=== PATIENT | male | born 1935 | race Caucasian/White ===

== ENCOUNTER 2016-07-04 10:44 | Observation (INO) | payer MEDICARE ==
--- NOTE | 2016-07-04 11:13 | ED ---
Chest Pain HPI - General Stated Complaint: Chest Pain Time Seen by Provider: 07/04/16 10:45 Source: patient, family, RN/MD - History of Present Illness Initial Comments: This patient is a 80-year-old man transferred here from [facility]. I did receive history from the patient, his , and from Dr. Calhoun, the acid dumper who did see the patient. The patient states that he woke this morning and noted that his head was sweaty, and when he lifted his head off the bed he felt that there was some pain in his left chest. He was not sure if he had strained a muscle in lifting his head. He tried to go back to sleep but the pain continued. He describes it as an aching-type pain, mild intensity, constant, and other than the sweatiness she had no other symptoms. When the pain continued he went to the other hospital and was seen there, his case was discussed with acid dumper and he was to be admitted over here for serial cardiac enzymes telemetry monitoring. MD Complaint: chest pain -: hour(s) Onset: during rest Pain Location: left chest Pain Radiation: none Severity: mild Quality: aching Consistency: constant Improves With: nothing Worsens With: nothing Anginal Symptoms: diaphoresis Treatments Prior to Arrival: other - Related Data Home Medications Medication Instructions Recorded Confirmed Diazepam [Valium] 10 mg PO DAILY PRN 07/13/15 07/04/16 Escitalopram Oxalate [Lexapro] 30 mg PO DAILY 07/13/15 07/04/16 Garlic 1 tab PO BID 07/13/15 07/04/16 Lactobacillus Acidophilus 1 tab PO QID 07/13/15 07/04/16 [Acidophilus] Loratadine [Claritin] 10 mg PO DAILY 07/13/15 07/04/16 Metoprolol Tartrate [Lopressor] 50 mg PO BID 07/13/15 07/04/16 Pramipexole [Mirapex] 0.25 mg PO BID 07/13/15 07/04/16 Warfarin [Coumadin] 2.5 mg PO MOFR 07/13/15 07/04/16 Warfarin [Coumadin] 5 mg PO SUTUWETHSA 07/13/15 07/04/16 oxyCODONE HCL/ACETAMINOPHEN 1 tab PO Q6HR PRN 07/13/15 07/04/16 [Percocet 10-325 mg] Cholecalciferol [Vitamin D3] 2,000 unit PO DAILY 07/04/16 07/04/16 Ferrous Gluconate 240 mg PO BID 07/04/16 07/04/16 busPIRone HCl [Buspar] 5 mg PO BID 07/04/16 07/04/16 sitaGLIPtin PHOSPHATE [Januvia] 25 mg PO DAILY 07/04/16 07/04/16 Allergies Allergy/AdvReac Type Severity Reaction Status Date / Time aztreonam [From Azactam] Allergy Unknown Verified 07/04/16 11:19 cephalexin monohydrate Allergy Rash/Hives Verified 07/04/16 11:19 [From Keflex] ciprofloxacin [From Cipro] Allergy Anaphylaxis Verified 07/04/16 11:19 ciprofloxacin HCl Allergy Anaphylaxis Verified 07/04/16 11:19 [From Cipro] Penicillins Allergy Anaphylaxis Verified 07/04/16 11:19 Sulfa (Sulfonamide Allergy Dyspnea Verified 07/04/16 11:19 Antibiotics) adhesive tape AdvReac Rash/Hives Verified 07/04/16 11:19 latex AdvReac Rash/Hives Verified 07/04/16 11:19 Review of Systems ROS Statement: Those systems with pertinent positive or pertinent negative responses have been documented in the HPI. ROS Other: All systems not noted in ROS Statement are negative. Constitutional: Denies: fever, chills Respiratory: Denies: cough, dyspnea, hemoptysis Cardiovascular: Reports: chest pain. Denies: palpitations, orthopnea, edema, syncope Gastrointestinal: Denies: abdominal pain, nausea, vomiting, melena, hematochezia Genitourinary: Denies: dysuria, hematuria Musculoskeletal: Denies: back pain Skin: Denies: rash Neurological: Denies: headache, weakness, numbness Hematological/Lymphatic: Denies: easy bleeding EKG Findings - EKG Comments: EKG Findings:: The patient's underlying rhythm does appear to be atrial flutter with what appears to be a 3-1 conduction. Rate is approximately 85 bpm - EKG Results: EKG: interpreted by RIMA, normal axis, normal QRS, normal ST/T Past Medical History Past Medical History: Atrial Fibrillation, Diabetes Mellitus, Osteoarthritis (OA ) History of Any Multi-Drug Resistant Organisms: None Reported Past Surgical History: Bladder Surgery, Cholecystectomy, Hernia Repair, Joint Replacement, Orthopedic Surgery Additional Past Surgical History / Comment(s): Hx quadruple bypass, colonoscopy , bilateral cataract surgery. Has shaheen from hip to knee on right side. Past Anesthesia/Blood Transfusion Reactions: No Reported Reaction Smoking Status: Former smoker Past Alcohol Use History: None Reported Past Drug Use History: None Reported - Past Family History Mother Family Medical History: AFIB, CVA/TIA, Diabetes Mellitus, Renal Disease Additional Family Medical History / Comment(s): age 88 Father Family Medical History: Pneumonia Additional Family Medical History / Comment(s): age 58 of pneumonia Brother(s) Family Medical History: Coronary Artery Disease (CAD) (Patient has one brother with heart disease requiring surgery.) Son(s) Family Medical History: No Reported History (Patient has one son no major medical problems.) General Exam Limitations: no limitations General appearance: alert, in no apparent distress Head exam: Present: atraumatic, normocephalic Eye exam: Present: normal appearance Neck exam: Present: normal inspection, full ROM Respiratory exam: Present: normal lung sounds bilaterally. Absent: respiratory distress, wheezes, rales, rhonchi, stridor Cardiovascular Exam: Present: regular rate, normal rhythm, normal heart sounds. Absent: bradycardia, tachycardia, systolic murmur, diastolic murmur, rubs, gallop GI/Abdominal exam: Present: soft. Absent: distended, tenderness, guarding, rebound Back exam: Present: normal inspection. Absent: CVA tenderness (R), CVA tenderness (L) Neurological exam: Present: alert Skin exam: Present: warm, dry, intact, normal color. Absent: rash, cyanosis, diaphoretic, erythema, petechiae, pallor, mottled Course Vital Signs 07/04/16 07/04/16 07/04/16 11:11 12:13 13:05 Temperature 98.6 F Pulse Rate 89 91 82 Respiratory 18 15 18 Rate Blood Pressure 125/70 106/59 105/61 O2 Sat by Pulse 98 96 94 L Oximetry 07/04/16 15:25 Temperature 98.1 F Pulse Rate 91 Respiratory 18 Rate Blood Pressure 119/62 O2 Sat by Pulse 97 Oximetry Disposition Clinical Impression: Acute coronary syndrome, Hyperkalemia, Renal failure Disposition: ADMITTED IP TO THIS HOSP Condition: Fair
[2016-07-04 11:29] LABS: Basophils # (A) 0.3 k/uL (0-0.2); Basophils % (A) 2 %; CH 29.9; CHCM 32.9; Eosinophils # (A) 0.3 k/uL (0-0.7); Eosinophils % (A) 2 %; HCT 40.5 % (39.0-53.0); HDW 2.87; HGB 12.9 gm/dL (13.0-17.5); Luc # (Auto) 0.33; Luc % (Auto) 2; Lymphocytes # (A) 1.7 k/uL (1.0-4.8); Lymphocytes % (A) 9 %; MCH 29.2 pg (25.0-35.0); MCHC 31.8 g/dL (31.0-37.0); MCV 91.8 fL (80.0-100.0); Mean Platelet Volume 9.1; Monocytes # (A) 0.9 k/uL (0-1.0); Monocytes % (A) 5 %; Neutrophils # (A) 15.7 k/uL (1.3-7.7); Neutrophils % (A) 82 %; RBC 4.41 m/uL (4.30-5.90); RDW 14.6 % (11.5-15.5); WBC 19.3 k/uL (3.8-10.6); WBC (Perox) 19.85
[2016-07-04 11:39] LABS: INR 2.1 (<1.1); Partial Thromboplastin Time 27.5 sec (22.0-30.0); Prothrombin Time 20.2 sec (9.0-12.0)
[2016-07-04 11:41] LABS: Calcium 9.5 mg/dL (8.4-10.2); Magnesium 1.7 mg/dL (1.6-2.3); Potassium 5.8 mmol/L (3.5-5.1); Total Bilirubin 0.6 mg/dL (0.2-1.3); Total Protein 7.4 g/dL (6.3-8.2)
[2016-07-04] MEDS ORDERED: SODIUM POLYSTYRENE SULFONATE 15 GM/60 ML BOTTLE PO STA (11:47)
[2016-07-04 12:06] LABS: Creatine Kinase MB 1.3 ng/mL (0.0-2.4); Troponin I 0.014 ng/mL (0.000-0.034)
[2016-07-04] MEDS ORDERED: NITROGLYCERIN-D5W PMX 50 MG in DEXTROSE/WATER 1 250ML.BAG IV SCH (12:45)
[2016-07-04] MEDS ORDERED: NITROGLYCERIN OINT 1 INCH/GM PACKET TOPICAL STA (13:51)
[2016-07-04] MEDS ORDERED: oxyCODONE-APAP 10-325MG 1 EACH TAB PO PRN (16:04)
[2016-07-04] MEDS ORDERED: DIAZEPAM 5 MG TAB PO PRN (16:04)
[2016-07-04] MEDS: LINAGLIPTIN 5 MG TABLET PO SCH (16:39)
[2016-07-04] MEDS: ESCITALOPRAM 10 MG TAB PO SCH (16:39)
[2016-07-04] MEDS: LORATADINE 10 MG TAB PO SCH (16:39)
[2016-07-04 17:21] LABS: Glucose,Whole Blood 107 mg/dL (75-99)
[2016-07-04] MEDS: INSULIN LISPRO (humaLOG) 300 UNIT/3 ML VIAL SQ SCH ×2 (17:22→21:12)
--- NOTE | 2016-07-04 17:33 | P.HPIM ---
History of Present Illness H&P Date: 07/04/16 Chief Complaint: Unstable angina. This is a 80-year-old male one of my patient with a previous medical history significant for CAD post CABG x5, hypertension and hypertensive cardiovascular disease, chronic atrial flutter ablation, diabetes mellitus type 2 with diabetic polyneuropathy, chronic kidney disease stage III, obesity with obstructive sleep apnea, hypogonadism, diverticulosis, GERD with hiatal hernia, left adrenal adenoma, patient apparently wokeup last night and he had perfuse sweating at that time. He ended up sitting up in bed and he woke up at around 5 :00 in the morning complaining of left-sided chest pain he thought that he pulled a muscle in his left chest he called his and his to come to the emergency department at [facility] where he had an EKG that showed atrial flutter with nonspecific ST-T wave changes, he was seen and evaluated by Dr. Strong from cardiology and the decision was made to transfer the patient to [facility] for possible left heart catheterization. I saw the patient along with Dr. Oliveira the emergency department he was chest pain -free his EKG showed atrial flutter without any specific changes, and the patient cardiac enzymes were negative 2 subsequent he would be admitted to the hospital for overnight and he was discharged home the next 24 hours after obtaining a Lexiscan Cardiolite stress test tomorrow morning. Review of Systems Constitutional: Reports weakness, Denies chills, Denies chronic headaches, Denies lethargy, Denies malaise, Denies weight gain, Denies weight loss Eyes: denies blurred vision, denies bulging eye, denies decreased vision, denies diplopia, denies discharge Ears: bilateral: decreased hearing Ears, nose, mouth and throat: Denies dysphagia, Denies neck lump, Denies swelling in throat, Denies sore throat Cardiovascular: Reports chest pain, Reports dyspnea on exertion, Reports high blood pressure, Reports irregular heart beat, Reports palpitations, Reports shortness of breath, Denies syncope Respiratory: Reports dyspnea, Reports sleep apnea, Denies congestion, Denies cough, Denies cough with sputum, Denies home oxygen, Denies pain, Denies snoring , Denies wheezing Gastrointestinal: Denies abdominal pain, Denies belching, Denies BRBPR, Denies heartburn, Denies melena, Denies nausea, Denies vomiting Genitourinary: Reports nocturia, Denies dysuria Musculoskeletal: Denies myalgias Musculoskeletal: absent: ankle pain, ankle stiffness, ankle swelling, elbow pain , elbow stiffness, elbow swelling, foot pain, foot stiffness, foot swelling, hand pain, hand stiffness, hand swelling, hip pain, hip stiffness, hip swelling , knee pain, knee stiffness, knee swelling, shoulder pain, shoulder stiffness, shoulder swelling, wrist pain, wrist stiffness, wrist swelling Integumentary: Denies pruritus, Denies rash Neurological: Denies numbness, Denies weakness Psychiatric: Denies anxiety, Denies depression Endocrine: Denies fatigue, Denies weight change Past Medical History Past Medical History: Atrial Fibrillation, Atrial Flutter, Coronary Artery Disease (CAD), Diabetes Mellitus, GERD/Reflux, Hyperlipidemia, Hypertension, Osteoarthritis (OA), Renal Disease, Sleep Apnea/CPAP/BIPAP, Thyroid Disorder Additional Past Medical History / Comment(s): CAD post CABG 5 in 2000, chronic kidney disease stage III, atrial fibrillation, atrial flutter, depression, diabetes mellitus type 2, diabetic polyneuropathy, hypertension, hyper lipidemia , obstructive sleep apnea, osteoarthritis, restless leg syndrome, hypogonadism, diverticulosis, GERD with hiatal hernia, left adrenal adenoma, renal stone of the right kidney, depression. History of Any Multi-Drug Resistant Organisms: None Reported Past Surgical History: Bladder Surgery, Cholecystectomy, Hernia Repair, Joint Replacement, Orthopedic Surgery Additional Past Surgical History / Comment(s): Hx quadruple bypass 2000., colonoscopy, bilateral cataract surgery. Has shaheen from hip to knee on right side , right ankle surgery, cholecystectomy, hernia repair, hematomata removed from the left lower extremity with 1 to [place], perforated diverticulum with surgical intervention, tonsillectomy and adenoidectomy, femur fracture ORIF, PICC line placement and removal, hernia repair. Past Anesthesia/Blood Transfusion Reactions: No Reported Reaction Past Psychological History: Depression Smoking Status: Former smoker (Patient used to smoke about pack every day for 5 years and quit over 25 years ago.) Past Alcohol Use History: None Reported Past Drug Use History: None Reported - Past Family History Mother Family Medical History: AFIB, CVA/TIA, Diabetes Mellitus, Myocardial Infarction (ME) (Mother at age of 88 from myocardial infarction and also had history of diabetes mellitus type 2, atrial fibrillation, and renal disease.), Renal Disease Additional Family Medical History / Comment(s): age 88 Father Family Medical History: Myocardial Infarction (ME) (Father at the age of 58 from myocardial infarction and pneumonia.), Pneumonia Additional Family Medical History / Comment(s): age 58 of pneumonia Brother(s) Family Medical History: Coronary Artery Disease (CAD) (Patient has one brother with heart disease requiring surgery.) Son(s) Family Medical History: No Reported History (Patient has one son no major medical problems.) Medications and Allergies Home Medications Medication Instructions Recorded Confirmed Type Diazepam [Valium] 10 mg PO DAILY PRN 07/13/15 07/04/16 History Escitalopram Oxalate [Lexapro] 30 mg PO DAILY 07/13/15 07/04/16 History Garlic 1 tab PO BID 07/13/15 07/04/16 History Lactobacillus Acidophilus 1 tab PO QID 07/13/15 07/04/16 History [Acidophilus] Loratadine [Claritin] 10 mg PO DAILY 07/13/15 07/04/16 History Metoprolol Tartrate [Lopressor] 50 mg PO BID 07/13/15 07/04/16 History Pramipexole [Mirapex] 0.25 mg PO BID 07/13/15 07/04/16 History Warfarin [Coumadin] 2.5 mg PO MOFR 07/13/15 07/04/16 History Warfarin [Coumadin] 5 mg PO SUTUWETHSA 07/13/15 07/04/16 History oxyCODONE HCL/ACETAMINOPHEN 1 tab PO Q6HR PRN 07/13/15 07/04/16 History [Percocet 10-325 mg] Cholecalciferol [Vitamin D3] 2,000 unit PO DAILY 07/04/16 07/04/16 History Ferrous Gluconate 240 mg PO BID 07/04/16 07/04/16 History busPIRone HCl [Buspar] 5 mg PO BID 07/04/16 07/04/16 History sitaGLIPtin PHOSPHATE [Januvia] 25 mg PO DAILY 07/04/16 07/04/16 History Allergies Allergy/AdvReac Type Severity Reaction Status Date / Time aztreonam [From Azactam] Allergy Unknown Verified 07/04/16 11:19 cephalexin monohydrate Allergy Rash/Hives Verified 07/04/16 11:19 [From Keflex] ciprofloxacin [From Cipro] Allergy Anaphylaxis Verified 07/04/16 11:19 ciprofloxacin HCl Allergy Anaphylaxis Verified 07/04/16 11:19 [From Cipro] Penicillins Allergy Anaphylaxis Verified 07/04/16 11:19 Sulfa (Sulfonamide Allergy Dyspnea Verified 07/04/16 11:19 Antibiotics) adhesive tape AdvReac Rash/Hives Verified 07/04/16 11:19 latex AdvReac Rash/Hives Verified 07/04/16 11:19 Physical Exam Vitals: Vital Signs Pulse Resp BP Pulse Ox 07/04/16 12:13 91 15 106/59 96 - Constitutional General appearance: average body habitus, no acute distress - EENT Eyes: anicteric sclerae, PERRLA, no ptosis, no scleral icterus, normal appearance ENT: hearing grossly normal, normal oropharynx, no thrush Ears: bilateral: normal - Neck Neck: no lymphadenopathy, normal ROM, no rigidity, no stridor, no thyromegaly Carotids: bilateral: upstroke normal Thyroid: bilateral: normal size - Respiratory Respiratory: bilateral: diminished, negative: dullness, rales, rhonchi, wheezing , prolonged expiration, prolonged inspiration - Cardiovascular Rhythm: irregularly irregular Heart sounds: normal: S1, S2 Abnormal Heart Sounds: systolic murmur - Gastrointestinal General gastrointestinal: normal bowel sounds, soft, no splenomegaly, no tenderness, no umbilical hernia - Integumentary Integumentary: normal, normal turgor - Neurologic Neurologic: CNII-XII intact - Musculoskeletal Musculoskeletal: generalized weakness, strength equal bilaterally - Psychiatric Psychiatric: A&O x's 3, appropriate affect, intact judgment & insight Results CBC & Chem 7: 07/04/16 11:00 07/04/16 11:00 Thrombosis Risk Factor Assmnt - DVT/VTE Prophylaxis DVT/VTE Prophylaxis: Pharmacologic Prophylaxis ordered Assessment and Plan Plan: Assessment and plan: 1. Left-sided chest pain. Resume the patient metoprolol 50 mg orally twice every day, cardiac enzymes 3 every 8 hours first 2 sets are negative, cardiology consultation for Lexiscan tomorrow morning. If the stress is negative patient can be discharged home in 24 hours. 2. CAD post CABG 5 in 2000. Continue metoprolol 50 mg orally twice every day , patient is not able to tolerate statin. 3. Hypertension and hypertensive cardiovascular disease. Continue patient on metoprolol 50 mg orally twice every day. 4. Diabetes mellitus type 2. Continue linagliptin 5 mg orally once every day. 5. Chronic kidney disease stage III. Stable at this time. 6. Leukocytosis. Likely reactive we'll recheck CBC tomorrow morning. 7. Obesity with obstructive sleep apnea. Continue CPAP. 8. Chronic atrial fibrillation/flutter. Continue metoprolol 50 mg orally twice every day and Coumadin keep his INR between 2-3. 9. History of diverticulosis. Clinically stable. 10. Depressive disorder. Continue patient on Lexapro 30 mg orally once every day. 11. Anxiety disorder. Continue BuSpar 15 mg orally twice every day. 12. Hypogonadism. Patient is currently on testosterone cypionate 200 mg once every 4 weeks. 13. Restless leg syndrome. Continue patient on Mirapex 0.25 mg orally twice every day. 14. Patient is a full code 15. Observation.
[2016-07-04] MEDS ORDERED: WARFARIN 2.5 MG TAB PO SCH (18:00)
[2016-07-04] MEDS: busPIRone HCl 5 MG TAB PO SCH (20:06)
[2016-07-04] MEDS: PRAMIPEXOLE 0.25 MG TAB PO SCH (20:06)
[2016-07-04] MEDS: METOPROLOL TARTRATE 50 MG TAB PO SCH (20:07)
[2016-07-04 20:54] LABS: Glucose,Whole Blood 90 mg/dL (75-99)
[2016-07-05] MEDS ORDERED: REGADENOSON 0.4 MG/5 ML SYRINGE IV ONE (01:00)
[2016-07-05 06:39] LABS: Glucose,Whole Blood 104 mg/dL (75-99)
[2016-07-05 07:59] VITALS: RESP 18
[2016-07-05 08:10] LABS: INR 2.3 (<1.1); Prothrombin Time 21.7 sec (9.0-12.0)
[2016-07-05 08:23] LABS: Calcium 9.9 mg/dL (8.4-10.2); Potassium 5.2 mmol/L (3.5-5.1)
[2016-07-05] MEDS: INSULIN LISPRO (humaLOG) 300 UNIT/3 ML VIAL SQ SCH ×2 (08:37→12:33)
[2016-07-05] MEDS: LORATADINE 10 MG TAB PO SCH (08:42)
[2016-07-05] MEDS: busPIRone HCl 5 MG TAB PO SCH (08:42)
[2016-07-05] MEDS: ESCITALOPRAM 10 MG TAB PO SCH (08:42)
[2016-07-05] MEDS: PRAMIPEXOLE 0.25 MG TAB PO SCH (08:43)
[2016-07-05] MEDS ORDERED: AMINOPHYLLINE 500 MG/20 ML VIAL IV PRN (09:00)
[2016-07-05] MEDS ORDERED: CHOLECALCIFEROL 1,000 UNIT TAB PO SCH (09:00)
--- NOTE | 2016-07-05 11:21 | EST ---
DATE OF SERVICE: 07/05/2016 AGE: 80Y SEX: M HT: 6'0" WT: 252 lbs. Lexiscan Cardiolite Stress Test *Heart Rate Blood Pressure *Rest: 72 Rest: 144/87 * *Max. Achieved: 86 Maximum BP: 138/85 85% PMHR: 121 100% PMHR: 142 *METS: - INDICATIONS: - MEDICATIONS: - Baseline EKG revealed a sinus mechanism with some baseline artifact, minor nonspecific ST-T changes. Patient was administered Lexiscan as per protocol. Heart rate went from 72 to 86 beats and blood pressure changed from 144/88 to 138/85. EKG did not reveal any new changes. By EKG criteria, this is an unremarkable Lexiscan stress test with minor resting changes. The nuclear scan results, which are more pertinent, will be reported by the radiologist.
[2016-07-05 12:17] LABS: Glucose,Whole Blood 95 mg/dL (75-99)
[2016-07-05 12:20] VITALS: BP 173/85; PULSE 119; TEMP 98.3
[2016-07-05] MEDS: METOPROLOL TARTRATE 50 MG TAB PO SCH (12:37)
[2016-07-05] MEDS: LINAGLIPTIN 5 MG TABLET PO SCH (12:38)
--- NOTE | 2016-07-05 13:37 | NM ---
EXAMINATION TYPE: NM stress lexiscan cardiolite DATE OF EXAM: 07/05/2016 11:52 AM COMPARISON: NONE HISTORY: Chest pain TECHNIQUE: After the intravenous administration of 11.0 mCi Tc 99m Sestamibi - Cardiolite resting SP ECT images acquired 45 minutes post injection. The patient received 0.4mg Lexiscan, 25.5 mCi Tc 99m Sestamibi - Stress images obtained [address] injection FINDINGS: Review of stress and rest SPECT images demonstrates decreased uptake along the inferior wall of the l eft ventricular myocardium. Some decreased uptake is present along the inferior wall towards the base of the heart on stress images as compared to rest images. Some increased uptake is questioned along the septum on stress images as compared to rest images towards the base of the heart. Gated analysis shows normal wall motion with an estimated left ventricular ejection fraction of 64 %. 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
--- NOTE | 2016-07-05 15:20 | P.PN ---
Subjective Principal diagnosis: Chest pain This is a 80-year-old gentleman who follows with Dr. Oliveira in the office. He has a known history of coronary artery disease with prior bypass surgery, hypertension, chronic atrial flutter, fibrillation, diabetes, chronic kidney disease, obstructive sleep apnea, patient presented to the hospital with symptoms of left-sided chest pain. He was noted to have some ST-T wave changes on his EKG, and his symptoms are somewhat concerning, he was seen at [facility] and transferred here for possible cardiac catheterization. Upon arrival here patient was evaluated by Dr. Oliveira, recommendation was to undergo a Lexiscan stress test today. Danielle scan revealed prior myocardial infarction, likely. Infarct pharmacologically induced ischemia. Dr. Oliveira reviewed this test himself, and felt that it was fixed defect. Patient will be discharged home today and follow-up with Dr. Oliveira in the office post discharge. Objective - Vital Signs Vital signs: Vital Signs Temp 98.3 F 07/05/16 12:00 Pulse 119 H 07/05/16 12:00 Resp 18 07/05/16 12:00 BP 173/85 07/05/16 12:00 Pulse Ox 95 07/05/16 12:00 Intake & Output 07/04/16 07/05/16 07/05/16 18:59 06:59 18:59 Intake Total 236 200 Balance 236 200 Weight 114.6 kg Intake: Oral 236 200 Other: Voiding Method Toilet # Voids 2 - Exam PHYSICAL EXAMINATION: HEENT: Head is atraumatic, normocephalic. Pupils equal, round. Neck is supple. There is no elevated jugular venous pressure. HEART EXAMINATION: S1 and S2 irregular irregular a systolic murmur is heard. CHEST EXAMINATION: Clear with diminished air entry to bilateral bases. ABDOMEN: Soft, nontender. Bowel sounds are heard. No organomegaly noted. EXTREMITIES: 2+ peripheral pulses with no evidence of peripheral edema and no calf tenderness noted. NEUROLOGIC patient is awake, alert and oriented -3. . - Labs CBC & Chem 7: 07/04/16 11:00 07/05/16 07:32 Labs: Abnormal Lab Results - Last 24 Hours (Table) 07/04/16 07/05/16 07/05/16 Range/Units 16:54 06:38 07:32 PT 21.7 H (9.0-12.0) sec Potassium (3.5-5.1) mmol/L BUN (9-20) mg/dL Creatinine (0.66-1.25) mg/dL Glucose (74-99) mg/dL POC Glucose (mg/dL) 107 H 104 H (75-99) mg/dL 07/05/16 Range/Units 07:32 PT (9.0-12.0) sec Potassium 5.2 H (3.5-5.1) mmol/L BUN 40 H (9-20) mg/dL Creatinine 2.07 H (0.66-1.25) mg/dL Glucose 109 H (74-99) mg/dL POC Glucose (mg/dL) (75-99) mg/dL Assessment and Plan (1) Chest pain Status: Acute (2) Hx of CABG Status: Acute (3) HTN (hypertension) Status: Acute (4) Diabetes Status: Acute (5) Hyperlipemia Status: Acute (6) Obesity Status: Acute (7) Chronic a-fib Status: Acute Plan: From cardiology's perspective, patient may be able to be discharged home today. We will make him a follow-up appointment to see Dr. Oliveira in the office post discharge. DNP note has been reviewed, I agree with a documented findings and plan of care. Patient was seen and examined.
--- NOTE | 2016-07-05 16:09 | P.DS ---
Providers Date of admission: 07/04/16 11:48 Expected date of discharge: 07/05/16 Attending physician: Quintin Neal Primary care physician: Quintin Neal [facility] Course: This is a 80-year-old male one of my patient with a previous medical history significant for CAD post CABG x5, hypertension and hypertensive cardiovascular disease, chronic atrial flutter ablation, diabetes mellitus type 2 with diabetic polyneuropathy, chronic kidney disease stage III, obesity with obstructive sleep apnea, hypogonadism, diverticulosis, GERD with hiatal hernia, left adrenal adenoma, patient apparently wokeup last night and he had perfuse sweating at that time. He ended up sitting up in bed and he woke up at around 5 :00 in the morning complaining of left-sided chest pain he thought that he pulled a muscle in his left chest he called his and his to come to the emergency department at [facility] where he had an EKG that showed atrial flutter with nonspecific ST-T wave changes, he was seen and evaluated by Dr. Strong from cardiology and the decision was made to transfer the patient to [facility] for possible left heart catheterization. I saw the patient along with Dr. Oliveira the emergency department he was chest pain -free his EKG showed atrial flutter without any specific changes, and the patient cardiac enzymes were negative 2 subsequent he would be admitted to the hospital for overnight and he was discharged home the next 24 hours after obtaining a Lexiscan Cardiolite stress test tomorrow morning. 07/05: Patient underwent stress test revealing prior myocardial infarction suspected. There is likely tiara-infarct pharmaceutically induced left ventricular myocardial ischemia. Patient was cleared by cardiology for discharge home. Patient is being discharged home today. He denies any chest pain or shortness of breath. INR is at 2.3. Discharge diagnoses: 1. Left-sided chest pain. 2. CAD post CABG 5 in 2000. 3. Hypertension and hypertensive cardiovascular disease. 4. Diabetes mellitus type 2. 5. Chronic kidney disease stage III. 6. Leukocytosis. 7. Obesity with obstructive sleep apnea. 8. Chronic atrial fibrillation/flutter. 9. History of diverticulosis. 10. Depressive disorder recurrent. 11. Anxiety disorder generalized. 12. Hypogonadism. 13. Restless leg syndrome. Discharge plan: Home Impression and plan of care have been directed as dictated by the signing physician. Juli Convery nurse practitioner acting as scribe for signing physician. Patient Condition at Discharge: Good Plan - Discharge Summary Discharge Medication List Diazepam [Valium] 10 mg PO DAILY PRN 07/13/15 [History] Escitalopram Oxalate [Lexapro] 30 mg PO DAILY 07/13/15 [History] Garlic 1 tab PO BID 07/13/15 [History] Lactobacillus Acidophilus [Acidophilus] 1 tab PO QID 07/13/15 [History] Loratadine [Claritin] 10 mg PO DAILY 07/13/15 [History] Metoprolol Tartrate [Lopressor] 50 mg PO BID 07/13/15 [History] Pramipexole [Mirapex] 0.25 mg PO BID 07/13/15 [History] Warfarin [Coumadin] 2.5 mg PO MOFR 07/13/15 [History] Warfarin [Coumadin] 5 mg PO SUTUWETHSA 07/13/15 [History] oxyCODONE HCL/ACETAMINOPHEN [Percocet 10-325 mg] 1 tab PO Q6HR PRN 07/13/15 [ History] Cholecalciferol [Vitamin D3] 2,000 unit PO DAILY 07/04/16 [History] Ferrous Gluconate 240 mg PO BID 07/04/16 [History] busPIRone HCl [Buspar] 5 mg PO BID 07/04/16 [History] sitaGLIPtin PHOSPHATE [Januvia] 25 mg PO DAILY 07/04/16 [History] Follow up Appointment(s)/Referral(s): Ash Oliveira MD [STAFF PHYSICIAN] - 1 Week (July 25, 10:30) Quintin Neal MD [Primary Care Provider] - 1 Week Patient Instructions/Handouts: Chest Pain (GEN), Hyperkalemia (GEN) Activity/Diet/Wound Care/Special Instructions: low fat/low salt diet activity as tolerated Discharge Disposition: HOME SELF-CARE
[2016-07-05] MEDS ORDERED: WARFARIN 5 MG TAB PO SCH (18:00)
== END 2016-07-05 15:44 | disposition home or self-care (01) ==
LOC: EC 10:44 → 6SEL 11:48 → 6ICU 12:30 → 3OBS 13:54
PROVIDERS: ADMIT Internal Medicine; ATTEND Internal Medicine
DX: R07.89 Other chest pain (principal); I25.10 Atherosclerotic heart disease of native coronary artery without angina pectoris; I13.10 Hypertensive heart and chronic kidney disease without heart failure, with stage 1 through stage 4 chronic kidney disease, or unspecified chronic kidney disease; N18.3 Chronic kidney disease, stage 3 (moderate); E11.42 Type 2 diabetes mellitus with diabetic polyneuropathy; D72.829 Elevated white blood cell count, unspecified; E66.9 Obesity, unspecified; G47.33 Obstructive sleep apnea (adult) (pediatric); I48.92 Unspecified atrial flutter; I48.2 Chronic atrial fibrillation; K57.90 Diverticulosis of intestine, part unspecified, without perforation or abscess without bleeding; F32.9 Major depressive disorder, single episode, unspecified; F41.9 Anxiety disorder, unspecified; E29.1 Testicular hypofunction; Z68.34 Body mass index [BMI] 34.0-34.9, adult; K21.9 Gastro-esophageal reflux disease without esophagitis; E78.5 Hyperlipidemia, unspecified; G25.81 Restless legs syndrome; M19.90 Unspecified osteoarthritis, unspecified site; F41.1 Generalized anxiety disorder; Z87.891 Personal history of nicotine dependence; Z95.1 Presence of aortocoronary bypass graft; Z79.01 Long term (current) use of anticoagulants; Z79.899 Other long term (current) drug therapy; Z88.1 Allergy status to other antibiotic agents; Z88.0 Allergy status to penicillin; Z88.2 Allergy status to sulfonamides; Z82.49 Family history of ischemic heart disease and other diseases of the circulatory system; Z99.89 Dependence on other enabling machines and devices
CPT/HCPCS: 99285; 96365; 96366 ×4; 36415; 93005; 93017; 80053; 80048; 82550; 82553; 83735; 84484; 85025; 85610 ×2; 85730; 78452; G0378 ×4; A9500; J2785

== ENCOUNTER 2016-09-20 11:41 | Day surgery (SDC) | payer MEDICARE ==
[2016-09-16 10:28] VITALS: BMI 35.4
[~2016-09-20 11:41] MED LIST: LACTATED RINGERS 1,000 ML IV SCH
[2016-09-20 12:34] VITALS: RESP 18; TEMP 97.1
[2016-09-20] MEDS ORDERED: LIDOCAINE 1% 20 ML VIAL (10MG/ML) FOR IV START INTRADERMA ONE (12:36)
[2016-09-20] MEDS ORDERED: PROPOFOL 10 MG/ML 20 ML VIAL IV ONE (12:37)
[2016-09-20 12:52] LABS: Glucose,Whole Blood 146 mg/dL (75-99)
[2016-09-20 13:35] VITALS: BP 145/75; PULSE 83
[2016-09-20 14:43] LABS: CH 29.7; CHCM 32.7; HCT 38.4 % (39.0-53.0); HDW 3.13; HGB 12.4 gm/dL (13.0-17.5); Immature Gran Flag Marked; MCH 29.6 pg (25.0-35.0); MCHC 32.3 g/dL (31.0-37.0); MCV 91.5 fL (80.0-100.0); RBC 4.19 m/uL (4.30-5.90); RDW 14.8 % (11.5-15.5); WBC (Perox) 37.79
[2016-09-20 14:51] LABS: WBC 36.2 k/uL (3.8-10.6)
[2016-09-20 15:38] LABS: Add Differential Manual Differential
[2016-09-20 15:40] LABS: Band Neutrophils % 0.5 %; Nucleated Red Blood Cells 0 /100 WBC (0-0); Promyelocytes % 0.5 %; Total Cells Counted 200
--- NOTE | 2016-09-20 21:10 | PCN ---
DATE OF PROCEDURE: 09/20/2016. PREOPERATIVE DIAGNOSIS: Leukocytosis. POSTOPERATIVE DIAGNOSIS: Leukocytosis. ANESTHESIA: Local with IV systemic sedation. DETAIL: Utilizing sterile technique, the skin overlying the right iliac crest was prepared with Betadine and alcohol. After adequate sterile draping, 2% lidocaine and systemic sedation, size 11, 4 inches Jamshidi needle was utilized to access the periosteum with ease. A total of 15 mL of aspirate as well as crushed 4 mm bone core biopsies were obtained. The patient tolerated the procedure very well. There were no immediate procedure related complications. Total blood loss 2 mL. Results pending.
== END 2016-09-20 14:04 | disposition home or self-care (01) ==
LOC: OR 11:41
PROVIDERS: ATTEND Internal Medicine Hematology & Oncology
DX: C94.6 Myelodysplastic disease, not elsewhere classified (principal); D72.828 Other elevated white blood cell count; D64.9 Anemia, unspecified; I48.91 Unspecified atrial fibrillation; Z79.01 Long term (current) use of anticoagulants; E11.9 Type 2 diabetes mellitus without complications; Z79.84 Long term (current) use of oral hypoglycemic drugs; F32.9 Major depressive disorder, single episode, unspecified; N18.9 Chronic kidney disease, unspecified; E78.5 Hyperlipidemia, unspecified; I25.10 Atherosclerotic heart disease of native coronary artery without angina pectoris; Z87.891 Personal history of nicotine dependence; Z79.899 Other long term (current) drug therapy; Z88.1 Allergy status to other antibiotic agents; Z91.040 Latex allergy status; Z88.0 Allergy status to penicillin; Z88.2 Allergy status to sulfonamides; Z91.09 Other allergy status, other than to drugs and biological substances
CPT/HCPCS: 85025; 38221; J2704; G0364

== ENCOUNTER 2018-05-31 17:27 | Inpatient (IN) | payer MEDICARE ==
[2018-05-31] MEDS ORDERED: SODIUM CHLORIDE 0.9% 500 ML 500 ML IV ONE (18:01)
--- NOTE | 2018-05-31 18:43 | ED ---
Extremity Problem HPI - General Source: patient Mode of arrival: wheelchair Limitations: no limitations <Jayda Concepcion - Last Filed: 06/01/18 00:56> <Wiley Springer - Last Filed: 06/01/18 07:02> - General Chief complaint: Extremity Problem,Nontraumatic Stated complaint: wounds Time Seen by Provider: 05/31/18 17:52 - History of Present Illness Initial comments: 82-year-old male patient with past medical history significant for multiple complex medical conditions including renal failure, coronary artery disease, atrial fibrillation, and chronic leukemia currently receiving immunosuppressive drugs presents to the emergency department today for evaluation of swelling, erythema, and weeping from the bilateral lower extremities. Family member states that patient has had redness and excoriation to the legs for the last few weeks however yesterday they started draining a lot of fluid. States that she has had to apply adult diapers to the legs which have become saturated in a short period of time. Patient states that his legs are painful. He does have a similar type rash to the right forearm which developed after sustaining a skin tear during a fall. Patient denies any fever or chills with this. Patient does have vascular insufficiency. He has multiple antibiotic ALLERGIES so his physician told him to present here for IV antibiotics. Patient denies any recent shortness breath, chest pain, abdominal pain, nausea, vomiting, diarrhea, constipation, back pain, numbness, tingling, dizziness, weakness, hematuria, dysuria, urinary urgency, urinary frequency, headache, visual changes , or any other complaints. (Jayda Concepcion) - Related Data Home Medications Medication Instructions Recorded Confirmed Escitalopram Oxalate [Lexapro] 30 mg PO DAILY 07/13/15 05/31/18 Garlic 1 tab PO BID 07/13/15 05/31/18 Lactobacillus Acidophilus 1 tab PO BID 07/13/15 05/31/18 [Acidophilus] Loratadine [Claritin] 10 mg PO DAILY 07/13/15 05/31/18 Pramipexole [Mirapex] 0.25 mg PO BID 07/13/15 05/31/18 Warfarin [Coumadin] 2.5 mg PO TU 07/13/15 05/31/18 Warfarin [Coumadin] 5 mg PO SUMOWETHFRSA 07/13/15 05/31/18 oxyCODONE HCL/ACETAMINOPHEN 1 tab PO DAILY PRN 07/13/15 05/31/18 [Percocet 10-325 mg] Cholecalciferol [Vitamin D3] 2,000 unit PO BID 07/04/16 05/31/18 sitaGLIPtin PHOSPHATE [Januvia] 25 mg PO DAILY 07/04/16 05/31/18 Iron 27 Mg 27 mg PO BID 09/16/16 05/31/18 Omeprazole [PriLOSEC] 20 mg PO AC-BRKFST 09/16/16 05/31/18 busPIRone HCL 10 mg PO BID 09/16/16 05/31/18 Furosemide [Lasix] 40 mg PO MOWEFR 05/31/18 05/31/18 Imatinib Mesylate 300 mg PO HS 05/31/18 05/31/18 Metoprolol Tartrate 25 mg PO BID 05/31/18 05/31/18 Allergies Allergy/AdvReac Type Severity Reaction Status Date / Time aztreonam [From Azactam] Allergy Unknown Verified 05/31/18 18:44 cephalexin monohydrate Allergy Rash/Hives Verified 05/31/18 18:44 [From Keflex] ciprofloxacin [From Cipro] Allergy Anaphylaxis Verified 05/31/18 18:44 ciprofloxacin HCl Allergy Anaphylaxis Verified 05/31/18 18:44 [From Cipro] doxycycline Allergy Unknown Verified 05/31/18 18:44 Penicillins Allergy Anaphylaxis Verified 05/31/18 18:44 Sulfa (Sulfonamide Allergy Dyspnea Verified 05/31/18 18:44 Antibiotics) adhesive tape AdvReac Rash/Hives Verified 05/31/18 18:44 Iodinated Contrast- Oral and AdvReac KIDNEYS Verified 05/31/18 18:44 IV Dye latex AdvReac Rash/Hives Verified 05/31/18 18:44 Review of Systems ROS Other: All systems not noted in ROS Statement are negative. <Jayda Concepcion - Last Filed: 06/01/18 00:56> ROS Other: All systems not noted in ROS Statement are negative. <Wiley Springer - Last Filed: 06/01/18 07:02> ROS Statement: Those systems with pertinent positive or pertinent negative responses have been documented in the HPI. Past Medical History Past Medical History: Atrial Fibrillation, Atrial Flutter, Coronary Artery Disease (CAD), Cancer, Diabetes Mellitus, GERD/Reflux, Hyperlipidemia, Hypertension, Myocardial Infarction ([place]), Osteoarthritis (OA), Renal Disease, Sleep Apnea/CPAP/BIPAP Additional Past Medical History / Comment(s): KIDNEY DISEASE STAGE 4, NEUROPATHY OF FEET, SLEEP APNEA (NO MACHINE), RLS, HX OF CLOT IN HIS SHOULDER, DIVERTICULOSIS, left adrenal adenoma, renal stone of the right kidney, FREQUENT DIARRHEA, NEW DIAGNOSIS OF CML., STATES ON VIBRAMYCIN FOR UPPER RESPIRATORY INFECTION. Last Myocardial Infarction Date:: 2000 History of Any Multi-Drug Resistant Organisms: VRE Date of last positivie culture/infection: 2011 MDRO Source:: ABD WOUND Past Surgical History: Bladder Surgery, Cholecystectomy, Hernia Repair, Joint Replacement, Orthopedic Surgery Additional Past Surgical History / Comment(s): Hx quadruple bypass, colonoscopy , bilateral cataract surgery. Has shaheen from hip to knee on right side., right ankle plate and screw., Bilateral total knees., exploratory of abd. Past Anesthesia/Blood Transfusion Reactions: No Reported Reaction Past Psychological History: Depression Smoking Status: Former smoker Past Alcohol Use History: None Reported Past Drug Use History: None Reported - Past Family History Mother Family Medical History: AFIB, CVA/TIA, Diabetes Mellitus, Renal Disease Additional Family Medical History / Comment(s): age 88 Father Family Medical History: Pneumonia Additional Family Medical History / Comment(s): age 58 of pneumonia Brother(s) Family Medical History: Coronary Artery Disease (CAD) Son(s) Family Medical History: No Reported History <Jayda Concepcion - Last Filed: 06/01/18 00:56> General Exam Limitations: no limitations General appearance: alert, in no apparent distress, other (This is a well- developed, well-nourished elderly male patient in no acute distress. Vital signs upon presentation are temperature 97.9F, pulse 13, respirations 16, blood pressure 103/69, pulse ox 98% on room air.) Eye exam: Present: normal appearance, PERRL, EOMI. Absent: scleral icterus, conjunctival injection, periorbital swelling ENT exam: Present: normal exam, normal oropharynx, mucous membranes moist Respiratory exam: Present: normal lung sounds bilaterally. Absent: respiratory distress, wheezes, rales, rhonchi, stridor Cardiovascular Exam: Present: regular rate, normal rhythm, normal heart sounds. Absent: systolic murmur, diastolic murmur, rubs, gallop, clicks GI/Abdominal exam: Present: soft, normal bowel sounds. Absent: distended, tenderness, guarding, rebound, rigid Neurological exam: Present: alert, oriented X3, CN II-XII intact Psychiatric exam: Present: normal affect, normal mood Skin exam: Present: warm, dry, intact, normal color. Absent: rash Expanded 1 - Patient has excoriation, erythema, and weeping from the anterior aspects of the bilateral lower legs. No purulent drainage noted. 2 - Right dorsal forearm is erythematous, excoriated <Jayda Concepcion - Last Filed: 06/01/18 00:56> Vital Signs 05/31/18 05/31/18 05/31/18 17:33 18:57 20:15 Temperature 97.9 F 98.1 F Pulse Rate 103 H 98 96 Respiratory 16 20 16 Rate Blood Pressure 103/69 95/66 97/46 O2 Sat by Pulse 98 96 95 Oximetry 05/31/18 05/31/18 22:25 23:17 Temperature 98.3 F Pulse Rate 104 H 82 Respiratory 20 20 Rate Blood Pressure 122/66 123/69 O2 Sat by Pulse 95 98 Oximetry Medical Decision Making - Lab Data Result diagrams: 05/31/18 18:25 05/31/18 18:25 - Radiology Data Radiology results: report reviewed, image reviewed <Jayda Concepcion - Last Filed: 06/01/18 00:56> - Lab Data Result diagrams: 05/31/18 18:25 05/31/18 18:25 <Wiley Springer - Last Filed: 06/01/18 07:02> - Medical Decision Making 82-year-old male patient presents to the emergency department today with complaints of redness and weeping from his bilateral lower extremities. Patient also has erythematous excoriated area to the right forearm. He is afebrile heart rate at 103 upon arrival. Labs reviewed and did reveal hemoglobin of 7.8. BUN 60, creatinine 2.99, glucose 118, alk phos 151, BNP is 2010. Chest x-ray does not show any signs of heart failure. Patient will be admitted for IV antibiotics to treat cellulitis. My attending did discuss the case with Dr. Murdock who accepts admission. (Jayda Concepcion) I saw this patient in conjunction with the physician virtual office assistant. I performed independent history and physical exam. Agree with case management. (Wiley Springer) - Lab Data Lab Results 05/31/18 05/31/18 05/31/18 Range/Units 18:25 18:25 18:25 WBC 6.8 (3.8-10.6) k/uL RBC 2.55 L (4.30-5.90) m/uL Hgb 7.8 L (13.0-17.5) gm/dL Hct 24.8 L (39.0-53.0) % MCV 97.1 (80.0-100.0) fL MCH 30.5 (25.0-35.0) pg MCHC 31.4 (31.0-37.0) g/dL RDW 13.9 (11.5-15.5) % Plt Count 271 (150-450) k/uL Neutrophils % 64 % Lymphocytes % 18 % Monocytes % 7 % Eosinophils % 8 % Basophils % 0 % Neutrophils # 4.3 (1.3-7.7) k/uL Lymphocytes # 1.2 (1.0-4.8) k/uL Monocytes # 0.5 (0-1.0) k/uL Eosinophils # 0.6 (0-0.7) k/uL Basophils # 0.0 (0-0.2) k/uL Hypochromasia Moderate Sodium 139 (137-145) mmol/L Potassium 4.8 (3.5-5.1) mmol/L Chloride 107 (98-107) mmol/L Carbon Dioxide 25 (22-30) mmol/L Anion Gap 7 mmol/L BUN 60 H (9-20) mg/dL Creatinine 2.99 H (0.66-1.25) mg/dL Est GFR (CKD-EPI)AfAm 22 (>60 ml/min/1.73 sqM) Est GFR (CKD-EPI)NonAf 19 (>60 ml/min/1.73 sqM) Glucose 118 H (74-99) mg/dL Plasma Lactic Acid Torito 0.7 (0.7-2.0) mmol/L Calcium 8.9 (8.4-10.2) mg/dL Total Bilirubin 0.5 (0.2-1.3) mg/dL AST 24 (17-59) U/L ALT 23 (21-72) U/L Alkaline Phosphatase 151 H (38-126) U/L NT-Pro-B Natriuret Pep pg/mL Total Protein 6.0 L (6.3-8.2) g/dL Albumin 3.3 L (3.5-5.0) g/dL Blood Type Blood Type Recheck Antibody Screen Spec Expiration Date 05/31/18 05/31/18 Range/Units 18:25 19:26 WBC (3.8-10.6) k/uL RBC (4.30-5.90) m/uL Hgb (13.0-17.5) gm/dL Hct (39.0-53.0) % MCV (80.0-100.0) fL MCH (25.0-35.0) pg MCHC (31.0-37.0) g/dL RDW (11.5-15.5) % Plt Count (150-450) k/uL Neutrophils % % Lymphocytes % % Monocytes % % Eosinophils % % Basophils % % Neutrophils # (1.3-7.7) k/uL Lymphocytes # (1.0-4.8) k/uL Monocytes # (0-1.0) k/uL Eosinophils # (0-0.7) k/uL Basophils # (0-0.2) k/uL Hypochromasia Sodium (137-145) mmol/L Potassium (3.5-5.1) mmol/L Chloride (98-107) mmol/L Carbon Dioxide (22-30) mmol/L Anion Gap mmol/L BUN (9-20) mg/dL Creatinine (0.66-1.25) mg/dL Est GFR (CKD-EPI)AfAm (>60 ml/min/1.73 sqM) Est GFR (CKD-EPI)NonAf (>60 ml/min/1.73 sqM) Glucose (74-99) mg/dL Plasma Lactic Acid Torito (0.7-2.0) mmol/L Calcium (8.4-10.2) mg/dL Total Bilirubin (0.2-1.3) mg/dL AST (17-59) U/L ALT (21-72) U/L Alkaline Phosphatase (38-126) U/L NT-Pro-B Natriuret Pep 2010 pg/mL Total Protein (6.3-8.2) g/dL Albumin (3.5-5.0) g/dL Blood Type O Positive Blood Type Recheck No Antibody Screen NEGATIVE Spec Expiration Date 06/03/2018 - 2326 - Radiology Data Two-view x-ray of the chest is obtained. Sternal sutures and mediastinal clips are noted. The cardiac silhouette is mildly enlarged. Lungs are clear. Pleural spaces are negative. The skeletal structures and soft tissues are negative for acute findings. Impression by Dr. Kat Bailon shows no acute process. (Jayda Concepcion) Disposition Decision to Admit Reason: Admit from EC Decision Date: 05/31/18 Decision Time: 22:11 <Jayda Concepcion - Last Filed: 06/01/18 00:56> <Wiley Springer - Last Filed: 06/01/18 07:02> Clinical Impression: Cellulitis, Lower extremity edema Disposition: ADMITTED IP TO THIS [facility] Condition: Serious
[2018-05-31 18:46] LABS: Basophils % (A) 0 %; Eosinophils # (A) 0.6 k/uL (0-0.7); Eosinophils % (A) 8 %; HCT 24.8 % (39.0-53.0); HGB 7.8 gm/dL (13.0-17.5); Hypochromasia Moderate; Lymphocytes # (A) 1.2 k/uL (1.0-4.8); Lymphocytes % (A) 18 %; MCH 30.5 pg (25.0-35.0); MCHC 31.4 g/dL (31.0-37.0); MCV 97.1 fL (80.0-100.0); Monocytes # (A) 0.5 k/uL (0-1.0); Monocytes % (A) 7 %; Neutrophils # (A) 4.3 k/uL (1.3-7.7); Neutrophils % (A) 64 %; Platelet Count 271 k/uL (150-450); RBC 2.55 m/uL (4.30-5.90); RDW 13.9 % (11.5-15.5); WBC 6.8 k/uL (3.8-10.6)
[2018-05-31 19:02] LABS: Albumin 3.3 g/dL (3.5-5.0); Calcium 8.9 mg/dL (8.4-10.2); Potassium 4.8 mmol/L (3.5-5.1); Total Bilirubin 0.5 mg/dL (0.2-1.3)
--- NOTE | 2018-05-31 21:53 | XR ---
EXAMINATION: XR chest 2V DATE AND TIME: 05/31/2018 9:31 PM CLINICAL INDICATION: PHH; Pain TECHNIQUE: Departmental protocol COMPARISON: 10/22/2010 FINDINGS: Sternal sutures and mediastinal clips. The cardiac silhouette is mildly enlarged. The lungs are clear. The pleural spaces are negative. The skeletal structures and soft tissues are negative for acute findings. IMPRESSION: NO ACUTE PROCESS.
[2018-05-31] MEDS ORDERED: ACETAMINOPHEN TAB 325 MG TAB PO PRN (22:09)
[2018-05-31] MEDS ORDERED: NALOXONE 0.4 MG/ML 1 ML VIAL IV PRN (22:09)
[2018-05-31] MEDS ORDERED: VANCOMYCIN IV PER PHARMACY 1 EACH MISC MISCELLANE PRN (22:18)
[2018-05-31] MEDS ORDERED: VANCOMYCIN 1,500 MG in SODIUM CHLORIDE 0.9% 250 ML IVPB STA (22:25)
[2018-05-31] MEDS ORDERED: oxyCODONE-APAP 10-325MG 1 EACH TAB PO PRN (23:07)
[2018-06-01] MEDS: WARFARIN 5 MG TAB PO SCH ×2 (01:25→17:12)
[2018-06-01 07:32] LABS: Glucose,Whole Blood 93 mg/dL (75-99)
[2018-06-01 07:49] LABS: Basophils % (A) 0 %; Eosinophils # (A) 0.5 k/uL (0-0.7); Eosinophils % (A) 9 %; HCT 23.5 % (39.0-53.0); HGB 7.3 gm/dL (13.0-17.5); Hypochromasia Moderate; Lymphocytes % (A) 17 %; MCH 30.4 pg (25.0-35.0); Mean Platelet Volume 7.6; Monocytes # (A) 0.6 k/uL (0-1.0); Monocytes % (A) 10 %; Neutrophils # (A) 3.7 k/uL (1.3-7.7); Neutrophils % (A) 62 %; Platelet Count 258 k/uL (150-450); RBC 2.39 m/uL (4.30-5.90); RDW 13.8 % (11.5-15.5)
[2018-06-01 08:00] LABS: INR 2.8 (<1.2); Prothrombin Time 27.3 sec (9.0-12.0)
[2018-06-01] MEDS: INSULIN ASPART 100 UNIT/ML 1 ML 10 ML VIAL SQ SCH ×4 (08:14→22:49)
[2018-06-01 08:16] LABS: Potassium 4.8 mmol/L (3.5-5.1)
[2018-06-01] MEDS: LACTOBACILLUS ACIDOPH & BULGAR 1 EACH PACKET PO SCH ×2 (08:17→23:01)
[2018-06-01] MEDS: FUROSEMIDE 40 MG TAB PO SCH (08:18)
[2018-06-01] MEDS: PANTOPRAZOLE 40 MG TABLET PO SCH (08:18)
[2018-06-01] MEDS: LORATADINE 10 MG TAB PO SCH (08:18)
[2018-06-01] MEDS: LINAGLIPTIN 5 MG TABLET PO SCH (08:18)
[2018-06-01] MEDS: ESCITALOPRAM 10 MG TAB PO SCH (08:18)
[2018-06-01] MEDS: PRAMIPEXOLE 0.25 MG TAB PO SCH ×2 (08:18→23:05)
[2018-06-01] MEDS: busPIRone HCl 10 MG TAB PO SCH ×2 (08:18→23:02)
[2018-06-01] MEDS: CHOLECALCIFEROL 1,000 UNIT TAB PO SCH ×2 (08:18→23:02)
[2018-06-01] MEDS: METOPROLOL TARTRATE 25 MG TAB PO SCH ×2 (08:19→23:07)
[2018-06-01] MEDS ORDERED: IRON 27 MG PO SCH (09:00)
[2018-06-01] MEDS ORDERED: NON-FORMULARY DRUG (Garlic [Garlic] 1 TAB) PO SCH (09:00)
[2018-06-01 11:25] LABS: Glucose,Whole Blood 95 mg/dL (75-99)
[2018-06-01] MEDS ORDERED: VANCOMYCIN IV PER PHARMACY 1 EACH MISC MISCELLANE SCH (11:30)
[2018-06-01] MEDS ORDERED: VANCOMYCIN 1,500 MG in SODIUM CHLORIDE 0.9% 250 ML IVPB ONE (12:00)
[2018-06-01] MEDS: MORPHINE SULFATE 2 MG/ML SYRINGE IVP PRN (13:48)
--- NOTE | 2018-06-01 14:03 | P.HPIM ---
History of Present Illness H&P Date: 06/01/18 This is an 82-year-old male patient of Dr. Neal with a previous medical history significant for CAD post CABG x5, hypertension and hypertensive cardiovascular disease, chronic atrial flutter ablationon chronic Coumadin, diabetes mellitus type 2 with diabetic polyneuropathy, chronic kidney disease stage IV, obesity with obstructive sleep apnea, hypogonadism, diverticulosis, GERD with hiatal hernia, left adrenal adenoma, CML. Patient gives history of having a fall about 5-6 weeks ago at which time he injured his right forearmwith bruising and skin tear. He had a another fall about one and half to 2 weeks after that causing bruising to the right side of his face.he has been using Silvadene to bilateral lower extremity cellulitis and right arm cellulitis. He saw TRENA High at Dr. Neal's office and there was concern for ALLERGIC reaction to Silvadene along with cellulitis with weeping from the soft tissue and patient was sent into [facility] emergency center.patient denies having any fever or chills, shortness of breath, chest pain, nausea vomiting diarrhea.hemoglobin 7.8, BUN 60 creatinine 2.99, blood sugar 118. White count was normal, lactic acid 0.7, alkaline phosphatase 151.proBNP 2010. chest x-ray showed no acute process. Patient was admitted to the [facility] floor after receiving 1 dose of vancomycin. Subsequently, consult with Dr. Parks added for antibiotic recommendations and local wound care. Patient denies having any trouble with his memory. He normally ambulates with a walker in his home and uses crutches when he leaves his home. He lives at home with his and she is gone from the home all day for work. Review of Systems All systems: negative Constitutional: Reports fatigue, Reports weakness, Denies anorexia, Denies chills, Denies fever, Denies poor appetite, Denies weight loss Eyes: denies blurred vision, denies pain Ears, nose, mouth and throat: Denies dysphagia, Denies headache, Denies hoarseness, Denies sore throat, Denies vertigo Cardiovascular: Reports leg edema, Denies chest pain, Denies decreased exercise tolerance, Denies dyspnea on exertion, Denies lightheadedness, Denies palpitations, Denies shortness of breath, Denies syncope Respiratory: Denies cough, Denies cough with sputum, Denies dyspnea, Denies excessive sputum, Denies hemoptysis, Denies home oxygen, Denies wheezing Gastrointestinal: Denies abdominal pain, Denies diarrhea, Denies loss of appetite, Denies melena, Denies nausea, Denies vomiting Genitourinary: Denies dysuria, Denies flank pain, Denies urinary frequency Musculoskeletal: Reports frequent falls, Reports gait dysfunction, Reports muscle weakness, Denies myalgias Integumentary: Reports color changes, Reports darkening of skin, Reports wounds , Denies pruritus, Denies rash Neurological: Reports gait dysfunction, Reports weakness, Denies aphasia, Denies change in mentation, Denies change in speech, Denies confusion, Denies numbness, Denies seizures, Denies vertigo Psychiatric: Denies anxiety, Denies depression Endocrine: Denies fatigue, Denies weight change Past Medical History Past Medical History: Atrial Fibrillation, Atrial Flutter, Coronary Artery Disease (CAD), Cancer, Diabetes Mellitus, GERD/Reflux, Hyperlipidemia, Hypertension, Myocardial Infarction (CO), Osteoarthritis (OA), Renal Disease, Sleep Apnea/CPAP/BIPAP Additional Past Medical History / Comment(s): KIDNEY DISEASE STAGE 4, NEUROPATHY OF FEET, SLEEP APNEA (NO MACHINE), RLS, HX OF CLOT IN HIS SHOULDER, DIVERTICULOSIS, left adrenal adenoma, renal stone of the right kidney, FREQUENT DIARRHEA, NEW DIAGNOSIS OF CML., STATES ON VIBRAMYCIN FOR UPPER RESPIRATORY INFECTION. Last Myocardial Infarction Date:: 2000 History of Any Multi-Drug Resistant Organisms: VRE Date of last positivie culture/infection: 2011 MDRO Source:: ABD WOUND Past Surgical History: Bladder Surgery, Cholecystectomy, Hernia Repair, Joint Replacement, Orthopedic Surgery Additional Past Surgical History / Comment(s): Hx quadruple bypass, colonoscopy , bilateral cataract surgery. Has shaheen from hip to knee on right side., right ankle plate and screw., Bilateral total knees., exploratory of abd. Past Anesthesia/Blood Transfusion Reactions: No Reported Reaction Past Psychological History: Depression Smoking Status: Former smoker Past Alcohol Use History: None Reported Additional Past Alcohol Use History / Comment(s): patient was smoker a pack per day for 5 years and quit 25-30 years ago. Patient uses a walker to ambulate in his home and crutches when he leaves his home. He lives with his and she is 24 years younger than him. She currently works outside the home and is gone most the day. 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 There are no pets in the home. Past Drug Use History: None Reported - Past Family History Mother Family Medical History: AFIB, CVA/TIA, Diabetes Mellitus, Renal Disease Additional Family Medical History / Comment(s): age 88 Father Family Medical History: Pneumonia Additional Family Medical History / Comment(s): age 58 of pneumonia Brother(s) Family Medical History: Coronary Artery Disease (CAD) Son(s) Family Medical History: No Reported History Additional Family Medical History / Comment(s): patient has one son with no major medical problems. Medications and Allergies Home Medications Medication Instructions Recorded Confirmed Type Escitalopram Oxalate [Lexapro] 30 mg PO DAILY 07/13/15 05/31/18 History Garlic 1 tab PO BID 07/13/15 05/31/18 History Lactobacillus Acidophilus 1 tab PO BID 07/13/15 05/31/18 History [Acidophilus] Loratadine [Claritin] 10 mg PO DAILY 07/13/15 05/31/18 History Pramipexole [Mirapex] 0.25 mg PO BID 07/13/15 05/31/18 History Warfarin [Coumadin] 2.5 mg PO TU 07/13/15 05/31/18 History Warfarin [Coumadin] 5 mg PO SUMOWETHFRSA 07/13/15 05/31/18 History oxyCODONE HCL/ACETAMINOPHEN 1 tab PO DAILY PRN 07/13/15 05/31/18 History [Percocet 10-325 mg] Cholecalciferol [Vitamin D3] 2,000 unit PO BID 07/04/16 05/31/18 History sitaGLIPtin PHOSPHATE [Januvia] 25 mg PO DAILY 07/04/16 05/31/18 History Iron 27 Mg 27 mg PO BID 09/16/16 05/31/18 History Omeprazole [PriLOSEC] 20 mg PO AC-BRKFST 09/16/16 05/31/18 History busPIRone HCL 10 mg PO BID 09/16/16 05/31/18 History Furosemide [Lasix] 40 mg PO MOWEFR 05/31/18 05/31/18 History Imatinib Mesylate 300 mg PO HS 05/31/18 05/31/18 History Metoprolol Tartrate 25 mg PO BID 05/31/18 05/31/18 History Allergies Allergy/AdvReac Type Severity Reaction Status Date / Time aztreonam [From Azactam] Allergy Unknown Verified 05/31/18 18:44 cephalexin monohydrate Allergy Rash/Hives Verified 05/31/18 18:44 [From Keflex] ciprofloxacin [From Cipro] Allergy Anaphylaxis Verified 05/31/18 18:44 ciprofloxacin HCl Allergy Anaphylaxis Verified 05/31/18 18:44 [From Cipro] doxycycline Allergy Unknown Verified 05/31/18 18:44 Penicillins Allergy Anaphylaxis Verified 05/31/18 18:44 Sulfa (Sulfonamide Allergy Dyspnea Verified 05/31/18 18:44 Antibiotics) adhesive tape AdvReac Rash/Hives Verified 05/31/18 18:44 Iodinated Contrast- Oral and AdvReac KIDNEYS Verified 05/31/18 18:44 IV Dye latex AdvReac Rash/Hives Verified 05/31/18 18:44 Physical Exam Vitals: Vital Signs Temp Pulse Pulse Resp BP BP Pulse Ox 06/01/18 05:00 98.1 F 113 H 16 120/65 97 05/31/18 23:54 98.1 F 115 H 20 143/64 97 05/31/18 23:17 98.3 F 82 20 123/69 98 05/31/18 22:25 104 H 20 122/66 95 05/31/18 20:15 98.1 F 96 16 97/46 95 05/31/18 18:57 98 20 95/66 96 05/31/18 17:33 97.9 F 103 H 16 103/69 98 Intake and Output 05/31/18 06/01/18 06/01/18 22:59 06:59 14:59 Intake Total 490 Balance 490 Intake: Intake, IV Titration 250 Amount Vancomycin 1,500 mg In 250 Sodium Chloride 0.9% 250 ml @ 125 mls/hr IVPB ONCE ONE Rx#:[id number] Oral 240 Other: Voiding Method Urinal # Voids 1 Weight 103.873 kg 102.5 kg General appearance: average body habitus, no acute distress - EENT Eyes: anicteric sclerae, PERRLA, no ptosis, no scleral icterus, normal appearance ENT: hearing grossly normal, normal oropharynx, no thrush Ears: bilateral: normal - Neck Neck: no lymphadenopathy, normal ROM, no rigidity, no stridor, no thyromegaly Carotids: bilateral: upstroke normal Thyroid: bilateral: normal size - Respiratory Respiratory: bilateral: diminished, negative: dullness, rales, rhonchi, wheezing , prolonged expiration, prolonged inspiration - Cardiovascular Rhythm: irregularly irregular Heart sounds: normal: S1, S2 Abnormal Heart Sounds: systolic murmur - Gastrointestinal General gastrointestinal: normal bowel sounds, soft, no splenomegaly, no tenderness, no umbilical hernia - Integumentary Integumentary: erythema and weeping to the bilateral lower extremities. No foul odor. No purulent drainage. To the right forearm patient has erythema. No drainage. - Neurologic Neurologic: CNII-XII intact - Musculoskeletal Musculoskeletal: generalized weakness, strength equal bilaterally - Psychiatric Psychiatric: A&O x's 3, appropriate affect, intact judgment & insight Results CBC & Chem 7: 06/01/18 07:25 06/01/18 07:31 Labs: Abnormal Lab Results - Last 24 Hours (Table) 05/31/18 05/31/18 06/01/18 Range/Units 18:25 18:25 07:25 RBC 2.55 L 2.39 L (4.30-5.90) m/uL Hgb 7.8 L 7.3 L (13.0-17.5) gm/dL Hct 24.8 L 23.5 L (39.0-53.0) % PT (9.0-12.0) sec INR (<1.2) Chloride (98-107) mmol/L BUN 60 H (9-20) mg/dL Creatinine 2.99 H (0.66-1.25) mg/dL Glucose 118 H (74-99) mg/dL Alkaline Phosphatase 151 H (38-126) U/L Total Protein 6.0 L (6.3-8.2) g/dL Albumin 3.3 L (3.5-5.0) g/dL 06/01/18 06/01/18 Range/Units 07:25 07:31 RBC (4.30-5.90) m/uL Hgb (13.0-17.5) gm/dL Hct (39.0-53.0) % PT 27.3 H (9.0-12.0) sec INR 2.8 H (<1.2) Chloride 109 H (98-107) mmol/L BUN 56 H (9-20) mg/dL Creatinine 2.72 H (0.66-1.25) mg/dL Glucose (74-99) mg/dL Alkaline Phosphatase (38-126) U/L Total Protein (6.3-8.2) g/dL Albumin (3.5-5.0) g/dL Thrombosis Risk Factor Assmnt - DVT/VTE Prophylaxis DVT/VTE Prophylaxis: Pharmacologic Prophylaxis ordered - Choose All That Apply Each Risk Factor Represents 3 Points: Age 75 years or older Thrombosis Risk Factor Assessment Total Risk Factor Score: 3 Thrombosis Risk Factor Assessment Level: Moderate Risk Assessment and Plan Plan: 1. Cellulitis and possible drug reaction to bilateral lower extremities and right forearm. Vancomycin will be continued until patient is seen by Dr. Parks. Local wound care to be addressed. 2. Frequent falls with gait dysfunction. PT and OT added. 3. CAD post CABG 5 in 2000. Continue metoprolol 25 mg orally twice every day , patient is not able to tolerate statin. 3. Hypertension and hypertensive cardiovascular disease. Continue patient on metoprolol 25 mg orally twice every day. 4. Diabetes mellitus type 2. Continue Januvia/Tradjenta. 5. Chronic kidney disease stage IV. Stable at this time. Avoid nephrotoxic agents. 6. Anemia of chronic disease. Ferritin and TIBC ordered. 7. Obesity with obstructive sleep apnea. Continue CPAP. 8. Chronic atrial fibrillation/flutter. Continue metoprolol 50 mg orally twice every day and Coumadin keep his INR between 2-3. 9. History of diverticulosis. Clinically stable. 10. Recurrent depression. Continue patient on Lexapro 30 mg orally once every day. 11. Generalized anxiety disorder. Continue BuSpar 10 mg orally twice every day. 12. Hypogonadism. 13. Restless leg syndrome. Continue patient on Mirapex 0.25 mg orally twice every day. 14. Patient is a full code Discharge plan: To be determined Impression and plan of care have been directed as dictated by the signing physician. Juli Luna nurse practitioner acting as scribe for signing physician.
--- NOTE | 2018-06-01 14:14 | P.CONS ---
History of Present Illness - Reason for Consult Consult date: 06/01/18 Cellulitis - History of Present Illness This is an 82-year-old male patient with a previous medical history significant for CAD post CABG x5, hypertension and hypertensive cardiovascular disease, chronic atrial flutter ablationon chronic Coumadin, diabetes mellitus type 2 with diabetic polyneuropathy, chronic kidney disease stage IV, obesity with obstructive sleep apnea, hypogonadism, diverticulosis, GERD with hiatal hernia, left adrenal adenoma, CML. Patient gives history of having a fall about 5-6 weeks ago at which time he injured his right forearmwith bruising and skin tear. He had a another fall about one and half to 2 weeks after that causing bruising to the right side of his face.he has been using Silvadene to bilateral lower extremity cellulitis and right arm cellulitis. He saw TRENA High at Dr. Neal's office and there was concern for ALLERGIC reaction to Silvadene along with cellulitis with weeping from the soft tissue and patient was sent into [facility] emergency center. Patient denies having any fever or chills, shortness of breath, chest pain, nausea vomiting diarrhea.hemoglobin 7.8, BUN 60 creatinine 2.99, blood sugar 118. White count was normal, lactic acid 0.7, alkaline phosphatase 151.proBNP 2010. chest x-ray showed no acute process. Patient was admitted to the [facility] floor after receiving 1 dose of vancomycin. Patient denies having any trouble with his memory. He normally ambulates with a walker in his home and uses crutches when he leaves his home. He lives at home with his and she is gone from the home all day for work. Review of Systems All systems: negative Constitutional: Reports fatigue, Reports weakness, Denies anorexia, Denies chills, Denies fever, Denies poor appetite, Denies weight loss Eyes: denies blurred vision, denies pain Ears, nose, mouth and throat: Denies dysphagia, Denies headache, Denies hoarseness, Denies sore throat, Denies vertigo Cardiovascular: Reports leg edema, Denies chest pain, Denies decreased exercise tolerance, Denies dyspnea on exertion, Denies lightheadedness, Denies palpitations, Denies shortness of breath, Denies syncope Respiratory: Denies cough, Denies cough with sputum, Denies dyspnea, Denies excessive sputum, Denies hemoptysis, Denies home oxygen, Denies wheezing Gastrointestinal: Denies abdominal pain, Denies diarrhea, Denies loss of appetite, Denies melena, Denies nausea, Denies vomiting Genitourinary: Denies dysuria, Denies flank pain, Denies urinary frequency Musculoskeletal: Reports frequent falls, Reports gait dysfunction, Reports muscle weakness, Denies myalgias Integumentary: Reports color changes, Reports darkening of skin, Reports wounds , Denies pruritus, Denies rash Neurological: Reports gait dysfunction, Reports weakness, Denies aphasia, Denies change in mentation, Denies change in speech, Denies confusion, Denies numbness, Denies seizures, Denies vertigo Psychiatric: Denies anxiety, Denies depression Endocrine: Denies fatigue, Denies weight change Past Medical History Past Medical History: Atrial Fibrillation, Atrial Flutter, Coronary Artery Disease (CAD), Cancer, Diabetes Mellitus, GERD/Reflux, Hyperlipidemia, Hypertension, Myocardial Infarction (LA), Osteoarthritis (OA), Renal Disease, Sleep Apnea/CPAP/BIPAP Additional Past Medical History / Comment(s): KIDNEY DISEASE STAGE 4, NEUROPATHY OF FEET, SLEEP APNEA (NO MACHINE), RLS, HX OF CLOT IN HIS SHOULDER, DIVERTICULOSIS, left adrenal adenoma, renal stone of the right kidney, FREQUENT DIARRHEA, NEW DIAGNOSIS OF CML., STATES ON VIBRAMYCIN FOR UPPER RESPIRATORY INFECTION. Last Myocardial Infarction Date:: 2000 History of Any Multi-Drug Resistant Organisms: VRE Year Discovered:: 2011 MDRO Source:: ABD WOUND Past Surgical History: Bladder Surgery, Cholecystectomy, Hernia Repair, Joint Replacement, Orthopedic Surgery Additional Past Surgical History / Comment(s): Hx quadruple bypass, colonoscopy , bilateral cataract surgery. Has shaheen from hip to knee on right side., right ankle plate and screw., Bilateral total knees., exploratory of abd. Past Anesthesia/Blood Transfusion Reactions: No Reported Reaction Past Psychological History: Depression Smoking Status: Former smoker Past Alcohol Use History: None Reported Additional Past Alcohol Use History / Comment(s): patient was smoker a pack per day for 5 years and quit 25-30 years ago. Patient uses a walker to ambulate in his home and crutches when he leaves his home. He lives with his and she is 24 years younger than him. She currently works outside the home and is gone most the day. 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 There are no pets in the home. Past Drug Use History: None Reported - Past Family History Mother Family Medical History: AFIB, CVA/TIA, Diabetes Mellitus, Renal Disease Additional Family Medical History / Comment(s): age 88 Father Family Medical History: Pneumonia Additional Family Medical History / Comment(s): age 58 of pneumonia Brother(s) Family Medical History: Coronary Artery Disease (CAD) Son(s) Family Medical History: No Reported History Additional Family Medical History / Comment(s): patient has one son with no major medical problems. Medications and Allergies Home Medications Medication Instructions Recorded Confirmed Type Escitalopram Oxalate [Lexapro] 30 mg PO DAILY 07/13/15 05/31/18 History Garlic 1 tab PO BID 07/13/15 05/31/18 History Lactobacillus Acidophilus 1 tab PO BID 07/13/15 05/31/18 History [Acidophilus] Loratadine [Claritin] 10 mg PO DAILY 07/13/15 05/31/18 History Pramipexole [Mirapex] 0.25 mg PO BID 07/13/15 05/31/18 History Warfarin [Coumadin] 2.5 mg PO TU 07/13/15 05/31/18 History Warfarin [Coumadin] 5 mg PO SUMOWETHFRSA 07/13/15 05/31/18 History oxyCODONE HCL/ACETAMINOPHEN 1 tab PO DAILY PRN 07/13/15 05/31/18 History [Percocet 10-325 mg] Cholecalciferol [Vitamin D3] 2,000 unit PO BID 07/04/16 05/31/18 History sitaGLIPtin PHOSPHATE [Januvia] 25 mg PO DAILY 07/04/16 05/31/18 History Iron 27 Mg 27 mg PO BID 09/16/16 05/31/18 History Omeprazole [PriLOSEC] 20 mg PO AC-BRKFST 09/16/16 05/31/18 History busPIRone HCL 10 mg PO BID 09/16/16 05/31/18 History Furosemide [Lasix] 40 mg PO MOWEFR 05/31/18 05/31/18 History Imatinib Mesylate 300 mg PO HS 05/31/18 05/31/18 History Metoprolol Tartrate 25 mg PO BID 05/31/18 05/31/18 History Allergies Allergy/AdvReac Type Severity Reaction Status Date / Time aztreonam [From Azactam] Allergy Unknown Verified 05/31/18 18:44 cephalexin monohydrate Allergy Rash/Hives Verified 05/31/18 18:44 [From Keflex] ciprofloxacin [From Cipro] Allergy Anaphylaxis Verified 05/31/18 18:44 ciprofloxacin HCl Allergy Anaphylaxis Verified 05/31/18 18:44 [From Cipro] doxycycline Allergy Unknown Verified 05/31/18 18:44 Penicillins Allergy Anaphylaxis Verified 05/31/18 18:44 Sulfa (Sulfonamide Allergy Dyspnea Verified 05/31/18 18:44 Antibiotics) adhesive tape AdvReac Rash/Hives Verified 05/31/18 18:44 Iodinated Contrast- Oral and AdvReac KIDNEYS Verified 05/31/18 18:44 IV Dye latex AdvReac Rash/Hives Verified 05/31/18 18:44 Physical Exam Vitals: Vital Signs Temp Pulse Pulse Resp BP BP Pulse Ox 06/01/18 12:20 98 F 92 20 100/56 93 L 06/01/18 05:00 98.1 F 113 H 16 120/65 97 05/31/18 23:54 98.1 F 115 H 20 143/64 97 05/31/18 23:17 98.3 F 82 20 123/69 98 05/31/18 22:25 104 H 20 122/66 95 05/31/18 20:15 98.1 F 96 16 97/46 95 05/31/18 18:57 98 20 95/66 96 05/31/18 17:33 97.9 F 103 H 16 103/69 98 Intake and Output 05/31/18 06/01/18 06/01/18 22:59 06:59 14:59 Intake Total 490 Balance 490 Intake: Intake, IV Titration 250 Amount Vancomycin 1,500 mg In 250 Sodium Chloride 0.9% 250 ml @ 125 mls/hr IVPB ONCE ONE Rx#:[id number] Oral 240 Other: Voiding Method Urinal # Voids 1 Weight 103.873 kg 102.5 kg General appearance: average body habitus, no acute distress - EENT Eyes: anicteric sclerae, PERRLA, no ptosis, no scleral icterus, normal appearance ENT: hearing grossly normal, normal oropharynx, no thrush Ears: bilateral: normal - Neck Neck: no lymphadenopathy, normal ROM, no rigidity, no stridor, no thyromegaly Carotids: bilateral: upstroke normal Thyroid: bilateral: normal size - Respiratory Respiratory: bilateral: diminished, negative: dullness, rales, rhonchi, wheezing , prolonged expiration, prolonged inspiration - Cardiovascular Rhythm: irregularly irregular Heart sounds: normal: S1, S2 Abnormal Heart Sounds: systolic murmur - Gastrointestinal General gastrointestinal: normal bowel sounds, soft, no splenomegaly, no tenderness, no umbilical hernia - Integumentary Integumentary: erythema and weeping to the bilateral lower extremities. No foul odor. No purulent drainage. To the right forearm patient has erythema. No drainage. - Neurologic Neurologic: CNII-XII intact - Musculoskeletal Musculoskeletal: generalized weakness, strength equal bilaterally - Psychiatric Psychiatric: A&O x's 3, appropriate affect, intact judgment & insight Results Results: Laboratory Results WBC 6.0 k/uL (3.8-10.6) 06/01/18 07:25 RBC 2.39 m/uL (4.30-5.90) L 06/01/18 07:25 Hgb 7.3 gm/dL (13.0-17.5) L 06/01/18 07:25 Hct 23.5 % (39.0-53.0) L 06/01/18 07:25 MCV 98.0 fL (80.0-100.0) 06/01/18 07:25 MCH 30.4 pg (25.0-35.0) 06/01/18 07:25 MCHC 31.0 g/dL (31.0-37.0) 06/01/18 07:25 RDW 13.8 % (11.5-15.5) 06/01/18 07:25 Plt Count 258 k/uL (150-450) 06/01/18 07:25 Neutrophils % 62 % 06/01/18 07:25 Lymphocytes % 17 % 06/01/18 07:25 Monocytes % 10 % 06/01/18 07:25 Eosinophils % 9 % 06/01/18 07:25 Basophils % 0 % 06/01/18 07:25 Neutrophils # 3.7 k/uL (1.3-7.7) 06/01/18 07:25 Lymphocytes # 1.0 k/uL (1.0-4.8) 06/01/18 07:25 Monocytes # 0.6 k/uL (0-1.0) 06/01/18 07:25 Eosinophils # 0.5 k/uL (0-0.7) 06/01/18 07:25 Basophils # 0.0 k/uL (0-0.2) 06/01/18 07:25 Hypochromasia Moderate 06/01/18 07:25 PT 27.3 sec (9.0-12.0) H 06/01/18 07:25 INR 2.8 (<1.2) H 06/01/18 07:25 Sodium 141 mmol/L (137-145) 06/01/18 07:31 Potassium 4.8 mmol/L (3.5-5.1) 06/01/18 07:31 Chloride 109 mmol/L (98-107) H 06/01/18 07:31 Carbon Dioxide 26 mmol/L (22-30) 06/01/18 07:31 Anion Gap 6 mmol/L 06/01/18 07:31 BUN 56 mg/dL (9-20) H 06/01/18 07:31 Creatinine 2.72 mg/dL (0.66-1.25) H 06/01/18 07:31 Est GFR (CKD-EPI)AfAm 24 (>60 ml/min/1.73 sqM) 06/01/18 07:31 Est GFR (CKD-EPI)NonAf 21 (>60 ml/min/1.73 sqM) 06/01/18 07:31 Glucose 91 mg/dL (74-99) 06/01/18 07:31 POC Glucose (mg/dL) 95 mg/dL (75-99) 06/01/18 11:23 POC Glu [employer] LIB[employer] Rickie Ruiz 06/01/18 11:23 Plasma Lactic Acid Torito 0.7 mmol/L (0.7-2.0) 05/31/18 18:25 Calcium 9.0 mg/dL (8.4-10.2) 06/01/18 07:31 Total Bilirubin 0.5 mg/dL (0.2-1.3) 05/31/18 18:25 AST 24 U/L (17-59) 05/31/18 18:25 ALT 23 U/L (21-72) 05/31/18 18:25 Alkaline Phosphatase 151 U/L (38-126) H 05/31/18 18:25 NT-Pro-B Natriuret Pep 2010 pg/mL 05/31/18 18:25 Total Protein 6.0 g/dL (6.3-8.2) L 05/31/18 18:25 Albumin 3.3 g/dL (3.5-5.0) L 05/31/18 18:25 Blood Type O Positive 05/31/18 19:26 Blood Type Recheck No 05/31/18 19:26 Antibody Screen NEGATIVE 05/31/18 19:26 Spec Expiration Date 06/03/2018232505/31/18 19:26 CBC & Chem 7: 06/01/18 07:25 06/01/18 07:31 Labs: Abnormal Lab Results - Last 24 Hours (Table) 05/31/18 05/31/18 06/01/18 Range/Units 18:25 18:25 07:25 RBC 2.55 L 2.39 L (4.30-5.90) m/uL Hgb 7.8 L 7.3 L (13.0-17.5) gm/dL Hct 24.8 L 23.5 L (39.0-53.0) % PT (9.0-12.0) sec INR (<1.2) Chloride (98-107) mmol/L BUN 60 H (9-20) mg/dL Creatinine 2.99 H (0.66-1.25) mg/dL Glucose 118 H (74-99) mg/dL Alkaline Phosphatase 151 H (38-126) U/L Total Protein 6.0 L (6.3-8.2) g/dL Albumin 3.3 L (3.5-5.0) g/dL 06/01/18 06/01/18 Range/Units 07:25 07:31 RBC (4.30-5.90) m/uL Hgb (13.0-17.5) gm/dL Hct (39.0-53.0) % PT 27.3 H (9.0-12.0) sec INR 2.8 H (<1.2) Chloride 109 H (98-107) mmol/L BUN 56 H (9-20) mg/dL Creatinine 2.72 H (0.66-1.25) mg/dL Glucose (74-99) mg/dL Alkaline Phosphatase (38-126) U/L Total Protein (6.3-8.2) g/dL Albumin (3.5-5.0) g/dL Assessment and Plan Plan: this is an 82-year-old male who presented to the hospital with cellulitis and possible drug reaction to the bilateral lower extremities and right forearm. Patient is currently on vancomycin. Antibiotics and local wound care will be addressed. wound culture to be addressed. Blood culture is in process. Continue supportive care. Further recommendations as patient progresses. The above dictated assessment and findings were discussed with Dr. Parks. The impression and plan of care have been directed as dictated. Juli Luna nurse practitioner acting as scribe for Dr. Parks.
[2018-06-01 15:48] LABS: Hemoglobin A1C 6.1 % (4.0-6.0)
[2018-06-01] MEDS ORDERED: MINERAL OIL-WHITE PETROLATUM 120 GM JAR TOPICAL PRN (17:18)
[2018-06-01 17:28] LABS: Glucose,Whole Blood 104 mg/dL (75-99)
[2018-06-01] MEDS ORDERED: TRIAMCINOLONE 0.1% CREAM 80 GM TUBE TOPICAL PRN (17:38)
[2018-06-01 19:46] LABS: Iron Saturation 8.9 (15.00-50.00)
[2018-06-01 20:56] LABS: Glucose,Whole Blood 112 mg/dL (75-99)
[2018-06-01] MEDS: IMATINIB MESYLATE 100 MG PO SCH (23:03)
[2018-06-02 06:55] LABS: Glucose,Whole Blood 112 mg/dL (75-99)
[2018-06-02 07:16] LABS: INR 2.9 (<1.2); Prothrombin Time 27.9 sec (9.0-12.0)
[2018-06-02] MEDS: INSULIN ASPART 100 UNIT/ML 1 ML 10 ML VIAL SQ SCH ×4 (08:05→20:41)
[2018-06-02] MEDS: PRAMIPEXOLE 0.25 MG TAB PO SCH ×2 (08:43→20:31)
[2018-06-02] MEDS: LINAGLIPTIN 5 MG TABLET PO SCH (08:43)
[2018-06-02] MEDS: PANTOPRAZOLE 40 MG TABLET PO SCH (08:43)
[2018-06-02] MEDS: ESCITALOPRAM 10 MG TAB PO SCH (08:43)
[2018-06-02] MEDS: LACTOBACILLUS ACIDOPH & BULGAR 1 EACH PACKET PO SCH ×2 (08:44→20:31)
[2018-06-02] MEDS: LORATADINE 10 MG TAB PO SCH (08:44)
[2018-06-02] MEDS: CHOLECALCIFEROL 1,000 UNIT TAB PO SCH ×2 (08:44→20:30)
[2018-06-02] MEDS: METOPROLOL TARTRATE 25 MG TAB PO SCH ×2 (08:44→20:31)
[2018-06-02] MEDS: busPIRone HCl 10 MG TAB PO SCH ×2 (08:44→20:30)
[2018-06-02 08:47] LABS: Calcium 9.1 mg/dL (8.4-10.2)
[2018-06-02 08:52] LABS: Vancomycin,Random 14.6 ug/mL
--- NOTE | 2018-06-02 09:42 | P.CON ---
Consult Note - . Consult date: 06/01/18 Assessment/Plan:: This is an 82-year-old male patient with a previous medical history significant for CAD post CABG x5, hypertension and hypertensive cardiovascular disease, chronic atrial flutter treated with chronic Coumadin, diabetes mellitus type 2 with diabetic polyneuropathy, chronic kidney disease stage IV, obesity with obstructive sleep apnea, hypogonadism, diverticulosis, GERD with hiatal hernia, left adrenal adenoma, CML. Patient gives history of having a fall about 5-6 weeks ago at which time he injured his right forearmwith bruising and skin tear. He had a another fall about one and half to 2 weeks after that causing bruising to the right side of his face.he has been using Silvadene to bilateral lower extremity cellulitis and right arm cellulitis. He saw TRENA High at Dr. Neal's office and there was concern for ALLERGIC reaction to Silvadene along with cellulitis with weeping from the soft tissue and patient was sent into [facility] emergency center. Patient denies having any fever or chills, shortness of breath, chest pain, nausea vomiting diarrhea.hemoglobin 7.8, BUN 60 creatinine 2.99, blood sugar 118. White count was normal, lactic acid 0.7, alkaline phosphatase 151.proBNP 2009. chest x-ray showed no acute process. [facility] after receiving 1 dose of vancomycin. Patient denies having any trouble with his memory. He normally ambulates with a walker in his home and uses crutches when he leaves his home. He lives at home with his and she is gone from the home all day for work. Please see the consult note is dictated by nurse practitioner Mrs. Juli Luna. Pleasant 82-year-old male with multiple medical troubles, is present and relates that they've been trying to treat his skin troubles with Silvadene. He' s developed some worsening difficulties to his tissue. There are open areas and some weeping. There is concern for cellulitis at these areas and antibiotic therapy has been initiated with vancomycin while cultures are in process. Local wound care will be changed to Eucerin one-to-one with triamcinolone to treat the markedly abnormal tissue. Cultures will help define the course of antibiotic therapy. Elevation the limbs and some wraps will help with the edema. Is being treated also for his edema with some diuretic therapy. I agree with the evaluation assessment and plan as dictated by SPLICING TECHNICIAN Mrs Juli Luna
[2018-06-02] MEDS ORDERED: VANCOMYCIN 1,500 MG in SODIUM CHLORIDE 0.9% 250 ML IVPB ONE (11:00)
[2018-06-02 11:20] LABS: Glucose,Whole Blood 137 mg/dL (75-99)
--- NOTE | 2018-06-02 12:26 | P.PN ---
Subjective Progress Note Date: 06/02/18 This is an 82-year-old male patient of Dr. Neal with a previous medical history significant for CAD post CABG x5, hypertension and hypertensive cardiovascular disease, chronic atrial flutter ablationon chronic Coumadin, diabetes mellitus type 2 with diabetic polyneuropathy, chronic kidney disease stage IV, obesity with obstructive sleep apnea, hypogonadism, diverticulosis, GERD with hiatal hernia, left adrenal adenoma, CML. Patient gives history of having a fall about 5-6 weeks ago at which time he injured his right forearmwith bruising and skin tear. He had a another fall about one and half to 2 weeks after that causing bruising to the right side of his face.he has been using Silvadene to bilateral lower extremity cellulitis and right arm cellulitis. He saw TRENA High at Dr. Neal's office and there was concern for ALLERGIC reaction to Silvadene along with cellulitis with weeping from the soft tissue and patient was sent into [facility] emergency center.patient denies having any fever or chills, shortness of breath, chest pain, nausea vomiting diarrhea.hemoglobin 7.8, BUN 60 creatinine 2.99, blood sugar 118. White count was normal, lactic acid 0.7, alkaline phosphatase 151.proBNP 2010. chest x-ray showed no acute process. Patient was admitted to the [facility] floor after receiving 1 dose of vancomycin. Subsequently, consult with Dr. Parks added for antibiotic recommendations and local wound care. Patient denies having any trouble with his memory. He normally ambulates with a walker in his home and uses crutches when he leaves his home. He lives at home with his and she is gone from the home all day for work. 06/02: Patient is feeling a lot better today his sitting up in a chair his was at bedside, chest pain, shortness breath, he is ambulating using a walker, however he continues to be somewhat unstable. Review of Systems All systems: negative Constitutional: Reports fatigue, Reports weakness, Denies anorexia, Denies chills, Denies fever, Denies poor appetite, Denies weight loss Eyes: denies blurred vision, denies pain Ears, nose, mouth and throat: Denies dysphagia, Denies headache, Denies hoarseness, Denies sore throat, Denies vertigo Cardiovascular: Reports leg edema, Denies chest pain, Denies decreased exercise tolerance, Denies dyspnea on exertion, Denies lightheadedness, Denies palpitations, Denies shortness of breath, Denies syncope Respiratory: Denies cough, Denies cough with sputum, Denies dyspnea, Denies excessive sputum, Denies hemoptysis, Denies home oxygen, Denies wheezing Gastrointestinal: Denies abdominal pain, Denies diarrhea, Denies loss of appetite, Denies melena, Denies nausea, Denies vomiting Genitourinary: Denies dysuria, Denies flank pain, Denies urinary frequency Musculoskeletal: Reports frequent falls, Reports gait dysfunction, Reports muscle weakness, Denies myalgias Integumentary: Reports color changes, Reports darkening of skin, Reports wounds , Denies pruritus, Denies rash Neurological: Reports gait dysfunction, Reports weakness, Denies aphasia, Denies change in mentation, Denies change in speech, Denies confusion, Denies numbness, Denies seizures, Denies vertigo Psychiatric: Denies anxiety, Denies depression Endocrine: Denies fatigue, Denies weight change Objective - Vital Signs Vital signs: Vital Signs Temp 98 F 06/02/18 05:00 Pulse 112 H 06/02/18 05:00 Resp 16 06/02/18 05:00 BP 107/55 06/02/18 05:00 Pulse Ox 97 06/01/18 21:35 Intake & Output 06/01/18 06/02/18 06/02/18 18:59 06:59 18:59 Intake Total 240 1320 Balance 240 1320 Intake: Oral 240 1320 Other: Voiding Method Urinal Urinal # Voids 3 2 - Exam General appearance: average body habitus, no acute distress - EENT Eyes: anicteric sclerae, PERRLA, no ptosis, no scleral icterus, normal appearance ENT: hearing grossly normal, normal oropharynx, no thrush Ears: bilateral: normal - Neck Neck: no lymphadenopathy, normal ROM, no rigidity, no stridor, no thyromegaly Carotids: bilateral: upstroke normal Thyroid: bilateral: normal size - Respiratory Respiratory: bilateral: diminished, negative: dullness, rales, rhonchi, wheezing , prolonged expiration, prolonged inspiration - Cardiovascular Rhythm: irregularly irregular Heart sounds: normal: S1, S2 Abnormal Heart Sounds: systolic murmur - Gastrointestinal General gastrointestinal: normal bowel sounds, soft, no splenomegaly, no tenderness, no umbilical hernia - Integumentary Integumentary: erythema and weeping to the bilateral lower extremities. No foul odor. No purulent drainage. To the right forearm patient has erythema. No drainage. - Neurologic Neurologic: CNII-XII intact - Musculoskeletal Musculoskeletal: generalized weakness, strength equal bilaterally - Psychiatric Psychiatric: A&O x's 3, appropriate affect, intact judgment & insight - Labs CBC & Chem 7: 06/01/18 07:25 06/02/18 06:16 Labs: Abnormal Lab Results - Last 24 Hours (Table) 06/01/18 06/01/18 06/01/18 Range/Units 07:25 07:31 17:27 PT (9.0-12.0) sec INR (<1.2) POC Glucose (mg/dL) 104 H (75-99) mg/dL Hemoglobin A1c 6.1 H (4.0-6.0) % Iron 17 L (65-175) ug/dL TIBC 191 L (228-460) ug/dL Iron Saturation 8.90 L (15.00-50.00) Ferritin 329.6 H (22.0-322.0) ng/mL 06/01/18 06/02/18 06/02/18 Range/Units 20:53 06:16 06:55 PT 27.9 H (9.0-12.0) sec INR 2.9 H (<1.2) POC Glucose (mg/dL) 112 H 112 H (75-99) mg/dL Hemoglobin A1c (4.0-6.0) % Iron (65-175) ug/dL TIBC (228-460) ug/dL Iron Saturation (15.00-50.00) Ferritin (22.0-322.0) ng/mL Microbiology - Last 24 Hours (Table) 05/31/18 18:25 Blood Culture - Preliminary Blood No Growth after 24 hours Assessment and Plan Assessment: Assessment and Plan Plan: 1. Cellulitis and possible drug reaction to bilateral lower extremities and right forearm. Vancomycin will be continued until patient is seen by Dr. Parks. Local wound care to be addressed. 2. Frequent falls with gait dysfunction. PT and OT added. 3. CAD post CABG 5 in 2000. Continue metoprolol 25 mg orally twice every day , patient is not able to tolerate statin. 3. Hypertension and hypertensive cardiovascular disease. Continue patient on metoprolol 25 mg orally twice every day. 4. Diabetes mellitus type 2. Continue Januvia/Tradjenta. 5. Chronic kidney disease stage IV. Stable at this time. Avoid nephrotoxic agents. 6. Anemia of chronic disease. Ferritin and TIBC ordered. 7. Obesity with obstructive sleep apnea. Continue CPAP. 8. Chronic atrial fibrillation/flutter. Continue metoprolol 50 mg orally twice every day and Coumadin keep his INR between 2-3. 9. History of diverticulosis. Clinically stable. 10. Recurrent depression. Continue patient on Lexapro 30 mg orally once every day. 11. Generalized anxiety disorder. Continue BuSpar 10 mg orally twice every day. 12. Hypogonadism. 13. Restless leg syndrome. Continue patient on Mirapex 0.25 mg orally twice every day. 14. Patient is a full code Discharge plan: [facility] for physical therapy on Monday.
[2018-06-02] MEDS: MORPHINE SULFATE 2 MG/ML SYRINGE IVP PRN ×2 (12:27→18:54)
[2018-06-02 16:58] LABS: Glucose,Whole Blood 132 mg/dL (75-99)
[2018-06-02] MEDS: WARFARIN 5 MG TAB PO SCH (17:46)
[2018-06-02] MEDS: oxyCODONE-APAP 10-325MG 1 EACH TAB PO PRN (20:29)
[2018-06-02] MEDS: IMATINIB MESYLATE 100 MG PO SCH (20:30)
[2018-06-02 20:41] LABS: Glucose,Whole Blood 166 mg/dL (75-99)
[2018-06-03] MEDS: oxyCODONE-APAP 10-325MG 1 EACH TAB PO PRN ×3 (04:08→20:34)
[2018-06-03 06:39] VITALS: RESP 17
[2018-06-03 07:25] LABS: INR 3.1 (<1.2); Prothrombin Time 30.1 sec (9.0-12.0)
[2018-06-03 07:31] LABS: Glucose,Whole Blood 113 mg/dL (75-99)
[2018-06-03] MEDS: INSULIN ASPART 100 UNIT/ML 1 ML 10 ML VIAL SQ SCH ×4 (07:35→20:39)
[2018-06-03] MEDS: PANTOPRAZOLE 40 MG TABLET PO SCH (07:36)
[2018-06-03] MEDS: CHOLECALCIFEROL 1,000 UNIT TAB PO SCH ×2 (07:37→20:38)
[2018-06-03] MEDS: busPIRone HCl 10 MG TAB PO SCH ×2 (07:37→20:37)
[2018-06-03] MEDS: ESCITALOPRAM 10 MG TAB PO SCH (07:37)
[2018-06-03] MEDS: METOPROLOL TARTRATE 25 MG TAB PO SCH ×2 (07:38→20:39)
[2018-06-03] MEDS: LORATADINE 10 MG TAB PO SCH (07:38)
[2018-06-03] MEDS: LACTOBACILLUS ACIDOPH & BULGAR 1 EACH PACKET PO SCH ×2 (07:38→20:37)
[2018-06-03] MEDS: LINAGLIPTIN 5 MG TABLET PO SCH (07:39)
[2018-06-03] MEDS: PRAMIPEXOLE 0.25 MG TAB PO SCH ×2 (07:39→20:39)
[2018-06-03 07:44] LABS: Calcium 8.8 mg/dL (8.4-10.2); Potassium 4.9 mmol/L (3.5-5.1)
[2018-06-03 08:37] LABS: Basophils % (A) 0 %; Eosinophils # (A) 0.7 k/uL (0-0.7); Eosinophils % (A) 10 %; HCT 24.4 % (39.0-53.0); HGB 7.7 gm/dL (13.0-17.5); Hypochromasia Marked; Lymphocytes # (A) 1.2 k/uL (1.0-4.8); Lymphocytes % (A) 18 %; MCH 31.3 pg (25.0-35.0); MCHC 31.8 g/dL (31.0-37.0); MCV 98.5 fL (80.0-100.0); Mean Platelet Volume 8.1; Monocytes # (A) 0.7 k/uL (0-1.0); Monocytes % (A) 10 %; Neutrophils % (A) 59 %; Platelet Count 285 k/uL (150-450); RBC 2.47 m/uL (4.30-5.90); RDW 13.8 % (11.5-15.5); WBC 6.8 k/uL (3.8-10.6)
[2018-06-03 08:40] LABS: Albumin 3.1 g/dL (3.5-5.0); Total Bilirubin 0.3 mg/dL (0.2-1.3); Total Protein 5.9 g/dL (6.3-8.2)
[2018-06-03 11:56] LABS: Glucose,Whole Blood 145 mg/dL (75-99)
[2018-06-03] MEDS: TRIAMCINOLONE 0.1% CREAM 80 GM TUBE TOPICAL SCH ×2 (13:31→20:40)
[2018-06-03 16:32] LABS: Glucose,Whole Blood 118 mg/dL (75-99)
[2018-06-03] MEDS: WARFARIN 5 MG TAB PO SCH (17:08)
[2018-06-03 20:36] LABS: Glucose,Whole Blood 123 mg/dL (75-99)
[2018-06-03] MEDS: IMATINIB MESYLATE 100 MG PO SCH (20:38)
--- NOTE | 2018-06-03 23:14 | P.PN ---
Subjective Progress Note Date: 06/03/18 This is an 82-year-old male patient of Dr. Neal with a previous medical history significant for CAD post CABG x5, hypertension and hypertensive cardiovascular disease, chronic atrial flutter ablationon chronic Coumadin, diabetes mellitus type 2 with diabetic polyneuropathy, chronic kidney disease stage IV, obesity with obstructive sleep apnea, hypogonadism, diverticulosis, GERD with hiatal hernia, left adrenal adenoma, CML. Patient gives history of having a fall about 5-6 weeks ago at which time he injured his right forearmwith bruising and skin tear. He had a another fall about one and half to 2 weeks after that causing bruising to the right side of his face.he has been using Silvadene to bilateral lower extremity cellulitis and right arm cellulitis. He saw TRENA High at Dr. Neal's office and there was concern for ALLERGIC reaction to Silvadene along with cellulitis with weeping from the soft tissue and patient was sent into [facility] emergency center.patient denies having any fever or chills, shortness of breath, chest pain, nausea vomiting diarrhea.hemoglobin 7.8, BUN 60 creatinine 2.99, blood sugar 118. White count was normal, lactic acid 0.7, alkaline phosphatase 151.proBNP 2010. chest x-ray showed no acute process. Patient was admitted to the [facility] floor after receiving 1 dose of vancomycin. Subsequently, consult with Dr. Parks added for antibiotic recommendations and local wound care. Patient denies having any trouble with his memory. He normally ambulates with a walker in his home and uses crutches when he leaves his home. He lives at home with his and she is gone from the home all day for work. 06/02: Patient is feeling a lot better today his sitting up in a chair his was at bedside, chest pain, shortness breath, he is ambulating using a walker, however he continues to be somewhat unstable. 06/03:Patient is doing better, lying down in bed in acute distress, he will likely be discharged to [facility] or [facility] in 1-2 days. Review of Systems All systems: negative Constitutional: Reports fatigue, Reports weakness, Denies anorexia, Denies chills, Denies fever, Denies poor appetite, Denies weight loss Eyes: denies blurred vision, denies pain Ears, nose, mouth and throat: Denies dysphagia, Denies headache, Denies hoarseness, Denies sore throat, Denies vertigo Cardiovascular: Reports leg edema, Denies chest pain, Denies decreased exercise tolerance, Denies dyspnea on exertion, Denies lightheadedness, Denies palpitations, Denies shortness of breath, Denies syncope Respiratory: Denies cough, Denies cough with sputum, Denies dyspnea, Denies excessive sputum, Denies hemoptysis, Denies home oxygen, Denies wheezing Gastrointestinal: Denies abdominal pain, Denies diarrhea, Denies loss of appetite, Denies melena, Denies nausea, Denies vomiting Genitourinary: Denies dysuria, Denies flank pain, Denies urinary frequency Musculoskeletal: Reports frequent falls, Reports gait dysfunction, Reports muscle weakness, Denies myalgias Integumentary: Reports color changes, Reports darkening of skin, Reports wounds , Denies pruritus, Denies rash Neurological: Reports gait dysfunction, Reports weakness, Denies aphasia, Denies change in mentation, Denies change in speech, Denies confusion, Denies numbness, Denies seizures, Denies vertigo Psychiatric: Denies anxiety, Denies depression Endocrine: Denies fatigue, Denies weight change Objective - Vital Signs Vital signs: Vital Signs Temp 97.9 F 06/03/18 05:00 Pulse 110 H 06/03/18 05:00 Resp 17 06/03/18 05:00 BP 150/53 06/03/18 05:00 Pulse Ox 96 06/03/18 05:00 Intake & Output 06/02/18 06/03/18 06/03/18 18:59 06:59 18:59 Intake Total 250 1080 Balance 250 1080 Intake: Intake, IV Titration 250 Amount Vancomycin 1,500 mg In 250 Sodium Chloride 0.9% 250 ml @ 125 mls/hr IVPB ONCE ONE Rx#:[id number] Oral 1080 Other: Voiding Method Urinal Urinal # Voids 2 - Exam General appearance: average body habitus, no acute distress - EENT Eyes: anicteric sclerae, PERRLA, no ptosis, no scleral icterus, normal appearance ENT: hearing grossly normal, normal oropharynx, no thrush Ears: bilateral: normal - Neck Neck: no lymphadenopathy, normal ROM, no rigidity, no stridor, no thyromegaly Carotids: bilateral: upstroke normal Thyroid: bilateral: normal size - Respiratory Respiratory: bilateral: diminished, negative: dullness, rales, rhonchi, wheezing , prolonged expiration, prolonged inspiration - Cardiovascular Rhythm: irregularly irregular Heart sounds: normal: S1, S2 Abnormal Heart Sounds: systolic murmur - Gastrointestinal General gastrointestinal: normal bowel sounds, soft, no splenomegaly, no tenderness, no umbilical hernia - Integumentary Integumentary: erythema and weeping to the bilateral lower extremities. No foul odor. No purulent drainage. To the right forearm patient has erythema. No drainage. - Neurologic Neurologic: CNII-XII intact - Musculoskeletal Musculoskeletal: generalized weakness, strength equal bilaterally - Psychiatric Psychiatric: A&O x's 3, appropriate affect, intact judgment & insight - Labs CBC & Chem 7: 06/03/18 08:13 06/03/18 06:54 Labs: Abnormal Lab Results - Last 24 Hours (Table) 06/02/18 06/02/18 06/02/18 Range/Units 06:16 11:19 16:56 PT (9.0-12.0) sec INR (<1.2) Chloride 108 H (98-107) mmol/L BUN 55 H (9-20) mg/dL Creatinine 2.67 H (0.66-1.25) mg/dL Glucose (74-99) mg/dL POC Glucose (mg/dL) 137 H 132 H (75-99) mg/dL 06/02/18 06/03/18 06/03/18 Range/Units 20:38 06:54 06:54 PT 30.1 H (9.0-12.0) sec INR 3.1 H (<1.2) Chloride (98-107) mmol/L BUN 51 H (9-20) mg/dL Creatinine 2.90 H (0.66-1.25) mg/dL Glucose 112 H (74-99) mg/dL POC Glucose (mg/dL) 166 H (75-99) mg/dL 06/03/18 Range/Units 07:30 PT (9.0-12.0) sec INR (<1.2) Chloride (98-107) mmol/L BUN (9-20) mg/dL Creatinine (0.66-1.25) mg/dL Glucose (74-99) mg/dL POC Glucose (mg/dL) 113 H (75-99) mg/dL Microbiology - Last 24 Hours (Table) 06/02/18 09:40 Gram Stain - Preliminary Leg - Right Wound Culture - Preliminary 05/31/18 18:25 Blood Culture - Preliminary Blood No Growth after 48 hours Assessment and Plan Assessment: Assessment and Plan Plan: 1. Cellulitis and possible drug reaction to bilateral lower extremities and right forearm. Vancomycin will be continued until patient is seen by Dr. Parks. Local wound care to be addressed. 2. Frequent falls with gait dysfunction. PT and OT added. 3. CAD post CABG 5 in 2000. Continue metoprolol 25 mg orally twice every day , patient is not able to tolerate statin. 3. Hypertension and hypertensive cardiovascular disease. Continue patient on metoprolol 25 mg orally twice every day. 4. Diabetes mellitus type 2. Continue Januvia/Tradjenta. 5. Chronic kidney disease stage IV. Stable at this time. Avoid nephrotoxic agents. 6. Anemia of chronic disease. Ferritin and TIBC ordered. 7. Obesity with obstructive sleep apnea. Continue CPAP. 8. Chronic atrial fibrillation/flutter. Continue metoprolol 50 mg orally twice every day and Coumadin keep his INR between 2-3. 9. History of diverticulosis. Clinically stable. 10. Recurrent depression. Continue patient on Lexapro 30 mg orally once every day. 11. Generalized anxiety disorder. Continue BuSpar 10 mg orally twice every day. 12. Hypogonadism. 13. Restless leg syndrome. Continue patient on Mirapex 0.25 mg orally twice every day. 14. Patient is a full code Discharge plan: [facility] for physical therapy on Monday.
[2018-06-04 05:48] VITALS: PULSE 111; TEMP 98.3
[2018-06-04 07:32] LABS: Glucose,Whole Blood 109 mg/dL (75-99)
[2018-06-04] MEDS: INSULIN ASPART 100 UNIT/ML 1 ML 10 ML VIAL SQ SCH ×2 (08:01→12:30)
[2018-06-04 08:05] VITALS: BP 110/64
[2018-06-04] MEDS: METOPROLOL TARTRATE 25 MG TAB PO SCH (08:06)
[2018-06-04] MEDS: CHOLECALCIFEROL 1,000 UNIT TAB PO SCH (08:06)
[2018-06-04] MEDS: LORATADINE 10 MG TAB PO SCH (08:06)
[2018-06-04] MEDS: ESCITALOPRAM 10 MG TAB PO SCH (08:06)
[2018-06-04] MEDS: FUROSEMIDE 40 MG TAB PO SCH (08:06)
[2018-06-04] MEDS: PANTOPRAZOLE 40 MG TABLET PO SCH (08:06)
[2018-06-04] MEDS: PRAMIPEXOLE 0.25 MG TAB PO SCH (08:06)
[2018-06-04] MEDS: LACTOBACILLUS ACIDOPH & BULGAR 1 EACH PACKET PO SCH (08:07)
[2018-06-04] MEDS: LINAGLIPTIN 5 MG TABLET PO SCH (08:07)
[2018-06-04] MEDS: busPIRone HCl 10 MG TAB PO SCH (08:07)
[2018-06-04] MEDS: oxyCODONE-APAP 10-325MG 1 EACH TAB PO PRN (08:56)
[2018-06-04 09:30] LABS: INR 2.7 (<1.2); Prothrombin Time 26.1 sec (9.0-12.0)
[2018-06-04 09:42] LABS: Calcium 8.9 mg/dL (8.4-10.2); Potassium 5.2 mmol/L (3.5-5.1)
[2018-06-04 10:31] LABS: Vancomycin,Random 13.6 ug/mL
[2018-06-04 11:02] LABS: Glucose,Whole Blood 194 mg/dL (75-99)
[2018-06-04] MEDS ORDERED: VANCOMYCIN 1,500 MG in SODIUM CHLORIDE 0.9% 250 ML IVPB ONE (12:00)
[2018-06-04] MEDS: TRIAMCINOLONE 0.1% CREAM 80 GM TUBE TOPICAL SCH (12:27)
--- NOTE | 2018-06-04 15:01 | P.DS ---
Providers Date of admission: 05/31/18 22:03 Expected date of discharge: 06/04/18 Attending physician: Oliverio Murdock Consults: 06/01/18 11:13 Consult Physician Routine Consulting Provider: Oliverio Parks Consult Reason/Comments: cellulitis bilat LE Do you want consulting provider notified?: Yes Primary care physician: Quintin Neal [facility] Course: This is an 82-year-old male patient of Dr. Neal with a previous medical history significant for CAD post CABG x5, hypertension and hypertensive cardiovascular disease, chronic atrial flutter ablationon chronic Coumadin, diabetes mellitus type 2 with diabetic polyneuropathy, chronic kidney disease stage IV, obesity with obstructive sleep apnea, hypogonadism, diverticulosis, GERD with hiatal hernia, left adrenal adenoma, CML. Patient gives history of having a fall about 5-6 weeks ago at which time he injured his right forearmwith bruising and skin tear. He had a another fall about one and half to 2 weeks after that causing bruising to the right side of his face.he has been using Silvadene to bilateral lower extremity cellulitis and right arm cellulitis. He saw TRENA High at Dr. Neal's office and there was concern for ALLERGIC reaction to Silvadene along with cellulitis with weeping from the soft tissue and patient was sent into [facility] emergency center.patient denies having any fever or chills, shortness of breath, chest pain, nausea vomiting diarrhea.hemoglobin 7.8, BUN 60 creatinine 2.99, blood sugar 118. White count was normal, lactic acid 0.7, alkaline phosphatase 151.proBNP 2010. chest x-ray showed no acute process. Patient was admitted to the [facility] floor after receiving 1 dose of vancomycin. Subsequently, consult with Dr. Parks added for antibiotic recommendations and local wound care. Patient denies having any trouble with his memory. He normally ambulates with a walker in his home and uses crutches when he leaves his home. He lives at home with his and she is gone from the home all day for work. 06/02: Patient is feeling a lot better today his sitting up in a chair his was at bedside, chest pain, shortness breath, he is ambulating using a walker, however he continues to be somewhat unstable. 06/03:Patient is doing better, lying down in bed in acute distress, he will likely be discharged to [facility] or [facility] in 1-2 days. 06/04; patient has met with caseworker protective services and intends to go home today. Patient is found dressed and ready for discharge home today. Redness to his arm and legs much improved. Patient will be discharged home today in stable condition. Discharge diagnoses: 1. Cellulitis and possible drug reaction to bilateral lower extremities and right forearm. 2. Frequent falls with gait dysfunction. 3. CAD post CABG 5 in 2000. 3. Hypertension and hypertensive cardiovascular disease. 4. Diabetes mellitus type 2. 5. Chronic kidney disease stage IV. 6. Anemia of chronic disease. 7. Obesity with obstructive sleep apnea. 8. Chronic atrial fibrillation/flutter. 9. History of diverticulosis. 10. Recurrent depression. 11. Generalized anxiety disorder. 12. Hypogonadism. 13. Restless leg syndrome. Discharge plan: Home. Impression and plan of care have been directed as dictated by the signing physician. Juli Luna nurse practitioner acting as scribe for signing physician. Patient Condition at Discharge: Good Plan - Discharge Summary Discharge Rx Participant: No New Discharge Prescriptions: Continue Garlic 1 tab PO BID Escitalopram Oxalate [Lexapro] 30 mg PO DAILY oxyCODONE HCL/ACETAMINOPHEN [Percocet 10-325 mg] 1 tab PO DAILY PRN PRN Reason: Pain Warfarin [Coumadin] 2.5 mg PO TU Warfarin [Coumadin] 5 mg PO SUMOWETHFRSA Pramipexole [Mirapex] 0.25 mg PO BID Loratadine [Claritin] 10 mg PO DAILY Lactobacillus Acidophilus [Acidophilus] 1 tab PO BID sitaGLIPtin PHOSPHATE [Januvia] 25 mg PO DAILY Cholecalciferol [Vitamin D3] 2,000 unit PO BID busPIRone HCL 10 mg PO BID Iron 27 Mg 27 mg PO BID Omeprazole [PriLOSEC] 20 mg PO AC-BRKFST Furosemide [Lasix] 40 mg PO MOWEFR Metoprolol Tartrate 25 mg PO BID Imatinib Mesylate 300 mg PO HS Discharge Medication List Escitalopram Oxalate [Lexapro] 30 mg PO DAILY 07/13/15 [History] Garlic 1 tab PO BID 07/13/15 [History] Lactobacillus Acidophilus [Acidophilus] 1 tab PO BID 07/13/15 [History] Loratadine [Claritin] 10 mg PO DAILY 07/13/15 [History] Pramipexole [Mirapex] 0.25 mg PO BID 07/13/15 [History] Warfarin [Coumadin] 2.5 mg PO TU 07/13/15 [History] Warfarin [Coumadin] 5 mg PO SUMOWETHFRSA 07/13/15 [History] oxyCODONE HCL/ACETAMINOPHEN [Percocet 10-325 mg] 1 tab PO DAILY PRN 07/13/15 [ History] Cholecalciferol [Vitamin D3] 2,000 unit PO BID 07/04/16 [History] sitaGLIPtin PHOSPHATE [Januvia] 25 mg PO DAILY 07/04/16 [History] Iron 27 Mg 27 mg PO BID 09/16/16 [History] Omeprazole [PriLOSEC] 20 mg PO AC-BRKFST 09/16/16 [History] busPIRone HCL 10 mg PO BID 09/16/16 [History] Furosemide [Lasix] 40 mg PO MOWEFR 05/31/18 [History] Imatinib Mesylate 300 mg PO HS 05/31/18 [History] Metoprolol Tartrate 25 mg PO BID 05/31/18 [History] Follow up Appointment(s)/Referral(s): Quintin Neal MD [Primary Care Provider] - 06/11/18 4:15 pm [facility] Visiting Nurse, [NON-STAFF] - 1 Week Patient Instructions/Handouts: Cellulitis (DC), Edema (DC)
--- NOTE | 2018-06-04 22:43 | P.PN ---
Subjective Progress Note Date: 06/04/18 This is an 82-year-old male patient with a previous medical history significant for CAD post CABG x5, hypertension and hypertensive cardiovascular disease, chronic atrial flutter ablationon chronic Coumadin, diabetes mellitus type 2 with diabetic polyneuropathy, chronic kidney disease stage IV, obesity with obstructive sleep apnea, hypogonadism, diverticulosis, GERD with hiatal hernia, left adrenal adenoma, CML. Patient gives history of having a fall about 5-6 weeks ago at which time he injured his right forearmwith bruising and skin tear. He had a another fall about one and half to 2 weeks after that causing bruising to the right side of his face.he has been using Silvadene to bilateral lower extremity cellulitis and right arm cellulitis. He saw TRENA High at Dr. Neal's office and there was concern for ALLERGIC reaction to Silvadene along with cellulitis with weeping from the soft tissue and patient was sent into [facility] emergency center. Patient denies having any fever or chills, shortness of breath, chest pain, nausea vomiting diarrhea.hemoglobin 7.8, BUN 60 creatinine 2.99, blood sugar 118. White count was normal, lactic acid 0.7, alkaline phosphatase 151.proBNP 2009. chest x-ray showed no acute process. Patient was admitted to the [facility] floor after receiving 1 dose of vancomycin. Patient denies having any trouble with his memory. He normally ambulates with a walker in his home and uses crutches when he leaves his home. He lives at home with his and she is gone from the home all day for work. Patient is feeling considerably better. The weights to go home today. He is off antibiotic therapy without fevers or chills. Objective - Vital Signs Vital signs: Vital Signs Temp 98.3 F 06/04/18 05:00 Pulse 111 H 06/04/18 16:00 Resp 17 06/04/18 16:00 BP 110/64 06/04/18 08:05 Pulse Ox 93 L 06/04/18 05:00 Intake & Output 06/04/18 06/04/18 06/05/18 06:59 18:59 06:59 Intake Total 1920 120 Balance 1920 120 Intake: Oral 1920 120 Other: Voiding Method Toilet Toilet Urinal Urinal # Voids 3 1 - Exam General appearance: average body habitus, no acute distress - EENT Eyes: anicteric sclerae, PERRLA, no ptosis, no scleral icterus, normal appearance ENT: hearing grossly normal, normal oropharynx, no thrush Ears: bilateral: normal - Neck Neck: no lymphadenopathy, normal ROM, no rigidity, no stridor, no thyromegaly Carotids: bilateral: upstroke normal Thyroid: bilateral: normal size - Respiratory Respiratory: bilateral: diminished, negative: dullness, rales, rhonchi, wheezing , prolonged expiration, prolonged inspiration - Cardiovascular Rhythm: irregularly irregular Heart sounds: normal: S1, S2 Abnormal Heart Sounds: systolic murmur - Gastrointestinal General gastrointestinal: normal bowel sounds, soft, no splenomegaly, no tenderness, no umbilical hernia - Integumentary Integumentary: The bilateral lower extremities are markedly improved there is decreased edema being is generally stopped.. No foul odor. No purulent drainage. To the right forearm patient has erythema. No drainage. The areas of erythema and rash have markedly improved with the topical therapy. - Neurologic Neurologic: CNII-XII intact - Musculoskeletal Musculoskeletal: generalized weakness, strength equal bilaterally - Psychiatric Psychiatric: A&O x's 3, appropriate affect, intact judgment & insight - Labs CBC & Chem 7: 06/03/18 08:13 06/04/18 08:59 Labs: Abnormal Lab Results - Last 24 Hours (Table) 06/04/18 06/04/18 06/04/18 Range/Units 07:08 08:59 08:59 PT 26.1 H (9.0-12.0) sec INR 2.7 H (<1.2) Potassium 5.2 H (3.5-5.1) mmol/L BUN 51 H (9-20) mg/dL Creatinine 2.64 H (0.66-1.25) mg/dL POC Glucose (mg/dL) 109 H (75-99) mg/dL 06/04/18 Range/Units 11:00 PT (9.0-12.0) sec INR (<1.2) Potassium (3.5-5.1) mmol/L BUN (9-20) mg/dL Creatinine (0.66-1.25) mg/dL POC Glucose (mg/dL) 194 H (75-99) mg/dL Microbiology - Last 24 Hours (Table) 05/31/18 18:25 Blood Culture - Preliminary Blood No Growth after 96 hours 06/02/18 09:40 Gram Stain - Final Leg - Right Wound Culture - Final Laboratory Results WBC 6.8 k/uL (3.8-10.6) 06/03/18 08:13 RBC 2.47 m/uL (4.30-5.90) L 06/03/18 08:13 Hgb 7.7 gm/dL (13.0-17.5) L 06/03/18 08:13 Hct 24.4 % (39.0-53.0) L 06/03/18 08:13 MCV 98.5 fL (80.0-100.0) 06/03/18 08:13 MCH 31.3 pg (25.0-35.0) 06/03/18 08:13 MCHC 31.8 g/dL (31.0-37.0) 06/03/18 08:13 RDW 13.8 % (11.5-15.5) 06/03/18 08:13 Plt Count 285 k/uL (150-450) 06/03/18 08:13 Neutrophils % 59 % 06/03/18 08:13 Lymphocytes % 18 % 06/03/18 08:13 Monocytes % 10 % 06/03/18 08:13 Eosinophils % 10 % 06/03/18 08:13 Basophils % 0 % 06/03/18 08:13 Neutrophils # 4.0 k/uL (1.3-7.7) 06/03/18 08:13 Lymphocytes # 1.2 k/uL (1.0-4.8) 06/03/18 08:13 Monocytes # 0.7 k/uL (0-1.0) 06/03/18 08:13 Eosinophils # 0.7 k/uL (0-0.7) 06/03/18 08:13 Basophils # 0.0 k/uL (0-0.2) 06/03/18 08:13 Hypochromasia Marked 06/03/18 08:13 PT 26.1 sec (9.0-12.0) H 06/04/18 08:59 INR 2.7 (<1.2) H 06/04/18 08:59 Sodium 138 mmol/L (137-145) 06/04/18 08:59 Potassium 5.2 mmol/L (3.5-5.1) H 06/04/18 08:59 Chloride 107 mmol/L (98-107) 06/04/18 08:59 Carbon Dioxide 26 mmol/L (22-30) 06/04/18 08:59 Anion Gap 5 mmol/L 06/04/18 08:59 BUN 51 mg/dL (9-20) H 06/04/18 08:59 Creatinine 2.64 mg/dL (0.66-1.25) H 06/04/18 08:59 Est GFR (CKD-EPI)AfAm 25 (>60 ml/min/1.73 sqM) 06/04/18 08:59 Est GFR (CKD-EPI)NonAf 22 (>60 ml/min/1.73 sqM) 06/04/18 08:59 Glucose 97 mg/dL (74-99) 06/04/18 08:59 POC Glucose (mg/dL) 194 mg/dL (75-99) H 06/04/18 11:00 POC Glu Quality Systems Technician LIBRADO Angie Horowitz 06/04/18 11:[address] Glu mg/dL 128 06/01/18 07:25 Hemoglobin A1c 6.1 % (4.0-6.0) H 06/01/18 07:25 Plasma Lactic Acid Torito 0.7 mmol/L (0.7-2.0) 05/31/18 18:25 Calcium 8.9 mg/dL (8.4-10.2) 06/04/18 08:59 Iron 17 ug/dL (65-175) L 06/01/18 07:31 TIBC 191 ug/dL (228-460) L 06/01/18 07:31 Iron Saturation 8.90 (15.00-50.00) L 06/01/18 07:31 Ferritin 329.6 ng/mL (22.0-322.0) H 06/01/18 07:31 Total Bilirubin 0.3 mg/dL (0.2-1.3) 06/03/18 06:54 AST 25 U/L (17-59) 06/03/18 06:54 ALT 23 U/L (21-72) 06/03/18 06:54 Alkaline Phosphatase 155 U/L (38-126) H 06/03/18 06:54 NT-Pro-B Natriuret Pep 2010 pg/mL 05/31/18 18:25 Total Protein 5.9 g/dL (6.3-8.2) L 06/03/18 06:54 Albumin 3.1 g/dL (3.5-5.0) L 06/03/18 06:54 Random Vancomycin 13.6 ug/mL 06/04/18 08:59 Blood Type O Positive 05/31/18 19:26 Blood Type Recheck No 05/31/18 19:26 Antibody Screen NEGATIVE 05/31/18 19:26 Spec Expiration Date 06/03/2018 - 2326 05/31/18 19:26 Microbiology 05/31/18 18:25 Blood Blood Culture - Preliminary No Growth after 96 hours 06/02/18 09:40 Leg - Right Gram Stain - Final 06/02/18 09:40 Leg - Right Wound Culture - Final Assessment and Plan (1) Lower extremity edema Narrative/Plan: Pleasant 82-year-old male with multiple medical troubles, is present and relates that they've been trying to treat his skin troubles with Silvadene. He' s developed some worsening difficulties to his tissue. There are open areas and some weeping. There is concern for cellulitis at these areas and antibiotic therapy has been initiated with vancomycin while cultures are in process. Local wound care will be changed to Eucerin one-to-one with triamcinolone to treat the markedly abnormal tissue. Cultures will help define the course of antibiotic therapy. Elevation the limbs and some wraps will help with the edema. Is being treated also for his edema with some diuretic therapy. 06/04/2018 patient is markedly improved. With diuretic therapy has extensive edema is improved. By stopping Silvadene and applying a Eucerin triamcinolone mixed his skin is now considerably improved. The weeping has stopped. Has just some minimal irritation to the right forearm area. Is ready for discharge home today. No need for antibiotic therapy. Continue topical therapy with a Eucerin triamcinolone mixed. Elevate the legs at rest and she does some compression is in place. Status: Acute Code(s): R60.0 - LOCALIZED EDEMA SNOMED Code(s): 133487803
[2018-06-05] MEDS ORDERED: WARFARIN 2.5 MG TAB PO SCH (18:00)
--- NOTE | 2018-06-07 17:14 | CDI ---
Documentation Clarification Form Date: 06/07/2018 4:58:36 PM From: Elizabeth Lora Phone: If you have a question about this query, please contact Lou Medrano, [place] at [phone] between 8am and 5pm. Admit Date: 05/31/2018 10:03:00 PM Patient Name: Sancho Madison Visit Number: [id number] Discharge Date: 06/04/2018 4:50:00 PM ATTENTION: The Clinical Documentation Specialists (CDI) and [facility] Coding Staff appreciate your assistance in clarifying documentation. Please respond to the clarification below the line at the bottom and electronically sign. The CDI & [facility] Coding staff will review the response and follow-up if needed. Please note: Queries are made part of the Legal Health Record. If you have any questions, please contact the author of this message via ITS. Dr. Quintin Neal Patient presented with an allergic reaction to Silvadene and bilateral lower extremity and right arm cellulitis. Your office was concerned for allergic reaction to Silvadene along with cellulitis. Consult on 06/01 stated that patient developed worsening difficulties after Silvadene use and there was concern for cellulitis in these areas. Eucerin with traminicolone were prescribed. Final dagnosis is Cellulities and possible drug reacation to allie. lower extremities and rt. Forearm. History/Risk Factors: DM with polyneuropathy, repated falls In your professional opinion, is the patient's cellulitis likely or possibly related to: Allergic reaction to Silvadene Other specified skin condition Type 2 diabetes mellitus Unable to determine Other, please specify (Last Revision: March 2017) Cellulitis in both legs along with allergic reaction to silvadene cream_ MTDD
== END 2018-06-04 16:50 | disposition home health service (06) | DRG 603 ==
LOC: EC 17:27 → 3NMEDONC 22:03
PROVIDERS: ADMIT Internal Medicine Geriatric Medicine; ATTEND Internal Medicine Geriatric Medicine
DX: L03.116 Cellulitis of left lower limb (principal); L03.113 Cellulitis of right upper limb; F33.9 Major depressive disorder, recurrent, unspecified; I48.92 Unspecified atrial flutter; N18.4 Chronic kidney disease, stage 4 (severe); C92.10 Chronic myeloid leukemia, BCR/ABL-positive, not having achieved remission; L03.115 Cellulitis of right lower limb; T50.905A Adverse effect of unspecified drugs, medicaments and biological substances, initial encounter; D63.8 Anemia in other chronic diseases classified elsewhere; E11.22 Type 2 diabetes mellitus with diabetic chronic kidney disease; E11.42 Type 2 diabetes mellitus with diabetic polyneuropathy; E29.1 Testicular hypofunction; E66.9 Obesity, unspecified; Z68.30 Body mass index [BMI] 30.0-30.9, adult; F41.1 Generalized anxiety disorder; G25.81 Restless legs syndrome; G47.33 Obstructive sleep apnea (adult) (pediatric); I13.10 Hypertensive heart and chronic kidney disease without heart failure, with stage 1 through stage 4 chronic kidney disease, or unspecified chronic kidney disease; I25.10 Atherosclerotic heart disease of native coronary artery without angina pectoris; I25.2 Old myocardial infarction; I48.2 Chronic atrial fibrillation; K21.9 Gastro-esophageal reflux disease without esophagitis; R29.6 Repeated falls; Z91.81 History of falling; Z79.01 Long term (current) use of anticoagulants; Z79.84 Long term (current) use of oral hypoglycemic drugs; Z79.899 Other long term (current) drug therapy; Z82.49 Family history of ischemic heart disease and other diseases of the circulatory system; Z83.3 Family history of diabetes mellitus; Z87.891 Personal history of nicotine dependence; Z88.1 Allergy status to other antibiotic agents; Z95.1 Presence of aortocoronary bypass graft; Z88.0 Allergy status to penicillin; Z88.2 Allergy status to sulfonamides; Z91.041 Radiographic dye allergy status; Z91.040 Latex allergy status; Z82.3 Family history of stroke; Z84.1 Family history of disorders of kidney and ureter; D35.00 Benign neoplasm of unspecified adrenal gland; Z98.42 Cataract extraction status, left eye; Z98.41 Cataract extraction status, right eye; Z86.718 Personal history of other venous thrombosis and embolism; Z82.5 Family history of asthma and other chronic lower respiratory diseases; K57.90 Diverticulosis of intestine, part unspecified, without perforation or abscess without bleeding; Z90.49 Acquired absence of other specified parts of digestive tract
CPT/HCPCS: 36415; 71046; 80048; 80053; 80202; 82728; 83036; 83540; 83550; 83605; 83880; 85025; 85610; 86850; 86900; 86901; 87040; 87070; 87205; 96360; 99284

== ENCOUNTER 2019-07-09 13:16 | Emergency (ER) | payer MEDICARE ==
[2019-07-09 13:20] VITALS: RESP 18
[2019-07-09] MEDS ORDERED: MORPHINE SULFATE 4 MG/ML SYRINGE IM STA (14:13)
[2019-07-09] MEDS ORDERED: DIPH,PERTUS(ACELL)TETVAC-LF 0.5 ML VIAL IM ONE (14:13)
--- NOTE | 2019-07-09 14:48 | CT ---
EXAMINATION TYPE: CT brain pao carrion con DATE OF EXAM: 07/09/2019 COMPARISON: None HISTORY: Fall CT DLP: 1548.[address] of the brain was performed. The ventricles, basal cisterns and sulci overlying the cerebral convexities demonstrate mild enlargem ent. There is no evidence for intracranial hemorrhage or sulcal effacement. There is decreased attenuatio n about the periventricular white matter and deep white matter of both cerebral hemispheres, compatib le with chronic small vessel ischemia. No mass effects are seen. If symptoms persist consider MRI. Osseous calvarium is intact. IMPRESSION: 1. Age related atrophic and chronic small vessel ischemic change without acute intracranial process seen at this time. CT Cervical Spine: Unenhanced CT of the cervical spine was performed with bone and soft tissue window settings submitted . Coronal and sagittal reconstruction is obtained. There is normal alignment and prevertebral soft tissues. No evidence for acute cervical fracture . Scattered degenerative disc disease and spondylosis. Biapical scarring. IMPRESSION: 1. No evidence for acute fracture or subluxation of the cervical spine.
--- NOTE | 2019-07-09 15:19 | XR ---
EXAMINATION TYPE: XR shoulder complete RT DATE OF EXAM: 07/09/2019 CLINICAL HISTORY: pain TECHNIQUE: Three views of the right shoulder are obtained. COMPARISON: None FINDINGS: There is no acute fracture evident. The acromioclavicular and glenohumeral joint spaces a ppear narrowed. The visualized ribs are intact and unremarkable. IMPRESSION: 1. There is no acute fracture. ICD 10 NO FRACTURE, INITIAL EVALUATION
--- NOTE | 2019-07-09 15:29 | XR ---
EXAMINATION TYPE: XR ribs RT w pa chest xray DATE OF EXAM: 07/09/2019 COMPARISON: NONE HISTORY: Pain TECHNIQUE: Single view of the chest right views of the ribs are submitted. FINDINGS: The lungs demonstrate hyperinflation compatible with COPD. Scattered senescent parenchymal changes noted. No Evidence for pneumothorax. No evidence for focal contusion. Mediastinal structure s are midline. Evaluation of the ribs fails to demonstrate evidence for displaced rib fracture or se condary sign of rib fracture. IMPRESSION: No acute displaced right-sided rib fractures this time.
--- NOTE | 2019-07-09 16:05 | ED ---
General Adult HPI - General Chief complaint: Fall Stated complaint: Fall Time Seen by Provider: 07/09/19 13:59 Source: patient, RN notes reviewed Mode of arrival: wheelchair Limitations: no limitations - History of Present Illness Initial comments: 83-year-old male with a complicated past medical history presents to the emergency department for a chief complaint of fall. Patient was stepping over a box at home when he tripped and fell. He fell on his right shoulder and did hit his head. Patient takes Coumadin. Last INR was checked yesterday was 2.4. Patient denies headache. He admits to minimal neck pain. Patient went to pain in his right shoulder. States he radically cannot move the arm. Patient denies any other complaints.Patient has no other complaints at this time including shortness of breath, chest pain, abdominal pain, nausea or vomiting, headache, or visual changes. - Related Data Home Medications Medication Instructions Recorded Confirmed Escitalopram Oxalate [Lexapro] 30 mg PO DAILY 07/13/15 05/31/18 Garlic 1 tab PO BID 07/13/15 05/31/18 Lactobacillus Acidophilus 1 tab PO BID 07/13/15 05/31/18 [Acidophilus] Loratadine [Claritin] 10 mg PO DAILY 07/13/15 05/31/18 Pramipexole [Mirapex] 0.25 mg PO BID 07/13/15 05/31/18 Warfarin [Coumadin] 2.5 mg PO TU 07/13/15 05/31/18 Warfarin [Coumadin] 5 mg PO SUMOWETHFRSA 07/13/15 05/31/18 oxyCODONE HCL/ACETAMINOPHEN 1 tab PO DAILY PRN 07/13/15 05/31/18 [Percocet 10-325 mg] Cholecalciferol [Vitamin D3 (25 2,000 unit PO BID 07/04/16 05/31/18 Mcg = 1000 Iu)] sitaGLIPtin PHOSPHATE [Januvia] 25 mg PO DAILY 07/04/16 05/31/18 Iron 27 Mg 27 mg PO BID 09/16/16 05/31/18 Omeprazole [PriLOSEC] 20 mg PO AC-BRKFST 09/16/16 05/31/18 busPIRone HCL 10 mg PO BID 09/16/16 05/31/18 Furosemide [Lasix] 40 mg PO MOWEFR 05/31/18 05/31/18 Imatinib Mesylate 300 mg PO HS 05/31/18 05/31/18 Metoprolol Tartrate 25 mg PO BID 05/31/18 05/31/18 Allergies Allergy/AdvReac Type Severity Reaction Status Date / Time aztreonam [From Azactam] Allergy Unknown Verified 07/09/19 13:21 cephalexin monohydrate Allergy Rash/Hives Verified 07/09/19 13:21 [From Keflex] ciprofloxacin [From Cipro] Allergy Anaphylaxis Verified 07/09/19 13:21 ciprofloxacin HCl Allergy Anaphylaxis Verified 07/09/19 13:21 [From Cipro] doxycycline Allergy Unknown Verified 07/09/19 13:21 Penicillins Allergy Anaphylaxis Verified 07/09/19 13:21 Sulfa (Sulfonamide Allergy Dyspnea Verified 07/09/19 13:21 Antibiotics) adhesive tape AdvReac Rash/Hives Verified 07/09/19 13:21 Iodinated Contrast Media AdvReac KIDNEYS Verified 07/09/19 13:21 [Iodinated Contrast- Oral and IV Dye] latex AdvReac Rash/Hives Verified 07/09/19 13:21 Review of Systems ROS Statement: Those systems with pertinent positive or pertinent negative responses have been documented in the HPI. ROS Other: All systems not noted in ROS Statement are negative. Past Medical History Past Medical History: Atrial Fibrillation, Atrial Flutter, Coronary Artery Disease (CAD), Cancer, Diabetes Mellitus, GERD/Reflux, Hyperlipidemia, Hypertension, Myocardial Infarction ([place]), Osteoarthritis (OA), Renal Disease, Sleep Apnea/CPAP/BIPAP Additional Past Medical History / Comment(s): KIDNEY DISEASE STAGE 4, NEUROPATHY OF FEET, SLEEP APNEA (NO MACHINE), RLS, HX OF CLOT IN HIS SHOULDER, DIVERTICULOSIS, left adrenal adenoma, renal stone of the right kidney, FREQUENT DIARRHEA, NEW DIAGNOSIS OF CML., STATES ON VIBRAMYCIN FOR UPPER RESPIRATORY INFECTION. Last Myocardial Infarction Date:: 2000 History of Any Multi-Drug Resistant Organisms: VRE Date of last positivie culture/infection: 2011 MDRO Source:: ABD WOUND Past Surgical History: Bladder Surgery, Cholecystectomy, Hernia Repair, Joint Replacement, Orthopedic Surgery Additional Past Surgical History / Comment(s): Hx quadruple bypass, colonoscopy, bilateral cataract surgery. Has shaheen from hip to knee on right side., right ankle plate and screw., Bilateral total knees., exploratory of abd. Past Anesthesia/Blood Transfusion Reactions: No Reported Reaction Past Psychological History: Depression Smoking Status: Former smoker Past Alcohol Use History: None Reported Past Drug Use History: None Reported - Past Family History Mother Family Medical History: AFIB, CVA/TIA, Diabetes Mellitus, Renal Disease Additional Family Medical History / Comment(s): age 88 Father Family Medical History: Pneumonia Additional Family Medical History / Comment(s): age 58 of pneumonia Brother(s) Family Medical History: Coronary Artery Disease (CAD) Son(s) Family Medical History: No Reported History Additional Family Medical History / Comment(s): patient has one son with no major medical problems. General Exam Limitations: no limitations General appearance: alert, in no apparent distress Head exam: Present: atraumatic, normocephalic, normal inspection Eye exam: Present: normal appearance, PERRL, EOMI. Absent: scleral icterus, conjunctival injection ENT exam: Present: normal exam, mucous membranes moist Neck exam: Present: normal inspection, full ROM. Absent: tenderness, meningismus, lymphadenopathy Respiratory exam: Present: normal lung sounds bilaterally. Absent: respiratory distress, wheezes, rales, rhonchi, stridor Cardiovascular Exam: Present: regular rate, normal rhythm, normal heart sounds. Absent: systolic murmur, diastolic murmur, rubs, gallop, clicks Extremities exam: Present: normal capillary refill (Radial pulse 2+ and right upper extremity, capillary refill is less than 2 seconds.), other (Patient has tenderness noted to the proximal aspect of the right humerus as well as the right shoulder. There is no significant edema.). Absent: full ROM (Patients has chronically weak right arm), tenderness, pedal edema, joint swelling, calf tenderness Course Vital Signs 07/09/19 07/09/19 13:18 16:00 Temperature 97.8 F 98.0 F Pulse Rate 89 88 Respiratory 18 18 Rate Blood Pressure 151/83 131/70 O2 Sat by Pulse 98 92 L Oximetry Medical Decision Making - Medical Decision Making CT brain shows age-related atrophic and chronic small vessel ischemic change without acute intracranial process seen at this time. CT cervical spine shows no evidence for acute fractures or location of the cervical spine. This x-ray shows no acute displaced right sided rib fractures. X-ray of shoulder shows no acute fracture. Patient was very difficult to examine due to demeanor. He did not want me touching him, requested several times for me to get his cold hands off him. Ct brain shows chronic small Vessel ischemic change without acute intracranial process seen. CT cervical spine shows no evidence for acute fracture or subluxation. X-ray of the right ribs shows no acute displaced right rib fractures. Shoulder x-ray shows no acute fracture. On reevaluation of the patient I did attempt to do more of a physical exam. Patient does have minimal tenderness to the distal humerus. I'm recommending another x-ray for this however patient is adamantly refusing this. Stating to get my hands off them and that he is going home. I did put patient in a sling and recommended he follow-up closely with his orthopedic surgeon for any additional x-rays. At this time neuro Anderson is intact in the right arm. He will return if he has any worsening symptoms. Disposition Clinical Impression: Fall, Arm pain, right Disposition: HOME SELF-CARE Condition: Good Instructions (If sedation given, give patient instructions): Arm Pain (ED) Additional Instructions: These take your pain medication for pain. Use sling for comfort. Follow-up with your orthopedic surgeon as soon as possible. Return to the emergency department if you have any worsening symptoms. Is patient prescribed a controlled substance at d/c from ED?: No Referrals: Quintin Neal MD [Primary Care Provider] - 1-2 days Franco Ellison MD [REFERRING] - 1-2 days Time of Disposition: 16:27
[2019-07-09 16:14] VITALS: BP 131/70; PULSE 88; TEMP 98
== END 2019-07-09 16:33 | disposition home or self-care (01) ==
LOC: EC 13:16
DX: M79.601 Pain in right arm (principal); G31.9 Degenerative disease of nervous system, unspecified; I67.82 Cerebral ischemia; R29.898 Other symptoms and signs involving the musculoskeletal system; M54.2 Cervicalgia; M25.511 Pain in right shoulder; I48.91 Unspecified atrial fibrillation; I25.10 Atherosclerotic heart disease of native coronary artery without angina pectoris; E11.22 Type 2 diabetes mellitus with diabetic chronic kidney disease; N18.4 Chronic kidney disease, stage 4 (severe); K21.9 Gastro-esophageal reflux disease without esophagitis; I12.9 Hypertensive chronic kidney disease with stage 1 through stage 4 chronic kidney disease, or unspecified chronic kidney disease; I25.2 Old myocardial infarction; M19.90 Unspecified osteoarthritis, unspecified site; E11.42 Type 2 diabetes mellitus with diabetic polyneuropathy; G25.81 Restless legs syndrome; F32.9 Major depressive disorder, single episode, unspecified; Z87.891 Personal history of nicotine dependence; Z88.0 Allergy status to penicillin; Z88.1 Allergy status to other antibiotic agents; Z88.2 Allergy status to sulfonamides; Z91.040 Latex allergy status; Z91.041 Radiographic dye allergy status; Z91.048 Other nonmedicinal substance allergy status; Z79.01 Long term (current) use of anticoagulants; Z79.84 Long term (current) use of oral hypoglycemic drugs; Z79.899 Other long term (current) drug therapy; Z92.21 Personal history of antineoplastic chemotherapy; Z96.653 Presence of artificial knee joint, bilateral; Z96.698 Presence of other orthopedic joint implants; Z23 Encounter for immunization; W01.0XXA Fall on same level from slipping, tripping and stumbling without subsequent striking against object, initial encounter; Y93.89 Activity, other specified; Y92.009 Unspecified place in unspecified non-institutional (private) residence as the place of occurrence of the external cause; Z53.20 Procedure and treatment not carried out because of patient's decision for unspecified reasons
CPT/HCPCS: 71101; 73030; 72125; 70450; 90715; 99284; 96372; 90471; J2270

== ENCOUNTER 2019-11-19 11:46 | Observation (INO) | payer MEDICARE ==
[2019-11-19] MEDS ORDERED: ASPIRIN 81 MG PO STA (12:14)
[2019-11-19] MEDS ORDERED: DIPH,PERTUS(ACELL)TETVAC-LF 0.5 ML VIAL IM ONE (12:15)
--- NOTE | 2019-11-19 12:19 | ED ---
General Adult HPI - General Chief complaint: Head Injury Stated complaint: Chest pain, Fell Time Seen by Provider: 11/19/19 12:00 Source: patient, family Mode of arrival: wheelchair Limitations: no limitations - History of Present Illness Initial comments: Patient is an 84-year-old male with history of chronic A. fib, diabetes presenting to emergency Department with a chief complaint of fall and chest pain. Patient states he sleeps in a recliner and this morning she rolled off of it. States this occurred at about 0500. States there was some initial bleeding on the parietal aspect of his head but he didn't think much of it. Unaware of his tetanus status. States doing a 90 is also developed "pulsations of chest pain" that only lasts for a few seconds but have gradually increased in severity and frequency since onset. Denies any chest pain with exertion.. Denies any shortness of breath on exertion. Denies any diaphoretic episodes nausea or vomiting headaches, visual changes, one-sided weakness or paresthesias. States he takes Coumadin for A. fib. - Related Data Home Medications Medication Instructions Recorded Confirmed Escitalopram Oxalate [Lexapro] 30 mg PO DAILY 07/13/15 05/31/18 Garlic 1 tab PO BID 07/13/15 05/31/18 Lactobacillus Acidophilus 1 tab PO BID 07/13/15 05/31/18 [Acidophilus] Loratadine [Claritin] 10 mg PO DAILY 07/13/15 05/31/18 Pramipexole [Mirapex] 0.25 mg PO BID 07/13/15 05/31/18 Warfarin [Coumadin] 2.5 mg PO TU 07/13/15 05/31/18 Warfarin [Coumadin] 5 mg PO SUMOWETHFRSA 07/13/15 05/31/18 oxyCODONE HCL/ACETAMINOPHEN 1 tab PO DAILY PRN 07/13/15 05/31/18 [Percocet 10-325 mg] Cholecalciferol [Vitamin D3 (25 2,000 unit PO BID 07/04/16 05/31/18 Mcg = 1000 Iu)] sitaGLIPtin PHOSPHATE [Januvia] 25 mg PO DAILY 07/04/16 05/31/18 Iron 27 Mg 27 mg PO BID 09/16/16 05/31/18 Omeprazole [PriLOSEC] 20 mg PO AC-BRKFST 09/16/16 05/31/18 busPIRone HCL 10 mg PO BID 09/16/16 05/31/18 Furosemide [Lasix] 40 mg PO MOWEFR 05/31/18 05/31/18 Imatinib Mesylate 300 mg PO HS 05/31/18 05/31/18 Metoprolol Tartrate 25 mg PO BID 05/31/18 05/31/18 Allergies Allergy/AdvReac Type Severity Reaction Status Date / Time aztreonam [From Azactam] Allergy Unknown Verified 11/19/19 11:55 cephalexin monohydrate Allergy Rash/Hives Verified 11/19/19 11:55 [From Keflex] ciprofloxacin [From Cipro] Allergy Anaphylaxis Verified 11/19/19 11:55 ciprofloxacin HCl Allergy Anaphylaxis Verified 11/19/19 11:55 [From Cipro] doxycycline Allergy Unknown Verified 11/19/19 11:55 Penicillins Allergy Anaphylaxis Verified 11/19/19 11:55 Sulfa (Sulfonamide Allergy Dyspnea Verified 11/19/19 11:55 Antibiotics) adhesive tape AdvReac Rash/Hives Verified 11/19/19 11:55 Iodinated Contrast Media AdvReac KIDNEYS Verified 11/19/19 11:55 [Iodinated Contrast- Oral and IV Dye] latex AdvReac Rash/Hives Verified 11/19/19 11:55 Review of Systems ROS Statement: Those systems with pertinent positive or pertinent negative responses have been documented in the HPI. ROS Other: All systems not noted in ROS Statement are negative. Past Medical History Past Medical History: Atrial Fibrillation, Atrial Flutter, Coronary Artery Disease (CAD), Cancer, Diabetes Mellitus, GERD/Reflux, Hyperlipidemia, Hypertension, Myocardial Infarction ([place]), Osteoarthritis (OA), Renal Disease, Sleep Apnea/CPAP/BIPAP Additional Past Medical History / Comment(s): KIDNEY DISEASE STAGE 4, NEUROPATHY OF FEET, SLEEP APNEA (NO MACHINE), RLS, HX OF CLOT IN HIS SHOULDER, DIVERTICULOSIS, left adrenal adenoma, renal stone of the right kidney, FREQUENT DIARRHEA, NEW DIAGNOSIS OF CML., STATES ON VIBRAMYCIN FOR UPPER RESPIRATORY INFECTION. Last Myocardial Infarction Date:: 2000 History of Any Multi-Drug Resistant Organisms: VRE Date of last positivie culture/infection: 2011 MDRO Source:: ABD WOUND Past Surgical History: Bladder Surgery, Cholecystectomy, Hernia Repair, Joint Replacement, Orthopedic Surgery Additional Past Surgical History / Comment(s): Hx quadruple bypass, colonoscopy, bilateral cataract surgery. Has shaheen from hip to knee on right side., right ankle plate and screw., Bilateral total knees., exploratory of abd. Past Anesthesia/Blood Transfusion Reactions: No Reported Reaction Past Psychological History: Depression Smoking Status: Former smoker Past Alcohol Use History: None Reported Past Drug Use History: None Reported - Past Family History Mother Family Medical History: AFIB, CVA/TIA, Diabetes Mellitus, Renal Disease Additional Family Medical History / Comment(s): age 88 Father Family Medical History: Pneumonia Additional Family Medical History / Comment(s): age 58 of pneumonia Brother(s) Family Medical History: Coronary Artery Disease (CAD) Son(s) Family Medical History: No Reported History Additional Family Medical History / Comment(s): patient has one son with no major medical problems. General Exam Limitations: no limitations General appearance: alert, in no apparent distress Head exam: Present: normocephalic. Absent: atraumatic (Skin tear measuring approximately 6 cm 8 cm on the parietal aspect of the head.), normal inspection, other (Negative Coffman sign, negative hemotympanum, negative raccoon eyes.) Eye exam: Present: normal appearance, PERRL, EOMI Pupils: Present: normal accommodation ENT exam: Present: normal exam Neck exam: Present: normal inspection, full ROM Respiratory exam: Present: normal lung sounds bilaterally. Absent: respiratory distress, wheezes, rales Cardiovascular Exam: Present: regular rate, normal rhythm, normal heart sounds GI/Abdominal exam: Present: soft. Absent: distended, tenderness Extremities exam: Present: normal inspection, full ROM Back exam: Present: normal inspection, full ROM Neurological exam: Present: alert, oriented X3 Psychiatric exam: Present: normal affect, normal mood Skin exam: Present: warm, dry, intact, normal color Course Vital Signs 11/19/19 11/19/19 11:50 14:01 Temperature 98.7 F Pulse Rate 98 89 Respiratory 18 18 Rate Blood Pressure 116/64 123/68 O2 Sat by Pulse 98 97 Oximetry EKG Findings - EKG Comments: EKG Findings:: A. fib. Ventricular rate 86, QRS 94, QTC 459. Medical Decision Making - Medical Decision Making Patient is an 84-year-old male with history of CVD, diabetes, CAD presenting to the emergency Department with a chief complaint of fall and chest pain. Patient is currently on Coumadin for chronic A. fib. On exam patient does have a skin tear on the parietal region of his head. No signs of lacerations. Tetanus shot was given. CBC shows anemia with a hemoglobin of 9.2. CMP shows elevated BUN and creatinine which seemed to be his baseline due to his CKD. Patient does have a fistula but does not undergo dialysis. INR is 2.5. Initial troponin is negative. Patient is slightly hyperkalemic at 5.8. EKG shows A. fib. Chest x- ray shows no acute processes. CT of the brain and C-spine is negative for acute fractures, dislocations midline shift or hemorrhage. Patient will be admitted for observation. Case discussed with . Admitting physician is . Cardiology on consult. - Lab Data Result diagrams: 11/19/19 12:00 11/19/19 14:37 Lab Results 11/19/19 11/19/19 11/19/19 Range/Units 12:00 12:00 12:00 WBC 6.7 (3.8-10.6) k/uL RBC 2.77 L (4.30-5.90) m/uL Hgb 9.2 L (13.0-17.5) gm/dL Hct 27.9 L (39.0-53.0) % MCV 100.4 H (80.0-100.0) fL MCH 33.0 (25.0-35.0) pg MCHC 32.9 (31.0-37.0) g/dL RDW 14.4 (11.5-15.5) % Plt Count 159 (150-450) k/uL Neutrophils % 71 % Lymphocytes % 14 % Monocytes % 7 % Eosinophils % 4 % Basophils % 0 % Neutrophils # 4.7 (1.3-7.7) k/uL Lymphocytes # 0.9 L (1.0-4.8) k/uL Monocytes # 0.5 (0-1.0) k/uL Eosinophils # 0.3 (0-0.7) k/uL Basophils # 0.0 (0-0.2) k/uL Macrocytosis Slight PT 24.0 H (9.0-12.0) sec INR 2.5 H (<1.2) APTT 33.6 H (22.0-30.0) sec Sodium 139 (137-145) mmol/L Potassium 5.8 H (3.5-5.1) mmol/L Chloride 108 H (98-107) mmol/L Carbon Dioxide 21 L (22-30) mmol/L Anion Gap 10 mmol/L BUN 50 H (9-20) mg/dL Creatinine 2.87 H (0.66-1.25) mg/dL Est GFR (CKD-EPI)AfAm 23 (>60 ml/min/1.73 sqM) Est GFR (CKD-EPI)NonAf 20 (>60 ml/min/1.73 sqM) Glucose 107 H (74-99) mg/dL Calcium 8.9 (8.4-10.2) mg/dL Magnesium 2.1 (1.6-2.3) mg/dL Total Bilirubin 0.3 (0.2-1.3) mg/dL AST 34 (17-59) U/L ALT 14 (4-49) U/L Alkaline Phosphatase 88 (38-126) U/L Troponin I (0.000-0.034) ng/mL Total Protein 7.0 (6.3-8.2) g/dL Albumin 4.0 (3.5-5.0) g/dL 11/19/19 11/19/19 Range/Units 12:00 14:37 WBC (3.8-10.6) k/uL RBC (4.30-5.90) m/uL Hgb (13.0-17.5) gm/dL Hct (39.0-53.0) % MCV (80.0-100.0) fL MCH (25.0-35.0) pg MCHC (31.0-37.0) g/dL RDW (11.5-15.5) % Plt Count (150-450) k/uL Neutrophils % % Lymphocytes % % Monocytes % % Eosinophils % % Basophils % % Neutrophils # (1.3-7.7) k/uL Lymphocytes # (1.0-4.8) k/uL Monocytes # (0-1.0) k/uL Eosinophils # (0-0.7) k/uL Basophils # (0-0.2) k/uL Macrocytosis PT (9.0-12.0) sec INR (<1.2) APTT (22.0-30.0) sec Sodium (137-145) mmol/L Potassium 5.8 H (3.5-5.1) mmol/L Chloride (98-107) mmol/L Carbon Dioxide (22-30) mmol/L Anion Gap mmol/L BUN (9-20) mg/dL Creatinine (0.66-1.25) mg/dL Est GFR (CKD-EPI)AfAm (>60 ml/min/1.73 sqM) Est GFR (CKD-EPI)NonAf (>60 ml/min/1.73 sqM) Glucose (74-99) mg/dL Calcium (8.4-10.2) mg/dL Magnesium (1.6-2.3) mg/dL Total Bilirubin (0.2-1.3) mg/dL AST (17-59) U/L ALT (4-49) U/L Alkaline Phosphatase (38-126) U/L Troponin I <0.012 (0.000-0.034) ng/mL Total Protein (6.3-8.2) g/dL Albumin (3.5-5.0) g/dL Disposition Clinical Impression: Fall, Head injury, Skin tear, Chest pain Disposition: ADMITTED IP TO THIS HOSP Condition: Good Additional Instructions: Patient will be admitted Is patient prescribed a controlled substance at d/c from ED?: No Referrals: Quintin Neal MD [Primary Care Provider] - 1-2 days Time of Disposition: 15:05
[2019-11-19 12:49] LABS: Basophils % (A) 0 %; Eosinophils # (A) 0.3 k/uL (0-0.7); Eosinophils % (A) 4 %; HCT 27.9 % (39.0-53.0); HGB 9.2 gm/dL (13.0-17.5); INR 2.5 (<1.2); Lymphocytes # (A) 0.9 k/uL (1.0-4.8); Lymphocytes % (A) 14 %; MCHC 32.9 g/dL (31.0-37.0); MCV 100.4 fL (80.0-100.0); Macrocytosis Slight; Mean Platelet Volume 8.6; Monocytes # (A) 0.5 k/uL (0-1.0); Monocytes % (A) 7 %; Neutrophils # (A) 4.7 k/uL (1.3-7.7); Neutrophils % (A) 71 %; Partial Thromboplastin Time 33.6 sec (22.0-30.0); Platelet Count 159 k/uL (150-450); RBC 2.77 m/uL (4.30-5.90); RDW 14.4 % (11.5-15.5); WBC 6.7 k/uL (3.8-10.6)
[2019-11-19 12:54] LABS: Calcium 8.9 mg/dL (8.4-10.2); Magnesium 2.1 mg/dL (1.6-2.3); Potassium 5.8 mmol/L (3.5-5.1); Total Bilirubin 0.3 mg/dL (0.2-1.3)
--- NOTE | 2019-11-19 13:09 | XR ---
EXAMINATION TYPE: XR chest 2V DATE OF EXAM: 11/19/2019 COMPARISON: 07/09/2019 HISTORY: Chest pain TECHNIQUE: Frontal and lateral views of the chest are obtained. FINDINGS: Chronic interstitial prominence. No new focal consolidation, pleural effusion or pneumotho rax. Enlarged cardiomediastinal silhouette for CABG change. Diffuse osseous demineralization seen. Mi ld degenerative change of the spine. IMPRESSION: Chronic changes with no acute cardiopulmonary process.
--- NOTE | 2019-11-19 13:11 | CT ---
EXAMINATION TYPE: CT brain cspine wo con DATE OF EXAM: 11/19/2019 COMPARISON: Trauma CT October 08, 2019. HISTORY: Head trauma, on Coumadin or blood thinners. Headache and neck pain. CT DLP: 1501.7 mGycm. Automated Exposure Control for Dose Reduction was Utilized. TECHNIQUE: CT scan of the head and cervical spine are performed without contrast. FINDINGS: There is no acute intracranial hemorrhage or midline shift identified. Diffuse cerebral a nd ventricular prominence redemonstrated. Some low attenuation in the periventricular white matter. T he calvarium is intact. The globes are intact and the visualized sinuses are clear. Cervical spine is visualized in its entirety from C1 through upper thoracic levels and shows marked e xaggerated cervical curvature with multilevel spondylolisthesis as there is grade 1 anterolisthesis C 2 on C3 and C3 on C4 and C4 on C5 with grade 1 retrolisthesis C5 on C6 all redemonstrated. Vertebral body heights are preserved. No acute fracture or dislocation. Moderate to advanced disc space narrow ing C4-C5 level with advanced disc space narrowing C5-C6 and C6-C7 levels is redemonstrated. Posterio r spur disc complexes efface the anterior thecal sac at these levels similar to prior. Axial images s how multilevel uncovertebral facet degenerative changes bilaterally. Lung apices are clear without pn eumothorax. IMPRESSION: 1. There is no acute fracture or dislocation evident in the cervical spine. Multilevel spondylitic an d degenerative changes redemonstrated without significant interval change. 2. No acute intracranial hemorrhage or midline shift is seen. Moderate diffuse cerebral atrophy and m ild chronic small vessel ischemic change redemonstrated without significant interval change from irajo r
[2019-11-19] MEDS ORDERED: NITROGLYCERIN SL TABS 0.4 MG TAB SUBLINGUAL PRN (14:57)
[2019-11-19] MEDS ORDERED: oxyCODONE-APAP 10-325MG 1 EACH TAB PO PRN (19:41)
[2019-11-19] MEDS ORDERED: WARFARIN 2.5 MG TAB PO SCH (20:00)
[2019-11-19] MEDS: PRAMIPEXOLE 0.25 MG TAB PO SCH (20:37)
[2019-11-19] MEDS: busPIRone HCl 10 MG TAB PO SCH (20:37)
[2019-11-19] MEDS: METOPROLOL TARTRATE 25 MG TAB PO SCH (20:37)
[2019-11-19] MEDS: CHOLECALCIFEROL 1,000 UNIT TAB PO SCH (20:37)
[2019-11-19] MEDS ORDERED: IMATINIB MESYLATE 300 MG PO SCH (21:00)
[2019-11-20 04:26] LABS: Cholesterol 137 mg/dL (<200); HDL Cholesterol 40 mg/dL (40-60); LDL Cholesterol,Calculated 80 mg/dL (0-99); Triglycerides 87 mg/dL (<150)
[2019-11-20] MEDS ORDERED: PANTOPRAZOLE 40 MG TABLET PO SCH (07:30)
[2019-11-20 08:10] VITALS: RESP 17; TEMP 98.2
[2019-11-20] MEDS ORDERED: FUROSEMIDE 40 MG TAB PO SCH (09:00)
[2019-11-20] MEDS ORDERED: LORATADINE 10 MG TAB PO SCH (09:00)
[2019-11-20] MEDS ORDERED: FERROUS SULFATE 325 MG TAB PO SCH (09:00)
[2019-11-20] MEDS ORDERED: ESCITALOPRAM 20 MG TAB PO SCH (09:00)
[2019-11-20] MEDS ORDERED: LINAGLIPTIN 5 MG TABLET PO SCH (09:00)
[2019-11-20] MEDS ORDERED: ASPIRIN 325 MG TAB PO SCH (09:00)
[2019-11-20] MEDS: CHOLECALCIFEROL 1,000 UNIT TAB PO SCH (09:05)
[2019-11-20] MEDS: METOPROLOL TARTRATE 25 MG TAB PO SCH (09:05)
--- NOTE | 2019-11-20 09:29 | P.CRDCN ---
History of Present Illness Consult date: 11/20/19 Chief complaint: Long-standing persistent atrial fibrillation History of present illness: This is a very pleasant 84-year-old gentleman who sees Dr. Oliveira in the office on regular basis with a past medical history significant for coronary artery disease and prior coronary artery bypass grafting, long-standing persistent atrial fibrillation on oral anticoagulation, diabetes, hypertension, dyslipidemia, presented to the emergency room after he fell at home. The patient went to sleep last night and normally he sleeps on his recliner when he woke up to find himself on the floor with bleeding from the head. Apparently the patient did hit his head with some bleeding from it. Computed tomography scan of the head was performed and showed no intracranial abnormalities. He does not recall having any symptoms of chest pain or chest discomfort, shortness of breath, dizziness, or any feeling of heart racing or fluttering around the episode. The last thing he remembered that he went to sleep on the recliner and wake up to find himself on the floor. Probably the patient felt of the recliner. He is in atrial fibrillation with controlled heart rate. The EKG showed A. fib with no significant ST or T-wave abnormalities. The cardiac en zymes were checked and came in to be unremarkable. The chest x-ray did not show any acute abnormality sprayed the computed tomography scan of the head did not show any acute abnormality as well. The patient would like to be discharged home. From the cardiac vascular standpoint of view, the patient possibly can be discharged home and follow-up with Dr. Oliveira as an outpatient. Please note that no cardiac arrhythmia noted during his hospital stay beside the atrial fibrillation. No evidence of any sinus was of sinus arrest seen. Past Medical History Past Medical History: Atrial Fibrillation, Atrial Flutter, Coronary Artery Disease (CAD), Cancer, Diabetes Mellitus, GERD/Reflux, Hyperlipidemia, Hypertension, Myocardial Infarction (MT), Osteoarthritis (OA), Renal Disease, Sleep Apnea/CPAP/BIPAP Additional Past Medical History / Comment(s): KIDNEY DISEASE STAGE 4, NEUROPATHY OF FEET, SLEEP APNEA (NO MACHINE), RLS, HX OF CLOT IN HIS SHOULDER, DIVERTICULOSIS, left adrenal adenoma, renal stone of the right kidney, FREQUENT DIARRHEA, NEW DIAGNOSIS OF CML., STATES ON VIBRAMYCIN FOR UPPER RESPIRATORY INFECTION. Last Myocardial Infarction Date:: 2000 History of Any Multi-Drug Resistant Organisms: VRE Date of last positivie culture/infection: 2011 MDRO Source:: ABD WOUND Past Surgical History: Bladder Surgery, Cholecystectomy, Hernia Repair, Joint Replacement, Orthopedic Surgery Additional Past Surgical History / Comment(s): Hx quadruple bypass, colonoscopy, bilateral cataract surgery. Has shaheen from hip to knee on right side., right ankle plate and screw., Bilateral total knees., exploratory of abd. Past Anesthesia/Blood Transfusion Reactions: No Reported Reaction Past Psychological History: Depression Smoking Status: Former smoker Past Alcohol Use History: None Reported Additional Past Alcohol Use History / Comment(s): patient was smoker a pack per day for 5 years and quit 25-30 years ago. Patient uses a walker to ambulate in his home and crutches when he leaves his home. He lives with his and she is 24 years younger than him. She currently works outside the home and is gone most the day. 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 There are no pets in the home. Past Drug Use History: None Reported Additional Drug Use History / Comment(s): HAS USED MEDICAL MARIJUANA BUT NONE IN PAST 2 YEARS - Past Family History Mother Family Medical History: AFIB, CVA/TIA, Diabetes Mellitus, Renal Disease Additional Family Medical History / Comment(s): age 88 Father Family Medical History: Pneumonia Additional Family Medical History / Comment(s): age 58 of pneumonia Brother(s) Family Medical History: Coronary Artery Disease (CAD) Son(s) Family Medical History: No Reported History Additional Family Medical History / Comment(s): patient has one son with no major medical problems. Medications and Allergies Home Medications Medication Instructions Recorded Confirmed Type Escitalopram Oxalate [Lexapro] 30 mg PO DAILY 07/13/15 11/19/19 History Garlic 1 tab PO BID 07/13/15 11/19/19 History Loratadine [Claritin] 10 mg PO DAILY 07/13/15 11/19/19 History Pramipexole [Mirapex] 0.25 mg PO BID 07/13/15 11/19/19 History Warfarin [Coumadin] 2.5 mg PO TU 07/13/15 11/19/19 History Warfarin [Coumadin] 5 mg PO SUMOWETHFRSA 07/13/15 11/19/19 History oxyCODONE HCL/ACETAMINOPHEN 1 tab PO BID PRN 07/13/15 11/19/19 History [Percocet 10-325 mg] Cholecalciferol [Vitamin D3 (25 2,000 unit PO BID 07/04/16 11/19/19 History Mcg = 1000 Iu)] sitaGLIPtin PHOSPHATE [Januvia] 25 mg PO DAILY 07/04/16 11/19/19 History Iron 27 Mg 27 mg PO BID 09/16/16 11/19/19 History Omeprazole [PriLOSEC] 20 mg PO AC-BRKFST 09/16/16 11/19/19 History busPIRone HCL 10 mg PO BID 09/16/16 11/19/19 History Furosemide [Lasix] 40 mg PO MOWEFR 05/31/18 11/19/19 History Imatinib Mesylate 300 mg PO HS 05/31/18 11/19/19 History Metoprolol Tartrate 25 mg PO BID 05/31/18 11/19/19 History Allergies Allergy/AdvReac Type Severity Reaction Status Date / Time aztreonam [From Azactam] Allergy Unknown Verified 11/19/19 11:55 cephalexin monohydrate Allergy Rash/Hives Verified 11/19/19 11:55 [From Keflex] ciprofloxacin [From Cipro] Allergy Anaphylaxis Verified 11/19/19 11:55 ciprofloxacin HCl Allergy Anaphylaxis Verified 11/19/19 11:55 [From Cipro] doxycycline Allergy Unknown Verified 11/19/19 11:55 Penicillins Allergy Anaphylaxis Verified 11/19/19 11:55 Sulfa (Sulfonamide Allergy Dyspnea Verified 11/19/19 11:55 Antibiotics) adhesive tape AdvReac Rash/Hives Verified 11/19/19 11:55 Iodinated Contrast Media AdvReac KIDNEYS Verified 11/19/19 11:55 [Iodinated Contrast- Oral and IV Dye] latex AdvReac Rash/Hives Verified 11/19/19 11:55 Physical Exam Vitals: Vital Signs Temp Pulse Pulse Resp BP BP Pulse Ox 11/20/19 08:00 98.2 F 84 17 117/72 95 11/20/19 06:00 86 16 11/20/19 05:00 97.9 F 87 18 116/72 98 11/20/19 04:00 67 16 96 11/19/19 22:00 97.9 F 92 18 104/68 97 11/19/19 18:55 86 18 103/62 95 11/19/19 16:46 93 18 113/58 95 11/19/19 15:11 102 H 18 140/76 95 11/19/19 14:01 89 18 123/68 97 11/19/19 11:50 98.7 F 98 18 116/64 98 - Constitutional General appearance: no acute distress - Respiratory Respiratory: bilateral: CTA - Cardiovascular Rhythm: irregularly irregular Heart sounds: normal: S1, S2 Abnormal Heart Sounds: systolic murmur Results 11/19/19 12:00 11/19/19 14:37 Cardiac Enzymes 11/19/19 11/19/19 11/19/19 Range/Units 12:00 12:00 18:27 AST 34 (17-59) U/L Troponin I <0.012 <0.012 (0.000-0.034) ng/mL 11/20/19 Range/Units 00:28 AST (17-59) U/L Troponin I 0.013 (0.000-0.034) ng/mL Coagulation 11/19/19 Range/Units 12:00 PT 24.0 H (9.0-12.0) sec APTT 33.6 H (22.0-30.0) sec Lipids 11/20/19 Range/Units 00:28 Triglycerides 87 (<150) mg/dL Cholesterol 137 (<200) mg/dL HDL Cholesterol 40 (40-60) mg/dL CBC 11/19/19 Range/Units 12:00 WBC 6.7 (3.8-10.6) k/uL RBC 2.77 L (4.30-5.90) m/uL Hgb 9.2 L (13.0-17.5) gm/dL Hct 27.9 L (39.0-53.0) % Plt Count 159 (150-450) k/uL Comprehensive Metabolic Panel 11/19/19 11/19/19 Range/Units 12:00 14:37 Sodium 139 (137-145) mmol/L Potassium 5.8 H 5.8 H (3.5-5.1) mmol/L Chloride 108 H (98-107) mmol/L Carbon Dioxide 21 L (22-30) mmol/L BUN 50 H (9-20) mg/dL Creatinine 2.87 H (0.66-1.25) mg/dL Glucose 107 H (74-99) mg/dL Calcium 8.9 (8.4-10.2) mg/dL AST 34 (17-59) U/L ALT 14 (4-49) U/L Alkaline Phosphatase 88 (38-126) U/L Total Protein 7.0 (6.3-8.2) g/dL Albumin 4.0 (3.5-5.0) g/dL Current Medications Generic Name Dose Route Start Last Admin Trade Name Freq PRN Reason Stop Dose Admin Aspirin 325 mg 11/20/19 09:00 11/20/19 09:05 Aspirin PO 325 mg DAILY [facility] Administration Buspirone HCl 10 mg 11/19/19 21:00 11/19/19 20:37 Buspar PO 10 mg BID [facility] Administration Cholecalciferol 2,000 unit 11/19/19 21:00 11/20/19 09:05 Vitamin D3 (25 Mcg = 1000 Iu) PO 2,000 unit BID [facility] Administration Escitalopram Oxalate 30 mg 11/20/19 09:00 Lexapro PO DAILY [facility] Ferrous Sulfate 325 mg 11/20/19 09:00 11/20/19 09:05 Feosol PO 325 mg DAILY [facility] Administration Furosemide 40 mg 11/20/19 09:00 11/20/19 09:05 Lasix PO 40 mg MOWEFR [facility] Administration Linagliptin 5 mg 11/20/19 09:00 Tradjenta PO DAILY [facility] Loratadine 10 mg 11/20/19 09:00 11/20/19 09:05 Claritin PO 10 mg DAILY [facility] Administration Metoprolol Tartrate 25 mg 11/19/19 21:00 11/20/19 09:05 Lopressor PO 25 mg BID [facility] Administration Nitroglycerin 0.4 mg 11/19/19 14:57 Nitrostat SUBLINGUAL Q5M PRN Chest Pain Imatinib Mesylate [ 300 mg 11/19/19 21:00 11/20/19 08:53 Gleevac] 300 Mg PO Not Given HS [facility] Oxycodone/Acetaminophen 1 each 11/19/19 19:41 Percocet 10-325 PO BID PRN Pain Pantoprazole Sodium 40 mg 11/20/19 07:30 11/20/19 09:05 Protonix PO 40 mg AC-BRKFST [facility] Administration Pramipexole Dihydrochloride 0.25 mg 11/19/19 21:00 11/19/19 20:37 Mirapex PO 0.25 mg BID [facility] Administration Warfarin Sodium 2.5 mg 11/19/19 20:00 11/19/19 20:37 Coumadin PO 2.5 mg [id number] [facility] Administration Protocol Warfarin Sodium 5 mg 11/20/19 18:00 Coumadin PO [id number] [facility] Protocol 11/19/19 12:00 11/19/19 14:37 Assessment and Plan Assessment: Assessment #1 status post fall with head injury #2 long-standing persistent atrial fibrillation #3 coronary artery disease and status post CABG #4 multiple comorbid conditions Plan #1 the heart rate is controlled on the current medical regimen #2 continue the current medical regimen #3 acute coronary event was ruled out #4 the patient can be discharged
[2019-11-20] MEDS: PRAMIPEXOLE 0.25 MG TAB PO SCH (10:08)
[2019-11-20] MEDS: busPIRone HCl 10 MG TAB PO SCH (10:08)
[2019-11-20 12:02] VITALS: BP 104/54; PULSE 87
--- NOTE | 2019-11-20 12:23 | P.DS ---
Providers Date of admission: 11/19/19 14:25 Expected date of discharge: 11/20/19 Attending physician: Quintin Neal Consults: 11/19/19 14:57 Consult Physician Urgent Consulting Provider: Carlos Alberto Gottlieb Consult Reason/Comments: Chest pain, fall, serial troponins Do you want consulting provider notified?: Yes Primary care physician: Quintin Neal Hospital Course: This is an 84-year-old male patient of Dr. Neal with a previous medical history significant for CAD post CABG x5, hypertension and hypertensive cardiovascular disease, chronic atrial flutter ablationon chronic Coumadin, diabetes mellitus type 2 with diabetic polyneuropathy, chronic kidney disease stage IV, obesity with obstructive sleep apnea, hypogonadism, diverticulosis, GERD with hiatal hernia, left adrenal adenoma, CML. Patient came to the emergency department at [facility] yesterday with chief complaint of increased chest pain that happened before and after he fell out of his lounge chair patient stated that he had dinner yesterday and he went to his lounge chair and developed to have some significant chest pain on and off and happened twice he didn't do anything about it he went to sleep in the lounge chair and at 5:00 in the morning he ended up falling off the chair landing on the ground and ended up with a skin laceration of the scalp ended up coming to the ER for evaluation had a computed tomography scan did not show any evidence of acute of normalities, because of his chest pain was admitted to the hospital for evaluation his EKG showed a baseline chronic atrial fibrillation with controlled rate without acute ST-T wave changes. Cardiology consultation was obtained 11/19: Patient has been seen by cardiology and acute coronary syndrome has been ruled out. Patient is denying any chest pain at the time of this evaluation, no lightheadedness, dizziness, shortness of breath. hall monitor has been atrial fibrillation with rate control. Patient has been cleared for discharge by cardiology. Patient remains in the emergency center awaiting a bed will be discharged home. He has been afebrile, heart rate 87, blood pressure 104/54, pulse ox 96% on room air. Troponins have been negative on 3 draws, triglycerides 87, cholesterol 137, LDL 80, HDL 40. Patient will be discharged home today in stable condition. Discharge diagnoses: 1. Chest pain etiology likely noncardiac. 2. Status post fall with a skin laceration. 3. CAD post CABG 5 in 2000. 3. Hypertension and hypertensive cardiovascular disease. 4. Diabetes mellitus type 2. 5. Chronic kidney disease stage V. 6. Anemia of chronic disease. 7. Obesity with obstructive sleep apnea. 8. Chronic atrial fibrillation/flutter. 9. History of diverticulosis. 10. Recurrent depression. 11. Generalized anxiety disorder. 12. Hypogonadism. 13. Restless leg syndrome. 14. History of CML. Discharge plan: Home Impression and plan of care have been directed as dictated by the signing physician. Juli Luna nurse practitioner acting as scribe for signing physician. Patient Condition at Discharge: Good Plan - Discharge Summary Discharge Rx Participant: No New Discharge Prescriptions: Continue Garlic 1 tab PO BID Escitalopram Oxalate [Lexapro] 30 mg PO DAILY oxyCODONE HCL/ACETAMINOPHEN [Percocet 10-325 mg] 1 tab PO BID PRN PRN Reason: Pain Warfarin [Coumadin] 2.5 mg PO TU Warfarin [Coumadin] 5 mg PO WE Pramipexole [Mirapex] 0.25 mg PO BID Loratadine [Claritin] 10 mg PO DAILY sitaGLIPtin PHOSPHATE [Januvia] 25 mg PO DAILY Cholecalciferol [Vitamin D3 (25 Mcg = 1000 Iu)] 2,000 unit PO BID busPIRone HCL 10 mg PO BID Iron 27 Mg 27 mg PO BID Omeprazole [PriLOSEC] 20 mg PO AC-BRKFST Furosemide [Lasix] 40 mg PO MOWEFR Metoprolol Tartrate 25 mg PO BID Imatinib Mesylate 300 mg PO HS Discharge Medication List Escitalopram Oxalate [Lexapro] 30 mg PO DAILY 07/13/15 [History] Garlic 1 tab PO BID 07/13/15 [History] Loratadine [Claritin] 10 mg PO DAILY 07/13/15 [History] Pramipexole [Mirapex] 0.25 mg PO BID 07/13/15 [History] Warfarin [Coumadin] 2.5 mg PO TU 07/13/15 [History] Warfarin [Coumadin] 5 mg PO SUMOWETHFRSA 07/13/15 [History] oxyCODONE HCL/ACETAMINOPHEN [Percocet 10-325 mg] 1 tab PO BID PRN 07/13/15 [History] Cholecalciferol [Vitamin D3 (25 Mcg = 1000 Iu)] 2,000 unit PO BID 07/04/16 [History] sitaGLIPtin PHOSPHATE [Januvia] 25 mg PO DAILY 07/04/16 [History] Iron 27 Mg 27 mg PO BID 09/16/16 [History] Omeprazole [PriLOSEC] 20 mg PO AC-BRKFST 09/16/16 [History] busPIRone HCL 10 mg PO BID 09/16/16 [History] Furosemide [Lasix] 40 mg PO MOWEFR 05/31/18 [History] Imatinib Mesylate 300 mg PO HS 05/31/18 [History] Metoprolol Tartrate 25 mg PO BID 05/31/18 [History] Follow up Appointment(s)/Referral(s): Ash Oliveira MD [STAFF PHYSICIAN] - 1 Week Quintin Neal MD [Primary Care Provider] - 1 Week Patient Instructions/Handouts: Chest Pain (GEN), Skin Tear (GEN) Activity/Diet/Wound Care/Special Instructions: HEART HEALTHY/CONSISTENT CARBOHYDRATE DIET ACTIVITY TOLERATED Discharge Disposition: HOME SELF-CARE
--- NOTE | 2019-11-20 12:49 | P.HPIM ---
History of Present Illness H&P Date: 11/19/19 Chief Complaint: chest pain This is an 84-year-old male patient of Dr. Neal with a previous medical history significant for CAD post CABG x5, hypertension and hypertensive cardiovascular disease, chronic atrial flutter ablationon chronic Coumadin, diabetes mellitus type 2 with diabetic polyneuropathy, chronic kidney disease stage IV, obesity with obstructive sleep apnea, hypogonadism, diverticulosis, GERD with hiatal hernia, left adrenal adenoma, CML. Patient came to the emergency department at [facility] yesterday with chief complaint of increased chest pain that happened before and after he fell out of his lounge chair patient stated that he had dinner yesterday and he went to his lounge chair and developed to have some significant chest pain on and off and happened twice he didn't do anything about it he went to sleep in the lounge chair and at 5:00 in the morning he ended up falling off the chair landing on the ground and ended up with a skin laceration of the scalp ended up coming to the ER for evaluation had a computed tomography scan did not show any evidence of acute of normalities, because of his chest pain was admitted to the hospital for evaluation his EKG showed a baseline chronic atrial fibrillation with controlled rate without acute ST-T wave changes. Cardiology consultation was obtained Review of Systems Constitutional: Reports fatigue, Reports weakness, Denies anorexia, Denies chronic headaches, Denies weight gain, Denies weight loss Eyes: bilateral blurred vision Ears: deny: decreased hearing Ears, nose, mouth and throat: Denies dysphagia, Denies neck lump, Denies sore throat Cardiovascular: Reports chest pain, Reports decreased exercise tolerance, Reports dyspnea on exertion, Reports irregular heart beat, Reports rapid heart beat, Reports shortness of breath, Denies syncope Respiratory: Denies congestion, Denies cough, Denies cough with sputum, Denies home oxygen, Denies sleep apnea, Denies snoring, Denies wheezing Gastrointestinal: Denies belching, Denies bloating, Denies heartburn, Denies melena, Denies nausea, Denies vomiting Genitourinary: Reports nocturia, Denies dysuria Musculoskeletal: Reports frequent falls, Reports gait dysfunction, Denies myalgias Musculoskeletal: absent: ankle pain, ankle stiffness, ankle swelling, elbow pain, elbow stiffness, elbow swelling, foot pain, foot stiffness, foot swelling, hand pain, hand stiffness, hand swelling, hip pain, hip stiffness, hip swelling, knee pain, knee stiffness, knee swelling, shoulder pain, shoulder stiffness, shoulder swelling, wrist pain, wrist stiffness, wrist swelling Integumentary: Denies pruritus, Denies rash Neurological: Reports gait dysfunction, Denies numbness, Denies weakness Psychiatric: Reports anxiety, Reports depression, Denies sadness/tearfulness, Denies sleep disturbances, Denies suicidal ideation Endocrine: Denies fatigue, Denies weight change Past Medical History Past Medical History: Atrial Fibrillation, Atrial Flutter, Coronary Artery Disease (CAD), Cancer, Diabetes Mellitus, GERD/Reflux, Hyperlipidemia, Hypertension, Myocardial Infarction ([place]), Osteoarthritis (OA), Renal Disease, Sleep Apnea/CPAP/BIPAP Additional Past Medical History / Comment(s): KIDNEY DISEASE STAGE 4, NEUROPATHY OF FEET, SLEEP APNEA (NO MACHINE), RLS, HX OF CLOT IN HIS SHOULDER, DIVERTICULOSIS, left adrenal adenoma, renal stone of the right kidney, FREQUENT DIARRHEA, NEW DIAGNOSIS OF CML., STATES ON VIBRAMYCIN FOR UPPER RESPIRATORY INFECTION. Last Myocardial Infarction Date:: 2000 History of Any Multi-Drug Resistant Organisms: VRE Date of last positivie culture/infection: 2011 MDRO Source:: ABD WOUND Past Surgical History: Bladder Surgery, Cholecystectomy, Hernia Repair, Joint Replacement, Orthopedic Surgery Additional Past Surgical History / Comment(s): Hx quadruple bypass, colonoscopy, bilateral cataract surgery. Has shaheen from hip to knee on right side., right ankle plate and screw., Bilateral total knees., exploratory of abd. Past Anesthesia/Blood Transfusion Reactions: No Reported Reaction Past Psychological History: Depression Smoking Status: Former smoker Past Alcohol Use History: None Reported Past Drug Use History: None Reported - Past Family History Mother Family Medical History: AFIB, CVA/TIA, Diabetes Mellitus, Renal Disease Additional Family Medical History / Comment(s): age 88 Father Family Medical History: Pneumonia Additional Family Medical History / Comment(s): age 58 of pneumonia Brother(s) Family Medical History: Coronary Artery Disease (CAD) Son(s) Family Medical History: No Reported History Additional Family Medical History / Comment(s): patient has one son with no major medical problems. Medications and Allergies Home Medications Medication Instructions Recorded Confirmed Type Escitalopram Oxalate [Lexapro] 30 mg PO DAILY 07/13/15 11/19/19 History Garlic 1 tab PO BID 07/13/15 11/19/19 History Loratadine [Claritin] 10 mg PO DAILY 07/13/15 11/19/19 History Pramipexole [Mirapex] 0.25 mg PO BID 07/13/15 11/19/19 History Warfarin [Coumadin] 2.5 mg PO TU 07/13/15 11/19/19 History Warfarin [Coumadin] 5 mg PO SUMOWETHFRSA 07/13/15 11/19/19 History oxyCODONE HCL/ACETAMINOPHEN 1 tab PO BID PRN 07/13/15 11/19/19 History [Percocet 10-325 mg] Cholecalciferol [Vitamin D3 (25 2,000 unit PO BID 07/04/16 11/19/19 History Mcg = 1000 Iu)] sitaGLIPtin PHOSPHATE [Januvia] 25 mg PO DAILY 07/04/16 11/19/19 History Iron 27 Mg 27 mg PO BID 09/16/16 11/19/19 History Omeprazole [PriLOSEC] 20 mg PO AC-BRKFST 09/16/16 11/19/19 History busPIRone HCL 10 mg PO BID 09/16/16 11/19/19 History Furosemide [Lasix] 40 mg PO MOWEFR 05/31/18 11/19/19 History Imatinib Mesylate 300 mg PO HS 05/31/18 11/19/19 History Metoprolol Tartrate 25 mg PO BID 05/31/18 11/19/19 History Allergies Allergy/AdvReac Type Severity Reaction Status Date / Time aztreonam [From Azactam] Allergy Unknown Verified 11/19/19 11:55 cephalexin monohydrate Allergy Rash/Hives Verified 11/19/19 11:55 [From Keflex] ciprofloxacin [From Cipro] Allergy Anaphylaxis Verified 11/19/19 11:55 ciprofloxacin HCl Allergy Anaphylaxis Verified 11/19/19 11:55 [From Cipro] doxycycline Allergy Unknown Verified 11/19/19 11:55 Penicillins Allergy Anaphylaxis Verified 11/19/19 11:55 Sulfa (Sulfonamide Allergy Dyspnea Verified 11/19/19 11:55 Antibiotics) adhesive tape AdvReac Rash/Hives Verified 11/19/19 11:55 Iodinated Contrast Media AdvReac KIDNEYS Verified 11/19/19 11:55 [Iodinated Contrast- Oral and IV Dye] latex AdvReac Rash/Hives Verified 11/19/19 11:55 Physical Exam Vitals: Vital Signs Temp Pulse Pulse Resp BP BP Pulse Ox 11/20/19 08:00 98.2 F 84 17 117/72 95 11/20/19 06:00 86 16 11/20/19 05:00 97.9 F 87 18 116/72 98 11/20/19 04:00 67 16 96 11/19/19 22:00 97.9 F 92 18 104/68 97 11/19/19 18:55 86 18 103/62 95 11/19/19 16:46 93 18 113/58 95 11/19/19 15:11 102 H 18 140/76 95 11/19/19 14:01 89 18 123/68 97 11/19/19 11:50 98.7 F 98 18 116/64 98 HEENT: Scalp with a his skin flap laceration, pupils were equal round reactive to light and accommodation, extraocular muscle movement were intact, mucous membranes are moist. Neck: Supple, no JVD, decreased carotid upstroke bilaterally Chest: Decreased breath sounds at the bases, few rhonchi, no expiratory wheezes, no chest wall tenderness, no intercostal retractions. Heart: First heart sound is depressed, second heart sound is normal, irregularly irregular, there is systolic ejection murmur 2/6 in the left sternal border. Abdomen: Soft nontender nondistended, positive bowel sounds. Extremities: Bilateral lower extremity Kelvin wrap, due to chronic stasis dermatitis, dorsalis pedis +1 bilaterally. Neurologic examination: Patient is awake alert and oriented 3, creatinine of 3- 12 appear grossly intact, muscle power 4-5 in upper extremities and 4 out of 5 in both lower extremities. Results CBC & Chem 7: 11/19/19 12:00 11/19/19 14:37 Labs: Abnormal Lab Results - Last 24 Hours (Table) 11/19/19 11/19/19 11/19/19 Range/Units 12:00 12:00 12:00 RBC 2.77 L (4.30-5.90) m/uL Hgb 9.2 L (13.0-17.5) gm/dL Hct 27.9 L (39.0-53.0) % MCV 100.4 H (80.0-100.0) fL Lymphocytes # 0.9 L (1.0-4.8) k/uL PT 24.0 H (9.0-12.0) sec INR 2.5 H (<1.2) APTT 33.6 H (22.0-30.0) sec Potassium 5.8 H (3.5-5.1) mmol/L Chloride 108 H (98-107) mmol/L Carbon Dioxide 21 L (22-30) mmol/L BUN 50 H (9-20) mg/dL Creatinine 2.87 H (0.66-1.25) mg/dL Glucose 107 H (74-99) mg/dL 11/19/19 Range/Units 14:37 RBC (4.30-5.90) m/uL Hgb (13.0-17.5) gm/dL Hct (39.0-53.0) % MCV (80.0-100.0) fL Lymphocytes # (1.0-4.8) k/uL PT (9.0-12.0) sec INR (<1.2) APTT (22.0-30.0) sec Potassium 5.8 H (3.5-5.1) mmol/L Chloride (98-107) mmol/L Carbon Dioxide (22-30) mmol/L BUN (9-20) mg/dL Creatinine (0.66-1.25) mg/dL Glucose (74-99) mg/dL Thrombosis Risk Factor Assmnt - DVT/VTE Prophylaxis DVT/VTE Prophylaxis: Pharmacologic Prophylaxis ordered, Mechanical Prophylaxis ordered Assessment and Plan Assessment: Assessment and plan: 1. Chest pain thank you etiology likely noncardiac , patient does have a significant history of CAD post CABG and he follows with cardiology regular basis was admitted to the hospital for evaluation by cardiology, cardiac enzymes were done 3 every 8 hours, we'll monitor the patient overnight and hopefully he will be going next 24 hours. EKG showed baseline chronic atrial fibrillation without acute ST changes. 2. Status post fall with a skin laceration. Continue with the interim gauze and then adhesive dressing keep it clean and dry and change on a daily basis. 3. CAD post CABG 5 in 2000. Continue metoprolol 25 mg orally twice every day, patient is not able to tolerate statin. 3. Hypertension and hypertensive cardiovascular disease. Continue patient on metoprolol 25 mg orally twice every day. 4. Diabetes mellitus type 2. Continue Januvia 25 mg orally once every day. 5. Chronic kidney disease stage V. Stable at this time. Avoid nephrotoxic agents. 6. Anemia of chronic disease. 5. History of metastatic 7. Obesity with obstructive sleep apnea. Continue CPAP. 8. Chronic atrial fibrillation/flutter. Continue metoprolol 50 mg orally twice every day and Coumadin keep his INR between 2-3. 9. History of diverticulosis. Clinically stable. 10. Recurrent depression. Continue patient on Lexapro 30 mg orally once every day. 11. Generalized anxiety disorder. Continue BuSpar 10 mg orally twice every day. 12. Hypogonadism. Stable at this time. 13. Restless leg syndrome. Continue patient on Mirapex 0.25 mg orally twice every day. 14. Patient is a full code 15. DVT prophylaxis. Continue patient on Coumadin. 16. GI prophylaxis. Continue patient on PPI. 17. Observation.
[2019-11-20] MEDS ORDERED: WARFARIN 5 MG TAB PO SCH (18:00)
== END 2019-11-20 12:50 | disposition home or self-care (01) ==
LOC: EC 11:46 → 3SCARD 14:25
PROVIDERS: ADMIT Internal Medicine; ATTEND Internal Medicine
DX: R07.89 Other chest pain (principal); Z23 Encounter for immunization; D63.8 Anemia in other chronic diseases classified elsewhere; E11.22 Type 2 diabetes mellitus with diabetic chronic kidney disease; E11.42 Type 2 diabetes mellitus with diabetic polyneuropathy; E29.1 Testicular hypofunction; E66.9 Obesity, unspecified; E78.5 Hyperlipidemia, unspecified; E87.5 Hyperkalemia; F33.9 Major depressive disorder, recurrent, unspecified; F41.1 Generalized anxiety disorder; G25.81 Restless legs syndrome; G47.33 Obstructive sleep apnea (adult) (pediatric); I13.11 Hypertensive heart and chronic kidney disease without heart failure, with stage 5 chronic kidney disease, or end stage renal disease; I25.10 Atherosclerotic heart disease of native coronary artery without angina pectoris; I25.2 Old myocardial infarction; I48.11 Longstanding persistent atrial fibrillation; I48.92 Unspecified atrial flutter; N18.5 Chronic kidney disease, stage 5; S09.90XA Unspecified injury of head, initial encounter; W19.XXXA Unspecified fall, initial encounter; Y92.009 Unspecified place in unspecified non-institutional (private) residence as the place of occurrence of the external cause; Z79.01 Long term (current) use of anticoagulants; Z79.84 Long term (current) use of oral hypoglycemic drugs; Z79.899 Other long term (current) drug therapy; Z82.49 Family history of ischemic heart disease and other diseases of the circulatory system; Z83.3 Family history of diabetes mellitus; Z87.891 Personal history of nicotine dependence; Z95.1 Presence of aortocoronary bypass graft; M19.90 Unspecified osteoarthritis, unspecified site; K21.9 Gastro-esophageal reflux disease without esophagitis; Z16.21 Resistance to vancomycin; C92.10 Chronic myeloid leukemia, BCR/ABL-positive, not having achieved remission; Z88.5 Allergy status to narcotic agent; Z88.0 Allergy status to penicillin; Z88.1 Allergy status to other antibiotic agents; Z91.041 Radiographic dye allergy status; Z91.040 Latex allergy status; S01.01XA Laceration without foreign body of scalp, initial encounter; K57.90 Diverticulosis of intestine, part unspecified, without perforation or abscess without bleeding; Z68.31 Body mass index [BMI] 31.0-31.9, adult
CPT/HCPCS: 99285; 36415; 93005 ×2; 80061; 80053; 83735; 84132; 84484 ×2; 85025; 85610; 85730; 71046; 72125; 70450; 90715; G0378 ×2; 87635

== ENCOUNTER → 2020-10-08 | Outpatient (CLI) | payer MEDICARE ==
--- NOTE | 2020-10-08 11:13 | XR ---
EXAMINATION TYPE: XR chest 2V DATE OF EXAM: 10/08/2020 COMPARISON: Chest x-ray November 13, 2019 HISTORY: Chronic CHF. Atrial fibrillation. TECHNIQUE: Frontal and lateral views of the chest are obtained. FINDINGS: There are chronic parenchymal changes bilaterally without suspicious focal air space opaci ty, pleural effusion, or pneumothorax seen. Stable cardiomegaly. Overlying sternal wires and mediasti nal clips redemonstrated. The osseous structures remain demineralized. IMPRESSION: Chronic changes and cardiomegaly without acute pulmonary process.
== END | disposition home or self-care (01) ==
LOC: RADXRMAIN 10:54
PROVIDERS: ATTEND Internal Medicine
DX: I50.9 Heart failure, unspecified (principal); I48.91 Unspecified atrial fibrillation
CPT/HCPCS: 71046

== ENCOUNTER 2021-06-30 12:22 | Inpatient (IN) | payer MEDICARE ==
--- NOTE | 2021-06-30 13:35 | ED ---
General Adult HPI - General Chief complaint: Weakness Stated complaint: Pneumonia Time Seen by Provider: 06/30/21 12:35 Source: patient, EMS Mode of arrival: EMS Limitations: no limitations - History of Present Illness Initial comments: 22-year-old male with extensive medical history including heart failure, stage IV kidney disease, A. fib on Coumadin presents emergency Department with weakness. He comes in via EMS. He wears 2 L of home O2 however has had increasing shortness of breath and productive cough with green sputum production. He has a history of COPD. Has been using his inhalers as directed. is at bedside and helps the history. States that he was recently in rehab for a right hip fracture. Hospitalized at [facility] and went to rehab. States he has been not doing well since he came home on Monday. He has not been getting up to ambulate. Appetite is very poor and the patient appears to be getting weaker. She denies fevers. Does admit to a history of congestive heart failure. He has been taking Lasix. No other alleviating, precipitating or modifying factors - Related Data Home Medications Medication Instructions Recorded Confirmed Escitalopram Oxalate [Lexapro] 30 mg PO DAILY 07/13/15 06/30/21 Loratadine [Claritin] 10 mg PO DAILY 07/13/15 06/30/21 Pramipexole [Mirapex] 0.25 mg PO BID 07/13/15 06/30/21 Warfarin [Coumadin] 2.5 mg PO TUTH@1800 07/13/15 06/30/21 Warfarin [Coumadin] 5 mg PO SUMOWEFRSA@1800 07/13/15 06/30/21 oxyCODONE HCL/ACETAMINOPHEN 1 tab PO Q6H PRN 07/13/15 06/30/21 [Percocet 10-325 mg] Omeprazole [PriLOSEC] 20 mg PO DAILY 09/16/16 06/30/21 busPIRone HCL 10 mg PO BID 09/16/16 06/30/21 Furosemide [Lasix] 40 mg PO MOWEFR 05/31/18 06/30/21 Imatinib Mesylate 300 mg PO HS 05/31/18 06/30/21 Cholecalciferol [Vitamin D3 (25 25 mcg PO BID 06/30/21 06/30/21 Mcg = 1000 Iu)] Garlic 1 tab PO BID 06/30/21 06/30/21 Iron 27mg 27 mg PO TID 06/30/21 06/30/21 Lactobacillus Acidophilus 2 tab PO BID 06/30/21 06/30/21 [Acidophilus] Metoprolol Tartrate [Lopressor] 25 mg PO BID 06/30/21 06/30/21 Allergies Allergy/AdvReac Type Severity Reaction Status Date / Time adhesive tape Allergy Rash/Hives Verified 06/30/21 14:13 aztreonam [From Azactam] Allergy Unknown Verified 06/30/21 14:13 cephalexin monohydrate Allergy Rash/Hives Verified 06/30/21 14:13 [From Keflex] ciprofloxacin [From Cipro] Allergy Anaphylaxis Verified 06/30/21 14:13 ciprofloxacin HCl Allergy Anaphylaxis Verified 06/30/21 14:13 [From Cipro] doxycycline Allergy Unknown Verified 06/30/21 14:13 latex Allergy Rash/Hives Verified 06/30/21 14:13 Penicillins Allergy Anaphylaxis Verified 06/30/21 14:13 Sulfa (Sulfonamide Allergy Dyspnea Verified 06/30/21 14:13 Antibiotics) Iodinated Contrast Media AdvReac KIDNEYS Verified 06/30/21 14:13 [Iodinated Contrast- Oral and IV Dye] Review of Systems ROS Statement: Those systems with pertinent positive or pertinent negative responses have been documented in the HPI. ROS Other: All systems not noted in ROS Statement are negative. Past Medical History Past Medical History: Atrial Fibrillation, Atrial Flutter, Coronary Artery Disease (CAD), Cancer, Diabetes Mellitus, GERD/Reflux, Hyperlipidemia, Hyperte nsion, Myocardial Infarction ([place]), Osteoarthritis (OA), Renal Disease, Sleep Apnea/CPAP/BIPAP Additional Past Medical History / Comment(s): KIDNEY DISEASE STAGE 4, NEUROPATHY OF FEET, SLEEP APNEA (NO MACHINE), RLS, HX OF CLOT IN HIS SHOULDER, DIVERTICULOSIS, left adrenal adenoma, renal stone of the right kidney, FREQUENT DIARRHEA, NEW DIAGNOSIS OF CML., STATES ON VIBRAMYCIN FOR UPPER RESPIRATORY INFECTION. Last Myocardial Infarction Date:: 2000 History of Any Multi-Drug Resistant Organisms: VRE Date of last positivie culture/infection: 2011 MDRO Source:: ABD WOUND Past Surgical History: Bladder Surgery, Cholecystectomy, Hernia Repair, Joint Replacement, Orthopedic Surgery Additional Past Surgical History / Comment(s): Hx quadruple bypass, colonoscopy, bilateral cataract surgery. Has shaheen from hip to knee on right side., right ankle plate and screw., Bilateral total knees., exploratory of abd. Past Anesthesia/Blood Transfusion Reactions: No Reported Reaction Past Psychological History: Depression Smoking Status: Former smoker Past Alcohol Use History: None Reported Past Drug Use History: None Reported - Past Family History Mother Family Medical History: AFIB, CVA/TIA, Diabetes Mellitus, Renal Disease Additional Family Medical History / Comment(s): age 88 Father Family Medical History: Pneumonia Additional Family Medical History / Comment(s): age 58 of pneumonia Brother(s) Family Medical History: Coronary Artery Disease (CAD) Son(s) Family Medical History: No Reported History Additional Family Medical History / Comment(s): patient has one son with no major medical problems. General Exam Limitations: no limitations General appearance: alert, in no apparent distress Head exam: Present: atraumatic, normocephalic, normal inspection Eye exam: Present: normal appearance, PERRL, EOMI. Absent: scleral icterus, conjunctival injection, periorbital swelling ENT exam: Present: normal exam, mucous membranes moist Neck exam: Present: normal inspection. Absent: tenderness, meningismus, lymphadenopathy Respiratory exam: Present: normal lung sounds bilaterally. Absent: respiratory distress, wheezes, rales, rhonchi, stridor Cardiovascular Exam: Present: normal rhythm, tachycardia, normal heart sounds. Absent: systolic murmur, diastolic murmur, rubs, gallop, clicks GI/Abdominal exam: Present: soft, normal bowel sounds. Absent: distended, tenderness, guarding, rebound, rigid Extremities exam: Present: normal inspection, full ROM, normal capillary refill, pedal edema, other (edema of b/l upper extremities). Absent: tenderness, joint swelling, calf tenderness Back exam: Present: normal inspection Neurological exam: Present: alert, oriented X3, CN II-XII intact Psychiatric exam: Present: normal affect, normal mood Skin exam: Present: warm, dry, intact, normal color. Absent: rash Course Vital Signs 06/30/21 06/30/21 06/30/21 12:30 12:38 19:20 Temperature 97.6 F Pulse Rate 105 H 107 H Respiratory 20 20 17 Rate Blood Pressure 117/67 124/65 O2 Sat by Pulse 100 99 Oximetry 06/30/21 06/30/21 06/30/21 19:24 19:31 21:12 Temperature Pulse Rate 96 72 105 H Respiratory 16 Rate Blood Pressure 124/65 O2 Sat by Pulse Oximetry EKG Findings - EKG Comments: EKG Findings:: EKG demonstrates A. fib with a rate of 92. QRS 104. QTC of 462. No acute ST segment elevations or depressions. Significant baseline artifact Medical Decision Making - Medical Decision Making Upon arrival patient was placed into room 20. A thorough history and physical exam was performed. IV is established laboratory studies were conducted. Does demonstrate a hemoglobin of 7.2. INR is supratherapeutic at 4.1. Potassium is 6. He went 78. Creatinine 3.3. Glucose 169. I did order her 10 units of insulin and an amp of dextrose for his hyperkalemia. Troponin 0.041. BNP 12,100. A chest x-ray demonstrates prominent pulmonary vascular markings. I did order 60 mg of Lasix. Did recommend admission to the hospital for which the patient did agree. We will recheck his potassium levels at 6:00. Spoke with Dr. Neal who agreed to admit the patient. She remained in stable condition awaiting a bed - Lab Data Result diagrams: 07/02/21 08:29 07/02/21 18:28 Lab Results 06/30/21 06/30/21 06/30/21 Range/Units 13:19 13:19 13:19 WBC 9.1 (3.8-10.6) k/uL RBC 2.32 L (4.30-5.90) m/uL Hgb 7.2 L (13.0-17.5) gm/dL Hct 23.8 L (39.0-53.0) % MCV 102.5 H (80.0-100.0) fL MCH 31.1 (25.0-35.0) pg MCHC 30.3 L (31.0-37.0) g/dL RDW 16.8 H (11.5-15.5) % Plt Count 295 (150-450) k/uL MPV 8.2 Neutrophils % 83 % Lymphocytes % 6 % Monocytes % 8 % Eosinophils % 1 % Basophils % 0 % Neutrophils # 7.5 (1.3-7.7) k/uL Lymphocytes # 0.5 L (1.0-4.8) k/uL Monocytes # 0.7 (0-1.0) k/uL Eosinophils # 0.1 (0-0.7) k/uL Basophils # 0.0 (0-0.2) k/uL Hypochromasia Marked Anisocytosis Slight Macrocytosis Moderate PT 39.6 H (9.0-12.0) sec INR 4.1 H (<1.2) APTT 44.2 H (22.0-30.0) sec Sodium 138 (137-145) mmol/L Potassium 6.0 H (3.5-5.1) mmol/L Chloride 105 (98-107) mmol/L Carbon Dioxide 25 (22-30) mmol/L Anion Gap 8 mmol/L BUN 78 H (9-20) mg/dL Creatinine 3.33 H (0.66-1.25) mg/dL Est GFR (CKD-EPI)AfAm 19 (>60 ml/min/1.73 sqM) Est GFR (CKD-EPI)NonAf 16 (>60 ml/min/1.73 sqM) Glucose 169 H (74-99) mg/dL Plasma Lactic Acid Torito (0.7-2.0) mmol/L Calcium 8.6 (8.4-10.2) mg/dL Magnesium 2.2 (1.6-2.3) mg/dL Total Bilirubin 0.6 (0.2-1.3) mg/dL AST 31 (17-59) U/L ALT 14 (4-49) U/L Alkaline Phosphatase 226 H (38-126) U/L Troponin I (0.000-0.034) ng/mL NT-Pro-B Natriuret Pep pg/mL Total Protein 6.3 (6.3-8.2) g/dL Albumin 3.2 L (3.5-5.0) g/dL Urine Color Urine Appearance (Clear) Urine pH (5.0-8.0) Ur Specific [place] (1.001-1.035) Urine Protein (Negative) Urine Glucose (UA) (Negative) Urine Ketones (Negative) Urine Blood (Negative) Urine Nitrite (Negative) Urine Bilirubin (Negative) Urine Urobilinogen (<2.0) mg/dL Ur Leukocyte Esterase (Negative) 06/30/21 06/30/21 06/30/21 Range/Units 13:19 13:19 13:19 WBC (3.8-10.6) k/uL RBC (4.30-5.90) m/uL Hgb (13.0-17.5) gm/dL Hct (39.0-53.0) % MCV (80.0-100.0) fL MCH (25.0-35.0) pg MCHC (31.0-37.0) g/dL RDW (11.5-15.5) % Plt Count (150-450) k/uL MPV Neutrophils % % Lymphocytes % % Monocytes % % Eosinophils % % Basophils % % Neutrophils # (1.3-7.7) k/uL Lymphocytes # (1.0-4.8) k/uL Monocytes # (0-1.0) k/uL Eosinophils # (0-0.7) k/uL Basophils # (0-0.2) k/uL Hypochromasia Anisocytosis Macrocytosis PT (9.0-12.0) sec INR (<1.2) APTT (22.0-30.0) sec Sodium (137-145) mmol/L Potassium (3.5-5.1) mmol/L Chloride (98-107) mmol/L Carbon Dioxide (22-30) mmol/L Anion Gap mmol/L BUN (9-20) mg/dL Creatinine (0.66-1.25) mg/dL Est GFR (CKD-EPI)AfAm (>60 ml/min/1.73 sqM) Est GFR (CKD-EPI)NonAf (>60 ml/min/1.73 sqM) Glucose (74-99) mg/dL Plasma Lactic Acid Torito 0.7 (0.7-2.0) mmol/L Calcium (8.4-10.2) mg/dL Magnesium (1.6-2.3) mg/dL Total Bilirubin (0.2-1.3) mg/dL AST (17-59) U/L ALT (4-49) U/L Alkaline Phosphatase (38-126) U/L Troponin I 0.041 H* (0.000-0.034) ng/mL NT-Pro-B Natriuret Pep 29737 pg/mL Total Protein (6.3-8.2) g/dL Albumin (3.5-5.0) g/dL Urine Color Urine Appearance (Clear) Urine pH (5.0-8.0) Ur Specific [place] (1.001-1.035) Urine Protein (Negative) Urine Glucose (UA) (Negative) Urine Ketones (Negative) Urine Blood (Negative) Urine Nitrite (Negative) Urine Bilirubin (Negative) Urine Urobilinogen (<2.0) mg/dL Ur Leukocyte Esterase (Negative) 06/30/21 Range/Units 14:45 WBC (3.8-10.6) k/uL RBC (4.30-5.90) m/uL Hgb (13.0-17.5) gm/dL Hct (39.0-53.0) % MCV (80.0-100.0) fL MCH (25.0-35.0) pg MCHC (31.0-37.0) g/dL RDW (11.5-15.5) % Plt Count (150-450) k/uL MPV Neutrophils % % Lymphocytes % % Monocytes % % Eosinophils % % Basophils % % Neutrophils # (1.3-7.7) k/uL Lymphocytes # (1.0-4.8) k/uL Monocytes # (0-1.0) k/uL Eosinophils # (0-0.7) k/uL Basophils # (0-0.2) k/uL Hypochromasia Anisocytosis Macrocytosis PT (9.0-12.0) sec INR (<1.2) APTT (22.0-30.0) sec Sodium (137-145) mmol/L Potassium (3.5-5.1) mmol/L Chloride (98-107) mmol/L Carbon Dioxide (22-30) mmol/L Anion Gap mmol/L BUN (9-20) mg/dL Creatinine (0.66-1.25) mg/dL Est GFR (CKD-EPI)AfAm (>60 ml/min/1.73 sqM) Est GFR (CKD-EPI)NonAf (>60 ml/min/1.73 sqM) Glucose (74-99) mg/dL Plasma Lactic Acid Torito (0.7-2.0) mmol/L Calcium (8.4-10.2) mg/dL Magnesium (1.6-2.3) mg/dL Total Bilirubin (0.2-1.3) mg/dL AST (17-59) U/L ALT (4-49) U/L Alkaline Phosphatase (38-126) U/L Troponin I (0.000-0.034) ng/mL NT-Pro-B Natriuret Pep pg/mL Total Protein (6.3-8.2) g/dL Albumin (3.5-5.0) g/dL Urine Color Yellow Urine Appearance Clear (Clear) Urine pH 5.0 (5.0-8.0) Ur Specific [place] 1.011 (1.001-1.035) Urine Protein Negative (Negative) Urine Glucose (UA) Negative (Negative) Urine Ketones Negative (Negative) Urine Blood Negative (Negative) Urine Nitrite Negative (Negative) Urine Bilirubin Negative (Negative) Urine Urobilinogen <2.0 (<2.0) mg/dL Ur Leukocyte Esterase Negative (Negative) Disposition Clinical Impression: Chronic a-fib, CHF (congestive heart failure), Hyperkalemia, Supratherapeutic INR, DOMINICK (acute kidney injury), CKD (chronic kidney disease) Disposition: ADMITTED IP TO THIS [facility] Condition: Serious Is patient prescribed a controlled substance at d/c from ED?: No Decision to Admit Reason: Admit from EC Decision Date: 06/30/21 Decision Time: 15:05
[2021-06-30 13:43] LABS: Anisocytosis Slight; Basophils % (A) 0 %; Eosinophils # (A) 0.1 k/uL (0-0.7); Eosinophils % (A) 1 %; HCT 23.8 % (39.0-53.0); HGB 7.2 gm/dL (13.0-17.5); Hypochromasia Marked; Lymphocytes # (A) 0.5 k/uL (1.0-4.8); Lymphocytes % (A) 6 %; MCH 31.1 pg (25.0-35.0); MCHC 30.3 g/dL (31.0-37.0); MCV 102.5 fL (80.0-100.0); Macrocytosis Moderate; Mean Platelet Volume 8.2; Monocytes # (A) 0.7 k/uL (0-1.0); Monocytes % (A) 8 %; Neutrophils # (A) 7.5 k/uL (1.3-7.7); Neutrophils % (A) 83 %; Platelet Count 295 k/uL (150-450); RBC 2.32 m/uL (4.30-5.90); RDW 16.8 % (11.5-15.5); WBC 9.1 k/uL (3.8-10.6)
[2021-06-30 13:54] LABS: Albumin 3.2 g/dL (3.5-5.0); Calcium 8.6 mg/dL (8.4-10.2); Magnesium 2.2 mg/dL (1.6-2.3); Total Bilirubin 0.6 mg/dL (0.2-1.3); Total Protein 6.3 g/dL (6.3-8.2)
[2021-06-30 13:59] LABS: INR 4.1 (<1.2); Partial Thromboplastin Time 44.2 sec (22.0-30.0); Prothrombin Time 39.6 sec (9.0-12.0)
--- NOTE | 2021-06-30 14:09 | XR ---
EXAMINATION TYPE: XR chest 2V DATE OF EXAM: 06/30/2021 COMPARISON: 10/08/2020 HISTORY: Weakness, cough TECHNIQUE: Frontal and lateral views of the chest FINDINGS: Heart size at the upper limits of normal. Pulmonary vasculature is prominent. There is diff use increased lung markings. Sternotomy wires are present in the midline. There is elevation of the r ight diaphragm. IMPRESSION: 1. Prominent pulmonary vascular markings. Correlate for volume overload. Infectious etiology such as atypical pneumonia could be considered. Follow-up is recommended.
[2021-06-30] MEDS ORDERED: DEXTROSE 50% SYRINGE 50 ML IVP STA (14:25)
[2021-06-30] MEDS ORDERED: INSULIN REGULAR 100 UNIT/ML VIAL (IV) IV ONE (14:26)
[2021-06-30] MEDS ORDERED: FUROSEMIDE 10 MG/ML 10 ML VIAL IV STA (14:31)
[2021-06-30 14:55] LABS: Appearance,Urine Clear (Clear); Bilirubin,Urine Negative (Negative); Blood,Urine Negative (Negative); Color,Urine Yellow; Glucose,Urine (UA) Negative (Negative); Ketones,Urine Negative (Negative); Leukocyte Esterase,Urine Negative (Negative); Nitrite,Urine Negative (Negative); Protein,Urine Negative (Negative); Specific Gravity,Urine 1.011 (1.001-1.035); Urobilinogen,Urine <2.0 mg/dL (<2.0)
[2021-06-30] MEDS ORDERED: NALOXONE 0.4 MG/ML 1 ML VIAL IV PRN (15:05)
--- NOTE | 2021-06-30 16:33 | P.HPIM ---
History of Present Illness H&P Date: 06/30/21 Chief Complaint: Cough and shortness of breath HISTORY OF PRESENT ILLNESS: This is an 85-year-old male patient of Dr. sparks with a previous medical history significant for CAD post CABG x4, hypertension and hypertensive cardiovascular disease, chronic atrial flutter/fibrillation on chronic Coumadin, diabetes mellitus type 2 with diabetic polyneuropathy, chronic kidney disease stage IV, obesity with obstructive sleep apnea, hypogonadism, diverticulosis, GERD with hiatal hernia, left adrenal adenoma, CML, patient fell on 05/28/2021 in his home kitchen and landed on his right side of the hip after he lost his balance suffered from severe pain he was found to have a left hip fracture he ended up going to [facility] where he underwent removal of the hardware of the right femur including the plates and screws and he had a long shaheen placed and his entire femur into the hip area successfully he developed to have a non-ST elevation myocardial infarction when he was there along with chronic diastolic heart failure he was seen by cardiology over there Dr. Jackson apparently was cleared for surgery and the patient had a surgery on 05/31/2021 after that patient was referred to rehab facility and [facility] area and he was just released last to come back home with significant sores on his right thigh as well as bilateral heel deep tissue injury, patient was supposed to come and see him in the office today however he was not able template at all he was feeling increased shortness of breath associated with increased coughing and yellow from production, so his called EMS and the patient was brought into the ER at [facility] for evaluation his chest x-ray showed pulmonary vascular congestion and possible atypical pneumonia his COVID-19 swab PCR came back negative, patient was started on Lasix 60 mg IV push in the ER that he was placed on 40 mg IV push every 12 hours, patient also was started on meropenem 1 g IV piggyback every 12 hours because of his multiple ALLERGIES and possible gram-negative pneumonia. REVIEW OF SYSTEMS: Constitutional: No documented fever, no chills, no night sweats. Positive for weight change. Positive for weakness, fatigue or lethargy. No daytime sleepiness. HEENT: No headache. No blurred vision or double vision, no loss of vision. No loss of Hearing, no ringing in the ears, no dizziness. No nasal drainage or congestion. No epistaxis. No sore throat. Lungs: No shortness of breath, no cough, no sputum production. No wheezing. Reports dyspnea with activity. Cardiovascular: No chest pain, positive for lower extremity edema. positive for palpitations. No paroxysmal nocturnal dyspnea. positive for orthopnea. No lightheadedness or dizziness. No syncopal episodes. Abdominal: Reports abdominal pain. No nausea, vomiting. No diarrhea. No constipation. No bloody or tarry stools reports loss of appetite. Genitourinary: No dysuria, increased frequency, urgency. No urinary retention. Musculoskeletal: No myalgias. positive for muscle weakness, positive for gait dysfunction, positive for frequent falls, positive for back pain and neck pain. Integumentary: positive for stage 3 pressure sores to the posterior aspct of the right thigh and DTI in both heels, positive for nail changes Neurologic: No aphasia. No facial droop. No change in mentation. No head injury. No headache. No paralysis. No paresthesia. Psychiatric: positive for depression. No anxiety. No mood swings. Endocrine: No abnormal blood sugars. No weight change. PAST MEDICAL HISTORY: CAD post CABG 4 Chronic atrial fibrillation. Hypertension and hypertensive cardiovascular disease. Hyperlipidemia. Diabetes mellitus type 2. Diabetic polyneuropathy. Chronic kidney disease stage IV. Obesity with obstructive sleep apnea. Hypogonadism. Diverticulosis. Left adrenal adenoma. Chronic myelogenous leukemia. PAST SURGICAL HISTORY: CABG 4 Bilateral total knee arthroplasty. Right ankle open reduction and internal fixation. Removal of the hardware of the right femur and a placement of a new shaheen from the hip although down to the femur. Cholecystectomy. Hernia repair. Bladder surgery. SOCIAL HISTORY: Patient used to smoke about pack every day he smoked for many years and quit many years ago, he denies any alcohol ingestion, no drug abuse, lives with his . FAMILY HISTORY: Father at age of 58 from pneumonia, mother at age of 88 from CVA in nature for ablation diabetes mellitus type 2 and renal disease, patient has one brother with CAD, patient has one son no major medical problems. PHYSICAL EXAMINATION: General: 85-year-old male sitting up in bed in mild respiratory distress HEENT: Head is atraumatic, normocephalic, pupils were equal round reactive to light and recommendation, extraocular muscle movement were intact, sclera nonicteric, conjunctivae were pale, mucous membranes of the mouth are somewhat dry. Neck: Supple, no JVP, decreased carotid upstroke bilaterally, no lymphadenopathy. Chest: Decreased breath sounds at the bases, few rhonchi, minimal expiratory wheezes, no chest wall tenderness no intercostal retractions. Heart: First heart sound is normal, second heart sounds normal irregularly irregular there is systolic ejection murmur 2/6 located in the left sternal border. Abdomen: Soft, nontender, nondistended, positive bowel sounds. Extremities: There is +2 edema no calf tenderness DP +1 bilaterally, bilateral heel deep tissue injury, bilateral hammertoes and nail changes. Neurologic examination: Patient is awake alert and oriented X 3, cranial nerves II-12 appear grossly intact, muscle power were 3 out of 5 in upper extremities and 3 out of 5 in bilateral lower extremities, deep tendon reflexes were depressed ASSESSMENT AND PLAN: 1. Acute hypoxemic respiratory failure due to acute diastolic heart failure with possible gram-negative pneumonia. Start Lasix 40 mg IV push every 12 hours, start meropenem 1 g IV piggyback every 12 hours, sputum culture, blood culture, and her input and output and daily weight, [facility] the patient had an echocardiogram as month, we will obtain cardiology consultation. 2. Possible gram-negative pneumonia. Start the patient on Pulmicort 1 mg nebulization twice every day, start DuoNeb 3 mg 4 times every day, oxygen support, continue patient on meropenem 1 g IV piggyback every 12 hours. 3. Multiple stage II pressure ulcer behind the right thigh and deep tissue injury in both heels. We'll Consult start the patient on deodorant for the thigh and skin prep for the heels with floating the heels daily, swab the pressure sores for aerobic and anaerobic cultures. 4. Recent fall with Hip fracture status post right shaheen insertion of the right femur with removal of the old hardware. Consult physical therapy, continue current pain management. 5. Recent non-ST elevation myocardial infarction. Continue patient on metoprolol orally twice every day, continue aspirin 81 mg once every day. 6. Acute diastolic heart failure. Continue metoprolol 25 mg orally twice every day, continue Lasix 40 mg IV push every 12 hours, monitor input and output and daily weight obtain the [facility]. 7. Diabetes mellitus type II with diabetic polyneuropathy currently off medications. 8. Chronic kidney disease stage IV. Monitor patient input and output and daily weight and avoid nephrotoxins. Nephrology consultation. 9. Hyperkalemia. Patient did receive 1 amp of D50 along with insulin he will receive calcium gluconate 1 g IV piggyback 1. Repeat potassium this evening. 10. Chronic myelogenous leukemia. Continue with Imatinib 300 mg orally daily. 11 Anemia of chronic kidney disease. Continue iron supplement transfuse for hemoglobin less than 7. 12. Restless leg syndrome. Continue Mirapex 0.25 mg orally twice every day. 13. Major depressive disorder. Continue patient on Lexapro 30 mg orally once every day. 14. Anxiety disorder. Continue with SSRI as well as BuSpar 10 mg orally twice every day. 15. Chronic atrial fibrillation. Continue patient on metoprolol 25 mg orally twice every day, hold Coumadin for tonight because his INR is 4.1. INR tomorrow morning. 16. Coagulopathy hold Coumadin for tonight. INR tomorrow morning. 17. CAD post CABG 4 with a recent non-ST elevation myocardial infarction. Continue metoprolol 25 mg orally twice every day, aspirin 81 mg once every day. 18. GERD with hiatal hernia. Continue Protonix 40 mg orally once every day. 19. Chronic pain syndrome. Continue Percocet 10/325 mg one tablet orally 4 times every day. 20. DVT prophylaxis. Currently on Coumadin. 21. GI prophylaxis. Continue PPI. 22. Medical debility. Physical therapy evaluation. 23. Admit to inpatient. Estimate a length of stay 2 midnights. 24. Full code. Past Medical History Past Medical History: Atrial Fibrillation, Atrial Flutter, Coronary Artery Disease (CAD), Cancer, Diabetes Mellitus, GERD/Reflux, Hyperlipidemia, Hypertension, Myocardial Infarction (VT), Osteoarthritis (OA), Renal Disease, Sleep Apnea/CPAP/BIPAP Additional Past Medical History / Comment(s): KIDNEY DISEASE STAGE 4, NEUROPATHY OF FEET, SLEEP APNEA (NO MACHINE), RLS, HX OF CLOT IN HIS SHOULDER, DIVERTICULOSIS, left adrenal adenoma, renal stone of the right kidney, FREQUENT DIARRHEA, NEW DIAGNOSIS OF CML., STATES ON VIBRAMYCIN FOR UPPER RESPIRATORY INFECTION. Last Myocardial Infarction Date:: 2000 History of Any Multi-Drug Resistant Organisms: VRE Date of last positivie culture/infection: 2011 MDRO Source:: ABD WOUND Past Surgical History: Bladder Surgery, Cholecystectomy, Hernia Repair, Joint Replacement, Orthopedic Surgery Additional Past Surgical History / Comment(s): Hx quadruple bypass, colonoscopy, bilateral cataract surgery. Has shaheen from hip to knee on right side., right ankle plate and screw., Bilateral total knees., exploratory of abd. Past Anesthesia/Blood Transfusion Reactions: No Reported Reaction Past Psychological History: Depression Smoking Status: Former smoker Past Alcohol Use History: None Reported Past Drug Use History: None Reported - Past Family History Mother Family Medical History: AFIB, CVA/TIA, Diabetes Mellitus, Renal Disease Additional Family Medical History / Comment(s): age 88 Father Family Medical History: Pneumonia Additional Family Medical History / Comment(s): age 58 of pneumonia Brother(s) Family Medical History: Coronary Artery Disease (CAD) Son(s) Family Medical History: No Reported History Additional Family Medical History / Comment(s): patient has one son with no major medical problems. Medications and Allergies Home Medications Medication Instructions Recorded Confirmed Type Escitalopram Oxalate [Lexapro] 30 mg PO DAILY 07/13/15 06/30/21 History Loratadine [Claritin] 10 mg PO DAILY 07/13/15 06/30/21 History Pramipexole [Mirapex] 0.25 mg PO BID 07/13/15 06/30/21 History Warfarin [Coumadin] 2.5 mg PO TUTH@1800 07/13/15 06/30/21 History Warfarin [Coumadin] 5 mg PO SUMOWEFRSA@1800 07/13/15 06/30/21 History oxyCODONE HCL/ACETAMINOPHEN 1 tab PO Q6H PRN 07/13/15 06/30/21 History [Percocet 10-325 mg] Omeprazole [PriLOSEC] 20 mg PO DAILY 09/16/16 06/30/21 History busPIRone HCL 10 mg PO BID 09/16/16 06/30/21 History Furosemide [Lasix] 40 mg PO MOWEFR 05/31/18 06/30/21 History Imatinib Mesylate 300 mg PO HS 05/31/18 06/30/21 History Cholecalciferol [Vitamin D3 (25 25 mcg PO BID 06/30/21 06/30/21 History Mcg = 1000 Iu)] Garlic 1 tab PO BID 06/30/21 06/30/21 History Iron 27mg 27 mg PO TID 06/30/21 06/30/21 History Lactobacillus Acidophilus 2 tab PO BID 06/30/21 06/30/21 History [Acidophilus] Metoprolol Tartrate [Lopressor] 25 mg PO BID 06/30/21 06/30/21 History Allergies Allergy/AdvReac Type Severity Reaction Status Date / Time adhesive tape Allergy Rash/Hives Verified 06/30/21 14:13 aztreonam [From Azactam] Allergy Unknown Verified 06/30/21 14:13 cephalexin monohydrate Allergy Rash/Hives Verified 06/30/21 14:13 [From Keflex] ciprofloxacin [From Cipro] Allergy Anaphylaxis Verified 06/30/21 14:13 ciprofloxacin HCl Allergy Anaphylaxis Verified 06/30/21 14:13 [From Cipro] doxycycline Allergy Unknown Verified 06/30/21 14:13 latex Allergy Rash/Hives Verified 06/30/21 14:13 Penicillins Allergy Anaphylaxis Verified 06/30/21 14:13 Sulfa (Sulfonamide Allergy Dyspnea Verified 06/30/21 14:13 Antibiotics) Iodinated Contrast Media AdvReac KIDNEYS Verified 06/30/21 14:13 [Iodinated Contrast- Oral and IV Dye] Physical Exam Vitals: Vital Signs Temp Pulse Resp BP Pulse Ox 06/30/21 12:38 20 06/30/21 12:30 97.6 F 105 H 20 117/67 100 Intake and Output 06/30/21 06/30/21 06/30/21 06:59 14:59 22:59 Other: Weight 113.3 kg Results CBC & Chem 7: 06/30/21 13:19 06/30/21 13:19 Labs: Abnormal Lab Results - Last 24 Hours (Table) 06/30/21 06/30/21 06/30/21 Range/Units 13:19 13:19 13:19 RBC 2.32 L (4.30-5.90) m/uL Hgb 7.2 L (13.0-17.5) gm/dL Hct 23.8 L (39.0-53.0) % MCV 102.5 H (80.0-100.0) fL MCHC 30.3 L (31.0-37.0) g/dL RDW 16.8 H (11.5-15.5) % Lymphocytes # 0.5 L (1.0-4.8) k/uL PT 39.6 H (9.0-12.0) sec INR 4.1 H (<1.2) APTT 44.2 H (22.0-30.0) sec Potassium 6.0 H (3.5-5.1) mmol/L BUN 78 H (9-20) mg/dL Creatinine 3.33 H (0.66-1.25) mg/dL Glucose 169 H (74-99) mg/dL Alkaline Phosphatase 226 H (38-126) U/L Troponin I (0.000-0.034) ng/mL Albumin 3.2 L (3.5-5.0) g/dL 06/30/21 Range/Units 13:19 RBC (4.30-5.90) m/uL Hgb (13.0-17.5) gm/dL Hct (39.0-53.0) % MCV (80.0-100.0) fL MCHC (31.0-37.0) g/dL RDW (11.5-15.5) % Lymphocytes # (1.0-4.8) k/uL PT (9.0-12.0) sec INR (<1.2) APTT (22.0-30.0) sec Potassium (3.5-5.1) mmol/L BUN (9-20) mg/dL Creatinine (0.66-1.25) mg/dL Glucose (74-99) mg/dL Alkaline Phosphatase (38-126) U/L Troponin I 0.041 H* (0.000-0.034) ng/mL Albumin (3.5-5.0) g/dL
[2021-06-30] MEDS ORDERED: CALCIUM GLUCONATE 1 GM in SODIUM CHLORIDE 0.9% 100 ML IVPB ONE (17:00)
[2021-06-30] MEDS: FERROUS SULFATE 325 MG TAB PO SCH ×2 (19:18→21:00)
[2021-06-30] MEDS: BUDESONIDE 1 MG/2 ML NEBU INHALATION SCH (19:24)
[2021-06-30] MEDS: IPRATROPIUM-ALBUTEROL 3 ML NEB INHALATION SCH (19:24)
[2021-06-30] MEDS ORDERED: NON FORMULARY DRUG (Garlic [Garlic] 1 EACH Tablet) PO SCH (21:00)
[2021-06-30] MEDS: FUROSEMIDE 10 MG/ML 4 ML VIAL IV SCH (21:08)
[2021-06-30] MEDS: CHOLECALCIFEROL 25 MCG (1000 IU) TABLET PO SCH (21:08)
[2021-06-30] MEDS: LACTOBACILLUS ACIDOPH & BULGAR 1 EACH PACKET PO SCH (21:08)
[2021-06-30] MEDS: METOPROLOL TARTRATE 25 MG TAB PO SCH (21:08)
[2021-06-30] MEDS: PRAMIPEXOLE 0.25 MG TAB PO SCH (21:08)
[2021-06-30] MEDS: busPIRone HCl 10 MG TAB PO SCH (21:08)
[2021-06-30 21:25] LABS: Calcium 8.6 mg/dL (8.4-10.2)
[2021-06-30 21:26] LABS: Potassium 5.2 mmol/L (3.5-5.1)
[2021-06-30 22:08] LABS: Glucose,Whole Blood 93 mg/dL (75-99)
[2021-06-30] MEDS: MEROPENEM 1 GM in SODIUM CHLORIDE 0.9% 100 ML IVPB SCH (23:35)
[2021-07-01] MEDS: PANTOPRAZOLE 40 MG TABLET PO SCH (06:38)
[2021-07-01 08:19] LABS: Anisocytosis Slight; Basophils % (A) 0 %; Eosinophils # (A) 0.2 k/uL (0-0.7); Eosinophils % (A) 2 %; HCT 23.6 % (39.0-53.0); Hypochromasia Marked; Lymphocytes # (A) 0.9 k/uL (1.0-4.8); Lymphocytes % (A) 12 %; MCH 30.7 pg (25.0-35.0); MCHC 29.3 g/dL (31.0-37.0); MCV 104.6 fL (80.0-100.0); Macrocytosis Moderate; Monocytes # (A) 0.5 k/uL (0-1.0); Monocytes % (A) 6 %; Neutrophils % (A) 76 %; Platelet Count 251 k/uL (150-450); RBC 2.26 m/uL (4.30-5.90); RDW 17.4 % (11.5-15.5); WBC 7.9 k/uL (3.8-10.6)
[2021-07-01] MEDS: LACTOBACILLUS ACIDOPH & BULGAR 1 EACH PACKET PO SCH ×2 (08:26→21:23)
[2021-07-01] MEDS: LORATADINE 10 MG TAB PO SCH (08:27)
[2021-07-01] MEDS: METOPROLOL TARTRATE 25 MG TAB PO SCH ×2 (08:27→21:24)
[2021-07-01] MEDS: PRAMIPEXOLE 0.25 MG TAB PO SCH ×2 (08:27→21:24)
[2021-07-01] MEDS: ESCITALOPRAM 10 MG TAB PO SCH (08:27)
[2021-07-01] MEDS: CHOLECALCIFEROL 25 MCG (1000 IU) TABLET PO SCH ×2 (08:27→21:25)
[2021-07-01] MEDS: FERROUS SULFATE 325 MG TAB PO SCH ×3 (08:28→21:24)
[2021-07-01] MEDS: busPIRone HCl 10 MG TAB PO SCH ×2 (08:28→21:24)
[2021-07-01] MEDS: FUROSEMIDE 10 MG/ML 4 ML VIAL IV SCH ×2 (08:29→21:24)
[2021-07-01 08:33] LABS: HGB 6.9 gm/dL (13.0-17.5)
[2021-07-01 08:35] LABS: INR 4.3 (<1.2); Prothrombin Time 41.8 sec (9.0-12.0)
--- NOTE | 2021-07-01 08:45 | P.PN ---
Subjective Progress Note Date: 07/01/21 HISTORY OF PRESENT ILLNESS: This is an 85-year-old male patient of Dr. sparks with a previous [facility] history significant for CAD post CABG x4, hypertension and hypertensive cardiovascular disease, chronic atrial flutter/fibrillation on chronic Coumadin, diabetes mellitus type 2 with diabetic polyneuropathy, chronic kidney disease stage IV, obesity with obstructive sleep apnea, hypogonadism, di verticulosis, GERD with hiatal hernia, left adrenal adenoma, CML, patient fell on 05/28/2021 in his home kitchen and landed on his right side of the hip after he lost his balance suffered from severe pain he was found to have a left hip fracture he ended up going to [facility] where he underwent removal of the hardware of the right femur including the plates and screws and he had a long shaheen placed and his entire femur into the hip area successfully he developed to have a non-ST elevation myocardial infarction when he was there along with chronic diastolic heart failure he was seen by cardiology over there Dr. Jackson apparently was cleared for surgery and the patient had a surgery on 05/31/2021 after that patient was referred to rehab facility and [facility] area and he was just released last to come back home with significant sores on his right thigh as well as bilateral heel deep tissue injury, patient was supposed to come and see him in the office today however he was not able template at all he was feeling increased shortness of breath associated with increased coughing and yellow from production, so his called EMS and the patient was brought into the ER at [facility] for evaluation his chest x-ray showed pulmonary vascular congestion and possible atypical pneumonia his COVID-19 swab PCR came back negative, patient was started on Lasix 60 mg IV push in the ER that he was placed on 40 mg IV push every 12 hours, patient also was started on meropenem 1 g IV piggyback every 12 hours because of his multiple ALLERGIES and possible gram-negative pneumonia. 07/01: Pulse ox is 97% on 2 L nasal cannula, patient afebrile, blood pressure 110/50, heart rate 83. Repeat blood work results are pending. Patient is continued on Lasix 40 mg IV twice daily, nebulizer treatments, meropenem. Consults in place with Cardiology, Nephrology and Wound Team. Breathing is improved from yesterday. REVIEW OF SYSTEMS: Constitutional: No documented fever, no chills, no night sweats. Positive for weight change. Positive for weakness, fatigue or lethargy. No daytime sle epiness. HEENT: No headache. No blurred vision or double vision, no loss of vision. No loss of Hearing, no ringing in the ears, no dizziness. No nasal drainage or congestion. No epistaxis. No sore throat. Lungs: No shortness of breath, no cough, no sputum production. No wheezing. Reports dyspnea with activity. Cardiovascular: No chest pain, positive for lower extremity edema. positive for palpitations. No paroxysmal nocturnal dyspnea. positive for orthopnea. No lightheadedness or dizziness. No syncopal episodes. Abdominal: Reports abdominal pain. No nausea, vomiting. No diarrhea. No constipation. No bloody or tarry stools reports loss of appetite. Genitourinary: No dysuria, increased frequency, urgency. No urinary retention. Musculoskeletal: No myalgias. positive for muscle weakness, positive for gait dysfunction, positive for frequent falls, positive for back pain and neck pain. Integumentary: positive for stage 3 pressure sores to the posterior aspct of the right thigh and DTI in both heels, positive for nail changes Neurologic: No aphasia. No facial droop. No change in mentation. No head injury. No headache. No paralysis. No paresthesia. Psychiatric: positive for depression. No anxiety. No mood swings. Endocrine: No abnormal blood sugars. No weight change. PHYSICAL EXAMINATION: General: 85-year-old male sitting up in bed in no respiratory distress HEENT: Head is atraumatic, normocephalic, pupils were equal round reactive to light and recommendation, extraocular muscle movement were intact, sclera nonicteric, conjunctivae were pale, mucous membranes of the mouth are somewhat dry. Neck: Supple, no JVP, decreased carotid upstroke bilaterally, no lymphadenopathy. Chest: Decreased breath sounds at the bases, few rhonchi, minimal expiratory wheezes, no chest wall tenderness no intercostal retractions. Heart: First heart sound is normal, second heart sounds normal irregularly irregular there is systolic ejection murmur 2/6 located in the left sternal border. Abdomen: Soft, nontender, nondistended, positive bowel sounds. Extremities: There is +2 edema no calf tenderness DP +1 bilaterally, bilateral heel deep tissue injury, bilateral hammertoes and nail changes. Neurologic examination: Patient is awake alert and oriented X 3, cranial nerves II-12 appear grossly intact, muscle power were 3 out of 5 in upper extremities and 3 out of 5 in bilateral lower extremities, deep tendon reflexes were depressed ASSESSMENT AND PLAN: 1. Acute hypoxemic respiratory failure due to acute diastolic heart failure with possible gram-negative pneumonia. Continue Lasix 40 mg IV push every 12 hours, meropenem 1 g IV piggyback every 12 hours, sputum culture, blood culture, and her input and output and daily weight, try to obtain the records from [facility] the patient had an echocardiogram last month, we will obtain cardiology consultation. 2. Possible gram-negative pneumonia. Continue patient on Pulmicort 1 mg nebulization twice every day, DuoNeb 3 mg 4 times every day, oxygen support, continue patient on meropenem 1 g IV piggyback every 12 hours. 3. Multiple stage II pressure ulcer behind the right thigh and deep tissue injury in both heels. We'll Consult the care and continue local wound care the thigh and skin prep for the heels with floating the heels daily, swab the pressure sores for aerobic and anaerobic cultures. 4. Recent fall with Hip fracture status post right shaheen insertion of the right femur with removal of the old hardware. Consult physical therapy, continue current pain management. 5. Recent non-ST elevation myocardial infarction. Continue patient on metoprolol orally twice every day, continue aspirin 81 mg once every day. 6. Acute diastolic heart failure. Continue metoprolol 25 mg orally twice every day, continue Lasix 40 mg IV push every 12 hours, monitor input and output and daily weight obtain the result of echocardiogram from [facility]. 7. Diabetes mellitus type II with diabetic polyneuropathy currently off medications. 8. Chronic kidney disease stage IV. Monitor patient input and output and daily weight and avoid nephrotoxins. Nephrology consultation. 9. Hyperkalemia. Patient did receive 1 amp of D50 along with insulin he will receive calcium gluconate 1 g IV piggyback 1. Repeat potassium this evening. 10. Chronic myelogenous leukemia. Continue with Imatinib 300 mg orally daily. 11. Anemia of chronic kidney disease. Continue iron supplement transfuse for hemoglobin less than 7. 12. Restless leg syndrome. Continue Mirapex 0.25 mg orally twice every day. 13. Major depressive disorder. Continue patient on Lexapro 30 mg orally once every day. 14. Anxiety disorder. Continue with SSRI as well as BuSpar 10 mg orally twice every day. 15. Chronic atrial fibrillation. Continue patient on metoprolol 25 mg orally twice every day, hold Coumadin for tonight because his INR is 4.1. INR tomorrow morning. 16. Coagulopathy hold Coumadin for tonight. INR tomorrow morning. 17. CAD post CABG 4 with a recent non-ST elevation myocardial infarction. Continue metoprolol 25 mg orally twice every day, aspirin 81 mg once every day. 18. GERD with hiatal hernia. Continue Protonix 40 mg orally once every day. 19. Chronic pain syndrome. Continue Percocet 10/325 mg one tablet orally 4 times every day. 20. DVT prophylaxis. Currently on Coumadin. 21. GI prophylaxis. Continue PPI. 22. Medical debility. Physical therapy evaluation. Full code. DISCHARGE PLAN TBD Impression and plan of care have been directed as dictated by the signing physician. Juli Luna nurse practitioner acting as scribe for signing physician. Objective - Vital Signs Vital signs: Vital Signs Temp 97.6 F 06/30/21 12:30 Pulse 83 07/01/21 04:25 Resp 18 07/01/21 04:25 BP 110/58 07/01/21 04:25 Pulse Ox 97 07/01/21 04:25 Intake & Output 06/30/21 07/01/21 07/01/21 18:59 06:59 18:59 Weight 113.3 kg - Labs CBC & Chem 7: 07/01/21 08:06 06/30/21 20:39 Labs: Abnormal Lab Results - Last 24 Hours (Table) 06/30/21 06/30/21 06/30/21 Range/Units 13:19 13:19 13:19 RBC 2.32 L (4.30-5.90) m/uL Hgb 7.2 L (13.0-17.5) gm/dL Hct 23.8 L (39.0-53.0) % MCV 102.5 H (80.0-100.0) fL MCHC 30.3 L (31.0-37.0) g/dL RDW 16.8 H (11.5-15.5) % Lymphocytes # 0.5 L (1.0-4.8) k/uL PT 39.6 H (9.0-12.0) sec INR 4.1 H (<1.2) APTT 44.2 H (22.0-30.0) sec Potassium 6.0 H (3.5-5.1) mmol/L BUN 78 H (9-20) mg/dL Creatinine 3.33 H (0.66-1.25) mg/dL Glucose 169 H (74-99) mg/dL Alkaline Phosphatase 226 H (38-126) U/L Troponin I (0.000-0.034) ng/mL Albumin 3.2 L (3.5-5.0) g/dL 06/30/21 06/30/21 06/30/21 Range/Units 13:19 16:57 20:39 RBC (4.30-5.90) m/uL Hgb (13.0-17.5) gm/dL Hct (39.0-53.0) % MCV (80.0-100.0) fL MCHC (31.0-37.0) g/dL RDW (11.5-15.5) % Lymphocytes # (1.0-4.8) k/uL PT (9.0-12.0) sec INR (<1.2) APTT (22.0-30.0) sec Potassium 5.2 H (3.5-5.1) mmol/L BUN 80 H (9-20) mg/dL Creatinine 3.21 H (0.66-1.25) mg/dL Glucose 47 L* (74-99) mg/dL Alkaline Phosphatase (38-126) U/L Troponin I 0.041 H* 0.048 H* (0.000-0.034) ng/mL Albumin (3.5-5.0) g/dL 06/30/21 Range/Units 20:39 RBC (4.30-5.90) m/uL Hgb (13.0-17.5) gm/dL Hct (39.0-53.0) % MCV (80.0-100.0) fL MCHC (31.0-37.0) g/dL RDW (11.5-15.5) % Lymphocytes # (1.0-4.8) k/uL PT (9.0-12.0) sec INR (<1.2) APTT (22.0-30.0) sec Potassium (3.5-5.1) mmol/L BUN (9-20) mg/dL Creatinine (0.66-1.25) mg/dL Glucose (74-99) mg/dL Alkaline Phosphatase (38-126) U/L Troponin I 0.060 H* (0.000-0.034) ng/mL Albumin (3.5-5.0) g/dL
[2021-07-01] MEDS: IPRATROPIUM-ALBUTEROL 3 ML NEB INHALATION SCH ×4 (08:53→20:37)
[2021-07-01] MEDS: BUDESONIDE 1 MG/2 ML NEBU INHALATION SCH ×2 (08:53→20:37)
[2021-07-01] MEDS: MEROPENEM 1 GM in SODIUM CHLORIDE 0.9% 100 ML IVPB SCH ×2 (09:30→21:25)
[2021-07-01 09:45] LABS: Calcium 8.6 mg/dL (8.4-10.2); Magnesium 2.1 mg/dL (1.6-2.3); Potassium 5.1 mmol/L (3.5-5.1); Total Bilirubin 0.5 mg/dL (0.2-1.3); Total Protein 6.2 g/dL (6.3-8.2)
--- NOTE | 2021-07-01 10:08 | P.NPCON ---
History of Present Illness - Reason for Consult acute renal failure, chronic renal failure - History of Present Illness Reason for consultation: Acute kidney injury on chronic kidney disease History of present illness: Patient is a 85-year-old male seen in renal consultation for acute kidney injury on chronic kidney disease. Patient has chronic kidney disease stage IV with baseline creatinine in the range of 2.6-2.8. Creatinine this admission was 3.33 within is stable at 3.29 today. Vision states he follows with a polishing pad mounter at [facility]. He has a mature right upper extremity AV fistula. Patient denies being on dialysis before. Patient presented to the hospital with generalized weakness severe EMS. Patient states shortness of breath was worsening over the last 2-3 days he was also having a productive cough with green phlegm. He tested negative for coronavirus. Has been voiding. Denies hematuria or dysuria. No fever or chills. No vomiting or diarrhea. No chest pain. He's currently on 3 L is cannula. Blood pressure stable. Potassium level was 6 on admission and is down to 5.1 today. Receiving IV Lasix 40 mg twice daily. Also receiving antibiotics for possible pneumonia. Patient has history of CABG. Vital signs are stable. General: On nasal cannula. HEENT: Head exam is unremarkable. LUNGS: Breath sounds decreased. HEART: Rate and Rhythm are regular. ABDOMEN: Soft, no distention. EXTREMITITES: 1+ edema. Chronic changes noted. Past Medical History Past Medical History: Atrial Fibrillation, Atrial Flutter, Coronary Artery Disease (CAD), Cancer, Diabetes Mellitus, GERD/Reflux, Hyperlipidemia, Hypertension, Myocardial Infarction (CO), Osteoarthritis (OA), Renal Disease, Sleep Apnea/CPAP/BIPAP Additional Past Medical History / Comment(s): KIDNEY DISEASE STAGE 4, NEUROPATHY OF FEET, SLEEP APNEA (NO MACHINE), RLS, HX OF CLOT IN HIS SHOULDER, DIVERTICULOSIS, left adrenal adenoma, renal stone of the right kidney, FREQUENT DIARRHEA, NEW DIAGNOSIS OF CML., STATES ON VIBRAMYCIN FOR UPPER RESPIRATORY INFECTION. Last Myocardial Infarction Date:: 2000 History of Any Multi-Drug Resistant Organisms: VRE Date of last positivie culture/infection: 2011 MDRO Source:: ABD WOUND Past Surgical History: Bladder Surgery, Cholecystectomy, Hernia Repair, Joint Replacement, Orthopedic Surgery Additional Past Surgical History / Comment(s): Hx quadruple bypass, colonoscopy, bilateral cataract surgery. Has shaheen from hip to knee on right side., right ankle plate and screw., Bilateral total knees., exploratory of abd. Past Anesthesia/Blood Transfusion Reactions: No Reported Reaction Past Psychological History: Depression Smoking Status: Former smoker Past Alcohol Use History: None Reported Past Drug Use History: None Reported - Past Family History Mother Family Medical History: AFIB, CVA/TIA, Diabetes Mellitus, Renal Disease Additional Family Medical History / Comment(s): age 88 Father Family Medical History: Pneumonia Additional Family Medical History / Comment(s): age 58 of pneumonia Brother(s) Family Medical History: Coronary Artery Disease (CAD) Son(s) Family Medical History: No Reported History Additional Family Medical History / Comment(s): patient has one son with no major medical problems. Medications and Allergies Home Medications Medication Instructions Recorded Confirmed Type Escitalopram Oxalate [Lexapro] 30 mg PO DAILY 07/13/15 06/30/21 History Loratadine [Claritin] 10 mg PO DAILY 07/13/15 06/30/21 History Pramipexole [Mirapex] 0.25 mg PO BID 07/13/15 06/30/21 History Warfarin [Coumadin] 2.5 mg PO TUTH@1800 07/13/15 06/30/21 History Warfarin [Coumadin] 5 mg PO SUMOWEFRSA@1800 07/13/15 06/30/21 History oxyCODONE HCL/ACETAMINOPHEN 1 tab PO Q6H PRN 07/13/15 06/30/21 History [Percocet 10-325 mg] Omeprazole [PriLOSEC] 20 mg PO DAILY 09/16/16 06/30/21 History busPIRone HCL 10 mg PO BID 09/16/16 06/30/21 History Furosemide [Lasix] 40 mg PO MOWEFR 05/31/18 06/30/21 History Imatinib Mesylate 300 mg PO HS 05/31/18 06/30/21 History Cholecalciferol [Vitamin D3 (25 25 mcg PO BID 06/30/21 06/30/21 History Mcg = 1000 Iu)] Garlic 1 tab PO BID 06/30/21 06/30/21 History Iron 27mg 27 mg PO TID 06/30/21 06/30/21 History Lactobacillus Acidophilus 2 tab PO BID 06/30/21 06/30/21 History [Acidophilus] Metoprolol Tartrate [Lopressor] 25 mg PO BID 06/30/21 06/30/21 History Allergies Allergy/AdvReac Type Severity Reaction Status Date / Time adhesive tape Allergy Rash/Hives Verified 06/30/21 14:13 aztreonam [From Azactam] Allergy Unknown Verified 06/30/21 14:13 cephalexin monohydrate Allergy Rash/Hives Verified 06/30/21 14:13 [From Keflex] ciprofloxacin [From Cipro] Allergy Anaphylaxis Verified 06/30/21 14:13 ciprofloxacin HCl Allergy Anaphylaxis Verified 06/30/21 14:13 [From Cipro] doxycycline Allergy Unknown Verified 06/30/21 14:13 latex Allergy Rash/Hives Verified 06/30/21 14:13 Penicillins Allergy Anaphylaxis Verified 06/30/21 14:13 Sulfa (Sulfonamide Allergy Dyspnea Verified 06/30/21 14:13 Antibiotics) Iodinated Contrast Media AdvReac KIDNEYS Verified 06/30/21 14:13 [Iodinated Contrast- Oral and IV Dye] Physical Exam Vitals: Vital Signs Temp Pulse Pulse Resp BP BP Pulse Ox 07/01/21 09:05 94 07/01/21 08:53 90 07/01/21 08:15 98.1 F 101 H 16 113/58 99 07/01/21 04:25 83 18 110/58 97 06/30/21 22:35 92 16 106/56 93 L 06/30/21 21:12 105 H 16 124/65 06/30/21 19:31 72 06/30/21 19:24 96 06/30/21 19:20 107 H 17 124/65 99 06/30/21 12:38 20 06/30/21 12:30 97.6 F 105 H 20 117/67 100 Intake and Output 06/30/21 07/01/21 07/01/21 22:59 06:59 14:59 Intake Total 118 Balance 118 Intake: Oral 118 Other: Voiding Method Urinal Weight 113.3 kg Results - Lab Results Most recent lab results Calcium 8.6 mg/dL (8.4-10.2) 07/01/21 08:06 Magnesium 2.1 mg/dL (1.6-2.3) 07/01/21 08:06 07/01/21 08:06 07/01/21 08:06 Assessment and Plan Plan: Assessment: 1. Acute kidney injury secondary to ATN secondary to cardiorenal syndrome. Cre atinine stable at 3.29 today. UA benign. 2. Chronic kidney disease stage IV with baseline creatinine in the range of 2.6-2.8 secondary to nephrosclerosis. Patient has a mature right upper extremity AV fistula which has not been used. He follows with polishing pad mounter out of [place], [place]. 3. History of coronary disease status post CABG. 4. Hyperkalemia secondary to acute kidney injury. Improved medical management. 5. Volume overload. 6. Possible pneumonia on antibiotics. 7. Acute on chronic diastolic CHF. 8. History of A. fib. 9. CML. 10. Acute blood loss anemia with component of chronic kidney disease. Denies active bleeding. Plan: Maintain IV Lasix. Follow-up cultures. Check renal ultrasound. Add Aranesp. Consider blood transfusion. Defer to primary team. Avoid nephrotoxins. Continue to monitor renal function and urine output. Check bladder scan to rule out urinary retention. Thank you for the consultation. I will continue to follow patient with you during his hospital stay.
--- NOTE | 2021-07-01 10:49 | P.CRDCN ---
History of Present Illness Consult date: 07/01/21 History of present illness: HISTORY OF PRESENT ILLNESS: This is a 85 year old male with a past medical history significant for chronic persistent atrial fibrillation, coronary artery disease with previous CABG x 4 in 2000, congestive heart failure, hypertension, hyperlipidemia, and chronic kidney disease. Patient follows in the office with Dr. Oliveira. We have been asked to see the patient in consultation for congestive heart failure. Patient examined at the bedside. Patient presented to the hospital with a chief complaint of shortness of breath. Patient was found to be in CHF. He was started on IV lasix. Patient denies chest pain or pressure. He reports improvement in his shortness of breath. Blood pressure 113/58. Telemetry reveals atrial fibrillation with heart rate in the 90s. EKG reveals atrial fibrillation with controlled ventricular rate Chest xray prominent pulmonary vascular markings. Correlate for volume overload. Infectious etiology such as atypical pneumonia could be considered. Laboratory data: WBC 7.9. Hemoglobin 6.9. Platelet count 251. INR 4.3. Sodium 139. Potassium 5.1. BUN 73. Creatinine 3.29. ProBNP 12,100. Troponin 0.041. 0.048. 0.060. Current home cardiac medications include Coumadin 5 mg Monday and 2.5 mg Monday, metoprolol tartrate 25 mg twice a day, Lasix 40 mg Monday. Most recent echocardiogram obtained in September 2020 revealed ejection fraction 50%, small hypokinetic area of the inferior wall at the base, [id number] mitral regurgitation, mild tricuspid regurgitation, [id number] aortic stenosis REVIEW OF SYSTEMS: At the time of my exam: CONSTITUTIONAL: Denies fever or chills. HEENT: Denies blurred vision, vision changes, or eye pain. Denies hemoptysis CARDIOVASCULAR: Denies chest pain. Denies orthopnea. Denies PND. Denies palpitations RESPIRATORY: + shortness of breath. GASTROINTESTINAL: Denies abdominal pain. Denies nausea or vomiting. HEMATOLOGIC: Denies bleeding disorders. GENITOURINARY: Denies any blood in urine. SKIN: Denies pruitis. Denies rash. PHYSICAL EXAM: VITAL SIGNS: Reviewed. GENERAL: Well-developed in no acute distress. HEENT: Head is normocephalic. Pupils are equal, round. Sclerae anicteric. Mucous membranes of the mouth are moist. Neck supple. No JVD or thyromegaly LUNGS: Respirations even and unlabored. Lungs diminished with expiratory wheezing and crackles at the bases. HEART: Irregular rate and rhythm. S1 and S2 heard. Systolic murmur noted. ABDOMEN: Soft. Nondistended. Nontender. EXTREMITIES: Normal range of motion. No clubbing or cyanosis. Peripheral pulses intact. 1-2+ bilateral lower extremity edema with chronic discoloration NEUROLOGIC: Awake and alert. ASSESSMENT: Shortness of breath Acute on chronic diastolic congestive heart failure Possible pneumonia Acute hypoxic respiratory failure Chronic persistent atrial fibrillation with controlled ventricular rate Supratherapeutic INR Coronary artery disease with previous CABG Abnormal troponins, secondary to chronic kidney disease, not suggestive of acute coronary syndrome Hypertension Hyperlipidemia Chronic kidney disease Anemia Diabetes mellitus Recent fall with hip fracture, status post right shaheen insertion of the right f emur Valvular heart disease PLAN: Obtain 2D echo to assess cardiac structure and function Continue IV lasix Monitor kidney function. Nephrology following. Accurate I&O Daily weights Continue additional home cardiac medications Hold Coumadin due to INR 4.3 Repeat in AM Further recommendations pending patient course Nurse practitioner note has been reviewed by physician. Signing provider agrees with the documented findings, assessment, and plan of care. Past Medical History Past Medical History: Atrial Fibrillation, Atrial Flutter, Coronary Artery Disease (CAD), Cancer, Diabetes Mellitus, GERD/Reflux, Hyperlipidemia, Hypertension, Myocardial Infarction (MS), Osteoarthritis (OA), Renal Disease, Sleep Apnea/CPAP/BIPAP Additional Past Medical History / Comment(s): KIDNEY DISEASE STAGE 4, NEUROPATHY OF FEET, SLEEP APNEA (NO MACHINE), RLS, HX OF CLOT IN HIS SHOULDER, DIVERTICULOS IS, left adrenal adenoma, renal stone of the right kidney, FREQUENT DIARRHEA, NEW DIAGNOSIS OF CML., STATES ON VIBRAMYCIN FOR UPPER RESPIRATORY INFECTION. Last Myocardial Infarction Date:: 2000 History of Any Multi-Drug Resistant Organisms: VRE Date of last positivie culture/infection: 2011 MDRO Source:: ABD WOUND Past Surgical History: Bladder Surgery, Cholecystectomy, Hernia Repair, Joint Replacement, Orthopedic Surgery Additional Past Surgical History / Comment(s): Hx quadruple bypass, colonoscopy, bilateral cataract surgery. Has shaheen from hip to knee on right side., right ankle plate and screw., Bilateral total knees., exploratory of abd. Past Anesthesia/Blood Transfusion Reactions: No Reported Reaction Past Psychological History: Depression Smoking Status: Former smoker Past Alcohol Use History: None Reported Past Drug Use History: None Reported - Past Family History Mother Family Medical History: AFIB, CVA/TIA, Diabetes Mellitus, Renal Disease Additional Family Medical History / Comment(s): age 88 Father Family Medical History: Pneumonia Additional Family Medical History / Comment(s): age 58 of pneumonia Brother(s) Family Medical History: Coronary Artery Disease (CAD) Son(s) Family Medical History: No Reported History Additional Family Medical History / Comment(s): patient has one son with no major medical problems. Medications and Allergies Home Medications Medication Instructions Recorded Confirmed Type Escitalopram Oxalate [Lexapro] 30 mg PO DAILY 07/13/15 06/30/21 History Loratadine [Claritin] 10 mg PO DAILY 07/13/15 06/30/21 History Pramipexole [Mirapex] 0.25 mg PO BID 07/13/15 06/30/21 History Warfarin [Coumadin] 2.5 mg PO TUTH@1800 07/13/15 06/30/21 History Warfarin [Coumadin] 5 mg PO SUMOWEFRSA@1800 07/13/15 06/30/21 History oxyCODONE HCL/ACETAMINOPHEN 1 tab PO Q6H PRN 07/13/15 06/30/21 History [Percocet 10-325 mg] Omeprazole [PriLOSEC] 20 mg PO DAILY 09/16/16 06/30/21 History busPIRone HCL 10 mg PO BID 09/16/16 06/30/21 History Furosemide [Lasix] 40 mg PO MOWEFR 05/31/18 06/30/21 History Imatinib Mesylate 300 mg PO HS 05/31/18 06/30/21 History Cholecalciferol [Vitamin D3 (25 25 mcg PO BID 06/30/21 06/30/21 History Mcg = 1000 Iu)] Garlic 1 tab PO BID 06/30/21 06/30/21 History Iron 27mg 27 mg PO TID 06/30/21 06/30/21 History Lactobacillus Acidophilus 2 tab PO BID 06/30/21 06/30/21 History [Acidophilus] Metoprolol Tartrate [Lopressor] 25 mg PO BID 06/30/21 06/30/21 History Allergies Allergy/AdvReac Type Severity Reaction Status Date / Time adhesive tape Allergy Rash/Hives Verified 06/30/21 14:13 aztreonam [From Azactam] Allergy Unknown Verified 06/30/21 14:13 cephalexin monohydrate Allergy Rash/Hives Verified 06/30/21 14:13 [From Keflex] ciprofloxacin [From Cipro] Allergy Anaphylaxis Verified 06/30/21 14:13 ciprofloxacin HCl Allergy Anaphylaxis Verified 06/30/21 14:13 [From Cipro] doxycycline Allergy Unknown Verified 06/30/21 14:13 latex Allergy Rash/Hives Verified 06/30/21 14:13 Penicillins Allergy Anaphylaxis Verified 06/30/21 14:13 Sulfa (Sulfonamide Allergy Dyspnea Verified 06/30/21 14:13 Antibiotics) Iodinated Contrast Media AdvReac KIDNEYS Verified 06/30/21 14:13 [Iodinated Contrast- Oral and IV Dye] Physical Exam Vitals: Vital Signs Temp Pulse Pulse Resp BP BP Pulse Ox 07/01/21 09:05 94 07/01/21 08:53 90 07/01/21 08:15 98.1 F 101 H 16 113/58 99 07/01/21 04:25 83 18 110/58 97 06/30/21 22:35 92 16 106/56 93 L 06/30/21 21:12 105 H 16 124/65 06/30/21 19:31 72 06/30/21 19:24 96 06/30/21 19:20 107 H 17 124/65 99 06/30/21 12:38 20 06/30/21 12:30 97.6 F 105 H 20 117/67 100 Intake and Output 06/30/21 07/01/21 07/01/21 22:59 06:59 14:59 Intake Total 118 Balance 118 Intake: Oral 118 Other: Voiding Method Urinal Weight 113.3 kg Results 07/01/21 08:06 07/01/21 08:06 Cardiac Enzymes 06/30/21 06/30/21 06/30/21 Range/Units 13:19 13:19 16:57 AST 31 (17-59) U/L Troponin I 0.041 H* 0.048 H* (0.000-0.034) ng/mL 06/30/21 07/01/21 Range/Units 20:39 08:06 AST 32 (17-59) U/L Troponin I 0.060 H* (0.000-0.034) ng/mL Coagulation 06/30/21 07/01/21 Range/Units 13:19 08:06 PT 39.6 H 41.8 H (9.0-12.0) sec APTT 44.2 H (22.0-30.0) sec CBC 06/30/21 07/01/21 Range/Units 13:19 08:06 WBC 9.1 7.9 (3.8-10.6) k/uL RBC 2.32 L 2.26 L (4.30-5.90) m/uL Hgb 7.2 L 6.9 L* (13.0-17.5) gm/dL Hct 23.8 L 23.6 L (39.0-53.0) % Plt Count 295 251 (150-450) k/uL Comprehensive Metabolic Panel 06/30/21 06/30/21 07/01/21 Range/Units 13:19 20:39 08:06 Sodium 138 138 139 (137-145) mmol/L Potassium 6.0 H 5.2 H 5.1 (3.5-5.1) mmol/L Chloride 105 105 106 (98-107) mmol/L Carbon Dioxide 25 25 26 (22-30) mmol/L BUN 78 H 80 H 73 H (9-20) mg/dL Creatinine 3.33 H 3.21 H 3.29 H (0.66-1.25) mg/dL Glucose 169 H 47 L* 122 H (74-99) mg/dL Calcium 8.6 8.6 8.6 (8.4-10.2) mg/dL AST 31 32 (17-59) U/L ALT 14 12 (4-49) U/L Alkaline Phosphatase 226 H 218 H (38-126) U/L Total Protein 6.3 6.2 L (6.3-8.2) g/dL Albumin 3.2 L 3.0 L (3.5-5.0) g/dL Current Medications Generic Name Dose Route Start Last Admin Trade Name Freq PRN Reason Stop Dose Admin Albuterol/Ipratropium 3 ml 06/30/21 20:00 07/01/21 08:53 Ipratropium-Albuterol 3 Ml Neb INHALATION 3 ml RT-QID OCTAVIO Administration Budesonide 1 mg 06/30/21 20:00 07/01/21 08:53 Budesonide 1 Mg/2 Ml Nebu INHALATION 1 mg RT-BID OCTAVIO Administration Buspirone HCl 10 mg 06/30/21 21:00 07/01/21 08:28 Buspirone Hcl 10 Mg Tab PO 10 mg BID OCTAVIO Administration Cholecalciferol 25 mcg 06/30/21 21:00 07/01/21 08:27 Cholecalciferol 25 Mcg (1000 Iu) Tablet PO 25 mcg BID OCTAVIO Administration Darbepoetin Ricki 40 mcg 07/01/21 11:00 Darbepoetin Ricki 40 Mcg/0.4 Ml Syringe SQ Q7D OCTAVIO Escitalopram Oxalate 30 mg 07/01/21 09:00 07/01/21 08:27 Escitalopram 10 Mg Tab PO 30 mg DAILY OCTAVIO Administration Ferrous Sulfate 325 mg 06/30/21 16:00 07/01/21 08:28 Ferrous Sulfate 325 Mg Tab PO 325 mg TID OCTAVIO Administration Furosemide 40 mg 06/30/21 21:00 07/01/21 08:29 Furosemide 10 Mg/Ml 4 Ml Vial IV 40 mg BID OCTAVIO Administration Meropenem 1 gm/ Sodium 100 mls @ 33.3 mls/hr 06/30/21 21:00 06/30/21 23:35 Chloride IVPB 33.3 mls/hr Q12HR OCTAVIO Administration Protocol Lactobacillus Acidoph/Bulgaricus 2 each 06/30/21 21:00 07/01/21 08:26 Lactobacillus Acidoph & Bulgar 1 Each Packet PO 2 each BID OCTAVIO Administration Loratadine 10 mg 07/01/21 09:00 07/01/21 08:27 Loratadine 10 Mg Tab PO 10 mg DAILY OCTAVIO Administration Metoprolol Tartrate 25 mg 06/30/21 21:00 07/01/21 08:27 Metoprolol Tartrate 25 Mg Tab PO 25 mg BID OCTAVIO Administration Naloxone HCl 0.2 mg 06/30/21 15:05 Naloxone 0.4 Mg/Ml 1 Ml Vial IV Q2M PRN Opioid Reversal Imatinib Mesylate [ 300 mg 06/30/21 21:00 06/30/21 23:33 Imatinib Mesylate] PO Not Given 100 Mg Tablet HS OCTAVIO Oxycodone/Acetaminophen 1 each 01/05/22 15:45 Oxycodone-Apap 10-325mg 1 Each Tab PO Q6H PRN Pain Pantoprazole Sodium 40 mg 07/01/21 07:30 07/01/21 06:38 Pantoprazole 40 Mg Tablet PO 40 mg [id number] OCTAVIO Administration Pramipexole Dihydrochloride 0.25 mg 06/30/21 21:00 07/01/21 08:27 Pramipexole 0.25 Mg Tab PO 0.25 mg BID OCTAVIO Administration Intake and Output 06/30/21 07/01/21 07/01/21 22:59 06:59 14:59 Intake Total 118 Balance 118 Intake: Oral 118 Other: Voiding Method Urinal Weight 113.3 kg 07/01/21 08:06 07/01/21 08:06
--- NOTE | 2021-07-01 10:53 | US ---
EXAMINATION TYPE: US kidneys/renal and bladder DATE OF EXAM: 07/01/2021 COMPARISON: NONE CLINICAL HISTORY: jaylen. EXAM MEASUREMENTS: Right Kidney: 10.5 x 5.4 x 5.1 cm Left Kidney: 10.1 x 5.3 x 4.6 cm Right Kidney: No hydronephrosis or masses seen; limited visualization Left Kidney: No hydronephrosis or masses seen; limited visualization Bladder: Patient refused images of bladder There is no evidence for hydronephrosis at this point in time. No nephrolithiasis is seen. No ulisses s are identified. Some cortical thinning bilaterally thought present on images saved. The urinary misty dder is not evaluated. Difficult patient due to patient body habitus as well as patient immobility and noncompliance IMPRESSION: Suboptimal study without hydronephrosis seen bilaterally
--- NOTE | 2021-07-01 11:27 | P.CONS ---
History of Present Illness - Reason for Consult Consult date: 07/01/21 wound care - History of Present Illness This is an 85-year-old patient with multiple ulcerations to the right posterior thigh. And also stage I pressure ulcers to bilateral calcaneus. Patient does not know how long the ulcerations have been there. There is moderate drainage from the ulcerations. Right posterior thigh ulcerations are multiple with fat layer exposure minimal granulation seen within the wound beds and moderate slough. The wound edges are attached to the wound base. Review Of Systems: Constitutional: No fever, no chills, no night sweats. No weight change. No weakness, fatigue or lethargy. No daytime sleepiness. Integumentary:reports wounds, no lesions. No rash or pruritus. No unusual bruising. No change in hair or nails. Physical exam: General Appearance: Alert, cooperative, no distress, appears stated age. Skin: See HPI all other Skin color, texture, tugor normal, no rashes or lesions. Neurologic: Alert oriented x3 Assessment: 1. 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 Stage I pressure ulcer bilateral calcaneus Plan: 1.Right posterior thigh: Apply triad to the site. May cover with foam border gauze if increase drainage is present. 2. Bilateral calcaneus: Utilize foam heel covers. Thank you for the consultation any questions to contact the wound care center DNP note has been reviewed and discussed with Dr. Henderson and the impression and plan of care has been directed as dictated. Past Medical History Past Medical History: Atrial Fibrillation, Atrial Flutter, Coronary Artery Disease (CAD), Cancer, Diabetes Mellitus, GERD/Reflux, Hyperlipidemia, Hypertension, Myocardial Infarction (LA), Osteoarthritis (OA), Renal Disease, Sleep Apnea/CPAP/BIPAP Additional Past Medical History / Comment(s): KIDNEY DISEASE STAGE 4, NEUROPATHY OF FEET, SLEEP APNEA (NO MACHINE), RLS, HX OF CLOT IN HIS SHOULDER, DIVERTICULOSIS, left adrenal adenoma, renal stone of the right kidney, FREQUENT DIARRHEA, NEW DIAGNOSIS OF CML., STATES ON VIBRAMYCIN FOR UPPER RESPIRATORY INFECTION. Last Myocardial Infarction Date:: 2000 History of Any Multi-Drug Resistant Organisms: VRE Year Discovered:: 2011 MDRO Source:: ABD WOUND Past Surgical History: Bladder Surgery, Cholecystectomy, Hernia Repair, Joint Replacement, Orthopedic Surgery Additional Past Surgical History / Comment(s): Hx quadruple bypass, colonoscopy, bilateral cataract surgery. Has shaheen from hip to knee on right side., right ankle plate and screw., Bilateral total knees., exploratory of abd. Past Anesthesia/Blood Transfusion Reactions: No Reported Reaction Past Psychological History: Depression Smoking Status: Former smoker Past Alcohol Use History: None Reported Past Drug Use History: None Reported - Past Family History Mother Family Medical History: AFIB, CVA/TIA, Diabetes Mellitus, Renal Disease Additional Family Medical History / Comment(s): age 88 Father Family Medical History: Pneumonia Additional Family Medical History / Comment(s): age 58 of pneumonia Brother(s) Family Medical History: Coronary Artery Disease (CAD) Son(s) Family Medical History: No Reported History Additional Family Medical History / Comment(s): patient has one son with no major medical problems. Medications and Allergies Home Medications Medication Instructions Recorded Confirmed Type Escitalopram Oxalate [Lexapro] 30 mg PO DAILY 07/13/15 06/30/21 History Loratadine [Claritin] 10 mg PO DAILY 07/13/15 06/30/21 History Pramipexole [Mirapex] 0.25 mg PO BID 07/13/15 06/30/21 History Warfarin [Coumadin] 2.5 mg PO TUTH@1800 07/13/15 06/30/21 History Warfarin [Coumadin] 5 mg PO SUMOWEFRSA@1800 07/13/15 06/30/21 History oxyCODONE HCL/ACETAMINOPHEN 1 tab PO Q6H PRN 07/13/15 06/30/21 History [Percocet 10-325 mg] Omeprazole [PriLOSEC] 20 mg PO DAILY 09/16/16 06/30/21 History busPIRone HCL 10 mg PO BID 09/16/16 06/30/21 History Furosemide [Lasix] 40 mg PO MOWEFR 05/31/18 06/30/21 History Imatinib Mesylate 300 mg PO HS 05/31/18 06/30/21 History Cholecalciferol [Vitamin D3 (25 25 mcg PO BID 06/30/21 06/30/21 History Mcg = 1000 Iu)] Garlic 1 tab PO BID 06/30/21 06/30/21 History Iron 27mg 27 mg PO TID 06/30/21 06/30/21 History Lactobacillus Acidophilus 2 tab PO BID 06/30/21 06/30/21 History [Acidophilus] Metoprolol Tartrate [Lopressor] 25 mg PO BID 06/30/21 06/30/21 History Allergies Allergy/AdvReac Type Severity Reaction Status Date / Time adhesive tape Allergy Rash/Hives Verified 06/30/21 14:13 aztreonam [From Azactam] Allergy Unknown Verified 06/30/21 14:13 cephalexin monohydrate Allergy Rash/Hives Verified 06/30/21 14:13 [From Keflex] ciprofloxacin [From Cipro] Allergy Anaphylaxis Verified 06/30/21 14:13 ciprofloxacin HCl Allergy Anaphylaxis Verified 06/30/21 14:13 [From Cipro] doxycycline Allergy Unknown Verified 06/30/21 14:13 latex Allergy Rash/Hives Verified 06/30/21 14:13 Penicillins Allergy Anaphylaxis Verified 06/30/21 14:13 Sulfa (Sulfonamide Allergy Dyspnea Verified 06/30/21 14:13 Antibiotics) Iodinated Contrast Media AdvReac KIDNEYS Verified 06/30/21 14:13 [Iodinated Contrast- Oral and IV Dye] Physical Exam Vitals: Vital Signs Temp Pulse Pulse Resp BP BP Pulse Ox 07/01/21 09:05 94 07/01/21 08:53 90 07/01/21 08:15 98.1 F 101 H 16 113/58 99 07/01/21 04:25 83 18 110/58 97 06/30/21 22:35 92 16 106/56 93 L 06/30/21 21:12 105 H 16 124/65 06/30/21 19:31 72 06/30/21 19:24 96 06/30/21 19:20 107 H 17 124/65 99 06/30/21 12:38 20 06/30/21 12:30 97.6 F 105 H 20 117/67 100 Intake and Output 06/30/21 07/01/21 07/01/21 22:59 06:59 14:59 Intake Total 118 Balance 118 Intake: Oral 118 Other: Voiding Method Urinal Weight 113.3 kg Results CBC & Chem 7: 07/01/21 08:06 07/01/21 08:06 Labs: Abnormal Lab Results - Last 24 Hours (Table) 06/30/21 06/30/21 06/30/21 Range/Units 13:19 13:19 13:19 RBC 2.32 L (4.30-5.90) m/uL Hgb 7.2 L (13.0-17.5) gm/dL Hct 23.8 L (39.0-53.0) % MCV 102.5 H (80.0-100.0) fL MCHC 30.3 L (31.0-37.0) g/dL RDW 16.8 H (11.5-15.5) % Lymphocytes # 0.5 L (1.0-4.8) k/uL PT 39.6 H (9.0-12.0) sec INR 4.1 H (<1.2) APTT 44.2 H (22.0-30.0) sec Potassium 6.0 H (3.5-5.1) mmol/L BUN 78 H (9-20) mg/dL Creatinine 3.33 H (0.66-1.25) mg/dL Glucose 169 H (74-99) mg/dL Alkaline Phosphatase 226 H (38-126) U/L Troponin I (0.000-0.034) ng/mL Total Protein (6.3-8.2) g/dL Albumin 3.2 L (3.5-5.0) g/dL 06/30/21 06/30/21 06/30/21 Range/Units 13:19 16:57 20:39 RBC (4.30-5.90) m/uL Hgb (13.0-17.5) gm/dL Hct (39.0-53.0) % MCV (80.0-100.0) fL MCHC (31.0-37.0) g/dL RDW (11.5-15.5) % Lymphocytes # (1.0-4.8) k/uL PT (9.0-12.0) sec INR (<1.2) APTT (22.0-30.0) sec Potassium 5.2 H (3.5-5.1) mmol/L BUN 80 H (9-20) mg/dL Creatinine 3.21 H (0.66-1.25) mg/dL Glucose 47 L* (74-99) mg/dL Alkaline Phosphatase (38-126) U/L Troponin I 0.041 H* 0.048 H* (0.000-0.034) ng/mL Total Protein (6.3-8.2) g/dL Albumin (3.5-5.0) g/dL 06/30/21 07/01/21 07/01/21 Range/Units 20:39 08:06 08:06 RBC (4.30-5.90) m/uL Hgb (13.0-17.5) gm/dL Hct (39.0-53.0) % MCV (80.0-100.0) fL MCHC (31.0-37.0) g/dL RDW (11.5-15.5) % Lymphocytes # (1.0-4.8) k/uL PT 41.8 H (9.0-12.0) sec INR 4.3 H (<1.2) APTT (22.0-30.0) sec Potassium (3.5-5.1) mmol/L BUN 73 H (9-20) mg/dL Creatinine 3.29 H (0.66-1.25) mg/dL Glucose 122 H (74-99) mg/dL Alkaline Phosphatase 218 H (38-126) U/L Troponin I 0.060 H* (0.000-0.034) ng/mL Total Protein 6.2 L (6.3-8.2) g/dL Albumin 3.0 L (3.5-5.0) g/dL 07/01/21 Range/Units 08:06 RBC 2.26 L (4.30-5.90) m/uL Hgb 6.9 L* (13.0-17.5) gm/dL Hct 23.6 L (39.0-53.0) % MCV 104.6 H (80.0-100.0) fL MCHC 29.3 L (31.0-37.0) g/dL RDW 17.4 H (11.5-15.5) % Lymphocytes # 0.9 L (1.0-4.8) k/uL PT (9.0-12.0) sec INR (<1.2) APTT (22.0-30.0) sec Potassium (3.5-5.1) mmol/L BUN (9-20) mg/dL Creatinine (0.66-1.25) mg/dL Glucose (74-99) mg/dL Alkaline Phosphatase (38-126) U/L Troponin I (0.000-0.034) ng/mL Total Protein (6.3-8.2) g/dL Albumin (3.5-5.0) g/dL Assessment and Plan (1) Nonhealing ulcer of multiple sites of right lower extremity with fat layer exposed Current Visit: Yes Status: Acute Code(s): L97.912 - NON-PRS CHR ULC UNSP PRT OF R LOW LEG W FAT LAYER EXPOSED SNOMED Code(s): 22441064 (2) Pressure injury of right heel, stage 1 Current Visit: Yes Status: Acute Code(s): L89.611 - PRESSURE ULCER OF RIGHT HEEL, STAGE 1 SNOMED Code(s): 336343119 (3) Pressure injury of left heel, stage 1 Current Visit: Yes Status: Acute Code(s): L89.621 - PRESSURE ULCER OF LEFT HEEL, STAGE 1 SNOMED Code(s): 474615359
[2021-07-01] MEDS: DARBEPOETIN ALFA 40 MCG/0.4 ML SYRINGE SQ SCH (12:31)
[2021-07-01] MEDS: HYDROPHILIC CREAM 180 GM TUBE TOPICAL SCH (17:17)
[2021-07-01 17:28] LABS: % Iron Saturation 10.58 (15.00-50.00)
[2021-07-01] MEDS: oxyCODONE-APAP 10-325MG 1 EACH TAB PO PRN (21:24)
--- NOTE | 2021-07-02 05:20 | P.CONS ---
History of Present Illness - Chief Complaint Medical debility - History of Present Illness I had the opportunity to see patient for inpatient rehab consultation with regard to medical debility. Patient admitted to [facility] shortness of breath, productive cough, diagnosis of pneumonia. Seen by Dr. Heredia for acute on chronic kidney disease stage IV. Seen by cardiology for known chronic atrial fibrillation, CAD/CABG, CHF. Consultation to wound care. Chest x-rays followed for CHF. Is more likely than pneumonia. Abdominal ultrasound negative for right or left hydronephrosis. Has started therapies. PT reports total assistance for bed mobility and unable to sit or stand. Week. OT unable to see patient due to low hemoglobin. Previous functional history as elicited from patient: 85-year-old right-handed white male who is lives in one form with . Retired. does cooking, laundry, driving. Patient dependent driving, standing shower and gait without device. PCP is Dr. Neal. Denies tobacco or alcohol. Review of Systems Review of systems: ENT: Denies sneezes or discharge. Eyes: Denies discharge or photophobia. Cardiac: Denies chest pain or palpitation. Pulmonary: shortness of breath. Gastrointestinal: Denies nausea, emesis, constipation, diarrhea. Genitourinary: Denies discharge or frequency. Musculoskeletal: Denies muscle or bone aches. Neurologic: Generalized weakness. Endocrine: Denies shakes or sweats. Oncology: Denies cancers. Dermatologic: Denies rash, itching, pruritus. ALLERGY/immunology: Denies sneezes, rashes. Past Medical History Past Medical History: Atrial Fibrillation, Atrial Flutter, Coronary Artery Disease (CAD), Cancer, Diabetes Mellitus, GERD/Reflux, Hyperlipidemia, Hyper tension, Myocardial Infarction (ID), Osteoarthritis (OA), Renal Disease, Sleep Apnea/CPAP/BIPAP Additional Past Medical History / Comment(s): KIDNEY DISEASE STAGE 4, NEUROPATHY OF FEET, SLEEP APNEA (NO MACHINE), RLS, HX OF CLOT IN HIS SHOULDER, DIVERTICULOSIS, left adrenal adenoma, renal stone of the right kidney, FREQUENT DIARRHEA, NEW DIAGNOSIS OF CML., STATES ON VIBRAMYCIN FOR UPPER RESPIRATORY INFECTION. Last Myocardial Infarction Date:: 2000 History of Any Multi-Drug Resistant Organisms: VRE Year Discovered:: 2011 MDRO Source:: ABD WOUND Past Surgical History: Bladder Surgery, Cholecystectomy, Hernia Repair, Joint Replacement, Orthopedic Surgery Additional Past Surgical History / Comment(s): Hx quadruple bypass, colonoscopy, bilateral cataract surgery. Has shaheen from hip to knee on right side., right ankle plate and screw., Bilateral total knees., exploratory of abd. Past Anesthesia/Blood Transfusion Reactions: No Reported Reaction Past Psychological History: Depression Smoking Status: Former smoker Past Alcohol Use History: None Reported Past Drug Use History: None Reported - Past Family History Mother Family Medical History: AFIB, CVA/TIA, Diabetes Mellitus, Renal Disease Additional Family Medical History / Comment(s): age 88 Father Family Medical History: Pneumonia Additional Family Medical History / Comment(s): age 58 of pneumonia Brother(s) Family Medical History: Coronary Artery Disease (CAD) Son(s) Family Medical History: No Reported History Additional Family Medical History / Comment(s): patient has one son with no major medical problems. Medications and Allergies Home Medications Medication Instructions Recorded Confirmed Type Escitalopram Oxalate [Lexapro] 30 mg PO DAILY 07/13/15 06/30/21 History Loratadine [Claritin] 10 mg PO DAILY 07/13/15 06/30/21 History Pramipexole [Mirapex] 0.25 mg PO BID 07/13/15 06/30/21 History Warfarin [Coumadin] 2.5 mg PO TUTH@1800 07/13/15 06/30/21 History Warfarin [Coumadin] 5 mg PO SUMOWEFRSA@1800 07/13/15 06/30/21 History oxyCODONE HCL/ACETAMINOPHEN 1 tab PO Q6H PRN 07/13/15 06/30/21 History [Percocet 10-325 mg] Omeprazole [PriLOSEC] 20 mg PO DAILY 09/16/16 06/30/21 History busPIRone HCL 10 mg PO BID 09/16/16 06/30/21 History Furosemide [Lasix] 40 mg PO MOWEFR 05/31/18 06/30/21 History Imatinib Mesylate 300 mg PO HS 05/31/18 06/30/21 History Cholecalciferol [Vitamin D3 (25 25 mcg PO BID 06/30/21 06/30/21 History Mcg = 1000 Iu)] Garlic 1 tab PO BID 06/30/21 06/30/21 History Iron 27mg 27 mg PO TID 06/30/21 06/30/21 History Lactobacillus Acidophilus 2 tab PO BID 06/30/21 06/30/21 History [Acidophilus] Metoprolol Tartrate [Lopressor] 25 mg PO BID 06/30/21 06/30/21 History Allergies Allergy/AdvReac Type Severity Reaction Status Date / Time adhesive tape Allergy Rash/Hives Verified 06/30/21 14:13 aztreonam [From Azactam] Allergy Unknown Verified 06/30/21 14:13 cephalexin monohydrate Allergy Rash/Hives Verified 06/30/21 14:13 [From Keflex] ciprofloxacin [From Cipro] Allergy Anaphylaxis Verified 06/30/21 14:13 ciprofloxacin HCl Allergy Anaphylaxis Verified 06/30/21 14:13 [From Cipro] doxycycline Allergy Unknown Verified 06/30/21 14:13 latex Allergy Rash/Hives Verified 06/30/21 14:13 Penicillins Allergy Anaphylaxis Verified 06/30/21 14:13 Sulfa (Sulfonamide Allergy Dyspnea Verified 06/30/21 14:13 Antibiotics) Iodinated Contrast Media AdvReac KIDNEYS Verified 06/30/21 14:13 [Iodinated Contrast- Oral and IV Dye] Physical Exam Vitals: Vital Signs Temp Pulse Pulse Resp BP Pulse Ox 07/01/21 20:45 109 H 07/01/21 20:37 112 H 07/01/21 20:00 98.2 F 111 H 18 109/57 99 07/01/21 16:27 110 H 07/01/21 16:20 97.0 F L 86 18 106/59 98 07/01/21 16:18 96 07/01/21 12:11 92 07/01/21 12:01 90 07/01/21 11:25 97.0 F L 96 16 144/67 96 07/01/21 09:05 94 07/01/21 08:53 90 07/01/21 08:15 98.1 F 101 H 16 113/58 99 Intake and Output 07/01/21 07/01/21 07/02/21 14:59 22:59 06:59 Intake Total 118 240 Output Total 700 Balance -582 240 Intake: Oral 118 240 Output: Urine 700 Other: Voiding Method Urinal Urinal Urinal Diaper Diaper Skin: Atrophic, intact. General: Overweight build and comfortable appearance. Head: Normocephalic, atraumatic. Eyes: Symmetric. Pupils equal round. Ears: Symmetric. Hearing within normal limits. Mouth: Clear. Neck: Supple. Carotid without bruit. Cardiac: Regular rate and rhythm. Lungs: Clear anteriorly and posteriorly. Abdomen: Soft active nontender. Extremities: Normal tone. Boots. Neurological: Mental status: Alert, cooperative, pleasant. Cranial nerves: Symmetric facial tone and trapezius. Motor: Active movement all 4 limbs. Arms at best antigravity, left leg with poor plus to fair minus movement and right leg poor. Note wearing heavy boots. Sensation: Intact throughout. DTRs: Symmetric and equal throughout. Mobility: Requires physical assist for bed mobility. Results CBC & Chem 7: 07/01/21 08:06 07/01/21 08:06 Labs: Abnormal Lab Results - Last 24 Hours (Table) 07/01/21 07/01/21 07/01/21 Range/Units 08:06 08:06 08:06 RBC 2.26 L (4.30-5.90) m/uL Hgb 6.9 L* (13.0-17.5) gm/dL Hct 23.6 L (39.0-53.0) % MCV 104.6 H (80.0-100.0) fL MCHC 29.3 L (31.0-37.0) g/dL RDW 17.4 H (11.5-15.5) % Lymphocytes # 0.9 L (1.0-4.8) k/uL PT 41.8 H (9.0-12.0) sec INR 4.3 H (<1.2) BUN 73 H (9-20) mg/dL Creatinine 3.29 H (0.66-1.25) mg/dL Glucose 122 H (74-99) mg/dL Iron (65-175) ug/dL TIBC (228-460) ug/dL % Saturation (15.00-50.00) Transferrin (204.0-354.0) mg/dL Ferritin (22.0-322.0) ng/mL Alkaline Phosphatase 218 H (38-126) U/L Total Protein 6.2 L (6.3-8.2) g/dL Albumin 3.0 L (3.5-5.0) g/dL 07/01/21 Range/Units 08:06 RBC (4.30-5.90) m/uL Hgb (13.0-17.5) gm/dL Hct (39.0-53.0) % MCV (80.0-100.0) fL MCHC (31.0-37.0) g/dL RDW (11.5-15.5) % Lymphocytes # (1.0-4.8) k/uL PT (9.0-12.0) sec INR (<1.2) BUN (9-20) mg/dL Creatinine (0.66-1.25) mg/dL Glucose (74-99) mg/dL Iron 19 L (65-175) ug/dL TIBC 183 L (228-460) ug/dL % Saturation 10.58 L (15.00-50.00) Transferrin 131.0 L (204.0-354.0) mg/dL Ferritin 1262.0 H (22.0-322.0) ng/mL Alkaline Phosphatase (38-126) U/L Total Protein (6.3-8.2) g/dL Albumin (3.5-5.0) g/dL Microbiology - Last 24 Hours (Table) 07/01/21 11:00 Gram Stain - Preliminary Thigh - Right Wound Culture - Preliminary 06/30/21 16:57 Blood Culture - Preliminary Blood No Growth after 24 hours 06/30/21 17:00 Blood Culture - Preliminary Blood No Growth after 24 hours 07/01/21 11:00 Anaerobic Culture - Preliminary Thigh - Right Assessment and Plan (1) DOMINICK (acute kidney injury) Current Visit: Yes Status: Acute Code(s): N17.9 - ACUTE KIDNEY FAILURE, UNSPECIFIED SNOMED Code(s): 41107399 (2) CHF (congestive heart failure) Current Visit: Yes Status: Acute Code(s): I50.9 - HEART FAILURE, UNSPECIFIED SNOMED Code(s): 03487520 (3) CKD (chronic kidney disease) Current Visit: Yes Status: Acute Code(s): N18.9 - CHRONIC KIDNEY DISEASE, UNSPECIFIED SNOMED Code(s): 340547896 (4) Chronic a-fib Current Visit: Yes Status: Acute Code(s): I48.2 - CHRONIC ATRIAL FIBRILLATION * DO NOT USE * SNOMED Code(s): 970077918 (5) Nonhealing ulcer of multiple sites of right lower extremity with fat layer exposed Current Visit: Yes Status: Acute Code(s): L97.912 - NON-PRS CHR ULC UNSP PRT OF R LOW LEG W FAT LAYER EXPOSED SNOMED Code(s): 05786337 Plan: Comments and plan: At this time patient does not have appropriate diagnosis for inpatient rehab. Also limited endurance and would be unable to fully per despite therapies. We'll continue to follow with yourself to with regard to improving to I [place] status.
[2021-07-02] MEDS: PANTOPRAZOLE 40 MG TABLET PO SCH (06:16)
[2021-07-02 07:04] LABS: Calcium 8.3 mg/dL (8.4-10.2); Potassium 5.4 mmol/L (3.5-5.1)
[2021-07-02] MEDS ORDERED: SODIUM ZIRCONIUM CYCLOSILICATE 10 GM PACKET PO ONE ×2 (07:20→20:00)
[2021-07-02] MEDS: BUDESONIDE 1 MG/2 ML NEBU INHALATION SCH ×2 (07:47→20:17)
[2021-07-02] MEDS: IPRATROPIUM-ALBUTEROL 3 ML NEB INHALATION SCH ×4 (07:47→20:17)
[2021-07-02 08:54] LABS: Anisocytosis Slight; HCT 21.5 % (39.0-53.0); Hypochromasia Marked; MCH 31.6 pg (25.0-35.0); MCHC 30.2 g/dL (31.0-37.0); MCV 104.4 fL (80.0-100.0); Macrocytosis Moderate; Mean Platelet Volume 7.8; Platelet Count 289 k/uL (150-450); RBC 2.06 m/uL (4.30-5.90); RDW 17.3 % (11.5-15.5); WBC 8.4 k/uL (3.8-10.6)
[2021-07-02 08:57] LABS: INR 3.7 (<1.2); Prothrombin Time 35.6 sec (9.0-12.0)
[2021-07-02 08:59] LABS: HGB 6.5 gm/dL (13.0-17.5)
--- NOTE | 2021-07-02 09:00 | ECHOF ---
Referral Reason:CHF, LV function MEASUREMENTS -------- HEIGHT: 182.9 cm WEIGHT: 112.9 kg BP: 113/58 RVIDd: 4.1 cm (< 3.3) IVSd: 0.8 cm (0.6 - 1.1) LVIDd: 5.0 cm (3.9 - 5.3) LVPWd: 1.3 cm (0.6 - 1.1) IVSs: 1.5 cm LVIDs: 2.6 cm LVPWs: 1.2 cm LAESV Index (A-L): 59.74 ml/m Ao Diam: 3.7 cm (2.0 - 3.7) AV Cusp: 1.4 cm (1.5 - 2.6) LA Diam: 5.6 cm (2.7 - 3.8) MV EXCURSION: 16.775 mm (> 18.000) MV EF SLOPE: 110 mm/s (70 - 150) EPSS: 0.5 cm MV E Nikolas: 1.17 m/s MV DecT: 141 ms MV A Nikolas: 0.61 m/s MV E/A Ratio: 1.90 AV maxP.08 mmHg AV meanP.53 mmHg RAP: 5.00 mmHg RVSP: 40.78 mmHg FINDINGS -------- This was a technically difficult study with suboptimal apical views. The left ventricular size is normal. Left ventricular wall thickness is normal. Overall left vent ricular systolic function is low-normal with, an EF between 50 - 55 %. Septal wall motion is delaye d and consistent with prior cardiac surgery. The right ventricle is moderately enlarged. LA is severely dilated >40 ml/m2 The right atrium was not well visualized. 3.0mg of Lumason was utilized for enhancement of images Interatrial and interventricular septum intact. There is no evidence of aortic regurgitation. There is mild aortic stenosis present. The maximum velocity across the aortic valve is 2.79m/s. Peak/mean gradient across the Aortic Valve is 31.08mmH g / 19.53mmHg. Moderate mitral regurgitation is present. [id number] tricuspid regurgitation present. There is mild to moderate pulmonary hypertension. The right ventricular systolic pressure, as measured by Doppler, is 40.78mmHg. There is no pulmonic regurgitation present. The aortic root size is normal. IVC Not well visulized. There is no pericardial effusion. CONCLUSIONS -------- 1. The left ventricular size is normal. 2. Left ventricular wall thickness is normal. 3. Overall left ventricular systolic function is low-normal with, an EF between 50 - 55 %. 4. The right ventricle is moderately enlarged. 5. LA is severely dilated >40 ml/m2 6. There is mild aortic stenosis present. 7. The maximum velocity across the aortic valve is 2.79m/s. 8. Peak/mean gradient across the Aortic Valve is 31.08mmHg / 19.53mmHg. 9. Moderate mitral regurgitation is present. 10. [id number] tricuspid regurgitation present. 11. There is mild to moderate pulmonary hypertension. 12. The right ventricular systolic pressure, as measured by Doppler, is 40.78mmHg. OUTGOING INSPECTOR: Marisela Pena RDCS
[2021-07-02] MEDS: METOPROLOL TARTRATE 25 MG TAB PO SCH (09:35)
[2021-07-02] MEDS: LORATADINE 10 MG TAB PO SCH (09:35)
[2021-07-02] MEDS: CHOLECALCIFEROL 25 MCG (1000 IU) TABLET PO SCH ×2 (09:35→20:48)
[2021-07-02] MEDS: ESCITALOPRAM 10 MG TAB PO SCH (09:35)
[2021-07-02] MEDS: LACTOBACILLUS ACIDOPH & BULGAR 1 EACH PACKET PO SCH ×2 (09:36→20:48)
[2021-07-02] MEDS: busPIRone HCl 10 MG TAB PO SCH ×2 (09:36→20:48)
[2021-07-02] MEDS: MEROPENEM 1 GM in SODIUM CHLORIDE 0.9% 100 ML IVPB SCH ×2 (09:36→20:50)
[2021-07-02] MEDS: PRAMIPEXOLE 0.25 MG TAB PO SCH ×2 (09:36→20:48)
[2021-07-02] MEDS: FERROUS SULFATE 325 MG TAB PO SCH ×3 (09:36→20:49)
[2021-07-02] MEDS: oxyCODONE-APAP 10-325MG 1 EACH TAB PO PRN ×2 (09:39→20:48)
--- NOTE | 2021-07-02 10:17 | P.PN ---
Subjective Patient is seen in follow-up for acute kidney injury on chronic kidney disease. Patient has chronic kidney disease stage IV with baseline creatinine in the range of 2.6-2.8. Renal function is stable. Has been voiding. Denies chest pain or shortness of breath. On 3 L nasal cannula. On IV Lasix. Denies any active bleeding. Hemoglobin 6.5 today. Vital signs are stable. General: On nasal cannula. HEENT: Head exam is unremarkable. LUNGS: Breath sounds decreased. HEART: Tachycardic. ABDOMEN: Soft, no distention. EXTREMITITES: 1+ edema. Objective - Vital Signs Vital signs: Vital Signs Temp 98.2 F 07/01/21 20:00 Pulse 112 H 07/02/21 08:11 Resp 18 07/02/21 04:00 BP 111/69 07/02/21 04:00 Pulse Ox 100 07/02/21 07:50 Intake & Output 07/01/21 07/02/21 07/02/21 18:59 06:59 18:59 Intake Total 358 180 Output Total 700 Balance -342 180 Weight 113.5 kg Intake: Oral 358 180 Output: Urine 700 Other: Voiding Method Urinal Urinal Diaper - Labs CBC & Chem 7: 07/02/21 08:29 07/02/21 06:19 Labs: Abnormal Lab Results - Last 24 Hours (Table) 07/01/21 07/02/21 07/02/21 Range/Units 08:06 06:19 08:29 RBC (4.30-5.90) m/uL Hgb (13.0-17.5) gm/dL Hct (39.0-53.0) % MCV (80.0-100.0) fL MCHC (31.0-37.0) g/dL RDW (11.5-15.5) % PT 35.6 H (9.0-12.0) sec INR 3.7 H (<1.2) Potassium 5.4 H (3.5-5.1) mmol/L BUN 74 H (9-20) mg/dL Creatinine 3.31 H (0.66-1.25) mg/dL Calcium 8.3 L (8.4-10.2) mg/dL Iron 19 L (65-175) ug/dL TIBC 183 L (228-460) ug/dL % Saturation 10.58 L (15.00-50.00) Transferrin 131.0 L (204.0-354.0) mg/dL Ferritin 1262.0 H (22.0-322.0) ng/mL 07/02/21 Range/Units 08:29 RBC 2.06 L (4.30-5.90) m/uL Hgb 6.5 L* (13.0-17.5) gm/dL Hct 21.5 L (39.0-53.0) % MCV 104.4 H (80.0-100.0) fL MCHC 30.2 L (31.0-37.0) g/dL RDW 17.3 H (11.5-15.5) % PT (9.0-12.0) sec INR (<1.2) Potassium (3.5-5.1) mmol/L BUN (9-20) mg/dL Creatinine (0.66-1.25) mg/dL Calcium (8.4-10.2) mg/dL Iron (65-175) ug/dL TIBC (228-460) ug/dL % Saturation (15.00-50.00) Transferrin (204.0-354.0) mg/dL Ferritin (22.0-322.0) ng/mL Microbiology - Last 24 Hours (Table) 07/01/21 11:00 Gram Stain - Preliminary Thigh - Right Wound Culture - Preliminary 06/30/21 16:57 Blood Culture - Preliminary Blood No Growth after 24 hours 06/30/21 17:00 Blood Culture - Preliminary Blood No Growth after 24 hours 07/01/21 11:00 Anaerobic Culture - Preliminary Thigh - Right Assessment and Plan Plan: Assessment: 1. Acute kidney injury secondary to ATN secondary to cardiorenal syndrome. Creatinine stable at 3.31 today. UA benign. No hydronephrosis noted on kidney ultrasound. 2. Chronic kidney disease stage IV with baseline creatinine in the range of 2.6-2.8 secondary to nephrosclerosis. Patient has a mature right upper extremity AV fistula which has not been used. He follows with poultry tender out of [place], [place]. 3. History of coronary disease status post CABG. 4. Hyperkalemia secondary to acute kidney injury and ?GI bleed. 5. Volume overload. 6. Possible pneumonia on antibiotics. 7. Acute on chronic diastolic CHF with moderate mitral regurgitation and mild to moderate tricuspid regurgitation and pulmonary hypertension. 8. History of A. fib. 9. CML. 10. Acute blood loss anemia with component of chronic kidney disease. Denies active bleeding. On Aranesp. Plan: Maintain IV Lasix. Transfuse 1 unit of blood today. Avoid nephrotoxins. Continue to monitor renal function and urine output. 10 g lokelma once now. Check stool for occult blood.
[2021-07-02] MEDS ORDERED: METOPROLOL TARTRATE 25 MG TAB PO STA (10:20)
--- NOTE | 2021-07-02 13:10 | P.PN ---
Subjective Progress Note Date: 07/02/21 HISTORY OF PRESENT ILLNESS: This is a 85 year old male with a past medical history significant for chronic persistent atrial fibrillation, coronary artery disease with previous CABG x 4 in 2000, congestive heart failure, hypertension, hyperlipidemia, and chronic kidney disease. Patient follows in the office with Dr. Oliveira. We have been asked to see the patient in consultation for congestive heart failure. Patient examined at the bedside. Patient presented to the hospital with a chief complaint of shortness of breath. Patient was found to be in CHF. He was started on IV lasix. Patient denies chest pain or pressure. He reports improvement in his shortness of breath. Blood pressure 113/58. Telemetry reveals atrial fibrillation with heart rate in the 90s. EKG reveals atrial fibrillation with controlled ventricular rate Chest xray prominent pulmonary vascular markings. Correlate for volume overload. Infectious etiology such as atypical pneumonia could be considered. Laboratory data: WBC 7.9. Hemoglobin 6.9. Platelet count 251. INR 4.3. Sodium 139. Potassium 5.1. BUN 73. Creatinine 3.29. ProBNP 12,100. Troponin 0.041. 0.048. 0.060. Current home cardiac medications include Coumadin 5 mg Monday and 2.5 mg Monday, metoprolol tartrate 25 mg twice a day, Lasix 40 mg Monday. Most recent echocardiogram obtained in September 2020 revealed ejection fraction 50%, small hypokinetic area of the inferior wall at the base, [id number] mitral regurgitation, mild tricuspid regurgitation, [id number] aortic stenosis 07/02/2021 Patient examined this morning at the bedside. Patient denies chest pain or pressure. He denies shortness of breath. He remains on IV Lasix. Nephrology is following. Creatinine 3.31. INR today 3.7. Coumadin remains on hold. Patient is tachycardic this morning with a heart rate around 115. Echocardiogram completed revealing ejection fraction 50-55%, mild aortic stenosis, moderate mitral regurgitation, [id number] tricuspid regurgitation and mild to moderate pulmonary hypertension. PHYSICAL EXAM: VITAL SIGNS: Reviewed. GENERAL: Well-developed in no acute distress. HEENT: Head is normocephalic. Pupils are equal, round. Sclerae anicteric. Mucous membranes of the mouth are moist. Neck supple. No JVD or thyromegaly LUNGS: Respirations even and unlabored. Lungs diminished with expiratory wheezing and crackles at the bases. HEART: Irregular rate and rhythm. S1 and S2 heard. Systolic murmur noted. ABDOMEN: Soft. Nondistended. Nontender. EXTREMITIES: Normal range of motion. No clubbing or cyanosis. Peripheral pulses intact. 1-2+ bilateral lower extremity edema with chronic discoloration NEUROLOGIC: Awake and alert. ASSESSMENT: Shortness of breath Acute on chronic diastolic congestive heart failure Possible pneumonia Acute hypoxic respiratory failure Chronic persistent atrial fibrillation with controlled ventricular rate Supratherapeutic INR Coronary artery disease with previous CABG Abnormal troponins, secondary to chronic kidney disease, not suggestive of acute coronary syndrome Hypertension Hyperlipidemia Chronic kidney disease Anemia Diabetes mellitus Recent fall with hip fracture, status post right shaheen insertion of the right femur Valvular heart disease PLAN: Continue IV lasix Monitor kidney function. Nephrology following. Accurate I&O Daily weights Continue additional cardiac medications Hold Coumadin. Repeat INR in AM Continue telemetry monitoring Increase metoprolol to 50 mg 3 times a day. Given additional dose of 25 mg now. Further recommendations pending patient course Nurse practitioner note has been reviewed by physician. Signing provider agrees with the documented findings, assessment, and plan of care. Objective - Vital Signs Vital signs: Vital Signs Temp 98 F 07/02/21 09:00 Pulse 110 H 07/02/21 11:52 Resp 18 07/02/21 09:00 BP 108/58 07/02/21 09:00 Pulse Ox 97 07/02/21 09:00 Intake & Output 07/01/21 07/02/21 07/02/21 18:59 06:59 18:59 Intake Total 358 180 Output Total 700 Balance -342 180 Weight 113.5 kg Intake: Oral 358 180 Output: Urine 700 Other: Voiding Method Urinal Urinal Diaper - Labs CBC & Chem 7: 07/02/21 08:29 07/02/21 06:19 Labs: Abnormal Lab Results - Last 24 Hours (Table) 07/01/21 07/02/21 07/02/21 Range/Units 08:06 06:19 08:29 RBC (4.30-5.90) m/uL Hgb (13.0-17.5) gm/dL Hct (39.0-53.0) % MCV (80.0-100.0) fL MCHC (31.0-37.0) g/dL RDW (11.5-15.5) % PT 35.6 H (9.0-12.0) sec INR 3.7 H (<1.2) Potassium 5.4 H (3.5-5.1) mmol/L BUN 74 H (9-20) mg/dL Creatinine 3.31 H (0.66-1.25) mg/dL Calcium 8.3 L (8.4-10.2) mg/dL Iron 19 L (65-175) ug/dL TIBC 183 L (228-460) ug/dL % Saturation 10.58 L (15.00-50.00) Transferrin 131.0 L (204.0-354.0) mg/dL Ferritin 1262.0 H (22.0-322.0) ng/mL 07/02/21 Range/Units 08:29 RBC 2.06 L (4.30-5.90) m/uL Hgb 6.5 L* (13.0-17.5) gm/dL Hct 21.5 L (39.0-53.0) % MCV 104.4 H (80.0-100.0) fL MCHC 30.2 L (31.0-37.0) g/dL RDW 17.3 H (11.5-15.5) % PT (9.0-12.0) sec INR (<1.2) Potassium (3.5-5.1) mmol/L BUN (9-20) mg/dL Creatinine (0.66-1.25) mg/dL Calcium (8.4-10.2) mg/dL Iron (65-175) ug/dL TIBC (228-460) ug/dL % Saturation (15.00-50.00) Transferrin (204.0-354.0) mg/dL Ferritin (22.0-322.0) ng/mL Microbiology - Last 24 Hours (Table) 07/01/21 11:00 Gram Stain - Preliminary Thigh - Right Wound Culture - Preliminary 06/30/21 16:57 Blood Culture - Preliminary Blood No Growth after 24 hours 06/30/21 17:00 Blood Culture - Preliminary Blood No Growth after 24 hours 07/01/21 11:00 Anaerobic Culture - Preliminary Thigh - Right
--- NOTE | 2021-07-02 13:39 | P.PN ---
Subjective Progress Note Date: 07/02/21 HISTORY OF PRESENT ILLNESS: This is an 85-year-old male patient of Dr. sparks with a previous [facility] history significant for CAD post CABG x4, hypertension and hypertensive cardiovascular disease, chronic atrial flutter/fibrillation on chronic Coumadin, diabetes mellitus type 2 with diabetic polyneuropathy, chronic kidney disease stage IV, obesity with obstructive sleep apnea, hypogonadism, di verticulosis, GERD with hiatal hernia, left adrenal adenoma, CML, patient fell on 05/28/2021 in his home kitchen and landed on his right side of the hip after he lost his balance suffered from severe pain he was found to have a left hip fracture he ended up going to [facility] where he underwent removal of the hardware of the right femur including the plates and screws and he had a long shaheen placed and his entire femur into the hip area successfully he developed to have a non-ST elevation myocardial infarction when he was there along with chronic diastolic heart failure he was seen by cardiology over there Dr. Jackson apparently was cleared for surgery and the patient had a surgery on 05/31/2021 after that patient was referred to rehab facility and [facility] and he was just released last to come back home with significant sores on his right thigh as well as bilateral heel deep tissue injury, patient was supposed to come and see him in the office today however he was not able template at all he was feeling increased shortness of breath associated with increased coughing and yellow from production, so his called EMS and the patient was brought into the ER at [facility] for evaluation his chest x-ray showed pulmonary vascular congestion and possible atypical pneumonia his COVID-19 swab PCR came back negative, patient was started on Lasix 60 mg IV push in the ER that he was placed on 40 mg IV push every 12 hours, patient also was started on meropenem 1 g IV piggyback every 12 hours because of his multiple ALLERGIES and possible gram-negative pneumonia. 07/01: Pulse ox is 97% on 2 L nasal cannula, patient afebrile, blood pressure 110/50, heart rate 83. Repeat blood work results are pending. Patient is continued on Lasix 40 mg IV twice daily, nebulizer treatments, meropenem. Consults in place with Cardiology, Nephrology and Wound Team. Breathing is improved from yesterday. 07/02: Patient complains of sputum that is rattling in his chest unable to bring it up. He continues to have cough. Heart rate 115. Echocardiogram reveals EF of 50-55%, mild aortic valve stenosis, moderate mitral regurgitation, [id number] tricuspid regurgitation and mild to moderate pulmonary hypertension. Patient has been seen by cardiology and acute coronary syndrome has been ruled out, elevated troponin secondary to chronic kidney disease. Hemoglobin is 6.5. Potassium 5.4, BUN 74 and creatinine 3.31. Repeat INR is 3.7. She has been seen by the wound Center with plan for triad on the left posterior thigh wound and offload bilateral heels. Nephrology is planning to maintain IV Lasix, transfuse 1 unit of blood avoid nephrotoxins, check stool for occult blood. Dr. Leung has evaluated and patient is not candidate for inpatient rehab. Discharge plan will be subacute rehab at [facility] or [facility] next week. REVIEW OF SYSTEMS: Constitutional: No documented fever, no chills, no night sweats. Positive for weight change. Positive for weakness, fatigue or lethargy. No daytime sleepiness. HEENT: No headache. No blurred vision or double vision, no loss of vision. No loss of Hearing, no ringing in the ears, no dizziness. No nasal drainage or con gestion. No epistaxis. No sore throat. Lungs: No shortness of breath, no cough, no sputum production. No wheezing. Reports dyspnea with activity. Cardiovascular: No chest pain, positive for lower extremity edema. positive for palpitations. No paroxysmal nocturnal dyspnea. positive for orthopnea. No lightheadedness or dizziness. No syncopal episodes. Abdominal: Reports abdominal pain. No nausea, vomiting. No diarrhea. No constipation. No bloody or tarry stools reports loss of appetite. Genitourinary: No dysuria, increased frequency, urgency. No urinary retention. Musculoskeletal: No myalgias. positive for muscle weakness, positive for gait dysfunction, positive for frequent falls, positive for back pain and neck pain. Integumentary: positive for stage 3 pressure sores to the posterior aspct of the right thigh and DTI in both heels, positive for nail changes Neurologic: No aphasia. No facial droop. No change in mentation. No head injury. No headache. No paralysis. No paresthesia. Psychiatric: positive for depression. No anxiety. No mood swings. Endocrine: No abnormal blood sugars. No weight change. PHYSICAL EXAMINATION: General: 85-year-old male sitting up in bed in no respiratory distress HEENT: Head is atraumatic, normocephalic, pupils were equal round reactive to light and recommendation, extraocular muscle movement were intact, sclera nonicteric, conjunctivae were pale, mucous membranes of the mouth are somewhat dry. Neck: Supple, no JVP, decreased carotid upstroke bilaterally, no lymphadenopathy. Chest: Decreased breath sounds at the bases, few rhonchi, minimal expiratory wheezes, no chest wall tenderness no intercostal retractions. Heart: First heart sound is normal, second heart sounds normal irregularly irregular there is systolic ejection murmur 2/6 located in the left sternal border. Abdomen: Soft, nontender, nondistended, positive bowel sounds. Extremities: There is +2 edema no calf tenderness DP +1 bilaterally, bilateral h eel deep tissue injury, bilateral hammertoes and nail changes. Neurologic examination: Patient is awake alert and oriented X 3, cranial nerves II-12 appear grossly intact, muscle power were 3 out of 5 in upper extremities and 3 out of 5 in bilateral lower extremities, deep tendon reflexes were depr essed ASSESSMENT AND PLAN: 1. Acute hypoxemic respiratory failure due to acute diastolic heart failure with possible gram-negative pneumonia. Continue Lasix 40 mg IV push every 12 hours, meropenem 1 g IV piggyback every 12 hours, sputum culture, blood culture, and her input and output and daily weight, cardiology consultation appreciated. 2. Possible gram-negative pneumonia. Continue patient on Pulmicort 1 mg nebulization twice every day, DuoNeb 3 mg 4 times every day, oxygen support, continue patient on meropenem 1 g IV piggyback every 12 hours. 3. Multiple stage II pressure ulcer behind the right thigh and deep tissue injury in both heels. We'll Consult the care and continue local wound care the thigh and skin prep for the heels with floating the heels daily, swab the pressure sores for aerobic and anaerobic cultures. 4. Recent fall with Hip fracture status post right shaheen insertion of the right femur with removal of the old hardware. Consult physical therapy, continue current pain management. 5. Recent non-ST elevation myocardial infarction. Continue patient on metopro lol orally twice every day, continue aspirin 81 mg once every day. 6. Acute diastolic heart failure. Continue metoprolol 25 mg orally twice every day, continue Lasix 40 mg IV push every 12 hours, monitor input and output and daily weight obtain the result of echocardiogram from [facility]. 7. Diabetes mellitus type II with diabetic polyneuropathy currently off medications. 8. Chronic kidney disease stage IV. Monitor patient input and output and daily weight and avoid nephrotoxins. Nephrology consultation. 9. Hyperkalemia. Patient did receive 1 amp of D50 along with insulin he will receive calcium gluconate 1 g IV piggyback 1. Repeat potassium this evening. 10. Chronic myelogenous leukemia. Continue with Imatinib 300 mg orally daily. 11. Anemia of chronic kidney disease. Continue iron supplement transfuse for hemoglobin less than 7. 12. Restless leg syndrome. Continue Mirapex 0.25 mg orally twice every day. 13. Major depressive disorder. Continue patient on Lexapro 30 mg orally once every day. 14. Anxiety disorder. Continue with SSRI as well as BuSpar 10 mg orally twice every day. 15. Chronic atrial fibrillation. Continue patient on metoprolol 25 mg orally twice every day, hold Coumadin for tonight because his INR is 4.1. INR tomorrow morning. 16. Coagulopathy hold Coumadin for tonight. INR tomorrow morning. 17. CAD post CABG 4 with a recent non-ST elevation myocardial infarction. Continue metoprolol 25 mg orally twice every day, aspirin 81 mg once every day. 18. GERD with hiatal hernia. Continue Protonix 40 mg orally once every day. 19. Chronic pain syndrome. Continue Percocet 10/325 mg one tablet orally 4 times every day. 20. DVT prophylaxis. Currently on Coumadin. 21. GI prophylaxis. Continue PPI. 22. Medical debility. Physical therapy evaluation. Full code. DISCHARGE PLAN Subacute rehab at [facility]. Impression and plan of care have been directed as dictated by the signing physician. Juli Luna nurse practitioner acting as scribe for signing physician. Objective - Vital Signs Vital signs: Vital Signs Temp 98.2 F 07/01/21 20:00 Pulse 109 H 07/02/21 04:00 Resp 18 07/02/21 04:00 BP 111/69 07/02/21 04:00 Pulse Ox 100 07/02/21 04:00 Intake & Output 07/01/21 07/02/21 07/02/21 18:59 06:59 18:59 Intake Total 358 Output Total 700 Balance -342 Weight 113.5 kg Intake: Oral 358 Output: Urine 700 Other: Voiding Method Urinal Urinal Diaper - Labs CBC & Chem 7: 07/02/21 08:29 07/02/21 06:19 Labs: Abnormal Lab Results - Last 24 Hours (Table) 07/01/21 07/01/21 07/01/21 Range/Units 08:06 08:06 08:06 RBC 2.26 L (4.30-5.90) m/uL Hgb 6.9 L* (13.0-17.5) gm/dL Hct 23.6 L (39.0-53.0) % MCV 104.6 H (80.0-100.0) fL MCHC 29.3 L (31.0-37.0) g/dL RDW 17.4 H (11.5-15.5) % Lymphocytes # 0.9 L (1.0-4.8) k/uL PT 41.8 H (9.0-12.0) sec INR 4.3 H (<1.2) Potassium (3.5-5.1) mmol/L BUN 73 H (9-20) mg/dL Creatinine 3.29 H (0.66-1.25) mg/dL Glucose 122 H (74-99) mg/dL Calcium (8.4-10.2) mg/dL Iron (65-175) ug/dL TIBC (228-460) ug/dL % Saturation (15.00-50.00) Transferrin (204.0-354.0) mg/dL Ferritin (22.0-322.0) ng/mL Alkaline Phosphatase 218 H (38-126) U/L Total Protein 6.2 L (6.3-8.2) g/dL Albumin 3.0 L (3.5-5.0) g/dL 07/01/21 07/02/21 Range/Units 08:06 06:19 RBC (4.30-5.90) m/uL Hgb (13.0-17.5) gm/dL Hct (39.0-53.0) % MCV (80.0-100.0) fL MCHC (31.0-37.0) g/dL RDW (11.5-15.5) % Lymphocytes # (1.0-4.8) k/uL PT (9.0-12.0) sec INR (<1.2) Potassium 5.4 H (3.5-5.1) mmol/L BUN 74 H (9-20) mg/dL Creatinine 3.31 H (0.66-1.25) mg/dL Glucose (74-99) mg/dL Calcium 8.3 L (8.4-10.2) mg/dL Iron 19 L (65-175) ug/dL TIBC 183 L (228-460) ug/dL % Saturation 10.58 L (15.00-50.00) Transferrin 131.0 L (204.0-354.0) mg/dL Ferritin 1262.0 H (22.0-322.0) ng/mL Alkaline Phosphatase (38-126) U/L Total Protein (6.3-8.2) g/dL Albumin (3.5-5.0) g/dL Microbiology - Last 24 Hours (Table) 07/01/21 11:00 Gram Stain - Preliminary Thigh - Right Wound Culture - Preliminary 06/30/21 16:57 Blood Culture - Preliminary Blood No Growth after 24 hours 06/30/21 17:00 Blood Culture - Preliminary Blood No Growth after 24 hours 07/01/21 11:00 Anaerobic Culture - Preliminary Thigh - Right
[2021-07-02] MEDS: HYDROPHILIC CREAM 180 GM TUBE TOPICAL SCH (16:23)
[2021-07-02] MEDS: METOPROLOL TARTRATE 50 MG TAB PO SCH ×2 (16:41→20:48)
[2021-07-02] MEDS: FUROSEMIDE 10 MG/ML 4 ML VIAL IV SCH ×2 (17:53→20:49)
[2021-07-02] MEDS ORDERED: WARFARIN 0.5 MG TAB PO ONE (18:00)
[2021-07-03] MEDS: PANTOPRAZOLE 40 MG TABLET PO SCH (07:09)
--- NOTE | 2021-07-03 08:26 | P.PN ---
Subjective Patient is seen in follow-up for acute kidney injury on chronic kidney disease. Patient has chronic kidney disease stage IV with baseline creatinine in the range of 2.6-2.8. Renal function stable. Has been voiding. Denies chest pain or shortness of breath. On 3 L nasal cannula. On IV Lasix. Denies any active bleeding. Received unit of blood 07/02/2021. Vital signs are stable. General: On nasal cannula. HEENT: Head exam is unremarkable. LUNGS: Breath sounds decreased. HEART: Tachycardic. ABDOMEN: Soft, no distention. EXTREMITITES: Trace edema. Chronic changes noted. Objective - Vital Signs Vital signs: Vital Signs Temp 98.2 F 07/02/21 20:00 Pulse 81 07/03/21 04:00 Resp 18 07/03/21 04:00 BP 118/72 07/03/21 04:00 Pulse Ox 96 07/03/21 04:00 Intake & Output 07/02/21 07/03/21 07/03/21 18:59 06:59 18:59 Intake Total 637 485 Output Total 600 Balance 637 -115 Intake: Oral 360 485 Blood Product 277 Rc Pheresis As-3 Unit 277 [id number] Output: Urine 600 Other: Voiding Method Urinal Diaper - Labs CBC & Chem 7: 07/02/21 08:29 07/02/21 18:28 Labs: Abnormal Lab Results - Last 24 Hours (Table) 07/02/21 07/02/21 07/02/21 Range/Units 08:29 08:29 11:30 RBC 2.06 L (4.30-5.90) m/uL Hgb 6.5 L* (13.0-17.5) gm/dL Hct 21.5 L (39.0-53.0) % MCV 104.4 H (80.0-100.0) fL MCHC 30.2 L (31.0-37.0) g/dL RDW 17.3 H (11.5-15.5) % PT 35.6 H (9.0-12.0) sec INR 3.7 H (<1.2) Potassium (3.5-5.1) mmol/L Crossmatch See Detail 07/02/21 Range/Units 18:28 RBC (4.30-5.90) m/uL Hgb (13.0-17.5) gm/dL Hct (39.0-53.0) % MCV (80.0-100.0) fL MCHC (31.0-37.0) g/dL RDW (11.5-15.5) % PT (9.0-12.0) sec INR (<1.2) Potassium 5.4 H (3.5-5.1) mmol/L Crossmatch Microbiology - Last 24 Hours (Table) 06/30/21 17:00 Blood Culture - Preliminary Blood No Growth after 48 hours 06/30/21 16:57 Blood Culture - Preliminary Blood No Growth after 48 hours Assessment and Plan Plan: Assessment: 1. Acute kidney injury secondary to ATN secondary to cardiorenal syndrome. Creatinine stable at 3.31 yesterday. UA benign. No hydronephrosis noted on kidney ultrasound. 2. Chronic kidney disease stage IV with baseline creatinine in the range of 2.6-2.8 secondary to nephrosclerosis. Patient has a mature right upper extremity AV fistula which has not been used. He follows with caustic strength inspector out of [place], [place]. 3. History of coronary disease status post CABG. 4. Hyperkalemia secondary to acute kidney injury and ?GI bleed. Stable. 5. Volume overload. 6. Possible pneumonia on antibiotics. 7. Acute on chronic diastolic CHF with moderate mitral regurgitation and mild to moderate tricuspid regurgitation and pulmonary hypertension. 8. History of A. fib. 9. CML. 10. Acute blood loss anemia with component of chronic kidney disease. Denies active bleeding. On Aranesp. Status post blood transfusion 07/02/2021. Plan: Maintain IV Lasix. Repeat chest x-ray. Avoid nephrotoxins. Continue to monitor renal function and urine output. Follow-up morning labs.
[2021-07-03] MEDS: BUDESONIDE 1 MG/2 ML NEBU INHALATION SCH ×2 (09:04→20:10)
[2021-07-03] MEDS: IPRATROPIUM-ALBUTEROL 3 ML NEB INHALATION SCH ×4 (09:04→20:10)
[2021-07-03 09:17] LABS: Anisocytosis Slight; Basophils % (A) 0 %; Eosinophils # (A) 0.2 k/uL (0-0.7); Eosinophils % (A) 2 %; HCT 24.6 % (39.0-53.0); HGB 7.4 gm/dL (13.0-17.5); Hypochromasia Marked; Lymphocytes % (A) 11 %; MCHC 30.1 g/dL (31.0-37.0); MCV 102.9 fL (80.0-100.0); Macrocytosis Moderate; Mean Platelet Volume 7.8; Monocytes # (A) 0.8 k/uL (0-1.0); Monocytes % (A) 9 %; Neutrophils # (A) 6.8 k/uL (1.3-7.7); Neutrophils % (A) 75 %; Platelet Count 285 k/uL (150-450); Poikilocytosis Slight; RBC 2.39 m/uL (4.30-5.90); RDW 18.1 % (11.5-15.5); WBC 9.1 k/uL (3.8-10.6)
--- NOTE | 2021-07-03 09:17 | XR ---
EXAMINATION TYPE: XR chest 1V DATE OF EXAM: 07/03/2021 CLINICAL HISTORY: Difficulty breathing progress study. TECHNIQUE: Single AP portable upright view of the chest is obtained. COMPARISON: Chest x-ray from 3 days earlier FINDINGS: Post-CABG changes with mediastinal clips and sternal wires is redemonstrated. Persistent c ardiomegaly. Chronic parenchymal changes with elevated right hemidiaphragm redemonstrated. Persistent bibasilar opacities. Osseous structures remain demineralized. IMPRESSION: Chronic changes and cardiomegaly with persistent bibasilar acute infiltrate and/or atelec tasis. No significant change from most recent prior study.
[2021-07-03] MEDS: FERROUS SULFATE 325 MG TAB PO SCH ×3 (09:22→20:34)
[2021-07-03] MEDS: METOPROLOL TARTRATE 50 MG TAB PO SCH ×3 (09:22→20:34)
[2021-07-03] MEDS: LORATADINE 10 MG TAB PO SCH (09:22)
[2021-07-03] MEDS: LACTOBACILLUS ACIDOPH & BULGAR 1 EACH PACKET PO SCH ×2 (09:22→20:35)
[2021-07-03] MEDS: HYDROPHILIC CREAM 180 GM TUBE TOPICAL SCH (09:22)
[2021-07-03] MEDS: ESCITALOPRAM 10 MG TAB PO SCH (09:22)
[2021-07-03] MEDS: CHOLECALCIFEROL 25 MCG (1000 IU) TABLET PO SCH ×2 (09:22→20:34)
[2021-07-03] MEDS: FUROSEMIDE 10 MG/ML 4 ML VIAL IV SCH (09:23)
[2021-07-03] MEDS: busPIRone HCl 10 MG TAB PO SCH ×2 (09:23→20:34)
[2021-07-03] MEDS: PRAMIPEXOLE 0.25 MG TAB PO SCH ×2 (09:23→20:34)
[2021-07-03] MEDS: MEROPENEM 1 GM in SODIUM CHLORIDE 0.9% 100 ML IVPB SCH ×2 (09:23→20:33)
[2021-07-03 09:25] LABS: Albumin 2.9 g/dL (3.5-5.0); Calcium 8.3 mg/dL (8.4-10.2); Potassium 5.2 mmol/L (3.5-5.1); Total Bilirubin 0.6 mg/dL (0.2-1.3); Total Protein 5.9 g/dL (6.3-8.2)
[2021-07-03 09:38] LABS: INR 2.8 (<1.2); Prothrombin Time 26.7 sec (9.0-12.0)
--- NOTE | 2021-07-03 11:07 | P.PN ---
Subjective Progress Note Date: 07/03/21 Progress Note Date: 07/03/21 HISTORY OF PRESENT ILLNESS: This is an 85-year-old male patient of Dr. sparks with a previous medical history significant for CAD post CABG x4, hypertension and hypertensive cardiovascular disease, chronic atrial flutter/fibrillation on chronic Coumadin, diabetes mellitus type 2 with diabetic polyneuropathy, chronic kidney disease stage IV, obesity with obstructive sleep apnea, hypogonadism, diverticulosis, GERD with hiatal hernia, left adrenal adenoma, CML, patient fell on 05/28/2021 in his home kitchen and landed on his right side of the hip after he lost his balance suffered from severe pain he was found to have a left hip fracture he ended up going to [facility] where he underwent removal of the hardware of the right femur including the plates and screws and he had a long shaheen placed and his entire femur into the hip area successfully he developed to have a non-ST elevation myocardial infarction when he was there along with chronic diastolic heart failure he was seen by cardiology over there Dr. Jackson apparently was cleared for surgery and the patient had a surgery on 05/31/2021 after that patient was referred to rehab facility and lip area and he was just released last to come back home with significant sores on his right thigh as well as bilateral heel deep tissue injury, patient was supposed to come and see him in the office today however he was not able template at all he was feeling increased shortness of breath associated with increased coughing and yellow from production, so his called EMS and the patient was brought into the ER at [facility] for evaluation his chest x-ray showed pulmonary vascular congestion and possible atypical pneumonia his COVID-19 swab PCR came back negative, patient was started on Lasix 60 mg IV push in the ER that he was placed on 40 mg IV push every 12 hours, patient also was started on meropenem 1 g IV piggyback every 12 hours because of his multiple ALLERGIES and possible gram-negative pneumonia. 07/01: Pulse ox is 97% on 2 L nasal cannula, patient afebrile, blood pressure 110/50, heart rate 83. Repeat blood work results are pending. Patient is continued on Lasix 40 mg IV twice daily, nebulizer treatments, meropenem. Consults in place with Cardiology, Nephrology and Wound Team. Breathing is improved from yesterday. 07/02: Patient complains of sputum that is rattling in his chest unable to bring it up. He continues to have cough. Heart rate 115. Echocardiogram reveals EF of 50-55%, mild aortic valve stenosis, moderate mitral regurgitation, [id number] tricuspid regurgitation and mild to moderate pulmonary hypertension. Patient has been seen by cardiology and acute coronary syndrome has been ruled out, elevated troponin secondary to chronic kidney disease. Hemoglobin is 6.5. Potassium 5.4, BUN 74 and creatinine 3.31. Repeat INR is 3.7. She has been seen by the wound Center with plan for triad on the left posterior thigh wound and offload bilateral heels. Nephrology is planning to maintain IV Lasix, transfuse 1 unit of blood avoid nephrotoxins, check stool for occult blood. Dr. Leung has evaluated and patient is not candidate for inpatient rehab. Discharge plan will be subacute rehab at [facility] or [facility] next week. 07/03: Patient is feeling weak today, he did receive 1 unit of packed her vessels yesterday, his hemoglobin still pending at the time of dictation, he was seen in consultation by physical therapy and rehabilitation, he was deemed inappropriate for inpatient rehab in addition however he will need to go for subacute rehab the patient at [facility]. Patient is complaining of some coughing minimal from production, he denies any hemoptysis, he has no bloody bowel movement, no apparent signs of bleeding, his hemoglobin dropped yesterday to 6.5, he is receiving Aranesp, he is maintained on iron, we will continue to follow the patient very closely. REVIEW OF SYSTEMS: Constitutional: No documented fever, no chills, no night sweats. Positive for weight change. Positive for weakness, fatigue or lethargy. No daytime sleepiness. HEENT: No headache. No blurred vision or double vision, no loss of vision. No loss of Hearing, no ringing in the ears, no dizziness. No nasal drainage or co ngestion. No epistaxis. No sore throat. Lungs: No shortness of breath, no cough, no sputum production. No wheezing. Reports dyspnea with activity. Cardiovascular: No chest pain, positive for lower extremity edema. positive for palpitations. No paroxysmal nocturnal dyspnea. positive for orthopnea. No lightheadedness or dizziness. No syncopal episodes. Abdominal: Reports abdominal pain. No nausea, vomiting. No diarrhea. No constipation. No bloody or tarry stools reports loss of appetite. Genitourinary: No dysuria, increased frequency, urgency. No urinary retention. Musculoskeletal: No myalgias. positive for muscle weakness, positive for gait dysfunction, positive for frequent falls, positive for back pain and neck pain. Integumentary: positive for stage 3 pressure sores to the posterior aspct of the right thigh and DTI in both heels, positive for nail changes Neurologic: No aphasia. No facial droop. No change in mentation. No head injury. No headache. No paralysis. No paresthesia. Psychiatric: positive for depression. No anxiety. No mood swings. Endocrine: No abnormal blood sugars. No weight change. PHYSICAL EXAMINATION: General: 85-year-old male sitting up in bed in no respiratory distress HEENT: Head is atraumatic, normocephalic, pupils were equal round reactive to light and recommendation, extraocular muscle movement were intact, sclera nonict guillermina, conjunctivae were pale, mucous membranes of the mouth are somewhat dry. Neck: Supple, no JVP, decreased carotid upstroke bilaterally, no lymphadenopathy. Chest: Decreased breath sounds at the bases, few rhonchi, minimal expiratory wheezes, no chest wall tenderness no intercostal retractions. Heart: First heart sound is normal, second heart sounds normal irregularly irregular there is systolic ejection murmur 2/6 located in the left sternal border. Abdomen: Soft, nontender, nondistended, positive bowel sounds. Extremities: There is +2 edema no calf tenderness DP +1 bilaterally, bilateral heel deep tissue injury, bilateral hammertoes and nail changes. Neurologic examination: Patient is awake alert and oriented X 3, cranial nerves II-12 appear grossly intact, muscle power were 3 out of 5 in upper extremities and 3 out of 5 in bilateral lower extremities, deep tendon reflexes were dep ressed ASSESSMENT AND PLAN: 1. Acute hypoxemic respiratory failure due to acute diastolic heart failure with possible gram-negative pneumonia. Continue Lasix 40 mg IV push every 12 hours, meropenem 1 g IV piggyback every 12 hours, sputum culture, blood culture, and her input and output and daily weight, cardiology consultation appreciated. 2. Possible gram-negative pneumonia. Continue patient on Pulmicort 1 mg nebulization twice every day, DuoNeb 3 mg 4 times every day, oxygen support, continue patient on meropenem 1 g IV piggyback every 12 hours. 3. Multiple stage II pressure ulcer behind the right thigh and deep tissue injury in both heels. continue local wound care the thigh and skin prep for the heels with floating the heels daily, swab the pressure sores for aerobic and anaerobic cultures. 4. Recent fall with Hip fracture status post right shaheen insertion of the right femur with removal of the old hardware. Consult physical therapy, continue current pain management. 5. Recent non-ST elevation myocardial infarction. Continue patient on metoprolol orally twice every day, continue aspirin 81 mg once every day. 6. Acute diastolic heart failure. Continue metoprolol 25 mg orally twice every day, continue Lasix 40 mg IV push every 12 hours, monitor input and output and daily weight obtain the result of Echocardiogram from [facility]. 7. Diabetes mellitus type II with diabetic polyneuropathy currently off medications. 8. Chronic kidney disease stage IV. Monitor patient input and output and daily weight and avoid nephrotoxins. Nephrology consultation. 9. Hyperkalemia. Patient did receive 1 amp of D50 along with insulin he will receive calcium gluconate 1 g IV piggyback 1. Repeat potassium this evening. 10. Chronic myelogenous leukemia. Continue with Imatinib 300 mg orally daily. 11. Acute blood loss anemia on Anemia of chronic kidney disease. Continue iron supplement , type and cross and transfuse 1 unit of PRBCs yesterday 12. Restless leg syndrome. Continue Mirapex 0.25 mg orally twice every day. 13. Major depressive disorder. Continue patient on Lexapro 30 mg orally once every day. 14. Anxiety disorder. Continue with SSRI as well as BuSpar 10 mg orally twice every day. 15. Chronic atrial fibrillation. Continue patient on metoprolol 25 mg orally twice every day, Coumadin continues to be on hold his INR yesterday 3.7 16. Coagulopathy hold Coumadin for tonight. INR tomorrow morning. 17. CAD post CABG 4 with a recent non-ST elevation myocardial infarction. Continue metoprolol 25 mg orally twice every day, aspirin 81 mg once every day. 18. GERD with hiatal hernia. Continue Protonix 40 mg orally once every day. 19. Chronic pain syndrome. Continue Percocet 10/325 mg one tablet orally 4 times every day. 20. DVT prophylaxis. Currently on Coumadin. 21. GI prophylaxis. Continue PPI. 22. Medical debility. Physical therapy evaluation. Full code. DISCHARGE PLAN Subacute rehab at [facility] on Monday Objective - Vital Signs Vital signs: Vital Signs Temp 98.2 F 07/02/21 20:00 Pulse 81 07/03/21 04:00 Resp 18 07/03/21 04:00 BP 118/72 07/03/21 04:00 Pulse Ox 96 07/03/21 04:00 Intake & Output 07/02/21 07/03/21 07/03/21 18:59 06:59 18:59 Intake Total 637 485 118 Output Total 600 Balance 637 -115 118 Intake: Oral 360 485 118 Blood Product 277 Rc Pheresis As-3 Unit 277 [id number] Output: Urine 600 Other: Voiding Method Urinal Diaper - Labs CBC & Chem 7: 07/03/21 08:55 07/03/21 08:55 Labs: Abnormal Lab Results - Last 24 Hours (Table) 07/02/21 07/02/21 07/02/21 Range/Units 08:29 08:29 11:30 RBC 2.06 L (4.30-5.90) m/uL Hgb 6.5 L* (13.0-17.5) gm/dL Hct 21.5 L (39.0-53.0) % MCV 104.4 H (80.0-100.0) fL MCHC 30.2 L (31.0-37.0) g/dL RDW 17.3 H (11.5-15.5) % PT 35.6 H (9.0-12.0) sec INR 3.7 H (<1.2) Potassium (3.5-5.1) mmol/L Crossmatch See Detail 07/02/21 Range/Units 18:28 RBC (4.30-5.90) m/uL Hgb (13.0-17.5) gm/dL Hct (39.0-53.0) % MCV (80.0-100.0) fL MCHC (31.0-37.0) g/dL RDW (11.5-15.5) % PT (9.0-12.0) sec INR (<1.2) Potassium 5.4 H (3.5-5.1) mmol/L Crossmatch Microbiology - Last 24 Hours (Table) 06/30/21 17:00 Blood Culture - Preliminary Blood No Growth after 48 hours 06/30/21 16:57 Blood Culture - Preliminary Blood No Growth after 48 hours
[2021-07-03] MEDS: FUROSEMIDE 40 MG TAB PO SCH (15:50)
--- NOTE | 2021-07-03 16:10 | P.PN ---
Subjective HISTORY OF PRESENT ILLNESS: This is a 85 year old male with a past medical history significant for chronic persistent atrial fibrillation, coronary artery disease with previous CABG x 4 in 2000, congestive heart failure, hypertension, hyperlipidemia, and chronic kidney disease. Patient follows in the office with Dr. Oliveira. We have been asked to see the patient in consultation for congestive heart failure. Patient examined at the bedside. Patient presented to the hospital with a chief complaint of shortness of breath. Patient was found to be in CHF. He was started on IV lasix. Patient denies chest pain or pressure. He reports improvement in his shortness of breath. Blood pressure 113/58. Telemetry reveals atrial fibrillation with heart rate in the 90s. EKG reveals atrial fibrillation with controlled ventricular rate Chest xray prominent pulmonary vascular markings. Correlate for volume overload. Infectious etiology such as atypical pneumonia could be considered. Laboratory data: WBC 7.9. Hemoglobin 6.9. Platelet count 251. INR 4.3. Sodium 139. Potassium 5.1. BUN 73. Creatinine 3.29. ProBNP 12,100. Troponin 0.041. 0.048. 0.060. Current home cardiac medications include Coumadin 5 mg Monday and 2.5 mg Monday, metoprolol tartrate 25 mg twice a day, Lasix 40 mg Monday. Most recent echocardiogram obtained in September 2020 revealed ejection fraction 50%, small hypokinetic area of the inferior wall at the base, [id number] mitral regurgitation, mild tricuspid regurgitation, [id number] aortic stenosis 07/02/2021 Patient examined this morning at the bedside. Patient denies chest pain or pressure. He denies shortness of breath. He remains on IV Lasix. Nephrology is following. Creatinine 3.31. INR today 3.7. Coumadin remains on hold. Patient is tachycardic this morning with a heart rate around 115. Echocardiogram completed revealing ejection fraction 50-55%, mild aortic stenosis, moderate mitral regurgitation, [id number]-lasuszbt tricuspid regurgitation and mild to moderate pulmonary hypertension. 07/03 Patient seen and examined. Patient received blood transfusion for hemoglobin in the sixes yesterday. Denies any hematochezia or melena. Heart rates control the 70s to 80s on telemetry. States his breathing is pretty similar to yesterday. He was switched over to oral Lasix. He states he is still having good urine output with the oral Lasix. Creatinine remained stable. PHYSICAL EXAM: VITAL SIGNS: Reviewed. GENERAL: Well-developed in no acute distress. HEENT: Head is normocephalic. Pupils are equal, round. Sclerae anicteric. Mucous membranes of the mouth are moist. Neck supple. No JVD or thyromegaly LUNGS: Respirations even and unlabored. Lungs diminished with expiratory wheezing and crackles at the bases. HEART: Irregular rate and rhythm. S1 and S2 heard. Systolic murmur noted. ABDOMEN: Soft. Nondistended. Nontender. EXTREMITIES: Normal range of motion. No clubbing or cyanosis. Peripheral pulses intact. 1-2+ bilateral lower extremity edema with chronic discoloration NEUROLOGIC: Awake and alert. ASSESSMENT: Shortness of breath Acute on chronic diastolic congestive heart failure Possible pneumonia Acute hypoxic respiratory failure Chronic persistent atrial fibrillation with controlled ventricular rate Supratherapeutic INR Coronary artery disease with previous CABG Abnormal troponins, secondary to chronic kidney disease, not suggestive of acute coronary syndrome Hypertension Hyperlipidemia Chronic kidney disease Anemia Diabetes mellitus Recent fall with hip fracture, status post right shaheen insertion of the right femur Valvular heart disease PLAN: Patient was changed to oral Lasix Monitor kidney function. Nephrology following. Accurate I&O Daily weights Continue additional cardiac medications Continue to hold Coumadin given anemia, no obvious hematochezia or melena Continue current dosing of metoprolol, currently heart rate appears well controlled. Objective - Vital Signs Vital signs: Vital Signs Temp 98.2 F 07/03/21 12:00 Pulse 84 07/03/21 16:06 Resp 18 07/03/21 12:00 BP 123/78 07/03/21 12:00 Pulse Ox 98 07/03/21 12:00 Intake & Output 07/02/21 07/03/21 07/03/21 18:59 06:59 18:59 Intake Total 637 485 118 Output Total 600 400 Balance 837 115 -867 Intake: Oral 360 485 118 Blood Product 277 Rc Pheresis As-3 Unit 277 [id number] Output: Urine 600 400 Other: Voiding Method Urinal Urinal Diaper Diaper - Labs CBC & Chem 7: 07/03/21 08:55 07/03/21 08:55 Labs: Abnormal Lab Results - Last 24 Hours (Table) 07/02/21 07/02/21 07/03/21 Range/Units 11:30 18:28 08:37 RBC (4.30-5.90) m/uL Hgb (13.0-17.5) gm/dL Hct (39.0-53.0) % MCV (80.0-100.0) fL MCHC (31.0-37.0) g/dL RDW (11.5-15.5) % PT 26.7 H (9.0-12.0) sec INR 2.8 H (<1.2) Sodium (137-145) mmol/L Potassium 5.4 H (3.5-5.1) mmol/L BUN (9-20) mg/dL Creatinine (0.66-1.25) mg/dL Glucose (74-99) mg/dL Calcium (8.4-10.2) mg/dL Alkaline Phosphatase (38-126) U/L Total Protein (6.3-8.2) g/dL Albumin (3.5-5.0) g/dL Crossmatch See Detail 07/03/21 07/03/21 Range/Units 08:55 08:55 RBC 2.39 L (4.30-5.90) m/uL Hgb 7.4 L (13.0-17.5) gm/dL Hct 24.6 L (39.0-53.0) % MCV 102.9 H (80.0-100.0) fL MCHC 30.1 L (31.0-37.0) g/dL RDW 18.1 H (11.5-15.5) % PT (9.0-12.0) sec INR (<1.2) Sodium 136 L (137-145) mmol/L Potassium 5.2 H (3.5-5.1) mmol/L BUN 77 H (9-20) mg/dL Creatinine 3.28 H (0.66-1.25) mg/dL Glucose 143 H (74-99) mg/dL Calcium 8.3 L (8.4-10.2) mg/dL Alkaline Phosphatase 166 H (38-126) U/L Total Protein 5.9 L (6.3-8.2) g/dL Albumin 2.9 L (3.5-5.0) g/dL Crossmatch Microbiology - Last 24 Hours (Table) 07/01/21 11:00 Gram Stain - Final Thigh - Right Wound Culture - Final 06/30/21 17:00 Blood Culture - Preliminary Blood No Growth after 48 hours 06/30/21 16:57 Blood Culture - Preliminary Blood No Growth after 48 hours
[2021-07-03] MEDS ORDERED: WARFARIN 2.5 MG TAB PO ONE (18:00)
[2021-07-03] MEDS: oxyCODONE-APAP 10-325MG 1 EACH TAB PO PRN (20:34)
[2021-07-04] MEDS: PANTOPRAZOLE 40 MG TABLET PO SCH (06:39)
[2021-07-04] MEDS: BUDESONIDE 1 MG/2 ML NEBU INHALATION SCH ×2 (08:18→20:30)
[2021-07-04] MEDS: IPRATROPIUM-ALBUTEROL 3 ML NEB INHALATION SCH ×4 (08:18→20:31)
[2021-07-04] MEDS: LACTOBACILLUS ACIDOPH & BULGAR 1 EACH PACKET PO SCH ×2 (08:26→20:29)
[2021-07-04] MEDS: LORATADINE 10 MG TAB PO SCH (08:26)
[2021-07-04] MEDS: busPIRone HCl 10 MG TAB PO SCH ×2 (08:26→20:29)
[2021-07-04] MEDS: ESCITALOPRAM 10 MG TAB PO SCH (08:26)
[2021-07-04] MEDS: FERROUS SULFATE 325 MG TAB PO SCH ×3 (08:27→20:29)
[2021-07-04] MEDS: PRAMIPEXOLE 0.25 MG TAB PO SCH ×2 (08:27→20:29)
[2021-07-04] MEDS: FUROSEMIDE 40 MG TAB PO SCH ×2 (08:27→17:07)
[2021-07-04] MEDS: CHOLECALCIFEROL 25 MCG (1000 IU) TABLET PO SCH ×2 (08:27→20:29)
[2021-07-04] MEDS: METOPROLOL TARTRATE 50 MG TAB PO SCH ×3 (08:27→20:29)
[2021-07-04] MEDS: HYDROPHILIC CREAM 180 GM TUBE TOPICAL SCH (08:29)
--- NOTE | 2021-07-04 09:20 | P.PN ---
Subjective Patient is seen in follow-up for acute kidney injury on chronic kidney disease. Patient has chronic kidney disease stage IV with baseline creatinine in the range of 2.6-2.8. Renal function stable. Has been voiding. Denies chest pain or shortness of breath. On 2 L nasal cannula. On po Lasix. Denies any active bleeding. Received unit of blood 07/02/2021. Vital signs are stable. General: On nasal cannula. HEENT: Head exam is unremarkable. LUNGS: Breath sounds decreased. HEART: Tachycardic. ABDOMEN: Soft, no distention. EXTREMITITES: Trace edema. Chronic changes noted. Objective - Vital Signs Vital signs: Vital Signs Temp 98.1 F 07/03/21 20:00 Pulse 90 07/04/21 08:31 Resp 18 07/04/21 04:00 BP 122/72 07/04/21 04:00 Pulse Ox 94 L 07/04/21 04:00 Intake & Output 07/03/21 07/04/21 07/04/21 18:59 06:59 18:59 Intake Total 118 Output Total 1050 275 Balance -932 -275 Weight 112.5 kg Intake: Oral 118 Output: Urine 1050 275 Other: Voiding Method Urinal Urinal Diaper Diaper - Labs CBC & Chem 7: 07/03/21 08:55 07/03/21 08:55 Labs: Abnormal Lab Results - Last 24 Hours (Table) 07/03/21 07/03/21 Range/Units 08:37 08:55 PT 26.7 H (9.0-12.0) sec INR 2.8 H (<1.2) Sodium 136 L (137-145) mmol/L Potassium 5.2 H (3.5-5.1) mmol/L BUN 77 H (9-20) mg/dL Creatinine 3.28 H (0.66-1.25) mg/dL Glucose 143 H (74-99) mg/dL Calcium 8.3 L (8.4-10.2) mg/dL Alkaline Phosphatase 166 H (38-126) U/L Total Protein 5.9 L (6.3-8.2) g/dL Albumin 2.9 L (3.5-5.0) g/dL Microbiology - Last 24 Hours (Table) 07/03/21 13:17 Gram Stain - Preliminary Sputum Sputum Culture - Preliminary 06/30/21 17:00 Blood Culture - Preliminary Blood No Growth after 72 hours 06/30/21 16:57 Blood Culture - Preliminary Blood No Growth after 72 hours 07/01/21 11:00 Anaerobic Culture - Preliminary Thigh - Right 07/01/21 11:00 Gram Stain - Final Thigh - Right Wound Culture - Final Assessment and Plan Plan: Assessment: 1. Acute kidney injury secondary to ATN secondary to cardiorenal syndrome. Creatinine stable at 3.28 yesterday. UA benign. No hydronephrosis noted on kidney ultrasound. 2. Chronic kidney disease stage IV with baseline creatinine in the range of 2.6-2.8 secondary to nephrosclerosis. Patient has a mature right upper extremity AV fistula which has not been used. 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 3. History of coronary disease status post CABG. 4. Hyperkalemia secondary to acute kidney injury and ?GI bleed. Stable. 5. Volume overload. Improved with diuresis. 6. Possible pneumonia on antibiotics. 7. Acute on chronic diastolic CHF with moderate mitral regurgitation and mild to moderate tricuspid regurgitation and pulmonary hypertension. 8. History of A. fib. 9. CML. 10. Acute blood loss anemia with component of chronic kidney disease. Denies active bleeding. On Aranesp. Status post blood transfusion 07/02/2021. Plan: Maintain oral Lasix. Avoid nephrotoxins. Continue to monitor renal function and urine output. Follow-up morning labs.
[2021-07-04 09:55] LABS: Anisocytosis Slight; Basophils % (A) 0 %; Eosinophils # (A) 0.2 k/uL (0-0.7); Eosinophils % (A) 2 %; HCT 24.3 % (39.0-53.0); HGB 7.2 gm/dL (13.0-17.5); Hypochromasia Marked; Lymphocytes % (A) 10 %; MCH 29.9 pg (25.0-35.0); MCHC 29.7 g/dL (31.0-37.0); MCV 100.7 fL (80.0-100.0); Macrocytosis Moderate; Mean Platelet Volume 7.9; Monocytes # (A) 0.9 k/uL (0-1.0); Monocytes % (A) 9 %; Neutrophils # (A) 7.8 k/uL (1.3-7.7); Neutrophils % (A) 76 %; Platelet Count 281 k/uL (150-450); RBC 2.41 m/uL (4.30-5.90); RDW 17.7 % (11.5-15.5); WBC 10.2 k/uL (3.8-10.6)
[2021-07-04 10:10] LABS: Albumin 2.8 g/dL (3.5-5.0); Calcium 8.1 mg/dL (8.4-10.2); Total Bilirubin 0.5 mg/dL (0.2-1.3)
[2021-07-04 10:15] LABS: INR 2.1 (<1.2); Prothrombin Time 20.7 sec (9.0-12.0)
--- NOTE | 2021-07-04 11:00 | P.PN ---
Subjective Progress Note Date: 07/04/21 Progress Note Date: 07/03/21 HISTORY OF PRESENT ILLNESS: This is an 85-year-old male patient of Dr. sparks with a previous medical history significant for CAD post CABG x4, hypertension and hypertensive cardiovascular disease, chronic atrial flutter/fibrillation on chronic Coumadin, diabetes mellitus type 2 with diabetic polyneuropathy, chronic kidney disease stage IV, obesity with obstructive sleep apnea, hypogonadism, diverticulosis, GERD with hiatal hernia, left adrenal adenoma, CML, patient fell on 05/28/2021 in his home kitchen and landed on his right side of the hip after he lost his balance suffered from severe pain he was found to have a left hip fracture he ended up going to [facility] where he underwent removal of the hardware of the right femur including the plates and screws and he had a long shaheen placed and his entire femur into the hip area successfully he developed to have a non-ST elevation myocardial infarction when he was there along with chronic diastolic heart failure he was seen by cardiology over there Dr. Jackson apparently was cleared for surgery and the patient had a surgery on 05/31/2021 after that patient was referred to rehab facility and lip area and he was just released last to come back home with significant sores on his right thigh as well as bilateral heel deep tissue injury, patient was supposed to come and see him in the office today however he was not able template at all he was feeling increased shortness of breath associated with increased coughing and yellow from production, so his called EMS and the patient was brought into the ER at [facility] for evaluation his chest x-ray showed pulmonary vascular congestion and possible atypical pneumonia his COVID-19 swab PCR came back negative, patient was started on Lasix 60 mg IV push in the ER that he was placed on 40 mg IV push every 12 hours, patient also was started on meropenem 1 g IV piggyback every 12 hours because of his multiple ALLERGIES and possible gram-negative pneumonia. 07/01: Pulse ox is 97% on 2 L nasal cannula, patient afebrile, blood pressure 110/50, heart rate 83. Repeat blood work results are pending. Patient is continued on Lasix 40 mg IV twice daily, nebulizer treatments, meropenem. Consults in place with Cardiology, Nephrology and Wound Team. Breathing is improved from yesterday. 07/02: Patient complains of sputum that is rattling in his chest unable to bring it up. He continues to have cough. Heart rate 115. Echocardiogram reveals EF of 50-55%, mild aortic valve stenosis, moderate mitral regurgitation, [id number] tricuspid regurgitation and mild to moderate pulmonary hypertension. Patient has been seen by cardiology and acute coronary syndrome has been ruled out, elevated troponin secondary to chronic kidney disease. Hemoglobin is 6.5. Potassium 5.4, BUN 74 and creatinine 3.31. Repeat INR is 3.7. She has been seen by the wound Center with plan for triad on the left posterior thigh wound and offload bilateral heels. Nephrology is planning to maintain IV Lasix, transfuse 1 unit of blood avoid nephrotoxins, check stool for occult blood. Dr. Leung has evaluated and patient is not candidate for inpatient rehab. Discharge plan will be subacute rehab at [facility] or [facility] next week. 07/03: Patient is feeling weak today, he did receive 1 unit of packed her vessels yesterday, his hemoglobin still pending at the time of dictation, he was seen in consultation by physical therapy and rehabilitation, he was deemed inappropriate for inpatient rehab in addition however he will need to go for subacute rehab the patient at [facility]. Patient is complaining of some coughing minimal from production, he denies any hemoptysis, he has no bloody bowel movement, no apparent signs of bleeding, his hemoglobin dropped yesterday to 6.5, he is receiving Aranesp, he is maintained on iron, we will continue to follow the patient very closely. 07/04: Patient continues to have a significant coughing not able to bring up any phlegm, he is a bit short of breath today, we will add Mucinex 600 mg orally twice every day, consult pulmonary medicine for further evaluation and recommendation, and continue to monitor the patient very closely, his hemoglobin is down to 7.2, no evidence of GI bleed at this time, continue with iron, continue with Aranesp, monitor the patient very closely. REVIEW OF SYSTEMS: Constitutional: No documented fever, no chills, no night sweats. Positive for weight change. Positive for weakness, fatigue or lethargy. No daytime sleepiness. HEENT: No headache. No blurred vision or double vision, no loss of vision. No loss of Hearing, no ringing in the ears, no dizziness. No nasal drainage or congestion. No epistaxis. No sore throat. Lungs: No shortness of breath, no cough, no sputum production. No wheezing. Reports dyspnea with activity. Cardiovascular: No chest pain, positive for lower extremity edema. positive for palpitations. No paroxysmal nocturnal dyspnea. positive for orthopnea. No lightheadedness or dizziness. No syncopal episodes. Abdominal: Reports abdominal pain. No nausea, vomiting. No diarrhea. No constipation. No bloody or tarry stools reports loss of appetite. Genitourinary: No dysuria, increased frequency, urgency. No urinary retention. Musculoskeletal: No myalgias. positive for muscle weakness, positive for gait dysfunction, positive for frequent falls, positive for back pain and neck pain. Integumentary: positive for stage 3 pressure sores to the posterior aspct of the right thigh and DTI in both heels, positive for nail changes Neurologic: No aphasia. No facial droop. No change in mentation. No head injury. No headache. No paralysis. No paresthesia. Psychiatric: positive for depression. No anxiety. No mood swings. Endocrine: No abnormal blood sugars. No weight change. PHYSICAL EXAMINATION: General: 85-year-old male sitting up in bed in no respiratory distress HEENT: Head is atraumatic, normocephalic, pupils were equal round reactive to light and recommendation, extraocular muscle movement were intact, sclera nonicteric, conjunctivae were pale, mucous membranes of the mouth are somewhat dry. Neck: Supple, no JVP, decreased carotid upstroke bilaterally, no lymphadenopathy. Chest: Decreased breath sounds at the bases, few rhonchi, minimal expiratory wheezes, no chest wall tenderness no intercostal retractions. Heart: First heart sound is normal, second heart sounds normal irregularly irregular there is systolic ejection murmur 2/6 located in the left sternal border. Abdomen: Soft, nontender, nondistended, positive bowel sounds. Extremities: There is +2 edema no calf tenderness DP +1 bilaterally, bilateral heel deep tissue injury, bilateral hammertoes and nail changes. Neurologic examination: Patient is awake alert and oriented X 3, cranial nerves II-12 appear grossly intact, muscle power were 3 out of 5 in upper extremities and 3 out of 5 in bilateral lower extremities, deep tendon reflexes were depressed ASSESSMENT AND PLAN: 1. Acute hypoxemic respiratory failure due to acute diastolic heart failure with possible gram-negative pneumonia. Continue Lasix 40 mg IV push every 12 hours, meropenem 1 g IV piggyback every 12 hours, sputum culture, blood culture, and her input and output and daily weight, and pulmonary consultation, add Mucinex 600 mg orally twice every day. 2. Possible gram-negative pneumonia. Continue patient on Pulmicort 1 mg nebuli zation twice every day, DuoNeb 3 mg 4 times every day, oxygen support, continue patient on meropenem 1 g IV piggyback every 12 hours, add pulmonary consultation 3. Multiple stage II pressure ulcer behind the right thigh and deep tissue injury in both heels. continue local wound care the thigh and skin prep for the heels with floating the heels daily, swab the pressure sores for aerobic and anaerobic cultures. 4. Recent fall with Hip fracture status post right shaheen insertion of the right femur with removal of the old hardware. Consult physical therapy, continue current pain management. 5. Recent non-ST elevation myocardial infarction. Continue patient on metoprolol orally twice every day, continue aspirin 81 mg once every day. 6. Acute diastolic heart failure. Continue metoprolol 25 mg orally twice every day, continue Lasix 40 mg IV push every 12 hours, monitor input and output and daily weight obtain the result of Echocardiogram from [facility]. 7. Diabetes mellitus type II with diabetic polyneuropathy currently off medications. 8. Chronic kidney disease stage IV. Monitor patient input and output and daily weight and avoid nephrotoxins. Nephrology consultation. 9. Hyperkalemia. Patient did receive 1 amp of D50 along with insulin he will receive calcium gluconate 1 g IV piggyback 1. Repeat potassium this evening. 10. Chronic myelogenous leukemia. Continue with Imatinib 300 mg orally daily. 11. Acute blood loss anemia on Anemia of chronic kidney disease. Continue iron supplement , type and cross and transfuse 1 unit of PRBCs yesterday 12. Restless leg syndrome. Continue Mirapex 0.25 mg orally twice every day. 13. Major depressive disorder. Continue patient on Lexapro 30 mg orally once every day. 14. Anxiety disorder. Continue with SSRI as well as BuSpar 10 mg orally twice every day. 15. Chronic atrial fibrillation. Continue patient on metoprolol 25 mg orally twice every day, Coumadin continues to be on hold his INR yesterday 3.7 16. Coagulopathy hold Coumadin for tonight. INR tomorrow morning. 17. CAD post CABG 4 with a recent non-ST elevation myocardial infarction. Continue metoprolol 25 mg orally twice every day, aspirin 81 mg once every day. 18. GERD with hiatal hernia. Continue Protonix 40 mg orally once every day. 19. Chronic pain syndrome. Continue Percocet 10/325 mg one tablet orally 4 times every day. 20. DVT prophylaxis. Currently on Coumadin. 21. GI prophylaxis. Continue PPI. 22. Medical debility. Physical therapy evaluation. Full code. DISCHARGE PLAN Subacute rehab at [facility] on Monday Objective - Vital Signs Vital signs: Vital Signs Temp 98.1 F 07/03/21 20:00 Pulse 90 07/04/21 08:31 Resp 18 07/04/21 04:00 BP 122/72 07/04/21 04:00 Pulse Ox 94 L 07/04/21 04:00 Intake & Output 07/03/21 07/04/21 07/04/21 18:59 06:59 18:59 Intake Total 118 Output Total 1050 275 Balance -932 -275 Weight 112.5 kg Intake: Oral 118 Output: Urine 1050 275 Other: Voiding Method Urinal Urinal Diaper Diaper - Labs CBC & Chem 7: 07/04/21 09:31 07/04/21 09:31 Labs: Abnormal Lab Results - Last 24 Hours (Table) 07/03/21 07/04/21 Range/Units 08:37 09:31 RBC 2.41 L (4.30-5.90) m/uL Hgb 7.2 L (13.0-17.5) gm/dL Hct 24.3 L (39.0-53.0) % MCV 100.7 H (80.0-100.0) fL MCHC 29.7 L (31.0-37.0) g/dL RDW 17.7 H (11.5-15.5) % Neutrophils # 7.8 H (1.3-7.7) k/uL PT 26.7 H (9.0-12.0) sec INR 2.8 H (<1.2) Microbiology - Last 24 Hours (Table) 07/03/21 13:17 Gram Stain - Preliminary Sputum Sputum Culture - Preliminary 06/30/21 17:00 Blood Culture - Preliminary Blood No Growth after 72 hours 06/30/21 16:57 Blood Culture - Preliminary Blood No Growth after 72 hours 07/01/21 11:00 Anaerobic Culture - Preliminary Thigh - Right 07/01/21 11:00 Gram Stain - Final Thigh - Right Wound Culture - Final
[2021-07-04 11:33] LABS: Glucose,Whole Blood 132 mg/dL (75-99)
[2021-07-04] MEDS: MEROPENEM 1 GM in SODIUM CHLORIDE 0.9% 100 ML IVPB SCH ×2 (12:21→20:29)
--- NOTE | 2021-07-04 14:57 | P.PN ---
Subjective HISTORY OF PRESENT ILLNESS: This is a 85 year old male with a past medical history significant for chronic persistent atrial fibrillation, coronary artery disease with previous CABG x 4 in 2000, congestive heart failure, hypertension, hyperlipidemia, and chronic kidney disease. Patient follows in the office with Dr. Oliveira. We have been asked to see the patient in consultation for congestive heart failure. Patient examined at the bedside. Patient presented to the hospital with a chief complaint of shortness of breath. Patient was found to be in CHF. He was started on IV lasix. Patient denies chest pain or pressure. He reports improvement in his shortness of breath. Blood pressure 113/58. Telemetry reveals atrial fibrillation with heart rate in the 90s. EKG reveals atrial fibrillation with controlled ventricular rate Chest xray prominent pulmonary vascular markings. Correlate for volume overload. Infectious etiology such as atypical pneumonia could be considered. Laboratory data: WBC 7.9. Hemoglobin 6.9. Platelet count 251. INR 4.3. Sodium 139. Potassium 5.1. BUN 73. Creatinine 3.29. ProBNP 12,100. Troponin 0.041. 0.048. 0.060. Current home cardiac medications include Coumadin 5 mg Monday and 2.5 mg Monday, metoprolol tartrate 25 mg twice a day, Lasix 40 mg Monday. Most recent echocardiogram obtained in September 2020 revealed ejection fraction 50%, small hypokinetic area of the inferior wall at the base, [id number] mitral regurgitation, mild tricuspid regurgitation, [id number] aortic stenosis 07/02/2021 Patient examined this morning at the bedside. Patient denies chest pain or pressure. He denies shortness of breath. He remains on IV Lasix. Nephrology is following. Creatinine 3.31. INR today 3.7. Coumadin remains on hold. Patient is tachycardic this morning with a heart rate around 115. Echocardiogram completed revealing ejection fraction 50-55%, mild aortic stenosis, moderate mitral regurgitation, [id number] tricuspid regurgitation and mild to moderate pulmonary hypertension. 07/03 Patient seen and examined. Patient received blood transfusion for hemoglobin in the sixes yesterday. Denies any hematochezia or melena. Heart rates control the 70s to 80s on telemetry. States his breathing is pretty similar to yesterday. He was switched over to oral Lasix. He states he is still having good urine output with the oral Lasix. Creatinine remained stable. 07/04 Patient is continued on oral Lasix and states he is having good urine output. Denies any chest pain or pressure. Lower extremity edema appears minimal. Creatinine fairly stable today at 3.4. PHYSICAL EXAM: VITAL SIGNS: Reviewed. GENERAL: Well-developed in no acute distress. HEENT: Head is normocephalic. Pupils are equal, round. Sclerae anicteric. Mucous membranes of the mouth are moist. Neck supple. No JVD or thyromegaly LUNGS: Respirations even and unlabored. Lungs diminished with expiratory wheezing and crackles at the bases. HEART: Irregular rate and rhythm. S1 and S2 heard. Systolic murmur noted. ABDOMEN: Soft. Nondistended. Nontender. EXTREMITIES: Normal range of motion. No clubbing or cyanosis. Peripheral pulses intact. 1-2+ bilateral lower extremity edema with chronic discoloration NEUROLOGIC: Awake and alert. ASSESSMENT: Shortness of breath Acute on chronic diastolic congestive heart failure Possible pneumonia Acute hypoxic respiratory failure Chronic persistent atrial fibrillation with controlled ventricular rate Supratherapeutic INR Coronary artery disease with previous CABG Abnormal troponins, secondary to chronic kidney disease, not suggestive of acute coronary syndrome Hypertension Hyperlipidemia Chronic kidney disease Anemia Diabetes mellitus Recent fall with hip fracture, status post right shaheen insertion of the right f emur Valvular heart disease PLAN: Continue oral Lasix, appears to be having good urine outpt Monitor kidney function. Nephrology following. Accurate I&O Daily weights Continue additional cardiac medications Continue to hold Coumadin given anemia, no obvious hematochezia or melena Continue current dosing of metoprolol, currently heart rate appears well controlled. Objective - Vital Signs Vital signs: Vital Signs Temp 98.5 F 07/04/21 11:53 Pulse 84 07/04/21 11:53 Resp 16 07/04/21 11:53 BP 123/58 07/04/21 11:53 Pulse Ox 99 07/04/21 11:53 Intake & Output 07/03/21 07/04/21 07/04/21 18:59 06:59 18:59 Intake Total 118 120 Output Total 1050 275 Balance -932 -275 120 Weight 112.5 kg Intake: Oral 118 120 Output: Urine 1050 275 Other: Voiding Method Urinal Urinal Urinal Diaper Diaper Diaper - Labs CBC & Chem 7: 07/04/21 09:31 07/04/21 09:31 Labs: Abnormal Lab Results - Last 24 Hours (Table) 07/04/21 07/04/21 07/04/21 Range/Units 09:31 09:31 09:31 RBC 2.41 L (4.30-5.90) m/uL Hgb 7.2 L (13.0-17.5) gm/dL Hct 24.3 L (39.0-53.0) % MCV 100.7 H (80.0-100.0) fL MCHC 29.7 L (31.0-37.0) g/dL RDW 17.7 H (11.5-15.5) % Neutrophils # 7.8 H (1.3-7.7) k/uL PT 20.7 H (9.0-12.0) sec INR 2.1 H (<1.2) BUN 77 H (9-20) mg/dL Creatinine 3.42 H (0.66-1.25) mg/dL Glucose 125 H (74-99) mg/dL POC Glucose (mg/dL) (75-99) mg/dL Calcium 8.1 L (8.4-10.2) mg/dL Alkaline Phosphatase 166 H (38-126) U/L Total Protein 6.0 L (6.3-8.2) g/dL Albumin 2.8 L (3.5-5.0) g/dL 07/04/21 Range/Units 11:32 RBC (4.30-5.90) m/uL Hgb (13.0-17.5) gm/dL Hct (39.0-53.0) % MCV (80.0-100.0) fL MCHC (31.0-37.0) g/dL RDW (11.5-15.5) % Neutrophils # (1.3-7.7) k/uL PT (9.0-12.0) sec INR (<1.2) BUN (9-20) mg/dL Creatinine (0.66-1.25) mg/dL Glucose (74-99) mg/dL POC Glucose (mg/dL) 132 H (75-99) mg/dL Calcium (8.4-10.2) mg/dL Alkaline Phosphatase (38-126) U/L Total Protein (6.3-8.2) g/dL Albumin (3.5-5.0) g/dL Microbiology - Last 24 Hours (Table) 07/03/21 13:17 Gram Stain - Preliminary Sputum Sputum Culture - Preliminary 06/30/21 17:00 Blood Culture - Preliminary Blood No Growth after 72 hours 06/30/21 16:57 Blood Culture - Preliminary Blood No Growth after 72 hours 07/01/21 11:00 Anaerobic Culture - Preliminary Thigh - Right 07/01/21 11:00 Gram Stain - Final Thigh - Right Wound Culture - Final
[2021-07-04] MEDS: WARFARIN 2 MG TAB PO SCH (17:07)
[2021-07-04] MEDS: oxyCODONE-APAP 10-325MG 1 EACH TAB PO PRN (17:09)
[2021-07-04] MEDS: guaiFENesin 600 MG TABLET.ER PO SCH (20:29)
[2021-07-05] MEDS: oxyCODONE-APAP 10-325MG 1 EACH TAB PO PRN ×2 (04:39→20:46)
[2021-07-05] MEDS: PANTOPRAZOLE 40 MG TABLET PO SCH (06:26)
[2021-07-05] MEDS: BUDESONIDE 1 MG/2 ML NEBU INHALATION SCH ×2 (07:47→20:05)
[2021-07-05] MEDS: IPRATROPIUM-ALBUTEROL 3 ML NEB INHALATION SCH ×4 (07:47→20:05)
[2021-07-05] MEDS: busPIRone HCl 10 MG TAB PO SCH ×2 (09:01→20:46)
[2021-07-05] MEDS: ESCITALOPRAM 10 MG TAB PO SCH (09:01)
[2021-07-05] MEDS: FERROUS SULFATE 325 MG TAB PO SCH ×3 (09:01→20:46)
[2021-07-05] MEDS: LORATADINE 10 MG TAB PO SCH (09:02)
[2021-07-05] MEDS: LACTOBACILLUS ACIDOPH & BULGAR 1 EACH PACKET PO SCH ×2 (09:02→21:05)
[2021-07-05] MEDS: HYDROPHILIC CREAM 180 GM TUBE TOPICAL SCH (09:02)
[2021-07-05] MEDS: PRAMIPEXOLE 0.25 MG TAB PO SCH ×2 (09:02→21:06)
[2021-07-05] MEDS: CHOLECALCIFEROL 25 MCG (1000 IU) TABLET PO SCH ×2 (09:02→20:47)
[2021-07-05] MEDS: METOPROLOL TARTRATE 50 MG TAB PO SCH ×3 (09:02→20:46)
[2021-07-05] MEDS: FUROSEMIDE 40 MG TAB PO SCH ×2 (09:02→17:01)
[2021-07-05] MEDS: guaiFENesin 600 MG TABLET.ER PO SCH ×2 (09:02→20:47)
[2021-07-05] MEDS: MEROPENEM 1 GM in SODIUM CHLORIDE 0.9% 100 ML IVPB SCH ×2 (09:05→21:05)
[2021-07-05 09:09] LABS: Anisocytosis Slight; Basophils # (A) 0.1 k/uL (0-0.2); Basophils % (A) 1 %; Eosinophils # (A) 0.2 k/uL (0-0.7); Eosinophils % (A) 2 %; HCT 24.7 % (39.0-53.0); HGB 7.6 gm/dL (13.0-17.5); Hypochromasia Marked; Lymphocytes # (A) 1.1 k/uL (1.0-4.8); Lymphocytes % (A) 12 %; MCH 31.6 pg (25.0-35.0); MCHC 30.9 g/dL (31.0-37.0); MCV 102.3 fL (80.0-100.0); Macrocytosis Moderate; Mean Platelet Volume 7.9; Monocytes # (A) 0.8 k/uL (0-1.0); Monocytes % (A) 8 %; Neutrophils # (A) 7.4 k/uL (1.3-7.7); Neutrophils % (A) 76 %; Platelet Count 292 k/uL (150-450); RBC 2.42 m/uL (4.30-5.90); RDW 17.6 % (11.5-15.5); WBC 9.8 k/uL (3.8-10.6)
[2021-07-05 09:15] LABS: Albumin 2.8 g/dL (3.5-5.0); Calcium 8.5 mg/dL (8.4-10.2); Potassium 5.3 mmol/L (3.5-5.1); Total Bilirubin 0.6 mg/dL (0.2-1.3)
[2021-07-05 09:21] LABS: INR 2.1 (<1.2); Prothrombin Time 20.6 sec (9.0-12.0)
[2021-07-05] MEDS: methylPREDNISolone SOD SUCCI 40 MG/ML 1 ML VIAL IV SCH ×3 (12:39→23:42)
--- NOTE | 2021-07-05 12:56 | PN ---
PROGRESS NOTE Patient is seen for followup for acute kidney injury. Renal function is fairly stable, with creatinine staying at 3.2 to 3.3 mg/dL. Patient is currently being diuresed. Maintained on Lasix which is currently p.o. at 40 mg b.i.d. On examination today, blood pressure 121/67, heart rate 94 per minute. Patient is afebrile. EXAMINATION OF THE HEART: S1 and S2. EXAMINATION OF LUNGS: Decreased breath sounds at the bases. Abdomen is soft, morbidly obese. Examination of lower extremities shows chronic skin changes. Chronic edema noted bilaterally. Labs show sodium 138, potassium 5.3, chloride 106, BUN 76, creatinine 3.3, hemoglobin of 7.6 g/dL. ASSESSMENT: 1. Acute kidney injury, acute tubular necrosis/cardiorenal syndrome. Renal function is stable. Patient's UA was benign. No evidence of obstruction on imaging. 2. Chronic kidney disease, stage 4. Baseline creatinine 2.6 to 2.8 secondary to nephrosclerosis with mature right upper extremity AV fistula which has not been used. Patient follows with [facility] out of [place], [place]. 3. History of coronary artery disease, status post coronary artery bypass surgery. 4. Acute on chronic diastolic congestive heart failure with mitral regurgitation, mild to moderate tricuspid regurgitation, and pulmonary hypertension. 5. CML. 6. Acute blood loss anemia with component of chronic kidney disease, status post packed RBCs transfusion. PLAN: Continue with oral Lasix. Maintain Aranesp. Repeat labs in a.m. MMODL / IJN: [id number] /
--- NOTE | 2021-07-05 13:22 | P.PN ---
Subjective Progress Note Date: 07/05/21 Progress Note Date: 07/03/21 HISTORY OF PRESENT ILLNESS: This is an 85-year-old male patient of Dr. sparks with a previous medical history significant for CAD post CABG x4, hypertension and hypertensive cardiovascular disease, chronic atrial flutter/fibrillation on chronic Coumadin, diabetes mellitus type 2 with diabetic polyneuropathy, chronic kidney disease stage IV, obesity with obstructive sleep apnea, hypogonadism, diverticulosis, GERD with hiatal hernia, left adrenal adenoma, CML, patient fell on 05/28/2021 in his home kitchen and landed on his right side of the hip after he lost his balance suffered from severe pain he was found to have a left hip fracture he ended up going to [facility] where he underwent removal of the hardware of the right femur including the plates and screws and he had a long shaheen placed and his entire femur into the hip area successfully he developed to have a non-ST elevation myocardial infarction when he was there along with chronic diastolic heart failure he was seen by cardiology over there Dr. Jackson apparently was cleared for surgery and the patient had a surgery on 05/31/2021 after that patient was referred to rehab facility and lip area and he was just released last to come back home with significant sores on his right thigh as well as bilateral heel deep tissue injury, patient was supposed to come and see him in the office today however he was not able template at all he was feeling increased shortness of breath associated with increased coughing and yellow from production, so his called EMS and the patient was brought into the ER at [facility] for evaluation his chest x-ray showed pulmonary vascular congestion and possible atypical pneumonia his COVID-19 swab PCR came back negative, patient was started on Lasix 60 mg IV push in the ER that he was placed on 40 mg IV push every 12 hours, patient also was started on meropenem 1 g IV piggyback every 12 hours because of his multiple ALLERGIES and possible gram-negative pneumonia. 07/01: Pulse ox is 97% on 2 L nasal cannula, patient afebrile, blood pressure 110/50, heart rate 83. Repeat blood work results are pending. Patient is continued on Lasix 40 mg IV twice daily, nebulizer treatments, meropenem. Consults in place with Cardiology, Nephrology and Wound Team. Breathing is improved from yesterday. 07/02: Patient complains of sputum that is rattling in his chest unable to bring it up. He continues to have cough. Heart rate 115. Echocardiogram reveals EF of 50-55%, mild aortic valve stenosis, moderate mitral regurgitation, [id number] tricuspid regurgitation and mild to moderate pulmonary hypertension. Patient has been seen by cardiology and acute coronary syndrome has been ruled out, elevated troponin secondary to chronic kidney disease. Hemoglobin is 6.5. Potassium 5.4, BUN 74 and creatinine 3.31. Repeat INR is 3.7. She has been seen by the wound Center with plan for triad on the left posterior thigh wound and offload bilateral heels. Nephrology is planning to maintain IV Lasix, transfuse 1 unit of blood avoid nephrotoxins, check stool for occult blood. Dr. Leung has evaluated and patient is not candidate for inpatient rehab. Discharge plan will be subacute rehab at [facility] or [facility] next week. 07/03: Patient is feeling weak today, he did receive 1 unit of packed her vessels yesterday, his hemoglobin still pending at the time of dictation, he was seen in consultation by physical therapy and rehabilitation, he was deemed inappropriate for inpatient rehab in addition however he will need to go for subacute rehab the patient at [facility]. Patient is complaining of some coughing minimal from production, he denies any hemoptysis, he has no bloody bowel movement, no apparent signs of bleeding, his hemoglobin dropped yesterday to 6.5, he is receiving Aranesp, he is maintained on iron, we will continue to follow the patient very closely. 07/04: Patient continues to have a significant coughing not able to bring up any phlegm, he is a bit short of breath today, we will add Mucinex 600 mg orally twice every day, consult pulmonary medicine for further evaluation and recommendation, and continue to monitor the patient very closely, his hemoglobin is down to 7.2, no evidence of GI bleed at this time, continue with iron, continue with Aranesp, monitor the patient very closely. 07/05: Patient is laying unabated continue to have significant cough, not able to bring up any phlegm, he continues to be somewhat short of breath, he continues to be anemic, he has been followed by pulmonary as well as cardiology along with nephrology, patient is currently on Mucinex 600 mg orally twice every day along with IV antibiotic in the form of meropenem, we'll continue to follow the patien t very closely. Continue with physical therapy evaluation likely will go to [facility] in the next 1 or 2 days. REVIEW OF SYSTEMS: Constitutional: No documented fever, no chills, no night sweats. Positive for weight change. Positive for weakness, fatigue or lethargy. No daytime sleepiness. HEENT: No headache. No blurred vision or double vision, no loss of vision. No loss of Hearing, no ringing in the ears, no dizziness. No nasal drainage or congestion. No epistaxis. No sore throat. Lungs: No shortness of breath, no cough, no sputum production. No wheezing. Reports dyspnea with activity. Cardiovascular: No chest pain, positive for lower extremity edema. positive for palpitations. No paroxysmal nocturnal dyspnea. positive for orthopnea. No lightheadedness or dizziness. No syncopal episodes. Abdominal: Reports abdominal pain. No nausea, vomiting. No diarrhea. No constipation. No bloody or tarry stools reports loss of appetite. Genitourinary: No dysuria, increased frequency, urgency. No urinary retention. Musculoskeletal: No myalgias. positive for muscle weakness, positive for gait dysfunction, positive for frequent falls, positive for back pain and neck pain. Integumentary: positive for stage 3 pressure sores to the posterior aspct of the right thigh and DTI in both heels, positive for nail changes Neurologic: No aphasia. No facial droop. No change in mentation. No head injury. No headache. No paralysis. No paresthesia. Psychiatric: positive for depression. No anxiety. No mood swings. Endocrine: No abnormal blood sugars. No weight change. PHYSICAL EXAMINATION: General: 85-year-old male sitting up in bed in no respiratory distress HEENT: Head is atraumatic, normocephalic, pupils were equal round reactive to light and recommendation, extraocular muscle movement were intact, sclera nonicteric, conjunctivae were pale, mucous membranes of the mouth are somewhat dry. Neck: Supple, no JVP, decreased carotid upstroke bilaterally, no lymp hadenopathy. Chest: Decreased breath sounds at the bases, few rhonchi, minimal expiratory wheezes, no chest wall tenderness no intercostal retractions. Heart: First heart sound is normal, second heart sounds normal irregularly irregular there is systolic ejection murmur 2/6 located in the left sternal border. Abdomen: Soft, nontender, nondistended, positive bowel sounds. Extremities: There is +2 edema no calf tenderness DP +1 bilaterally, bilateral heel deep tissue injury, bilateral hammertoes and nail changes. Neurologic examination: Patient is awake alert and oriented X 3, cranial nerves II-12 appear grossly intact, muscle power were 3 out of 5 in upper extremities and 3 out of 5 in bilateral lower extremities, deep tendon reflexes were depressed ASSESSMENT AND PLAN: 1. Acute hypoxemic respiratory failure due to acute diastolic heart failure with possible gram-negative pneumonia. Continue Lasix 40 mg IV push every 12 hours, meropenem 1 g IV piggyback every 12 hours, sputum culture, blood culture, and her input and output and daily weight, and pulmonary consultation, add Mucinex 600 mg orally twice every day. 2. Possible gram-negative pneumonia. Continue patient on Pulmicort 1 mg nebulization twice every day, DuoNeb 3 mg 4 times every day, oxygen support, continue patient on meropenem 1 g IV piggyback every 12 hours, add pulmonary consultation 3. Multiple stage II pressure ulcer behind the right thigh and deep tissue injury in both heels. continue local wound care the thigh and skin prep for the heels with floating the heels daily, swab the pressure sores for aerobic and anaerobic cultures. 4. Recent fall with Hip fracture status post right shaheen insertion of the right femur with removal of the old hardware. Consult physical therapy, continue current pain management. 5. Recent non-ST elevation myocardial infarction. Continue patient on metoprolol orally twice every day, continue aspirin 81 mg once every day. 6. Acute diastolic heart failure. Continue metoprolol 25 mg orally twice every day, continue Lasix 40 mg IV push every 12 hours, monitor input and output and daily weight obtain the result of Echocardiogram from [facility]. 7. Diabetes mellitus type II with diabetic polyneuropathy currently off medications. 8. Chronic kidney disease stage IV. Monitor patient input and output and daily weight and avoid nephrotoxins. Nephrology consultation. 9. Hyperkalemia. Patient did receive 1 amp of D50 along with insulin he will receive calcium gluconate 1 g IV piggyback 1. Repeat potassium this evening. 10. Chronic myelogenous leukemia. Continue with Imatinib 300 mg orally daily. 11. Acute blood loss anemia on Anemia of chronic kidney disease. Continue iron supplement , type and cross and transfuse 1 unit of PRBCs yesterday 12. Restless leg syndrome. Continue Mirapex 0.25 mg orally twice every day. 13. Major depressive disorder. Continue patient on Lexapro 30 mg orally once every day. 14. Anxiety disorder. Continue with SSRI as well as BuSpar 10 mg orally twice every day. 15. Chronic atrial fibrillation. Continue patient on metoprolol 25 mg orally twice every day, Coumadin continues to be on hold his INR yesterday 3.7 16. Coagulopathy hold Coumadin for tonight. INR tomorrow morning. 17. CAD post CABG 4 with a recent non-ST elevation myocardial infarction. Continue metoprolol 25 mg orally twice every day, aspirin 81 mg once every day. 18. GERD with hiatal hernia. Continue Protonix 40 mg orally once every day. 19. Chronic pain syndrome. Continue Percocet 10/325 mg one tablet orally 4 times every day. 20. DVT prophylaxis. Currently on Coumadin. 21. GI prophylaxis. Continue PPI. 22. Medical debility. Physical therapy evaluation. Full code. DISCHARGE PLAN Subacute rehab at [facility] on Monday Objective - Vital Signs Vital signs: Vital Signs Temp 98.4 F 07/05/21 08:50 Pulse 82 07/05/21 11:56 Resp 18 07/05/21 08:50 BP 121/67 07/05/21 08:50 Pulse Ox 94 L 07/05/21 08:50 Intake & Output 07/04/21 07/05/21 07/05/21 18:59 06:59 18:59 Intake Total 360 240 Output Total 600 Balance 360 -600 240 Intake: Oral 360 240 Output: Urine 600 Other: Voiding Method Urinal Urinal Urinal Diaper Diaper Diaper - Labs CBC & Chem 7: 07/05/21 08:20 07/05/21 08:20 Labs: Abnormal Lab Results - Last 24 Hours (Table) 07/05/21 07/05/21 07/05/21 Range/Units 08:20 08:20 08:20 RBC 2.42 L (4.30-5.90) m/uL Hgb 7.6 L (13.0-17.5) gm/dL Hct 24.7 L (39.0-53.0) % MCV 102.3 H (80.0-100.0) fL MCHC 30.9 L (31.0-37.0) g/dL RDW 17.6 H (11.5-15.5) % PT 20.6 H (9.0-12.0) sec INR 2.1 H (<1.2) Potassium 5.3 H (3.5-5.1) mmol/L BUN 76 H (9-20) mg/dL Creatinine 3.34 H (0.66-1.25) mg/dL Glucose 124 H (74-99) mg/dL Alkaline Phosphatase 162 H (38-126) U/L Total Protein 6.0 L (6.3-8.2) g/dL Albumin 2.8 L (3.5-5.0) g/dL Microbiology - Last 24 Hours (Table) 07/01/21 11:00 Anaerobic Culture - Final Thigh - Right 06/30/21 17:00 Blood Culture - Preliminary Blood No Growth after 96 hours 06/30/21 16:57 Blood Culture - Preliminary Blood No Growth after 96 hours
--- NOTE | 2021-07-05 13:58 | P.PN ---
Subjective This is a 85 year old male with a past medical history significant for chronic persistent atrial fibrillation, coronary artery disease with previous CABG x 4 in 2000, congestive heart failure, hypertension, hyperlipidemia, and chronic kidney disease. Patient follows in the office with Dr. Oliveira. We have been asked to see the patient in consultation for congestive heart failure. Patient examined at the bedside. Patient presented to the hospital with a chief complaint of shortness of breath. Patient was found to be in CHF. He was started on IV lasix. Repeat echocardiogram on 07/02/2021 revealing ejection fraction 50- 55%, mild aortic stenosis, moderate mitral regurgitation, [id number] tricuspid regurgitation and mild to moderate pulmonary hypertension. Patient seen and examined at bedside, denies chest pain or pressure. He reports improvement in his shortness of breath. Vital signs are stable, blood pressure 121/67, oxygen saturation is 94% on 2 L nasal cannula. Telemetry reveals atrial fibrillation with heart rate in the 80s-90s. He is currently maintained on Lasix by mouth 40 mg twice a day, metoprolol titrate 50 mg 3 times a day, Coumadin has been restarted. Labs reviewed, INR 2.1, WBC 9.8, hemoglobin 7.6, plates to 92, sodium 138, potassium 5.3, BUN 76, serum creatinine 3.3 PHYSICAL EXAM: VITAL SIGNS: Reviewed. GENERAL: Well-developed in no acute distress. HEENT: Neck supple. No JVD LUNGS: Respirations even and unlabored. Lungs diminished with expiratory wheezing and crackles at the bases. HEART: Irregular rate and rhythm. S1 and S2 heard. Systolic murmur noted. ABDOMEN: Soft. Nondistended. Nontender. EXTREMITIES: Normal range of motion. No clubbing or cyanosis. Peripheral pulses intact. 1-2+ bilateral lower extremity edema with chronic discoloration NEUROLOGIC: Awake and alert. ASSESSMENT: Shortness of breath Acute on chronic diastolic congestive heart failure Possible pneumonia Acute hypoxic respiratory failure Chronic persistent atrial fibrillation with controlled ventricular rate Supratherapeutic INR Coronary artery disease with previous CABG Abnormal troponins, secondary to chronic kidney disease, not suggestive of acute coronary syndrome Hypertension Hyperlipidemia Chronic kidney disease Anemia Diabetes mellitus Recent fall with hip fracture, status post right shaheen insertion of the right femur Valvular heart disease PLAN: Continue oral Lasix, appears to be having good urine outpt Monitor kidney function. Nephrology following. Accurate I&O Daily weights Continue additional cardiac medications Coumadin was on hold given anemia, no obvious hematochezia or melena, Coumadin restarted 07/04 night. Continue current dosing of metoprolol, currently heart rate appears well controlled. From a cardiology perspective, we will follow the patient as needed. Please reconsult if needed. Patient follow up outpatient with Dr. Oliveira Objective - Vital Signs Vital signs: Vital Signs Temp 98.4 F 07/05/21 12:30 Pulse 86 07/05/21 12:30 Resp 18 07/05/21 12:30 BP 121/67 07/05/21 12:30 Pulse Ox 90 L 07/05/21 12:30 Intake & Output 07/04/21 07/05/21 07/05/21 18:59 06:59 18:59 Intake Total 360 240 Output Total 600 Balance 360 -600 240 Intake: Oral 360 240 Output: Urine 600 Other: Voiding Method Urinal Urinal Urinal Diaper Diaper Diaper - Labs CBC & Chem 7: 07/05/21 08:20 07/05/21 08:20 Labs: Abnormal Lab Results - Last 24 Hours (Table) 07/05/21 07/05/21 07/05/21 Range/Units 08:20 08:20 08:20 RBC 2.42 L (4.30-5.90) m/uL Hgb 7.6 L (13.0-17.5) gm/dL Hct 24.7 L (39.0-53.0) % MCV 102.3 H (80.0-100.0) fL MCHC 30.9 L (31.0-37.0) g/dL RDW 17.6 H (11.5-15.5) % PT 20.6 H (9.0-12.0) sec INR 2.1 H (<1.2) Potassium 5.3 H (3.5-5.1) mmol/L BUN 76 H (9-20) mg/dL Creatinine 3.34 H (0.66-1.25) mg/dL Glucose 124 H (74-99) mg/dL Alkaline Phosphatase 162 H (38-126) U/L Total Protein 6.0 L (6.3-8.2) g/dL Albumin 2.8 L (3.5-5.0) g/dL Microbiology - Last 24 Hours (Table) 07/03/21 13:17 Gram Stain - Preliminary Sputum Sputum Culture - Preliminary Inez albicans Yeast species 07/01/21 11:00 Anaerobic Culture - Final Thigh - Right 06/30/21 17:00 Blood Culture - Preliminary Blood No Growth after 96 hours 06/30/21 16:57 Blood Culture - Preliminary Blood No Growth after 96 hours
--- NOTE | 2021-07-05 15:57 | P.CNPUL ---
History of Present Illness Consult date: 07/05/21 Reason for consult: pneumonia History of present illness: I was asked to evaluate this 85-year-old male patient for an underlying pneumonia and ongoing difficulties in breathing. The patient has multiple medical problems and comorbidities. He is having some cough and a congested cough without ability to produce sputum. Based on that, the patient was given Mucinex 600 mg twice a day and during the course of his illness antibiotics have a modified to include IV meropenem to cover for gram-negative pathogens. The patient is known to have coronary artery disease with previous bypass surgery 4, hypertension, hypertensive heart disease, chronic inflammation/flutter for which the patient is demented on long-term medical condition with warfarin, diabetes mellitus type 2 with diabetic peripheral neuropathy, chronic stage IV kidney disease, obstructive sleep apnea, obesity, CML and history of diverticulosis. The patient had a recent fall and he suffered a left hip fracture and the patient was given a left hip ORIF and during the course of his postsurgical recovery, the patient developed an acute non-ST segment elevation myocardial . The patient was treated medically and the patient was discharged to rehabilitation. During this current admission, the patient considered negative for COVID 19. The chest x-ray at time of admission showed pulmonary vessel congestion and some infiltrates in lung bases bilaterally. She was given IV Lasix. Patient was started also on IV meropenem. The broad-spectrum antibiotics was chosen due to his previous hospitalization and extensive comorbidities. Cultures from the sputum showed Inez. Echocardiogram was repeated during this current admission showed an ejection fraction of 50-55%, mild aortic stenosis, moderate mitral regurgitation, moderate as with regurgitation and moderate degree of portal hypertension. The patient's current hemoglobin is at 7.6. INR is at 2.1. No signs of any bleeding at this point in time. Review of Systems Constitutional: No documented fever, no chills, no night sweats. Positive for weight change. Positive for weakness, fatigue or lethargy. No daytime sleepiness. HEENT: No headache. No blurred vision or double vision, no loss of vision. No loss of Hearing, no ringing in the ears, no dizziness. No nasal drainage or congestion. No epistaxis. No sore throat. Lungs: No shortness of breath, no cough, no sputum production. No wheezing. Reports dyspnea with activity. Cardiovascular: No chest pain, positive for lower extremity edema. positive for palpitations. No paroxysmal nocturnal dyspnea. positive for orthopnea. No lightheadedness or dizziness. No syncopal episodes. Abdominal: Reports abdominal pain. No nausea, vomiting. No diarrhea. No constipation. No bloody or tarry stools reports loss of appetite. Genitourinary: No dysuria, increased frequency, urgency. No urinary retention. Musculoskeletal: No myalgias. positive for muscle weakness, positive for gait dysfunction, positive for frequent falls, positive for back pain and neck pain. Integumentary: positive for stage 3 pressure sores to the posterior aspct of the right thigh and DTI in both heels, positive for nail changes Neurologic: No aphasia. No facial droop. No change in mentation. No head injury. No headache. No paralysis. No paresthesia. Psychiatric: positive for depression. No anxiety. No mood swings. Endocrine: No abnormal blood sugars. No weight change. Past Medical History Past Medical History: Atrial Fibrillation, Atrial Flutter, Coronary Artery Disease (CAD), Cancer, Diabetes Mellitus, GERD/Reflux, Hyperlipidemia, Hypertension, Myocardial Infarction ([place]), Osteoarthritis (OA), Renal Disease, Sleep Apnea/CPAP/BIPAP Additional Past Medical History / Comment(s): KIDNEY DISEASE STAGE 4, NEUROPATHY OF FEET, SLEEP APNEA (NO MACHINE), RLS, HX OF CLOT IN HIS SHOULDER, DIVERTICULOSIS, left adrenal adenoma, renal stone of the right kidney, FREQUENT DIARRHEA, NEW DIAGNOSIS OF CML., STATES ON VIBRAMYCIN FOR UPPER RESPIRATORY INFECTION. Last Myocardial Infarction Date:: 2000 History of Any Multi-Drug Resistant Organisms: VRE Date of last positivie culture/infection: 2011 MDRO Source:: ABD WOUND Past Surgical History: Bladder Surgery, Cholecystectomy, Hernia Repair, Joint Replacement, Orthopedic Surgery Additional Past Surgical History / Comment(s): Hx quadruple bypass, colonoscopy, bilateral cataract surgery. Has shaheen from hip to knee on right side., right ankle plate and screw., Bilateral total knees., exploratory of abd. Past Anesthesia/Blood Transfusion Reactions: No Reported Reaction Past Psychological History: Depression Smoking Status: Former smoker Past Alcohol Use History: None Reported Past Drug Use History: None Reported - Past Family History Mother Family Medical History: AFIB, CVA/TIA, Diabetes Mellitus, Renal Disease Additional Family Medical History / Comment(s): age 88 Father Family Medical History: Pneumonia Additional Family Medical History / Comment(s): age 58 of pneumonia Brother(s) Family Medical History: Coronary Artery Disease (CAD) Son(s) Family Medical History: No Reported History Additional Family Medical History / Comment(s): patient has one son with no major medical problems. Medications and Allergies Home Medications Medication Instructions Recorded Confirmed Type Escitalopram Oxalate [Lexapro] 30 mg PO DAILY 07/13/15 06/30/21 History Loratadine [Claritin] 10 mg PO DAILY 07/13/15 06/30/21 History Pramipexole [Mirapex] 0.25 mg PO BID 07/13/15 06/30/21 History Warfarin [Coumadin] 2.5 mg PO TUTH@1800 07/13/15 06/30/21 History Warfarin [Coumadin] 5 mg PO SUMOWEFRSA@1800 07/13/15 06/30/21 History oxyCODONE HCL/ACETAMINOPHEN 1 tab PO Q6H PRN 07/13/15 06/30/21 History [Percocet 10-325 mg] Omeprazole [PriLOSEC] 20 mg PO DAILY 09/16/16 06/30/21 History busPIRone HCL 10 mg PO BID 09/16/16 06/30/21 History Furosemide [Lasix] 40 mg PO MOWEFR 05/31/18 06/30/21 History Imatinib Mesylate 300 mg PO HS 05/31/18 06/30/21 History Cholecalciferol [Vitamin D3 (25 25 mcg PO BID 06/30/21 06/30/21 History Mcg = 1000 Iu)] Garlic 1 tab PO BID 06/30/21 06/30/21 History Iron 27mg 27 mg PO TID 06/30/21 06/30/21 History Lactobacillus Acidophilus 2 tab PO BID 06/30/21 06/30/21 History [Acidophilus] Metoprolol Tartrate [Lopressor] 25 mg PO BID 06/30/21 06/30/21 History Allergies Allergy/AdvReac Type Severity Reaction Status Date / Time adhesive tape Allergy Rash/Hives Verified 06/30/21 14:13 aztreonam [From Azactam] Allergy Unknown Verified 06/30/21 14:13 cephalexin monohydrate Allergy Rash/Hives Verified 06/30/21 14:13 [From Keflex] ciprofloxacin [From Cipro] Allergy Anaphylaxis Verified 06/30/21 14:13 ciprofloxacin HCl Allergy Anaphylaxis Verified 06/30/21 14:13 [From Cipro] doxycycline Allergy Unknown Verified 06/30/21 14:13 latex Allergy Rash/Hives Verified 06/30/21 14:13 Penicillins Allergy Anaphylaxis Verified 06/30/21 14:13 Sulfa (Sulfonamide Allergy Dyspnea Verified 06/30/21 14:13 Antibiotics) Iodinated Contrast Media AdvReac KIDNEYS Verified 06/30/21 14:13 [Iodinated Contrast- Oral and IV Dye] Physical Exam Vitals: Vital Signs Temp Pulse Pulse Resp BP Pulse Ox 07/05/21 15:40 86 07/05/21 15:32 84 07/05/21 12:30 98.4 F 86 18 121/67 90 L 07/05/21 11:56 82 07/05/21 11:46 80 07/05/21 08:50 98.4 F 94 18 121/67 94 L 07/05/21 08:01 90 07/05/21 07:47 88 07/05/21 04:50 97.8 F 82 18 123/78 97 07/05/21 02:51 16 07/05/21 00:10 97.8 F 67 16 117/62 94 L 07/04/21 20:48 91 07/04/21 20:33 90 07/04/21 20:17 98 F 67 18 130/76 94 L 07/04/21 16:07 88 07/04/21 15:58 88 Intake and Output 07/05/21 07/05/21 07/05/21 06:59 14:59 22:59 Intake Total 480 Output Total 600 Balance -600 480 Intake: Oral 480 Output: Urine 600 Other: Voiding Method Urinal Urinal Diaper Diaper General: 85-year-old male sitting up in bed in no respiratory distress Head exam was generally normal. There was no scleral icterus or corneal arcus. Mucous membranes were moist. HEENT: Head is atraumatic, normocephalic, pupils were equal round reactive to light and recommendation, extraocular muscle movement were intact, sclera nonicteric, conjunctivae were pale, mucous membranes of the mouth are somewhat dry. Neck: Supple, no JVP, decreased carotid upstroke bilaterally, no lymphadenopathy. Chest: Decreased breath sounds at the bases, few rhonchi, minimal expiratory wheezes, no chest wall tenderness no intercostal retractions. Heart: First heart sound is normal, second heart sounds normal irregularly irregular there is systolic ejection murmur 2/6 located in the left sternal border. Abdomen: Soft, nontender, nondistended, positive bowel sounds. Extremities: There is +2 edema no calf tenderness DP +1 bilaterally, bilateral heel deep tissue injury, bilateral hammertoes and nail changes. Neurologic examination: Patient is awake alert and oriented X 3, cranial nerves II-12 appear grossly intact, muscle power were 3 out of 5 in upper extremities and 3 out of 5 in bilateral lower extremities, deep tendon reflexes were depre ssed Results - Laboratory Findings CBC and BMP: 07/05/21 08:20 07/05/21 08:20 PT/INR, D-dimer PT 20.6 sec (9.0-12.0) H 07/05/21 08:20 INR 2.1 (<1.2) H 07/05/21 08:20 Abnormal lab findings: Abnormal Labs 06/30/21 06/30/21 06/30/21 13:19 13:19 13:19 RBC 2.32 L Hgb 7.2 L Hct 23.8 L MCV 102.5 H MCHC 30.3 L RDW 16.8 H Neutrophils # Lymphocytes # 0.5 L PT 39.6 H INR 4.1 H APTT 44.2 H Sodium Potassium 6.0 H BUN 78 H Creatinine 3.33 H Glucose 169 H POC Glucose (mg/dL) Calcium Iron TIBC % Saturation Transferrin Ferritin Alkaline Phosphatase 226 H Troponin I Total Protein Albumin 3.2 L Crossmatch 06/30/21 06/30/21 06/30/21 13:19 16:57 20:39 RBC Hgb Hct MCV MCHC RDW Neutrophils # Lymphocytes # PT INR APTT Sodium Potassium 5.2 H BUN 80 H Creatinine 3.21 H Glucose 47 L* POC Glucose (mg/dL) Calcium Iron TIBC % Saturation Transferrin Ferritin Alkaline Phosphatase Troponin I 0.041 H* 0.048 H* Total Protein Albumin Crossmatch 06/30/21 07/01/21 07/01/21 20:39 08:06 08:06 RBC Hgb Hct MCV MCHC RDW Neutrophils # Lymphocytes # PT 41.8 H INR 4.3 H APTT Sodium Potassium BUN 73 H Creatinine 3.29 H Glucose 122 H POC Glucose (mg/dL) Calcium Iron TIBC % Saturation Transferrin Ferritin Alkaline Phosphatase 218 H Troponin I 0.060 H* Total Protein 6.2 L Albumin 3.0 L Crossmatch 07/01/21 07/01/21 07/02/21 08:06 08:06 06:19 RBC 2.26 L Hgb 6.9 L* Hct 23.6 L MCV 104.6 H MCHC 29.3 L RDW 17.4 H Neutrophils # Lymphocytes # 0.9 L PT INR APTT Sodium Potassium 5.4 H BUN 74 H Creatinine 3.31 H Glucose POC Glucose (mg/dL) Calcium 8.3 L Iron 19 L TIBC 183 L % Saturation 10.58 L Transferrin 131.0 L Ferritin 1262.0 H Alkaline Phosphatase Troponin I Total Protein Albumin Crossmatch 07/02/21 07/02/21 07/02/21 08:29 08:29 11:30 RBC 2.06 L Hgb 6.5 L* Hct 21.5 L MCV 104.4 H MCHC 30.2 L RDW 17.3 H Neutrophils # Lymphocytes # PT 35.6 H INR 3.7 H APTT Sodium Potassium BUN Creatinine Glucose POC Glucose (mg/dL) Calcium Iron TIBC % Saturation Transferrin Ferritin Alkaline Phosphatase Troponin I Total Protein Albumin Crossmatch See Detail 07/02/21 07/03/21 07/03/21 18:28 08:37 08:55 RBC 2.39 L Hgb 7.4 L Hct 24.6 L MCV 102.9 H MCHC 30.1 L RDW 18.1 H Neutrophils # Lymphocytes # PT 26.7 H INR 2.8 H APTT Sodium Potassium 5.4 H BUN Creatinine Glucose POC Glucose (mg/dL) Calcium Iron TIBC % Saturation Transferrin Ferritin Alkaline Phosphatase Troponin I Total Protein Albumin Crossmatch 07/03/21 07/04/21 07/04/21 08:55 09:31 09:31 RBC 2.41 L Hgb 7.2 L Hct 24.3 L MCV 100.7 H MCHC 29.7 L RDW 17.7 H Neutrophils # 7.8 H Lymphocytes # PT INR APTT Sodium 136 L Potassium 5.2 H BUN 77 H 77 H Creatinine 3.28 H 3.42 H Glucose 143 H 125 H POC Glucose (mg/dL) Calcium 8.3 L 8.1 L Iron TIBC % Saturation Transferrin Ferritin Alkaline Phosphatase 166 H 166 H Troponin I Total Protein 5.9 L 6.0 L Albumin 2.9 L 2.8 L Crossmatch 07/04/21 07/04/21 07/05/21 09:31 11:32 08:20 RBC Hgb Hct MCV MCHC RDW Neutrophils # Lymphocytes # PT 20.7 H INR 2.1 H APTT Sodium Potassium 5.3 H BUN 76 H Creatinine 3.34 H Glucose 124 H POC Glucose (mg/dL) 132 H Calcium Iron TIBC % Saturation Transferrin Ferritin Alkaline Phosphatase 162 H Troponin I Total Protein 6.0 L Albumin 2.8 L Crossmatch 07/05/21 07/05/21 08:20 08:20 RBC 2.42 L Hgb 7.6 L Hct 24.7 L MCV 102.3 H MCHC 30.9 L RDW 17.6 H Neutrophils # Lymphocytes # PT 20.6 H INR 2.1 H APTT Sodium Potassium BUN Creatinine Glucose POC Glucose (mg/dL) Calcium Iron TIBC % Saturation Transferrin Ferritin Alkaline Phosphatase Troponin I Total Protein Albumin Crossmatch - Diagnostic Findings Chest x-ray: image reviewed Assessment and Plan Plan: 1 acute hypoxic respiratory failure, suspect lower lobe pneumonia with limited by the pulmonary infiltrates and a congested cough. She is covered with IV meropenem. There was a component of CHF with diastolic failure, admission for which the patient was given diuretics 2 COPD 3 chronic diastolic heart failure 4 coronary artery disease with recent non-STEMI. 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 I will think would benefit from DuoNeb nebulized treatments around the clock and I will going to add Solu Medrol 4 mg every 8 hours Monitor the blood sugar and cover the patient was placed in coverage Continue IV meropenem Sputum sample is showing Inez which may be related to oropharyngeal colonization with Inez elements. May benefit from nystatin Mucous membranes are extremely dry and the patient will be given. Humidity so the oxygen source Continue warfarin and monitor the PT/INR Long-term prognosis poor baseline above-mentioned comorbidities.
[2021-07-05] MEDS: WARFARIN 2 MG TAB PO SCH (17:02)
[2021-07-06] MEDS: PANTOPRAZOLE 40 MG TABLET PO SCH (06:29)
[2021-07-06 07:38] LABS: Anisocytosis Slight; HCT 25.9 % (39.0-53.0); HGB 7.9 gm/dL (13.0-17.5); Hypochromasia Marked; MCH 31.1 pg (25.0-35.0); MCHC 30.6 g/dL (31.0-37.0); MCV 101.7 fL (80.0-100.0); Macrocytosis Moderate; Platelet Count 315 k/uL (150-450); RBC 2.55 m/uL (4.30-5.90); RDW 17.2 % (11.5-15.5); WBC 4.9 k/uL (3.8-10.6)
[2021-07-06 07:49] LABS: Calcium 8.6 mg/dL (8.4-10.2); Potassium 5.5 mmol/L (3.5-5.1); Total Bilirubin 0.6 mg/dL (0.2-1.3); Total Protein 6.4 g/dL (6.3-8.2)
[2021-07-06 07:50] LABS: INR 2.9 (<1.2)
[2021-07-06 07:51] LABS: Prothrombin Time 28.1 sec (9.0-12.0)
[2021-07-06] MEDS: LACTOBACILLUS ACIDOPH & BULGAR 1 EACH PACKET PO SCH ×2 (08:06→20:30)
[2021-07-06] MEDS: CHOLECALCIFEROL 25 MCG (1000 IU) TABLET PO SCH ×2 (08:06→20:31)
[2021-07-06] MEDS: methylPREDNISolone SOD SUCCI 40 MG/ML 1 ML VIAL IV SCH (08:07)
[2021-07-06] MEDS: ESCITALOPRAM 10 MG TAB PO SCH (08:07)
[2021-07-06] MEDS: MEROPENEM 1 GM in SODIUM CHLORIDE 0.9% 100 ML IVPB SCH ×2 (08:07→20:31)
[2021-07-06] MEDS: PRAMIPEXOLE 0.25 MG TAB PO SCH ×2 (08:07→20:31)
[2021-07-06] MEDS: METOPROLOL TARTRATE 50 MG TAB PO SCH ×3 (08:07→20:31)
[2021-07-06] MEDS: guaiFENesin 600 MG TABLET.ER PO SCH ×2 (08:07→23:37)
[2021-07-06] MEDS: FUROSEMIDE 40 MG TAB PO SCH ×2 (08:07→15:58)
[2021-07-06] MEDS: FERROUS SULFATE 325 MG TAB PO SCH ×3 (08:07→20:31)
[2021-07-06] MEDS: LORATADINE 10 MG TAB PO SCH (08:07)
[2021-07-06] MEDS: busPIRone HCl 10 MG TAB PO SCH ×2 (08:07→20:31)
[2021-07-06] MEDS: HYDROPHILIC CREAM 180 GM TUBE TOPICAL SCH (08:08)
[2021-07-06] MEDS: BUDESONIDE 1 MG/2 ML NEBU INHALATION SCH ×2 (08:11→19:55)
[2021-07-06] MEDS: IPRATROPIUM-ALBUTEROL 3 ML NEB INHALATION SCH ×4 (08:11→19:55)
--- NOTE | 2021-07-06 11:56 | P.PN ---
Subjective Patient is seen in follow-up for acute kidney injury on chronic kidney disease. Patient has chronic kidney disease stage IV with baseline creatinine in the range of 2.6-2.8. Renal function improved. Has been voiding. Denies chest pain or shortness of breath. On 2 L nasal cannula. On po Lasix. Denies any active bleeding. Received unit of blood 07/02/2021. Hemoglobin stable today. Vital signs are stable. General: On nasal cannula. HEENT: Head exam is unremarkable. LUNGS: Breath sounds decreased. HEART: Tachycardic. ABDOMEN: Soft, no distention. EXTREMITITES: Trace edema. Chronic changes noted. Objective - Vital Signs Vital signs: Vital Signs Temp 98.2 F 07/06/21 08:27 Pulse 100 07/06/21 08:27 Resp 18 07/06/21 08:27 BP 126/68 07/06/21 08:27 Pulse Ox 96 07/06/21 08:27 Intake & Output 07/05/21 07/06/21 07/06/21 18:59 06:59 18:59 Intake Total 598 240 240 Balance 598 240 240 Intake: Oral 598 240 240 Other: Voiding Method Urinal Urinal Urinal Diaper Diaper Diaper - Labs CBC & Chem 7: 07/06/21 07:23 07/06/21 07:08 Labs: Abnormal Lab Results - Last 24 Hours (Table) 07/06/21 07/06/21 07/06/21 Range/Units 07:08 07:08 07:23 RBC 2.55 L (4.30-5.90) m/uL Hgb 7.9 L (13.0-17.5) gm/dL Hct 25.9 L (39.0-53.0) % MCV 101.7 H (80.0-100.0) fL MCHC 30.6 L (31.0-37.0) g/dL RDW 17.2 H (11.5-15.5) % PT 28.1 H (9.0-12.0) sec INR 2.9 H (<1.2) Potassium 5.5 H (3.5-5.1) mmol/L BUN 75 H (9-20) mg/dL Creatinine 3.07 H (0.66-1.25) mg/dL Glucose 167 H (74-99) mg/dL Alkaline Phosphatase 166 H (38-126) U/L Albumin 3.0 L (3.5-5.0) g/dL Microbiology - Last 24 Hours (Table) 07/03/21 13:17 Gram Stain - Final Sputum Sputum Culture - Final Inez albicans Inez glabrata 06/30/21 17:00 Blood Culture - Preliminary Blood No Growth after 120 hours 06/30/21 16:57 Blood Culture - Preliminary Blood No Growth after 120 hours 07/01/21 11:00 Anaerobic Culture - Final Thigh - Right Assessment and Plan Plan: Assessment: 1. Acute kidney injury secondary to ATN secondary to cardiorenal syndrome. Renal function better. Creatinine 3.07 today. UA benign. No hydronephrosis noted on kidney ultrasound. 2. Chronic kidney disease stage IV with baseline creatinine in the range of 2.6-2.8 secondary to nephrosclerosis. Patient has a mature right upper extremity AV fistula which has not been used. He follows with historical guide out of [place], [place]. 3. History of coronary disease status post CABG. 4. Hyperkalemia secondary to acute kidney injury and ?GI bleed. Stable. 5. Volume overload. Improved with diuresis. 6. Possible pneumonia on antibiotics. 7. Acute on chronic diastolic CHF with moderate mitral regurgitation and mild to moderate tricuspid regurgitation and pulmonary hypertension. 8. History of A. fib. 9. CML. 10. Acute blood loss anemia with component of chronic kidney disease. Denies active bleeding. On Aranesp. Status post blood transfusion 07/02/2021. Plan: Maintain oral Lasix. Avoid nephrotoxins. Continue to monitor renal function and urine output. Add daily lokelma.
[2021-07-06 12:03] LABS: Glucose,Whole Blood 193 mg/dL (75-99)
[2021-07-06] MEDS: methylPREDNISolone SOD SUCCI 125 MG/2 ML VIAL IV SCH ×3 (12:20→23:34)
[2021-07-06] MEDS: FLUCONAZOLE IN NACL,ISO-OSM 100 MG in SALINE 1 50ML.BAG IVPB SCH (12:20)
[2021-07-06] MEDS: INSULIN ASPART (NovoLOG) 100 UNIT/ML VIAL SQ SCH ×3 (12:20→23:37)
[2021-07-06] MEDS: SODIUM ZIRCONIUM CYCLOSILICATE 10 GM PACKET PO SCH (12:21)
--- NOTE | 2021-07-06 12:33 | P.PN ---
Subjective Progress Note Date: 07/06/21 HISTORY OF PRESENT ILLNESS: This is an 85-year-old male patient of Dr. sparks with a previous [facility] significant for CAD post CABG x4, hypertension and hypertensive cardiovascular disease, chronic atrial flutter/fibrillation on chronic Coumadin, diabetes mellitus type 2 with diabetic polyneuropathy, chronic kidney disease stage IV, obesity with obstructive sleep apnea, hypogonadism, di verticulosis, GERD with hiatal hernia, left adrenal adenoma, CML, patient fell on 05/28/2021 in his home kitchen and landed on his right side of the hip after he lost his balance suffered from severe pain he was found to have a left hip fracture he ended up going to [facility] where he underwent removal of the hardware of the right femur including the plates and screws and he had a long shaheen placed and his entire femur into the hip area successfully he developed to have a non-ST elevation myocardial infarction when he was there along with chronic diastolic heart failure he was seen by cardiology over there Dr. Jackson apparently was cleared for surgery and the patient had a surgery on 05/31/2021 after that patient was referred to rehab facility and [facility] area and he was just released last to come back home with significant sores on his right thigh as well as bilateral heel deep tissue injury, patient was supposed to come and see him in the office today however he was not able template at all he was feeling increased shortness of breath associated with increased coughing and yellow from production, so his called EMS and the patient was brought into the ER at [facility] for evaluation his chest x-ray showed pulmonary vascular congestion and possible atypical pneumonia his COVID-19 swab PCR came back negative, patient was started on Lasix 60 mg IV push in the ER that he was placed on 40 mg IV push every 12 hours, patient also was started on meropenem 1 g IV piggyback every 12 hours because of his multiple ALLERGIES and possible gram-negative pneumonia. 07/01: Pulse ox is 97% on 2 L nasal cannula, patient afebrile, blood pressure 110/50, heart rate 83. Repeat blood work results are pending. Patient is continued on Lasix 40 mg IV twice daily, nebulizer treatments, meropenem. Consults in place with Cardiology, Nephrology and Wound Team. Breathing is improved from yesterday. 07/02: Patient complains of sputum that is rattling in his chest unable to bring it up. He continues to have cough. Heart rate 115. Echocardiogram reveals EF of 50-55%, mild aortic valve stenosis, moderate mitral regurgitation, [id number] tricuspid regurgitation and mild to moderate pulmonary hypertension. Patient has been seen by cardiology and acute coronary syndrome has been ruled out, elevated troponin secondary to chronic kidney disease. Hemoglobin is 6.5. Potassium 5.4, BUN 74 and creatinine 3.31. Repeat INR is 3.7. She has been seen by the wound Center with plan for triad on the left posterior thigh wound and offload bilateral heels. Nephrology is planning to maintain IV Lasix, transfuse 1 unit of blood avoid nephrotoxins, check stool for occult blood. Dr. Leung has evaluated and patient is not candidate for inpatient rehab. Discharge plan will be subacute rehab at [facility] or [facility] next week. 07/03: Patient is feeling weak today, he did receive 1 unit of packed her vessels yesterday, his hemoglobin still pending at the time of dictation, he was seen in consultation by physical therapy and rehabilitation, he was deemed inappropriate for inpatient rehab in addition however he will need to go for subacute rehab the patient at [facility]. Patient is complaining of some coughing minimal from production, he denies any hemoptysis, he has no bloody bowel movement, no apparent signs of bleeding, his hemoglobin dropped yesterday to 6.5, he is receiving Aranesp, he is maintained on iron, we will continue to follow the patient very closely. 07/04: Patient continues to have a significant coughing not able to bring up any phlegm, he is a bit short of breath today, we will add Mucinex 600 mg orally twice every day, consult pulmonary medicine for further evaluation and recommendation, and continue to monitor the patient very closely, his hemoglobin is down to 7.2, no evidence of GI bleed at this time, continue with iron, continue with Aranesp, monitor the patient very closely. 07/05: Patient is laying unabated continue to have significant cough, not able to bring up any phlegm, he continues to be somewhat short of breath, he continues to be anemic, he has been followed by pulmonary as well as cardiology along with nephrology, patient is currently on Mucinex 600 mg orally twice every day along with IV antibiotic in the form of meropenem, we'll continue to follow the patient very closely. Continue with physical therapy evaluation likely will go to [facility] in the next 1 or 2 days. 07/06: Patient states that he feels about the same from yesterday. He states he stood in his room yesterday but he is needing significant help and subacute rehab is recommended. [facility] will consider taking the patient except for the cost of Imtinib. We will recheck the Dr. Jacobsen's. The patient can be off this medication while at rehab. Lungs sound worse today with a significant amount of sputum production. Solu-medrol increased to 60 mg q 6hr. Sputum culture is positive for Inez and Diflucan started. Repeat blood work reveals WBC 4.9, hemoglobin 7.9. Sodium 137, potassium 5.5, chloride 104, CO2 25, BUN 75 and creatinine 3.07. Blood sugars 193. Alkaline phosphatase 166. Nephro protein supplement added. REVIEW OF SYSTEMS: Constitutional: No documented fever, no chills, no night sweats. Positive for weight change. Positive for weakness, fatigue or lethargy. No daytime sleepiness. HEENT: No headache. No blurred vision or double vision, no loss of vision. No loss of Hearing, no ringing in the ears, no dizziness. No nasal drainage or congestion. No epistaxis. No sore throat. Lungs: No shortness of breath, no cough, no sputum production. No wheezing. Reports dyspnea with activity. Cardiovascular: No chest pain, positive for lower extremity edema. positive for palpitations. No paroxysmal nocturnal dyspnea. positive for orthopnea. No lightheadedness or dizziness. No syncopal episodes. Abdominal: Reports abdominal pain. No nausea, vomiting. No diarrhea. No constipation. No bloody or tarry stools reports loss of appetite. Genitourinary: No dysuria, increased frequency, urgency. No urinary retention. Musculoskeletal: No myalgias. positive for muscle weakness, positive for gait dysfunction, positive for frequent falls, positive for back pain and neck pain. Integumentary: positive for stage 3 pressure sores to the posterior aspct of the right thigh and DTI in both heels, positive for nail changes Neurologic: No aphasia. No facial droop. No change in mentation. No head injury. No headache. No paralysis. No paresthesia. Psychiatric: positive for depression. No anxiety. No mood swings. Endocrine: No abnormal blood sugars. PHYSICAL EXAMINATION: General: 85-year-old male sitting up in bed in mild respiratory distress HEENT: Head is atraumatic, normocephalic, pupils were equal round reactive to light and recommendation, extraocular muscle movement were intact, sclera nonicteric, conjunctivae were pale, mucous membranes of the mouth are somewhat dry. Neck: Supple, no JVP, decreased carotid upstroke bilaterally, no lymphadenopathy. Chest: Decreased breath sounds at the bases, bilat rhonchi, minimal expiratory wheezes, no chest wall tenderness no intercostal retractions. Heart: First heart sound is normal, second heart sounds normal irregularly irregular there is systolic ejection murmur 2/6 located in the left sternal border. Abdomen: Soft, nontender, nondistended, positive bowel sounds. Extremities: There is +2 edema no calf tenderness DP +1 bilaterally, bilateral heel deep tissue injury, bilateral hammertoes and nail changes. Neurologic examination: Patient is awake alert and oriented X 3, cranial nerves II-12 appear grossly intact, muscle power were 3 out of 5 in upper extremities and 3 out of 5 in bilateral lower extremities, deep tendon reflexes were depressed ASSESSMENT AND PLAN: 1. Acute hypoxemic respiratory failure due to acute diastolic heart failure with possible gram-negative pneumonia. Continue Lasix 40 mg oral every 12 hours, meropenem 1 g IV piggyback every 12 hours, sputum culture, blood culture, monitor input and output and daily weight, and pulmonary consultation, add Mucinex 600 mg orally twice every day. Solu-medrol increased to 60 mg q 6hr. 2. Possible gram-negative pneumonia. Continue patient on Pulmicort 1 mg neb ulization twice every day, DuoNeb 3 mg 4 times every day, oxygen support, continue patient on meropenem 1 g IV piggyback every 12 hours, pulmonary consultation appreciated. 3. Multiple stage II pressure ulcer behind the right thigh and deep tissue injury in both heels. continue local wound care the thigh and skin prep for the heels with floating the heels daily, swab the pressure sores for aerobic and anaerobic cultures. 4. Recent fall with Hip fracture status post right shaheen insertion of the right femur with removal of the old hardware. Consult physical therapy, continue current pain management. 5. Recent non-ST elevation myocardial infarction. Continue patient on metoprolol orally twice every day, continue aspirin 81 mg once every day. 6. Acute diastolic heart failure. Continue metoprolol 25 mg orally twice every day, continue Lasix 40 mg oral every 12 hours, monitor input and output and daily weight obtain the result of Echocardiogram from [facility]. 7. Diabetes mellitus type II with diabetic polyneuropathy currently off medications. 8. Chronic kidney disease stage IV. Monitor patient input and output and daily weight and avoid nephrotoxins. Nephrology consultation. 9. Hyperkalemia. Patient did receive 1 amp of D50 along with insulin he will receive calcium gluconate 1 g IV piggyback 1. Repeat potassium this evening. 10. Chronic myelogenous leukemia. Continue with Imatinib 300 mg orally daily. 11. Acute blood loss anemia on Anemia of chronic kidney disease. Continue iron supplement , type and cross and transfuse 1 unit of PRBCs yesterday 12. Restless leg syndrome. Continue Mirapex 0.25 mg orally twice every day. 13. Major depressive disorder. Continue patient on Lexapro 30 mg orally once every day. 14. Generalized anxiety disorder. Continue with SSRI as well as BuSpar 10 mg orally twice every day. 15. Chronic atrial fibrillation. Continue patient on metoprolol 25 mg orally twice every day, Coumadin. 16. Coagulopathy. Coumadinresumed. INR tomorrow morning. 17. CAD post CABG 4 with a recent non-ST elevation myocardial infarction. Continue metoprolol 25 mg orally twice every day, aspirin 81 mg once every day. 18. GERD with hiatal hernia. Continue Protonix 40 mg orally once every day. 19. Chronic pain syndrome. Continue Percocet 10/325 mg one tablet orally 4 times every day. 20. DVT prophylaxis. Currently on Coumadin. 21. GI prophylaxis. Continue PPI. 22. Medical debility. Physical therapy evaluation. Full code. DISCHARGE PLAN Subacute rehab at [facility] on Monday/ Impression and plan of care have been directed as dictated by the signing physician. Juli Luna nurse practitioner acting as scribe for signing physician. Objective - Vital Signs Vital signs: Vital Signs Temp 98.2 F 07/06/21 08:27 Pulse 100 07/06/21 08:27 Resp 18 07/06/21 08:27 BP 126/68 01/11/22 08:27 Pulse Ox 96 07/06/21 08:27 Intake & Output 07/05/21 07/06/21 07/06/21 18:59 06:59 18:59 Intake Total 598 240 240 Balance 598 240 240 Intake: Oral 598 240 240 Other: Voiding Method Urinal Urinal Urinal Diaper Diaper Diaper - Labs CBC & Chem 7: 07/06/21 07:23 07/06/21 07:08 Labs: Abnormal Lab Results - Last 24 Hours (Table) 07/06/21 07/06/21 07/06/21 Range/Units 07:08 07:08 07:23 RBC 2.55 L (4.30-5.90) m/uL Hgb 7.9 L (13.0-17.5) gm/dL Hct 25.9 L (39.0-53.0) % MCV 101.7 H (80.0-100.0) fL MCHC 30.6 L (31.0-37.0) g/dL RDW 17.2 H (11.5-15.5) % PT 28.1 H (9.0-12.0) sec INR 2.9 H (<1.2) Potassium 5.5 H (3.5-5.1) mmol/L BUN 75 H (9-20) mg/dL Creatinine 3.07 H (0.66-1.25) mg/dL Glucose 167 H (74-99) mg/dL POC Glucose (mg/dL) (75-99) mg/dL Alkaline Phosphatase 166 H (38-126) U/L Albumin 3.0 L (3.5-5.0) g/dL 07/06/21 Range/Units 12:01 RBC (4.30-5.90) m/uL Hgb (13.0-17.5) gm/dL Hct (39.0-53.0) % MCV (80.0-100.0) fL MCHC (31.0-37.0) g/dL RDW (11.5-15.5) % PT (9.0-12.0) sec INR (<1.2) Potassium (3.5-5.1) mmol/L BUN (9-20) mg/dL Creatinine (0.66-1.25) mg/dL Glucose (74-99) mg/dL POC Glucose (mg/dL) 193 H (75-99) mg/dL Alkaline Phosphatase (38-126) U/L Albumin (3.5-5.0) g/dL Microbiology - Last 24 Hours (Table) 07/03/21 13:17 Gram Stain - Final Sputum Sputum Culture - Final Inez albicans Inez glabrata 06/30/21 17:00 Blood Culture - Preliminary Blood No Growth after 120 hours 06/30/21 16:57 Blood Culture - Preliminary Blood No Growth after 120 hours 07/01/21 11:00 Anaerobic Culture - Final Thigh - Right
--- NOTE | 2021-07-06 14:43 | P.PN ---
Subjective Progress Note Date: 07/06/21 I was asked to evaluate this 85-year-old male patient for an underlying pneumonia and ongoing difficulties in breathing. The patient has multiple medical problems and comorbidities. He is having some cough and a congested cough without ability to produce sputum. Based on that, the patient was given Mucinex 600 mg twice a day and during the course of his illness antibiotics have a modified to include IV meropenem to cover for gram-negative pathogens. The patient is known to have coronary artery disease with previous bypass surgery 4, hypertension, hypertensive heart disease, chronic inflammation/flutter for which the patient is demented on long-term medical condition with warfarin, diabetes mellitus type 2 with diabetic peripheral neuropathy, chronic stage IV kidney disease, obstructive sleep apnea, obesity, CML and history of diverticulosis. The patient had a recent fall and he suffered a left hip fracture and the patient was given a left hip ORIF and during the course of his postsurgical recovery, the patient developed an acute non-ST segment elevation myocardial . The patient was treated medically and the patient was discharged to rehabilitation. During this current admission, the patient considered negative for COVID 19. The chest x-ray at time of admission showed pulmonary vessel congestion and some infiltrates in lung bases bilaterally. She was given IV Lasix. Patient was started also on IV meropenem. The broad-spectrum antibiotics was chosen due to his previous hospitalization and extensive comorbidities. Cultures from the sputum showed Inez. Echocardiogram was repeated during this current admission showed an ejection fraction of 50-55%, mild aortic stenosis, moderate mitral regurgitation, moderate as with regurgitation and moderate degree of portal hypertension. The patient's current hemoglobin is at 7.6. INR is at 2.1. No signs of any bleeding at this point in time. On today's evaluation of 07/06/2021, the patient is being seen for a follow-up. The patient is still having congested cough. Limited from a since yesterday. Remainder IV meropenem. Start the patient on DuoNeb neb last treatment schedule [id number] 4 times a day and the patient is also started on IV Solu- Medrol. The patient remains on IV meropenem. The patient is is not PRODUCING any significant complaints otherwise. He is afebrile. His hemodynamics is stable. The patient has a white cell count of 4.9 with a hemoglobin of 7.9 and platelets of 315. INR from today is at 2.9. This is within therapeutic range. The patient's has no other new complaints otherwise for now. Essentially bedridden. He has multiple medical problems and coronary disease as mentioned above. Objective - Vital Signs Vital signs: Vital Signs Temp 98.2 F 07/06/21 08:27 Pulse 95 07/06/21 12:27 Resp 18 07/06/21 08:27 BP 126/68 07/06/21 08:27 Pulse Ox 96 07/06/21 08:27 Intake & Output 07/05/21 07/06/21 07/06/21 18:59 06:59 18:59 Intake Total 598 240 240 Balance 598 240 240 Intake: Oral 598 240 240 Other: Voiding Method Urinal Urinal Urinal Diaper Diaper Diaper - Exam General: 85-year-old male sitting up in bed in no respiratory distress Head exam was generally normal. There was no scleral icterus or corneal arcus. Mucous membranes were moist. HEENT: Head is atraumatic, normocephalic, pupils were equal round reactive to light and recommendation, extraocular muscle movement were intact, sclera nonicteric, conjunctivae were pale, mucous membranes of the mouth are somewhat dry. Neck: Supple, no JVP, decreased carotid upstroke bilaterally, no lymphadenopathy. Chest: Decreased breath sounds at the bases, few rhonchi, minimal expiratory wheezes, no chest wall tenderness no intercostal retractions. Heart: First heart sound is normal, second heart sounds normal irregularly irregular there is systolic ejection murmur 2/6 located in the left sternal border. Abdomen: Soft, nontender, nondistended, positive bowel sounds. Extremities: There is +2 edema no calf tenderness DP +1 bilaterally, bilateral heel deep tissue injury, bilateral hammertoes and nail changes. Neurologic examination: Patient is awake alert and oriented X 3, cranial nerves II-12 appear grossly intact, muscle power were 3 out of 5 in upper extremities and 3 out of 5 in bilateral lower extremities, deep tendon reflexes were depres sed - Labs CBC & Chem 7: 07/06/21 07:23 07/06/21 07:08 Labs: Abnormal Lab Results - Last 24 Hours (Table) 07/06/21 07/06/21 07/06/21 Range/Units 07:08 07:08 07:23 RBC 2.55 L (4.30-5.90) m/uL Hgb 7.9 L (13.0-17.5) gm/dL Hct 25.9 L (39.0-53.0) % MCV 101.7 H (80.0-100.0) fL MCHC 30.6 L (31.0-37.0) g/dL RDW 17.2 H (11.5-15.5) % PT 28.1 H (9.0-12.0) sec INR 2.9 H (<1.2) Potassium 5.5 H (3.5-5.1) mmol/L BUN 75 H (9-20) mg/dL Creatinine 3.07 H (0.66-1.25) mg/dL Glucose 167 H (74-99) mg/dL POC Glucose (mg/dL) (75-99) mg/dL Alkaline Phosphatase 166 H (38-126) U/L Albumin 3.0 L (3.5-5.0) g/dL 07/06/21 Range/Units 12:01 RBC (4.30-5.90) m/uL Hgb (13.0-17.5) gm/dL Hct (39.0-53.0) % MCV (80.0-100.0) fL MCHC (31.0-37.0) g/dL RDW (11.5-15.5) % PT (9.0-12.0) sec INR (<1.2) Potassium (3.5-5.1) mmol/L BUN (9-20) mg/dL Creatinine (0.66-1.25) mg/dL Glucose (74-99) mg/dL POC Glucose (mg/dL) 193 H (75-99) mg/dL Alkaline Phosphatase (38-126) U/L Albumin (3.5-5.0) g/dL Microbiology - Last 24 Hours (Table) 07/03/21 13:17 Gram Stain - Final Sputum Sputum Culture - Final Inez albicans Inez glabrata 06/30/21 17:00 Blood Culture - Preliminary Blood No Growth after 120 hours 06/30/21 16:57 Blood Culture - Preliminary Blood No Growth after 120 hours 07/01/21 11:00 Anaerobic Culture - Final Thigh - Right Assessment and Plan Plan: 1 acute hypoxic respiratory failure, suspect lower lobe pneumonia with limited by the pulmonary infiltrates and a congested cough. She is covered with IV meropenem. There was a component of CHF with diastolic failure, admission for which the patient was given diuretics and the patient remains on oxygen at 2 L per minute nasal cannula with a pulse of 76%. 2 COPD 3 chronic diastolic heart failure 4 coronary artery disease with recent non-STEMI. 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 on outpatient basis 9 chronic anemia/anemia of chronic disease 10 chronic atrial fibrillation within a long-term and coagulation with warfarin with a therapeutic PT/INR 11 multiple stage II pressure ulcers involving the right thigh and deep tissue injury involving the heels Plan Continue same treatment Continue bronchodilators and steroids and antibiotics. The patient can be placed on a prednisone burst at bedtime of discharge. On today's evaluation his last bronchus spastic and wheezy. Sputum sample is showing Inez which may be related to oropharyngeal colonization with Inez elements. May benefit from nystatin Mucous membranes are extremely dry and the patient will be given. Humidity will be added oxygen. Continue warfarin and monitor the PT/INR, level is therapeutic with an INR of 2.9 Long-term prognosis poor baseline above-mentioned comorbidities. Subacute rehabilitation at [facility] in on the day. Pulmonary critical care services we'll sign off of the case.
[2021-07-06 17:40] LABS: Glucose,Whole Blood 232 mg/dL (75-99)
[2021-07-06] MEDS: oxyCODONE-APAP 10-325MG 1 EACH TAB PO PRN (17:46)
[2021-07-06] MEDS ORDERED: WARFARIN 2 MG TAB PO ONE (18:00)
[2021-07-06 20:43] LABS: Glucose,Whole Blood 215 mg/dL (75-99)
[2021-07-07] MEDS: oxyCODONE-APAP 10-325MG 1 EACH TAB PO PRN ×2 (03:49→16:31)
[2021-07-07 06:09] LABS: Glucose,Whole Blood 173 mg/dL (75-99)
[2021-07-07] MEDS: PANTOPRAZOLE 40 MG TABLET PO SCH (06:12)
[2021-07-07] MEDS: methylPREDNISolone SOD SUCCI 125 MG/2 ML VIAL IV SCH (06:12)
[2021-07-07] MEDS: INSULIN ASPART (NovoLOG) 100 UNIT/ML VIAL SQ SCH ×4 (06:12→20:50)
--- NOTE | 2021-07-07 07:10 | P.PN ---
Progress Note - Text Therapy notes reviewed and patinet still with poor endurance. Requires 2 person assist for any mobility. total assist [place] dress, bathing, toileting. Still not ready for IPR.
[2021-07-07] MEDS: BUDESONIDE 1 MG/2 ML NEBU INHALATION SCH ×2 (07:46→19:38)
[2021-07-07] MEDS: IPRATROPIUM-ALBUTEROL 3 ML NEB INHALATION SCH ×4 (07:46→19:38)
[2021-07-07] MEDS ORDERED: NA PHOS,M-B/NA PHOS,DI-BA 133 ML ENEMA RECTAL ONE (08:12)
[2021-07-07 08:32] LABS: Calcium 8.8 mg/dL (8.4-10.2); Potassium 4.9 mmol/L (3.5-5.1)
[2021-07-07 08:42] LABS: INR 3.5 (<1.2); Prothrombin Time 33.5 sec (9.0-12.0)
--- NOTE | 2021-07-07 08:44 | P.PN ---
Subjective Progress Note Date: 07/07/21 HISTORY OF PRESENT ILLNESS: This is an 85-year-old male patient of Dr. sparks with a previous [facility] history significant for CAD post CABG x4, hypertension and hypertensive cardiovascular disease, chronic atrial flutter/fibrillation on chronic Coumadin, diabetes mellitus type 2 with diabetic polyneuropathy, chronic kidney disease stage IV, obesity with obstructive sleep apnea, hypogonadism, di verticulosis, GERD with hiatal hernia, left adrenal adenoma, CML, patient fell on 05/28/2021 in his home kitchen and landed on his right side of the hip after he lost his balance suffered from severe pain he was found to have a left hip fracture he ended up going to [facility] where he underwent removal of the hardware of the right femur including the plates and screws and he had a long shaheen placed and his entire femur into the hip area successfully he developed to have a non-ST elevation myocardial infarction when he was there along with chronic diastolic heart failure he was seen by cardiology over there Dr. Jackson apparently was cleared for surgery and the patient had a surgery on 05/31/2021 after that patient was referred to rehab facility and [facility] area and he was just released last to come back home with significant sores on his right thigh as well as bilateral heel deep tissue injury, patient was supposed to come and see him in the office today however he was not able template at all he was feeling increased shortness of breath associated with increased coughing and yellow from production, so his called EMS and the patient was brought into the ER at [facility] for evaluation his chest x-ray showed pulmonary vascular congestion and possible atypical pneumonia his COVID-19 swab PCR came back negative, patient was started on Lasix 60 mg IV push in the ER that he was placed on 40 mg IV push every 12 hours, patient also was started on meropenem 1 g IV piggyback every 12 hours because of his multiple ALLERGIES and possible gram-negative pneumonia. 07/01: Pulse ox is 97% on 2 L nasal cannula, patient afebrile, blood pressure 110/50, heart rate 83. Repeat blood work results are pending. Patient is continued on Lasix 40 mg IV twice daily, nebulizer treatments, meropenem. Consults in place with Cardiology, Nephrology and Wound Team. Breathing is improved from yesterday. 07/02: Patient complains of sputum that is rattling in his chest unable to bring it up. He continues to have cough. Heart rate 115. Echocardiogram reveals EF of 50-55%, mild aortic valve stenosis, moderate mitral regurgitation, [id number] tricuspid regurgitation and mild to moderate pulmonary hypertension. Patient has been seen by cardiology and acute coronary syndrome has been ruled out, elevated troponin secondary to chronic kidney disease. Hemoglobin is 6.5. Potassium 5.4, BUN 74 and creatinine 3.31. Repeat INR is 3.7. She has been seen by the wound Center with plan for triad on the left posterior thigh wound and offload bilateral heels. Nephrology is planning to maintain IV Lasix, transfuse 1 unit of blood avoid nephrotoxins, check stool for occult blood. Dr. Leung has evaluated and patient is not candidate for inpatient rehab. Discharge plan will be subacute rehab at [facility] or [facility] next week. 07/03: Patient is feeling weak today, he did receive 1 unit of packed her vessels yesterday, his hemoglobin still pending at the time of dictation, he was seen in consultation by physical therapy and rehabilitation, he was deemed inappropriate for inpatient rehab in addition however he will need to go for subacute rehab the patient at [facility]. Patient is complaining of some coughing minimal from production, he denies any hemoptysis, he has no bloody bowel movement, no apparent signs of bleeding, his hemoglobin dropped yesterday to 6.5, he is receiving Aranesp, he is maintained on iron, we will continue to follow the patient very closely. 07/04: Patient continues to have a significant coughing not able to bring up any phlegm, he is a bit short of breath today, we will add Mucinex 600 mg orally twice every day, consult pulmonary medicine for further evaluation and recommendation, and continue to monitor the patient very closely, his hemoglobin is down to 7.2, no evidence of GI bleed at this time, continue with iron, continue with Aranesp, monitor the patient very closely. 07/05: Patient is laying unabated continue to have significant cough, not able to bring up any phlegm, he continues to be somewhat short of breath, he continues to be anemic, he has been followed by pulmonary as well as cardiology along with nephrology, patient is currently on Mucinex 600 mg orally twice every day along with IV antibiotic in the form of meropenem, we'll continue to follow the patient very closely. Continue with physical therapy evaluation likely will go to [facility] in the next 1 or 2 days. 07/06: Patient states that he feels about the same from yesterday. He states he stood in his room yesterday but he is needing significant help and subacute rehab is recommended. [facility] will consider taking the patient except for the cost of Imtinib. We will recheck the Dr. Jacobsen's. The patient can be off this medication while at rehab. Lungs sound worse today with a significant amount of sputum production. Solu-medrol increased to 60 mg q 6hr. Sputum culture is positive for Inez and Diflucan started. Repeat blood work reveals WBC 4.9, hemoglobin 7.9. Sodium 137, potassium 5.5, chloride 104, CO2 25, BUN 75 and creatinine 3.07. Blood sugars 193. Alkaline phosphatase 166. Nephro protein supplement added. 07/07: Patient is followed by Dr. Leung and has poor endurance not ready for inpatient rehab. Patient is requiring 2 person assist to get out of bed. Pulmonary has signed off this case. Patient has been afebrile, heart rate 100- 104, blood pressure 124/73, pulse ox 95% on 3 L nasal cannula. Capillary blood glucose running between 173 and 232. Patient is currently on Solu-Medrol 60 mg IV every 6 hours, IV meropenem and IV fluconazole. Pharmacy is dosing Coumadin. Repeat blood work reveals Patient's breathing status is improved from yesterday. Solu-Medrol will be decreased to 40 mg every 8 hours. He is on home O2 at 2L since hip fracture. A is complaining of constipation and requesting of enema. Fleets enema added as well as lactulose 30 mg twice daily. REVIEW OF SYSTEMS: Constitutional: No documented fever, no chills, no night sweats. Positive for weight change. Positive for weakness, fatigue or lethargy. No daytime sleepiness. HEENT: No headache. No blurred vision or double vision, no loss of vision. No loss of Hearing, no ringing in the ears, no dizziness. No nasal drainage or congestion. No epistaxis. No sore throat. Lungs: Reports shortness of breath, no cough, no sputum production. No wheezing. Reports dyspnea with activity. Cardiovascular: No chest pain, positive for lower extremity edema. positive for palpitations. No paroxysmal nocturnal dyspnea. positive for orthopnea. No lightheadedness or dizziness. No syncopal episodes. Abdominal: Reports abdominal pain. No nausea, vomiting. No diarrhea. No constipation. No bloody or tarry stools reports loss of appetite. Genitourinary: No dysuria, increased frequency, urgency. No urinary retention. Musculoskeletal: No myalgias. positive for muscle weakness, positive for gait dysfunction, positive for frequent falls, positive for back pain and neck pain. Integumentary: positive for stage 3 pressure sores to the posterior aspct of the right thigh and DTI in both heels, positive for nail changes Neurologic: No aphasia. No facial droop. No change in mentation. No head injury. No headache. No paralysis. No paresthesia. Psychiatric: positive for depression. No anxiety. No mood swings. Endocrine: No abnormal blood sugars. PHYSICAL EXAMINATION: General: 85-year-old male sitting up in bed in no respiratory distress HEENT: Head is atraumatic, normocephalic, pupils were equal round reactive to light and recommendation, extraocular muscle movement were intact, sclera nonicteric, conjunctivae were pale, mucous membranes of the mouth are somewhat dry. Neck: Supple, no JVP, decreased carotid upstroke bilaterally, no lymphadenopathy. Chest: Decreased breath sounds at the bases, bilat rhonchi, minimal expiratory wheezes, no chest wall tenderness no intercostal retractions. Heart: First heart sound is normal, second heart sounds normal irregularly irregular there is systolic ejection murmur 2/6 located in the left sternal border. Abdomen: Soft, nontender, nondistended, positive bowel sounds. Extremities: There is +2 edema no calf tenderness DP +1 bilaterally, bilateral heel deep tissue injury, bilateral hammertoes and nail changes. Neurologic examination: Patient is awake alert and oriented X 3, cranial nerves II-12 appear grossly intact, muscle power were 3 out of 5 in upper extremities and 3 out of 5 in bilateral lower extremities, deep tendon reflexes were depressed ASSESSMENT AND PLAN: 1. Acute hypoxemic respiratory failure due to acute diastolic heart failure with possible gram-negative pneumonia. Continue Lasix 40 mg oral every 12 hours, meropenem 1 g IV piggyback every 12 hours, sputum culture, blood culture, monitor input and output and daily weight, and pulmonary consultation, add Mucinex 600 mg orally twice every day. Solu-medrol decreased to 40 mg every 8 hours 2. Possible gram-negative pneumonia. Continue patient on Pulmicort 1 mg nebulization twice every day, DuoNeb 3 mg 4 times every day, oxygen support, continue patient on meropenem 1 g IV piggyback every 12 hours, pulmonary consultation appreciated. 3. Multiple stage II pressure ulcer behind the right thigh and deep tissue injury in both heels. continue local wound care the thigh and skin prep for the heels with floating the heels daily, swab the pressure sores for aerobic and anaerobic cultures. 4. Recent fall with Hip fracture status post right shaheen insertion of the right femur with removal of the old hardware. Consult physical therapy, continue current pain management. 5. Recent non-ST elevation myocardial infarction. Continue patient on metoprolol orally twice every day, continue aspirin 81 mg once every day. 6. Acute diastolic heart failure. Continue metoprolol 25 mg orally twice every day, continue Lasix 40 mg oral every 12 hours, monitor input and output and sirena ly weight obtain the result of Echocardiogram from [facility]. 7. Diabetes mellitus type II with diabetic polyneuropathy currently off medications. 8. Chronic kidney disease stage IV. Monitor patient input and output and daily weight and avoid nephrotoxins. Nephrology consultation. 9. Hyperkalemia. Patient did receive 1 amp of D50 along with insulin he will receive calcium gluconate 1 g IV piggyback 1. Repeat potassium this evening. 10. Chronic myelogenous leukemia. Continue with Imatinib 300 mg orally daily. 11. Acute blood loss anemia on Anemia of chronic kidney disease. Continue iron supplement , type and cross and transfuse 1 unit of PRBCs yesterday 12. Restless leg syndrome. Continue Mirapex 0.25 mg orally twice every day. 13. Major depressive disorder. Continue patient on Lexapro 30 mg orally once every day. 14. Generalized anxiety disorder. Continue with SSRI as well as BuSpar 10 mg orally twice every day. 15. Chronic atrial fibrillation. Continue patient on metoprolol 25 mg orally twice every day, Coumadin. 16. Coagulopathy. Coumadinresumed. INR tomorrow morning. 17. CAD post CABG 4 with a recent non-ST elevation myocardial infarction. Continue metoprolol 25 mg orally twice every day, aspirin 81 mg once every day. 18. GERD with hiatal hernia. Continue Protonix 40 mg orally once every day. 19. Chronic pain syndrome. Continue Percocet 10/325 mg one tablet orally 4 times every day. 20. DVT prophylaxis. Currently on Coumadin. 21. GI prophylaxis. Continue PPI. 22. Medical debility. Physical therapy evaluation. Full code. DISCHARGE PLAN Subacute rehab at [facility] on Monday. He will not be able to go to rehab while on Imatinib which will be discontinued while at rehab. Impression and plan of care have been directed as dictated by the signing physician. Juli Luna nurse practitioner acting as scribe for signing physician. Objective - Vital Signs Vital signs: Vital Signs Temp 97.8 F 07/07/21 03:51 Pulse 104 H 07/07/21 07:47 Resp 18 07/07/21 03:51 BP 124/73 07/07/21 03:51 Pulse Ox 95 07/07/21 03:51 Intake & Output 07/06/21 07/07/21 07/07/21 18:59 06:59 18:59 Intake Total 720 Output Total 1275 Balance 720 -1275 Intake: Oral 720 Output: Urine 1275 Other: Voiding Method Urinal Urinal Diaper Diaper # Bowel Movements 1 - Labs CBC & Chem 7: 07/06/21 07:23 07/07/21 07:54 Labs: Abnormal Lab Results - Last 24 Hours (Table) 07/06/21 07/06/21 07/06/21 Range/Units 07:08 12:01 17:38 PT 28.1 H (9.0-12.0) sec INR 2.9 H (<1.2) POC Glucose (mg/dL) 193 H 232 H (75-99) mg/dL 07/06/21 07/07/21 Range/Units 20:42 06:06 PT (9.0-12.0) sec INR (<1.2) POC Glucose (mg/dL) 215 H 173 H (75-99) mg/dL Microbiology - Last 24 Hours (Table) 06/30/21 16:57 Blood Culture - Final Blood No Growth after 144 hours 06/30/21 17:00 Blood Culture - Final Blood No Growth after 144 hours 07/03/21 13:17 Gram Stain - Final Sputum Sputum Culture - Final Inez albicans Inez glabrata
[2021-07-07] MEDS: FLUCONAZOLE IN NACL,ISO-OSM 100 MG in SALINE 1 50ML.BAG IVPB SCH (08:47)
[2021-07-07] MEDS: FUROSEMIDE 40 MG TAB PO SCH ×2 (08:48→16:31)
[2021-07-07] MEDS: CHOLECALCIFEROL 25 MCG (1000 IU) TABLET PO SCH ×2 (08:48→20:51)
[2021-07-07] MEDS: LACTOBACILLUS ACIDOPH & BULGAR 1 EACH PACKET PO SCH ×2 (08:48→20:50)
[2021-07-07] MEDS: LACTULOSE 20 GM/30 ML CUP PO SCH ×2 (08:48→20:52)
[2021-07-07] MEDS: PRAMIPEXOLE 0.25 MG TAB PO SCH ×2 (08:48→20:51)
[2021-07-07] MEDS: guaiFENesin 600 MG TABLET.ER PO SCH ×2 (08:48→20:51)
[2021-07-07] MEDS: busPIRone HCl 10 MG TAB PO SCH ×2 (08:48→20:50)
[2021-07-07] MEDS: METOPROLOL TARTRATE 50 MG TAB PO SCH ×3 (08:48→20:51)
[2021-07-07] MEDS: HYDROPHILIC CREAM 180 GM TUBE TOPICAL SCH (08:49)
[2021-07-07] MEDS: ESCITALOPRAM 10 MG TAB PO SCH (08:49)
[2021-07-07] MEDS: LORATADINE 10 MG TAB PO SCH (08:49)
[2021-07-07] MEDS: FERROUS SULFATE 325 MG TAB PO SCH ×3 (08:49→20:51)
[2021-07-07] MEDS: SODIUM ZIRCONIUM CYCLOSILICATE 10 GM PACKET PO SCH (08:53)
[2021-07-07] MEDS: MEROPENEM 1 GM in SODIUM CHLORIDE 0.9% 100 ML IVPB SCH ×2 (10:20→20:44)
[2021-07-07 11:28] VITALS: BMI 33.6
[2021-07-07 11:34] LABS: Glucose,Whole Blood 232 mg/dL (75-99)
--- NOTE | 2021-07-07 16:03 | PN ---
PROGRESS NOTE Patient is seen for followup for acute kidney injury. Patient's renal function has been improving. Creatinine is down slightly to 2.8 from 3.3 and 3.0 yesterday. Patient is currently maintained on oral Lasix. This morning blood pressure was 133/79, heart rate 98 per minute. He is afebrile. EXAMINATION OF THE HEART: S1 and S2. EXAMINATION OF LUNGS: Bilateral breath sounds are heard. Abdomen is soft, non-tender. Examination of lower extremities shows edema 1+ bilaterally. MANAGER WORK EXAM: Grossly intact. Labs show sodium 137, potassium 4.9, chloride 103, BUN 81, creatinine 2.8. ASSESSMENT: 1. Acute kidney injury. Renal function slightly improved, mostly cardiorenal and acute tubular necrosis. UA is benign. No evidence of hydronephrosis on ultrasound. 2. Chronic kidney disease, stage 4. Baseline creatinine 2.6 to 2.8 secondary to nephrosclerosis with mature right upper extremity AV fistula. Patient follows with [facility]uer out of [place] area. 3. History of coronary artery disease, status post coronary artery bypass surgery. 4. Volume overload, currently slowly improving. 5. History of atrial fibrillation. 6. Acute on chronic diastolic congestive heart failure with moderate mitral regurgitation, mild to moderate tricuspid regurgitation and pulmonary hypertension. 7. Anemia with acute blood loss anemia as well as anemia of chronic disease, status post packed RBCs transfusion, maintained on Aranesp. PLAN: Continue with the Lasix. Continue with daily Lokelma for chronic hyperkalemia. Repeat labs in a.m. MMODL / IJN: [id number] /
[2021-07-07 16:24] LABS: Glucose,Whole Blood 170 mg/dL (75-99)
[2021-07-07] MEDS: methylPREDNISolone SOD SUCCI 40 MG/ML 1 ML VIAL IV SCH (16:32)
[2021-07-07] MEDS ORDERED: WARFARIN 0.5 MG TAB PO ONE (18:00)
[2021-07-07 20:09] LABS: Glucose,Whole Blood 172 mg/dL (75-99)
[2021-07-08] MEDS: methylPREDNISolone SOD SUCCI 40 MG/ML 1 ML VIAL IV SCH ×4 (00:35→22:07)
[2021-07-08] MEDS: oxyCODONE-APAP 10-325MG 1 EACH TAB PO PRN ×2 (05:28→15:51)
[2021-07-08] MEDS: PANTOPRAZOLE 40 MG TABLET PO SCH (05:28)
[2021-07-08 06:13] LABS: Glucose,Whole Blood 204 mg/dL (75-99)
[2021-07-08] MEDS: INSULIN ASPART (NovoLOG) 100 UNIT/ML VIAL SQ SCH ×4 (06:18→22:05)
[2021-07-08] MEDS: IPRATROPIUM-ALBUTEROL 3 ML NEB INHALATION SCH ×4 (07:22→19:27)
[2021-07-08] MEDS: BUDESONIDE 1 MG/2 ML NEBU INHALATION SCH ×2 (07:22→19:27)
[2021-07-08 08:31] LABS: INR 3.6 (<1.2)
[2021-07-08 08:46] LABS: Calcium 8.6 mg/dL (8.4-10.2); Total Bilirubin 0.6 mg/dL (0.2-1.3); Total Protein 6.1 g/dL (6.3-8.2)
[2021-07-08 08:52] LABS: Anisocytosis Slight; HCT 23.5 % (39.0-53.0); Hypochromasia Marked; MCH 31.1 pg (25.0-35.0); MCHC 29.9 g/dL (31.0-37.0); MCV 104.1 fL (80.0-100.0); Macrocytosis Moderate; Mean Platelet Volume 7.7; Platelet Count 277 k/uL (150-450); RBC 2.26 m/uL (4.30-5.90); RDW 17.6 % (11.5-15.5)
[2021-07-08 09:28] LABS: Potassium 4.7 mmol/L (3.5-5.1)
[2021-07-08] MEDS: CHOLECALCIFEROL 25 MCG (1000 IU) TABLET PO SCH ×2 (10:10→22:06)
[2021-07-08] MEDS: ESCITALOPRAM 10 MG TAB PO SCH (10:10)
[2021-07-08] MEDS: LORATADINE 10 MG TAB PO SCH (10:10)
[2021-07-08] MEDS: FLUCONAZOLE 100 MG TAB PO SCH (10:10)
[2021-07-08] MEDS: FUROSEMIDE 40 MG TAB PO SCH (10:10)
[2021-07-08] MEDS: busPIRone HCl 10 MG TAB PO SCH ×2 (10:10→22:06)
[2021-07-08] MEDS: predniSONE 20 MG TAB PO SCH (10:10)
[2021-07-08] MEDS: METOPROLOL TARTRATE 50 MG TAB PO SCH ×3 (10:10→22:06)
[2021-07-08] MEDS: guaiFENesin 600 MG TABLET.ER PO SCH ×2 (10:10→22:06)
[2021-07-08] MEDS: FERROUS SULFATE 325 MG TAB PO SCH ×3 (10:10→22:06)
[2021-07-08] MEDS: PRAMIPEXOLE 0.25 MG TAB PO SCH ×2 (10:10→22:06)
[2021-07-08] MEDS: LACTULOSE 20 GM/30 ML CUP PO SCH ×2 (10:11→21:58)
[2021-07-08] MEDS: LACTOBACILLUS ACIDOPH & BULGAR 1 EACH PACKET PO SCH ×2 (10:11→22:06)
[2021-07-08] MEDS: SODIUM ZIRCONIUM CYCLOSILICATE 10 GM PACKET PO SCH (10:11)
[2021-07-08] MEDS: HYDROPHILIC CREAM 180 GM TUBE TOPICAL SCH (10:11)
[2021-07-08] MEDS: MEROPENEM 1 GM in SODIUM CHLORIDE 0.9% 100 ML IVPB SCH ×2 (10:12→22:44)
[2021-07-08 11:24] LABS: Glucose,Whole Blood 229 mg/dL (75-99)
[2021-07-08] MEDS: DARBEPOETIN ALFA 40 MCG/0.4 ML SYRINGE SQ SCH (12:12)
--- NOTE | 2021-07-08 12:28 | P.PN ---
Subjective Progress Note Date: 07/08/21 HISTORY OF PRESENT ILLNESS: This is an 85-year-old male patient of Dr. sparks with a previous [facility], [place] history significant for CAD post CABG x4, hypertension and hypertensive cardiovascular disease, chronic atrial flutter/fibrillation on chronic Coumadin, diabetes mellitus type 2 with diabetic polyneuropathy, chronic kidney disease stage IV, obesity with obstructive sleep apnea, hypogonadism, di verticulosis, GERD with hiatal hernia, left adrenal adenoma, CML, patient fell on 05/28/2021 in his home kitchen and landed on his right side of the hip after he lost his balance suffered from severe pain he was found to have a left hip fracture he ended up going to [facility] where he underwent removal of the hardware of the right femur including the plates and screws and he had a long shaheen placed and his entire femur into the hip area successfully he developed to have a non-ST elevation myocardial infarction when he was there along with chronic diastolic heart failure he was seen by cardiology over there Dr. Jackson apparently was cleared for surgery and the patient had a surgery on 05/31/2021 after that patient was referred to rehab facility and [facility] area and he was just released last to come back home with significant sores on his right thigh as well as bilateral heel deep tissue injury, patient was supposed to come and see him in the office today however he was not able template at all he was feeling increased shortness of breath associated with increased coughing and yellow from production, so his called EMS and the patient was brought into the ER at [facility] for evaluation his chest x-ray showed pulmonary vascular congestion and possible atypical pneumonia his COVID-19 swab PCR came back negative, patient was started on Lasix 60 mg IV push in the ER that he was placed on 40 mg IV push every 12 hours, patient also was started on meropenem 1 g IV piggyback every 12 hours because of his multiple ALLERGIES and possible gram-negative pneumonia. 07/01: Pulse ox is 97% on 2 L nasal cannula, patient afebrile, blood pressure 110/50, heart rate 83. Repeat blood work results are pending. Patient is continued on Lasix 40 mg IV twice daily, nebulizer treatments, meropenem. Consults in place with Cardiology, Nephrology and Wound Team. Breathing is improved from yesterday. 07/02: Patient complains of sputum that is rattling in his chest unable to bring it up. He continues to have cough. Heart rate 115. Echocardiogram reveals EF of 50-55%, mild aortic valve stenosis, moderate mitral regurgitation, [id number] tricuspid regurgitation and mild to moderate pulmonary hypertension. Patient has been seen by cardiology and acute coronary syndrome has been ruled out, elevated troponin secondary to chronic kidney disease. Hemoglobin is 6.5. Potassium 5.4, BUN 74 and creatinine 3.31. Repeat INR is 3.7. She has been seen by the wound Center with plan for triad on the left posterior thigh wound and offload bilateral heels. Nephrology is planning to maintain IV Lasix, transfuse 1 unit of blood avoid nephrotoxins, check stool for occult blood. Dr. Leung has evaluated and patient is not candidate for inpatient rehab. Discharge plan will be subacute rehab at [facility] or [facility] next week. 07/03: Patient is feeling weak today, he did receive 1 unit of packed her vessels yesterday, his hemoglobin still pending at the time of dictation, he was seen in consultation by physical therapy and rehabilitation, he was deemed inappropriate for inpatient rehab in addition however he will need to go for subacute rehab the patient at [facility]. Patient is complaining of some coughing minimal from production, he denies any hemoptysis, he has no bloody bowel movement, no apparent signs of bleeding, his hemoglobin dropped yesterday to 6.5, he is receiving Aranesp, he is maintained on iron, we will continue to follow the patient very closely. 07/04: Patient continues to have a significant coughing not able to bring up any phlegm, he is a bit short of breath today, we will add Mucinex 600 mg orally twice every day, consult pulmonary medicine for further evaluation and recommendation, and continue to monitor the patient very closely, his hemoglobin is down to 7.2, no evidence of GI bleed at this time, continue with iron, continue with Aranesp, monitor the patient very closely. 07/05: Patient is laying unabated continue to have significant cough, not able to bring up any phlegm, he continues to be somewhat short of breath, he continues to be anemic, he has been followed by pulmonary as well as cardiology along with nephrology, patient is currently on Mucinex 600 mg orally twice every day along with IV antibiotic in the form of meropenem, we'll continue to follow the patient very closely. Continue with physical therapy evaluation likely will go to [facility] in the next 1 or 2 days. 07/06: Patient states that he feels about the same from yesterday. He states he stood in his room yesterday but he is needing significant help and subacute rehab is recommended. [facility] will consider taking the patient except for the cost of Imtinib. We will recheck the Dr. Jacobsen's. The patient can be off this medication while at rehab. Lungs sound worse today with a significant amount of sputum production. Solu-medrol increased to 60 mg q 6hr. Sputum culture is positive for Inez and Diflucan started. Repeat blood work reveals WBC 4.9, hemoglobin 7.9. Sodium 137, potassium 5.5, chloride 104, CO2 25, BUN 75 and creatinine 3.07. Blood sugars 193. Alkaline phosphatase 166. Nephro protein supplement added. 07/07: Patient is followed by Dr. Leung and has poor endurance not ready for inpatient rehab. Patient is requiring 2 person assist to get out of bed. Pulmonary has signed off this case. Patient has been afebrile, heart rate 100- 104, blood pressure 124/73, pulse ox 95% on 3 L nasal cannula. Capillary blood glucose running between 173 and 232. Patient is currently on Solu-Medrol 60 mg IV every 6 hours, IV meropenem and IV fluconazole. Pharmacy is dosing Coumadin. Repeat blood work reveals Patient's breathing status is improved from yesterday. Solu-Medrol will be decreased to 40 mg every 8 hours. He is on home O2 at 2L since hip fracture. A is complaining of constipation and requesting of enema. Fleets enema added as well as lactulose 30 mg twice daily. 07/08: States his difficulty breathing is improving but he continues to have some cough and sputum production. His appetite is better today and he is taking Ensure as well. He had a good bowel movement. Patient is afebrile, heart rate 103, blood pressure 138/64 pulse ox 97% on 2 L nasal cannula. We will decrease Solu-Medrol to 40 mg every 12 hours and start prednisone in the morning Patient has been approved for discharge to [facility], we will plan for discharge to rehab tomorrow. REVIEW OF SYSTEMS: Constitutional: No documented fever, no chills, no night sweats. Positive for weight change. Positive for weakness, fatigue or lethargy. No daytime sleepiness. HEENT: No headache. No blurred vision or double vision, no loss of vision. No loss of Hearing, no ringing in the ears, no dizziness. No nasal drainage or congestion. No epistaxis. No sore throat. Lungs: Reports shortness of breathimproving, no cough, no sputum production. No wheezing. Reports dyspnea with activity. Cardiovascular: No chest pain, positive for lower extremity edema. positive for palpitations. No paroxysmal nocturnal dyspnea. positive for orthopnea. No lightheadedness or dizziness. No syncopal episodes. Abdominal: Reports abdominal pain. No nausea, vomiting. No diarrhea. No constipation. No bloody or tarry stools reports loss of appetite. Genitourinary: No dysuria, increased frequency, urgency. No urinary retention. Musculoskeletal: No myalgias. positive for muscle weakness, positive for gait dysfunction, positive for frequent falls, positive for back pain and neck pain. Integumentary: positive for stage 3 pressure sores to the posterior aspct of the right thigh and DTI in both heels, positive for nail changes Neurologic: No aphasia. No facial droop. No change in mentation. No head injury. No headache. No paralysis. No paresthesia. Psychiatric: positive for depression. No anxiety. No mood swings. Endocrine: No abnormal blood sugars. PHYSICAL EXAMINATION: General: 85-year-old male sitting up in bed in no respiratory distress HEENT: Head is atraumatic, normocephalic, pupils were equal round reactive to light and recommendation, extraocular muscle movement were intact, sclera nonicteric, conjunctivae were pale, mucous membranes of the mouth are somewhat dry. Neck: Supple, no JVP, decreased carotid upstroke bilaterally, no lymphadenopathy. Chest: Decreased breath sounds at the bases, bilat rhonchi, minimal expiratory wheezes, no chest wall tenderness no intercostal retractions. Heart: First heart sound is normal, second heart sounds normal irregularly irregular there is systolic ejection murmur 2/6 located in the left sternal border. Abdomen: Soft, nontender, nondistended, positive bowel sounds. Extremities: There is +1 edema no calf tenderness DP +1 bilaterally, bilateral heel deep tissue injury, bilateral hammertoes and nail changes. Neurologic examination: Patient is awake alert and oriented X 3, cranial nerves II-12 appear grossly intact, muscle power were 3 out of 5 in upper extremities and 3 out of 5 in bilateral lower extremities, deep tendon reflexes were depressed ASSESSMENT AND PLAN: 1. Acute hypoxemic respiratory failure due to acute diastolic heart failure with possible gram-negative pneumonia. Continue Lasix 40 mg oral every 12 hours, meropenem 1 g IV piggyback every 12 hours, sputum culture, blood culture, monitor input and output and daily weight, and pulmonary consultation, add Mucinex 600 mg orally twice every day. Solu-medrol decreased to 40 mg every 8 ho urs and start oral prednisone tomorrow 2. Possible gram-negative pneumonia. Continue patient on Pulmicort 1 mg nebulization twice every day, DuoNeb 3 mg 4 times every day, oxygen support, continue patient on meropenem 1 g IV piggyback every 12 hours, pulmonary consultation appreciated. 3. Multiple stage II pressure ulcer behind the right thigh and deep tissue injury in both heels. continue local wound care the thigh and skin prep for the heels with floating the heels daily, swab the pressure sores for aerobic and anaerobic cultures. 4. Recent fall with Hip fracture status post right shaheen insertion of the right femur with removal of the old hardware. Consult physical therapy, continue current pain management. 5. Recent non-ST elevation myocardial infarction. Continue patient on me toprolol orally twice every day, continue aspirin 81 mg once every day. 6. Acute diastolic heart failure. Continue metoprolol 25 mg orally twice every day, continue Lasix 40 mg oral every 12 hours, monitor input and output and daily weight obtain the result of Echocardiogram from [facility]. 7. Diabetes mellitus type II with diabetic polyneuropathy currently off medications. 8. Chronic kidney disease stage IV. Monitor patient input and output and daily weight and avoid nephrotoxins. Nephrology consultation. 9. Hyperkalemia. Patient did receive 1 amp of D50 along with insulin he will receive calcium gluconate 1 g IV piggyback 1. Repeat potassium this evening. 10. Chronic myelogenous leukemia. Continue with Imatinib 300 mg orally daily. 11. Acute blood loss anemia on Anemia of chronic kidney disease. Continue iron supplement , type and cross and transfuse 1 unit of PRBCs yesterday 12. Restless leg syndrome. Continue Mirapex 0.25 mg orally twice every day. 13. Major depressive disorder. Continue patient on Lexapro 30 mg orally once every day. 14. Generalized anxiety disorder. Continue with SSRI as well as BuSpar 10 mg orally twice every day. 15. Chronic atrial fibrillation. Continue patient on metoprolol 25 mg orally twice every day, Coumadin. 16. Coagulopathy. Coumadin resumed. INR tomorrow morning. 17. CAD post CABG 4 with a recent non-ST elevation myocardial infarction. Continue metoprolol 25 mg orally twice every day, aspirin 81 mg once every day. 18. GERD with hiatal hernia. Continue Protonix 40 mg orally once every day. 19. Chronic pain syndrome. Continue Percocet 10/325 mg one tablet orally 4 times every day. 20. DVT prophylaxis. Currently on Coumadin. 21. GI prophylaxis. Continue PPI. 22. Medical debility. Physical therapy evaluation. Full code. DISCHARGE PLAN Subacute rehab at [facility] on Monday. Impression and plan of care have been directed as dictated by the signing physician. Juli Luna nurse practitioner acting as scribe for signing physician. Objective - Vital Signs Vital signs: Vital Signs Temp 98.1 F 07/08/21 04:00 Pulse 103 H 07/08/21 07:41 Resp 18 07/08/21 04:00 BP 138/64 07/08/21 04:00 Pulse Ox 97 07/08/21 04:00 Intake & Output 07/07/21 07/08/21 07/08/21 18:59 06:59 18:59 Intake Total 250 Output Total 2000 Balance 250 -2000 Weight 112.5 kg Intake: Oral 250 Output: Urine 1999 Other: Voiding Method Urinal Urinal Diaper Diaper # Bowel Movements 1 1 - Labs CBC & Chem 7: 07/08/21 07:58 07/08/21 07:58 Labs: Abnormal Lab Results - Last 24 Hours (Table) 07/07/21 07/07/21 07/07/21 Range/Units 07:54 07:54 11:28 PT 33.5 H (9.0-12.0) sec INR 3.5 H (<1.2) BUN 81 H (9-20) mg/dL Creatinine 2.82 H (0.66-1.25) mg/dL Glucose 180 H (74-99) mg/dL POC Glucose (mg/dL) 232 H (75-99) mg/dL 07/07/21 07/07/21 07/08/21 Range/Units 16:17 20:07 06:11 PT (9.0-12.0) sec INR (<1.2) BUN (9-20) mg/dL Creatinine (0.66-1.25) mg/dL Glucose (74-99) mg/dL POC Glucose (mg/dL) 170 H 172 H 204 H (75-99) mg/dL
--- NOTE | 2021-07-08 12:55 | PN ---
PROGRESS NOTE Patient is seen for followup for acute kidney injury. Renal function has been improving; serum creatinine down to 2.5 mg/dL today. Overall patient is doing better. He is eating well. On examination today, blood pressure 137/81, heart rate 107 per minute. He is afebrile. EXAMINATION OF THE HEART: S1 and S2. EXAMINATION OF LUNGS: Bilateral breath sounds are heard. Abdomen is soft, non-tender, obese. Examination of lower extremities shows severe chronic skin changes. No significant edema noted. Labs show sodium 140, potassium 4.7, BUN 101, creatinine 2.5, hemoglobin 7.0 g/dL. ASSESSMENT: 1. Acute kidney injury, acute tubular necrosis, currently improving. UA has been benign. No evidence of obstruction on imaging. 2. Chronic kidney disease, stage 4. Baseline creatinine 2.6 to 2.8 secondary to nephrosclerosis with mature right upper extremity AV fistula. Follows with progress clerk out of the [place] area. 3. History of coronary artery disease, status post coronary artery bypass surgery. 4. Anemia with acute blood loss anemia as well as anemia of chronic disease, status post packed RBCs transfusion, maintained on Aranesp. 5. Acute on chronic diastolic congestive heart failure with moderate mitral regurgitation, mild to moderate tricuspid regurgitation, pulmonary hypertension, currently maintained on Lasix. PLAN: Continue with Lasix. Decrease dose to once a day tomorrow. MMODL / IJN: [id number] /
[2021-07-08 16:40] LABS: Glucose,Whole Blood 197 mg/dL (75-99)
[2021-07-08 17:11] LABS: Anisocytosis Slight; HCT 20.8 % (39.0-53.0); Hypochromasia Marked; MCH 30.8 pg (25.0-35.0); MCV 102.5 fL (80.0-100.0); Macrocytosis Moderate; Mean Platelet Volume 8.1; Platelet Count 297 k/uL (150-450); RBC 2.03 m/uL (4.30-5.90); RDW 17.5 % (11.5-15.5); WBC 11.2 k/uL (3.8-10.6)
[2021-07-08 17:25] LABS: HGB 6.3 gm/dL (13.0-17.5)
[2021-07-08] MEDS ORDERED: WARFARIN 0.5 MG TAB PO ONE (18:00)
[2021-07-08 20:36] LABS: Glucose,Whole Blood 203 mg/dL (75-99)
[2021-07-08] MEDS: PANTOPRAZOLE 40 MG/10 ML VIAL IVP SCH (22:07)
[2021-07-09 06:22] LABS: Glucose,Whole Blood 192 mg/dL (75-99)
[2021-07-09] MEDS: INSULIN ASPART (NovoLOG) 100 UNIT/ML VIAL SQ SCH ×4 (06:34→21:26)
[2021-07-09] MEDS: BUDESONIDE 1 MG/2 ML NEBU INHALATION SCH ×2 (08:32→20:54)
[2021-07-09] MEDS: IPRATROPIUM-ALBUTEROL 3 ML NEB INHALATION SCH ×4 (08:32→20:54)
[2021-07-09] MEDS: predniSONE 20 MG TAB PO SCH (09:17)
[2021-07-09] MEDS: LACTOBACILLUS ACIDOPH & BULGAR 1 EACH PACKET PO SCH ×2 (09:18→21:25)
[2021-07-09] MEDS: LORATADINE 10 MG TAB PO SCH (09:18)
[2021-07-09] MEDS: PANTOPRAZOLE 40 MG/10 ML VIAL IVP SCH ×2 (09:18→21:25)
[2021-07-09] MEDS: busPIRone HCl 10 MG TAB PO SCH ×2 (09:18→21:25)
[2021-07-09] MEDS: FERROUS SULFATE 325 MG TAB PO SCH ×3 (09:18→21:25)
[2021-07-09] MEDS: ESCITALOPRAM 10 MG TAB PO SCH (09:18)
[2021-07-09] MEDS: METOPROLOL TARTRATE 50 MG TAB PO SCH ×3 (09:18→21:25)
[2021-07-09] MEDS: PRAMIPEXOLE 0.25 MG TAB PO SCH ×2 (09:18→21:25)
[2021-07-09] MEDS: FLUCONAZOLE 100 MG TAB PO SCH (09:18)
[2021-07-09] MEDS: guaiFENesin 600 MG TABLET.ER PO SCH ×2 (09:18→21:25)
[2021-07-09] MEDS: CHOLECALCIFEROL 25 MCG (1000 IU) TABLET PO SCH ×2 (09:18→21:25)
[2021-07-09] MEDS: LACTULOSE 20 GM/30 ML CUP PO SCH ×2 (09:19→21:26)
[2021-07-09] MEDS: SODIUM ZIRCONIUM CYCLOSILICATE 10 GM PACKET PO SCH (09:19)
[2021-07-09] MEDS: HYDROPHILIC CREAM 180 GM TUBE TOPICAL SCH (09:19)
[2021-07-09] MEDS: MEROPENEM 1 GM in SODIUM CHLORIDE 0.9% 100 ML IVPB SCH ×2 (09:20→21:31)
[2021-07-09 11:24] LABS: Anisocytosis Slight; HCT 26.2 % (39.0-53.0); Hypochromasia Marked; INR 3.5 (<1.2); MCH 30.1 pg (25.0-35.0); MCHC 29.8 g/dL (31.0-37.0); MCV 100.9 fL (80.0-100.0); Macrocytosis Moderate; Mean Platelet Volume 8.2; Platelet Count 211 k/uL (150-450); Poikilocytosis Slight; Prothrombin Time 33.2 sec (9.0-12.0); RBC 2.59 m/uL (4.30-5.90); RDW 18.1 % (11.5-15.5); WBC 10.8 k/uL (3.8-10.6)
[2021-07-09 11:28] LABS: HGB 7.8 gm/dL (13.0-17.5)
[2021-07-09 11:28] LABS: Glucose,Whole Blood 254 mg/dL (75-99)
--- NOTE | 2021-07-09 13:08 | P.GSCN ---
<Sarah Hinson - Last Filed: 07/09/21 12:48> History of Present Illness Consult date: 07/09/21 History of present illness: CHIEF COMPLAINT: Weakness HISTORY OF PRESENT ILLNESS: This is a 85-year-old male who presents also with complaints of cough, shortness of breath or weakness. He was found to have acute hypoxic respiratory failure with pneumonia and CHF exacerbation. Patient was treated with antibiotics and IV Lasix. Patient also has a history of atrial fibrillation in which he had been on Coumadin. Coumadin has been held due to coagulopathy and evidence of GI bleeding. Patient had 2 bloody bowel movements yesterday afternoon. They were large and chestnut in color. Patient's hemoglobin did drop to 6.3. He did have some mild tachycardia. Stool for occult blood is positive. Patient did receive 2 units of blood yesterday. And he did require a unit of blood on 07/02/2021. Patient does have a significant medical history which includes diverticulosis, anemia of chronic kidney disease maintained on Aranesp, coronary disease with prior CABG and recent myocardial infarction. Patient denies any abdominal pain. He reports having shortness of breath and dizziness which is not new for him. He denies any nausea or vomiting. He reports that his last colonoscopy was about 10 years ago. PAST MEDICAL HISTORY: Chronic myelogenous leukemia, atrial fibrillation, coronary disease with CABG, myocardial infarction chronic kidney disease stage IV, diverticulosis, left ad renal adenoma, kidney stones PAST SURGICAL HISTORY: See list. MEDICATIONS: See list. ALLERGIES: See list. SOCIAL HISTORY: No illicit drug use. REVIEW OF SYSTEMS: CONSTITUTIONAL: Denies fever or chills. HEENT: Denies blurred vision, vision changes, or eye pain. Denies hemoptysis CARDIOVASCULAR: Denies chest pain or pressure. RESPIRATORY: No shortness of breath. GASTROINTESTINAL: See HPI for pertinent findings HEMATOLOGIC: Denies bleeding disorders. GENITOURINARY: Denies any blood in urine or increased urinary frequency. SKIN: Denies pruitis. Denies rash. PHYSICAL EXAM: VITAL SIGNS: Reviewed GENERAL: Well-developed in no acute distress. HEENT: No sclera icterus. Extraocular movements grossly intact. Moist buccal mucosa. Head is atraumatic, normocephalic. No nasal drainage. ABDOMEN: Soft. Nondistended. Nontender NEUROLOGIC: Alert and oriented. Cranial nerves II through XII grossly intact. Skin: Does have skin tear on right gluteal area LABORATORY DATA: WBC is 10.8 hemoglobin 6.3 up to 7.8 platelets 211 INR 3.5 Sodium 140 potassium 4.7 BUN 101 creatinine 2.50 Stool for occult blood positive IMAGING: ASSESSMENT: 1. Acute GI bleed 2. Acute blood loss anemia secondary to GI bleeding 3. Coagulopathy 4. Anemia of chronic kidney disease 5. Pneumonia 6. CHF exacerbation PLAN: -Plan for EGD and colonoscopy on 07/12/[address] Shoemaker -Patient can have full liquid diet for over the weekend -Start clear liquids on Monday with bowel prep -Continue to hold anticoagulation -Continue to monitor hemoglobin -Continue to monitor for signs or symptoms of bleeding -Continue supportive care -Continue PPI Thank you for this consultation Physician Consultant note has been reviewed by physician. Signing provider agrees with the documented findings, assessment, and plan of care. Past Medical History Past Medical History: Atrial Fibrillation, Atrial Flutter, Coronary Artery Disease (CAD), Cancer, Diabetes Mellitus, GERD/Reflux, Hyperlipidemia, Hypertension, Myocardial Infarction ([place]), Osteoarthritis (OA), Renal Disease, Sleep Apnea/CPAP/BIPAP Additional Past Medical History / Comment(s): KIDNEY DISEASE STAGE 4, NEUROPATHY OF FEET, SLEEP APNEA (NO MACHINE), RLS, HX OF CLOT IN HIS SHOULDER, DIVERTICULOSIS, left adrenal adenoma, renal stone of the right kidney, FREQUENT DIARRHEA, NEW DIAGNOSIS OF CML., STATES ON VIBRAMYCIN FOR UPPER RESPIRATORY INFECTION. Last Myocardial Infarction Date:: 2000 History of Any Multi-Drug Resistant Organisms: VRE Year Discovered:: 2011 MDRO Source:: ABD WOUND Past Surgical History: Bladder Surgery, Cholecystectomy, Hernia Repair, Joint Replacement, Orthopedic Surgery Additional Past Surgical History / Comment(s): Hx quadruple bypass, colonoscopy, bilateral cataract surgery. Has shaheen from hip to knee on right side., right ankle plate and screw., Bilateral total knees., exploratory of abd. Past Anesthesia/Blood Transfusion Reactions: No Reported Reaction Past Psychological History: Depression Smoking Status: Former smoker Past Alcohol Use History: None Reported Past Drug Use History: None Reported - Past Family History Mother Family Medical History: AFIB, CVA/TIA, Diabetes Mellitus, Renal Disease Additional Family Medical History / Comment(s): age 88 Father Family Medical History: Pneumonia Additional Family Medical History / Comment(s): age 58 of pneumonia Brother(s) Family Medical History: Coronary Artery Disease (CAD) Son(s) Family Medical History: No Reported History Additional Family Medical History / Comment(s): patient has one son with no major medical problems. Medications and Allergies Home Medications Medication Instructions Recorded Confirmed Type Escitalopram Oxalate [Lexapro] 30 mg PO DAILY 07/13/15 06/30/21 History Loratadine [Claritin] 10 mg PO DAILY 07/13/15 06/30/21 History Pramipexole [Mirapex] 0.25 mg PO BID 07/13/15 06/30/21 History Warfarin [Coumadin] 2.5 mg PO TUTH@1800 07/13/15 06/30/21 History Warfarin [Coumadin] 5 mg PO SUMOWEFRSA@1800 07/13/15 06/30/21 History oxyCODONE HCL/ACETAMINOPHEN 1 tab PO Q6H PRN 07/13/15 06/30/21 History [Percocet 10-325 mg] Omeprazole [PriLOSEC] 20 mg PO DAILY 09/16/16 06/30/21 History busPIRone HCL 10 mg PO BID 09/16/16 06/30/21 History Furosemide [Lasix] 40 mg PO MOWEFR 05/31/18 06/30/21 History Imatinib Mesylate 300 mg PO HS 05/31/18 06/30/21 History Cholecalciferol [Vitamin D3 (25 25 mcg PO BID 06/30/21 06/30/21 History Mcg = 1000 Iu)] Garlic 1 tab PO BID 06/30/21 06/30/21 History Iron 27mg 27 mg PO TID 06/30/21 06/30/21 History Lactobacillus Acidophilus 2 tab PO BID 06/30/21 06/30/21 History [Acidophilus] Metoprolol Tartrate [Lopressor] 25 mg PO BID 06/30/21 06/30/21 History Allergies Allergy/AdvReac Type Severity Reaction Status Date / Time adhesive tape Allergy Rash/Hives Verified 06/30/21 14:13 aztreonam [From Azactam] Allergy Unknown Verified 06/30/21 14:13 cephalexin monohydrate Allergy Rash/Hives Verified 06/30/21 14:13 [From Keflex] ciprofloxacin [From Cipro] Allergy Anaphylaxis Verified 06/30/21 14:13 ciprofloxacin HCl Allergy Anaphylaxis Verified 06/30/21 14:13 [From Cipro] doxycycline Allergy Unknown Verified 06/30/21 14:13 latex Allergy Rash/Hives Verified 06/30/21 14:13 Penicillins Allergy Anaphylaxis Verified 06/30/21 14:13 Sulfa (Sulfonamide Allergy Dyspnea Verified 06/30/21 14:13 Antibiotics) Iodinated Contrast Media AdvReac KIDNEYS Verified 06/30/21 14:13 [Iodinated Contrast- Oral and IV Dye] Surgical - Exam Vital Signs Temp Pulse Resp BP Pulse Ox 97.6 F 105 H 20 117/67 100 06/30/21 12:30 06/30/21 12:30 06/30/21 12:30 06/30/21 12:30 06/30/21 12:30 Results - Labs 07/09/21 10:34 07/08/21 07:58 Abnormal Lab Results - Last 24 Hours (Table) 07/08/21 07/08/21 07/08/21 Range/Units 16:39 16:46 18:31 WBC 11.2 H (3.8-10.6) k/uL RBC 2.03 L (4.30-5.90) m/uL Hgb 6.3 L* (13.0-17.5) gm/dL Hct 20.8 L (39.0-53.0) % MCV 102.5 H (80.0-100.0) fL MCHC 30.0 L (31.0-37.0) g/dL RDW 17.5 H (11.5-15.5) % PT (9.0-12.0) sec INR (<1.2) POC Glucose (mg/dL) 197 H (75-99) mg/dL Crossmatch See Detail 07/08/21 07/09/21 07/09/21 Range/Units 20:35 06:20 10:34 WBC 10.8 H (3.8-10.6) k/uL RBC 2.59 L (4.30-5.90) m/uL Hgb 7.8 L D (13.0-17.5) gm/dL Hct 26.2 L (39.0-53.0) % MCV 100.9 H (80.0-100.0) fL MCHC 29.8 L (31.0-37.0) g/dL RDW 18.1 H (11.5-15.5) % PT (9.0-12.0) sec INR (<1.2) POC Glucose (mg/dL) 203 H 192 H (75-99) mg/dL Crossmatch 07/09/21 07/09/21 Range/Units 10:34 11:27 WBC (3.8-10.6) k/uL RBC (4.30-5.90) m/uL Hgb (13.0-17.5) gm/dL Hct (39.0-53.0) % MCV (80.0-100.0) fL MCHC (31.0-37.0) g/dL RDW (11.5-15.5) % PT 33.2 H (9.0-12.0) sec INR 3.5 H (<1.2) POC Glucose (mg/dL) 254 H (75-99) mg/dL Crossmatch <Percy Shoemaker - Last Filed: 07/09/21 14:11> History of Present Illness History of present illness: I have personally seen and examined the patient, reviewed the TIMBER MANAGEMENT PROFESSOR /PAs history, exam and MDM and agree with the assessment and plan as written. Based on total visit time, I have performed more than 50% of the visit. As above. Patient had episodes of maroonish-colored stools yesterday. Spoke with primary service. Continue to correct coagulopathy. We'll proceed with upper and lower endoscopy to evaluate for source of bleeding as patient does require long-term anticoagulation. Surgical - Exam Vital Signs Temp Pulse Resp BP Pulse Ox 97.6 F 105 H 20 117/67 100 06/30/21 12:30 06/30/21 12:30 06/30/21 12:30 06/30/21 12:30 06/30/21 12:30 Results - Labs 07/09/21 10:34 07/08/21 07:58 Abnormal Lab Results - Last 24 Hours (Table) 07/08/21 07/08/21 07/08/21 Range/Units 16:39 16:46 18:31 WBC 11.2 H (3.8-10.6) k/uL RBC 2.03 L (4.30-5.90) m/uL Hgb 6.3 L* (13.0-17.5) gm/dL Hct 20.8 L (39.0-53.0) % MCV 102.5 H (80.0-100.0) fL MCHC 30.0 L (31.0-37.0) g/dL RDW 17.5 H (11.5-15.5) % PT (9.0-12.0) sec INR (<1.2) POC Glucose (mg/dL) 197 H (75-99) mg/dL Crossmatch See Detail 07/08/21 07/09/21 07/09/21 Range/Units 20:35 06:20 10:34 WBC 10.8 H (3.8-10.6) k/uL RBC 2.59 L (4.30-5.90) m/uL Hgb 7.8 L D (13.0-17.5) gm/dL Hct 26.2 L (39.0-53.0) % MCV 100.9 H (80.0-100.0) fL MCHC 29.8 L (31.0-37.0) g/dL RDW 18.1 H (11.5-15.5) % PT (9.0-12.0) sec INR (<1.2) POC Glucose (mg/dL) 203 H 192 H (75-99) mg/dL Crossmatch 07/09/21 07/09/21 Range/Units 10:34 11:27 WBC (3.8-10.6) k/uL RBC (4.30-5.90) m/uL Hgb (13.0-17.5) gm/dL Hct (39.0-53.0) % MCV (80.0-100.0) fL MCHC (31.0-37.0) g/dL RDW (11.5-15.5) % PT 33.2 H (9.0-12.0) sec INR 3.5 H (<1.2) POC Glucose (mg/dL) 254 H (75-99) mg/dL Crossmatch
--- NOTE | 2021-07-09 14:42 | P.PN ---
Subjective Progress Note Date: 07/09/21 HISTORY OF PRESENT ILLNESS: This is an 85-year-old male patient of Dr. sparks with a previous [facility] history significant for CAD post CABG x4, hypertension and hypertensive cardiovascular disease, chronic atrial flutter/fibrillation on chronic Coumadin, diabetes mellitus type 2 with diabetic polyneuropathy, chronic kidney disease stage IV, obesity with obstructive sleep apnea, hypogonadism, di verticulosis, GERD with hiatal hernia, left adrenal adenoma, CML, patient fell on 05/28/2021 in his home kitchen and landed on his right side of the hip after he lost his balance suffered from severe pain he was found to have a left hip fracture he ended up going to [facility] where he underwent removal of the hardware of the right femur including the plates and screws and he had a long shaheen placed and his entire femur into the hip area successfully he developed to have a non-ST elevation myocardial infarction when he was there along with chronic diastolic heart failure he was seen by cardiology over there Dr. Jackson apparently was cleared for surgery and the patient had a surgery on 05/31/2021 after that patient was referred to rehab facility and [facility] area and he was just released last to come back home with significant sores on his right thigh as well as bilateral heel deep tissue injury, patient was supposed to come and see him in the office today however he was not able template at all he was feeling increased shortness of breath associated with increased coughing and yellow from production, so his called EMS and the patient was brought into the ER at [facility] for evaluation his chest x-ray showed pulmonary vascular congestion and possible atypical pneumonia his COVID-19 swab PCR came back negative, patient was started on Lasix 60 mg IV push in the ER that he was placed on 40 mg IV push every 12 hours, patient also was started on meropenem 1 g IV piggyback every 12 hours because of his multiple ALLERGIES and possible gram-negative pneumonia. 07/01: Pulse ox is 97% on 2 L nasal cannula, patient afebrile, blood pressure 110/50, heart rate 83. Repeat blood work results are pending. Patient is continued on Lasix 40 mg IV twice daily, nebulizer treatments, meropenem. Consults in place with Cardiology, Nephrology and Wound Team. Breathing is improved from yesterday. 07/02: Patient complains of sputum that is rattling in his chest unable to bring it up. He continues to have cough. Heart rate 115. Echocardiogram reveals EF of 50-55%, mild aortic valve stenosis, moderate mitral regurgitation, [id number] tricuspid regurgitation and mild to moderate pulmonary hypertension. Patient has been seen by cardiology and acute coronary syndrome has been ruled out, elevated troponin secondary to chronic kidney disease. Hemoglobin is 6.5. Potassium 5.4, BUN 74 and creatinine 3.31. Repeat INR is 3.7. She has been seen by the wound Center with plan for triad on the left posterior thigh wound and offload bilateral heels. Nephrology is planning to maintain IV Lasix, transfuse 1 unit of blood avoid nephrotoxins, check stool for occult blood. Dr. Leung has evaluated and patient is not candidate for inpatient rehab. Discharge plan will be subacute rehab at [facility] or [facility] next week. 07/03: Patient is feeling weak today, he did receive 1 unit of packed her vessels yesterday, his hemoglobin still pending at the time of dictation, he was seen in consultation by physical therapy and rehabilitation, he was deemed inappropriate for inpatient rehab in addition however he will need to go for subacute rehab the patient at [facility]. Patient is complaining of some coughing minimal from production, he denies any hemoptysis, he has no bloody bowel movement, no apparent signs of bleeding, his hemoglobin dropped yesterday to 6.5, he is receiving Aranesp, he is maintained on iron, we will continue to follow the patient very closely. 07/04: Patient continues to have a significant coughing not able to bring up any phlegm, he is a bit short of breath today, we will add Mucinex 600 mg orally twice every day, consult pulmonary medicine for further evaluation and recommendation, and continue to monitor the patient very closely, his hemoglobin is down to 7.2, no evidence of GI bleed at this time, continue with iron, continue with Aranesp, monitor the patient very closely. 07/05: Patient is laying unabated continue to have significant cough, not able to bring up any phlegm, he continues to be somewhat short of breath, he continues to be anemic, he has been followed by pulmonary as well as cardiology along with nephrology, patient is currently on Mucinex 600 mg orally twice every day along with IV antibiotic in the form of meropenem, we'll continue to follow the patient very closely. Continue with physical therapy evaluation likely will go to [facility] in the next 1 or 2 days. 07/06: Patient states that he feels about the same from yesterday. He states he stood in his room yesterday but he is needing significant help and subacute rehab is recommended. [facility] will consider taking the patient except for the cost of Imtinib. We will recheck the Dr. Jacobsen's. The patient can be off this medication while at rehab. Lungs sound worse today with a significant amount of sputum production. Solu-medrol increased to 60 mg q 6hr. Sputum culture is positive for Inez and Diflucan started. Repeat blood work reveals WBC 4.9, hemoglobin 7.9. Sodium 137, potassium 5.5, chloride 104, CO2 25, BUN 75 and creatinine 3.07. Blood sugars 193. Alkaline phosphatase 166. Nephro protein supplement added. 07/07: Patient is followed by Dr. Leung and has poor endurance not ready for inpatient rehab. Patient is requiring 2 person assist to get out of bed. Pulmonary has signed off this case. Patient has been afebrile, heart rate 100- 104, blood pressure 124/73, pulse ox 95% on 3 L nasal cannula. Capillary blood glucose running between 173 and 232. Patient is currently on Solu-Medrol 60 mg IV every 6 hours, IV meropenem and IV fluconazole. Pharmacy is dosing Coumadin. Repeat blood work reveals Patient's breathing status is improved from yesterday. Solu-Medrol will be decreased to 40 mg every 8 hours. He is on home O2 at 2L since hip fracture. A is complaining of constipation and requesting of enema. Fleets enema added as well as lactulose 30 mg twice daily. 07/08: States his difficulty breathing is improving but he continues to have some cough and sputum production. His appetite is better today and he is taking Ensure as well. He had a good bowel movement. Patient is afebrile, heart rate 103, blood pressure 138/64 pulse ox 97% on 2 L nasal cannula. We will decrease Solu-Medrol to 40 mg every 12 hours and start prednisone in the morning Patient has been approved for discharge to [facility], we will plan for discharge to rehab tomorrow. 07/09: This evening, patient started having dark blood in his stool, Coumadin was placed on hold. Hemoglobin came back at 6.3 and transfusion of 3 units packed RBCs completed with repeat hemoglobin was 7.8. INR is 3.5. Consult added for Dr. Shoemaker with plan for EGD on Monday. Breathing status seems to be improving today. He has been afebrile, heart rate 93, blood pressure 120/88 and pulse ox 96% 2 L nasal cannula. REVIEW OF SYSTEMS: Constitutional: No documented fever, no chills, no night sweats. Positive for weight change. Positive for weakness, fatigue or lethargy. No daytime sleepiness. HEENT: No headache. No blurred vision or double vision, no loss of vision. No loss of Hearing, no ringing in the ears, no dizziness. No nasal drainage or congestion. No epistaxis. No sore throat. Lungs: Reports shortness of breathimproving, no cough, no sputum production. No wheezing. Reports dyspnea with activity. Cardiovascular: No chest pain, positive for lower extremity edema. positive for palpitations. No paroxysmal nocturnal dyspnea. positive for orthopnea. No lightheadedness or dizziness. No syncopal episodes. Abdominal: Reports abdominal pain. No nausea, vomiting. No diarrhea. No constipation. Reports tarry stools reports loss of appetite. Genitourinary: No dysuria, increased frequency, urgency. No urinary retention. Musculoskeletal: No myalgias. positive for muscle weakness, positive for gait dysfunction, positive for frequent falls, positive for back pain and neck pain. Integumentary: positive for stage 3 pressure sores to the posterior aspct of the right thigh and DTI in both heels, positive for nail changes Neurologic: No aphasia. No facial droop. No change in mentation. No head injury. No headache. No paralysis. No paresthesia. Psychiatric: positive for depression. No anxiety. No mood swings. Endocrine: No abnormal blood sugars. PHYSICAL EXAMINATION: General: 85-year-old male sitting up in bed in no respiratory distress HEENT: Head is atraumatic, normocephalic, pupils were equal round reactive to light and recommendation, extraocular muscle movement were intact, sclera nonicteric, conjunctivae pale, mucous membranes of the mouth are somewhat dry. Neck: Supple, no JVP, decreased carotid upstroke bilaterally, no lymphadenopathy. Chest: Decreased breath sounds at the bases, bilat rhonchi, minimal expiratory wheezes, no chest wall tenderness no intercostal retractions. Heart: First heart sound is normal, second heart sounds normal irregularly irregular there is systolic ejection murmur 2/6 located in the left sternal border. Abdomen: Soft, nontender, nondistended, positive bowel sounds. Extremities: There is +1 edema no calf tenderness DP +1 bilaterally, bilateral heel deep tissue injury, bilateral hammertoes and nail changes. Neurologic examination: Patient is awake alert and oriented X 3, cranial nerves II-12 appear grossly intact, muscle power were 3 out of 5 in upper extremities and 3 out of 5 in bilateral lower extremities, deep tendon reflexes were depressed ASSESSMENT AND PLAN: 1. Acute hypoxemic respiratory failure due to acute diastolic heart failure with possible gram-negative pneumonia. Continue Lasix 40 mg oral every 12 hours, meropenem 1 g IV piggyback every 12 hours, sputum culture, blood culture, monitor input and output and daily weight, and pulmonary consultation, add Mucinex 600 mg orally twice every day. Solu-medrol decreased to 40 mg every 8 hours and start oral prednisone tomorrow 2. Possible gram-negative pneumonia. Continue patient on Pulmicort 1 mg nebulization twice every day, DuoNeb 3 mg 4 times every day, oxygen support, continue patient on meropenem 1 g IV piggyback every 12 hours, pulmonary consultation appreciated. 3. Multiple stage II pressure ulcer behind the right thigh and deep tissue injury in both heels. continue local wound care the thigh and skin prep for the heels with floating the heels daily, swab the pressure sores for aerobic and anaerobic cultures. 4. Recent fall with Hip fracture status post right shaheen insertion of the right femur with removal of the old hardware. Consult physical therapy, continue current pain management. 5. Recent non-ST elevation myocardial infarction. Continue patient on metoprolol orally twice every day, continue aspirin 81 mg once every day. 6. Acute diastolic heart failure. Continue metoprolol 25 mg orally twice every day, continue Lasix 40 mg oral every 12 hours, monitor input and output and daily weight obtain the result of Echocardiogram from [facility]. 7. Diabetes mellitus type II with diabetic polyneuropathy currently off medications. 8. Chronic kidney disease stage IV. Monitor patient input and output and daily weight and avoid nephrotoxins. Nephrology consultation. 9. Hyperkalemia. Patient did receive 1 amp of D50 along with insulin he will receive calcium gluconate 1 g IV piggyback 1. Repeat potassium this evening. 10. Chronic myelogenous leukemia. Continue with Imatinib 300 mg orally daily. 11. Acute blood loss anemia on Anemia of chronic kidney disease. Continue iron supplement , type and cross and transfuse 1 unit of PRBCs yesterday 12. Restless leg syndrome. Continue Mirapex 0.25 mg orally twice every day. 13. Major depressive disorder. Continue patient on Lexapro 30 mg orally once every day. 14. Generalized anxiety disorder. Continue with SSRI as well as BuSpar 10 mg orally twice every day. 15. Chronic atrial fibrillation. Continue patient on metoprolol 25 mg orally twice every day, Coumadin. 16. Coagulopathy. Coumadin resumed. INR tomorrow morning. 17. CAD post CABG 4 with a recent non-ST elevation myocardial infarction. Continue metoprolol 25 mg orally twice every day, aspirin 81 mg once every day. 18. GERD with hiatal hernia. Continue Protonix 40 mg orally once every day. 19. Chronic pain syndrome. Continue Percocet 10/325 mg one tablet orally 4 times every day. 20. DVT prophylaxis. Currently on Coumadin. 21. GI prophylaxis. Continue PPI. 22. Medical debility. Physical therapy evaluation. 23. Acute GI bleed with acute blood loss anemia. Patient transfuse 3 units of packed RBCs, Coumadin on hold, consult with Dr. Rajat anglin. Patient is scheduled for EGD on Monday. Full code. DISCHARGE PLAN Subacute rehab at [facility] on Monday/Monday. Impression and plan of care have been directed as dictated by the signing physician. Juli Luna nurse practitioner acting as scribe for signing physician. Objective - Vital Signs Vital signs: Vital Signs Temp 97.3 F L 07/09/21 04:55 Pulse 93 07/09/21 04:55 Resp 20 07/09/21 04:55 BP 120/88 07/09/21 04:55 Pulse Ox 96 07/09/21 02:44 Intake & Output 07/08/21 07/09/21 07/09/21 18:59 06:59 18:59 Intake Total 480 930 Output Total 1300 Balance 480 -370 Intake: IV 620 prbc 620 Oral 480 Blood Product 310 Rc As-1 Unit 0 [id number] Rc As-1 Unit 310 [id number] Output: Urine 1300 - Labs CBC & Chem 7: 07/09/21 10:34 07/08/21 07:58 Labs: Abnormal Lab Results - Last 24 Hours (Table) 07/08/21 07/08/21 07/08/21 Range/Units 07:58 07:58 07:58 WBC 11.0 H (3.8-10.6) k/uL RBC 2.26 L (4.30-5.90) m/uL Hgb 7.0 L (13.0-17.5) gm/dL Hct 23.5 L (39.0-53.0) % MCV 104.1 H (80.0-100.0) fL MCHC 29.9 L (31.0-37.0) g/dL RDW 17.6 H (11.5-15.5) % PT 35.0 H (9.0-12.0) sec INR 3.6 H (<1.2) BUN 101 H* (9-20) mg/dL Creatinine 2.50 H (0.66-1.25) mg/dL Glucose 158 H (74-99) mg/dL POC Glucose (mg/dL) (75-99) mg/dL Alkaline Phosphatase 129 H (38-126) U/L Total Protein 6.1 L (6.3-8.2) g/dL Albumin 3.0 L (3.5-5.0) g/dL Crossmatch 07/08/21 07/08/21 07/08/21 Range/Units 11:22 16:39 16:46 WBC 11.2 H (3.8-10.6) k/uL RBC 2.03 L (4.30-5.90) m/uL Hgb 6.3 L* (13.0-17.5) gm/dL Hct 20.8 L (39.0-53.0) % MCV 102.5 H (80.0-100.0) fL MCHC 30.0 L (31.0-37.0) g/dL RDW 17.5 H (11.5-15.5) % PT (9.0-12.0) sec INR (<1.2) BUN (9-20) mg/dL Creatinine (0.66-1.25) mg/dL Glucose (74-99) mg/dL POC Glucose (mg/dL) 229 H 197 H (75-99) mg/dL Alkaline Phosphatase (38-126) U/L Total Protein (6.3-8.2) g/dL Albumin (3.5-5.0) g/dL Crossmatch 07/08/21 07/08/21 07/09/21 Range/Units 18:31 20:35 06:20 WBC (3.8-10.6) k/uL RBC (4.30-5.90) m/uL Hgb (13.0-17.5) gm/dL Hct (39.0-53.0) % MCV (80.0-100.0) fL MCHC (31.0-37.0) g/dL RDW (11.5-15.5) % PT (9.0-12.0) sec INR (<1.2) BUN (9-20) mg/dL Creatinine (0.66-1.25) mg/dL Glucose (74-99) mg/dL POC Glucose (mg/dL) 203 H 192 H (75-99) mg/dL Alkaline Phosphatase (38-126) U/L Total Protein (6.3-8.2) g/dL Albumin (3.5-5.0) g/dL Crossmatch See Detail
[2021-07-09] MEDS: oxyCODONE-APAP 10-325MG 1 EACH TAB PO PRN (15:45)
[2021-07-09 16:27] LABS: Glucose,Whole Blood 224 mg/dL (75-99)
[2021-07-09 17:05] LABS: Anisocytosis Slight; HCT 23.3 % (39.0-53.0); HGB 7.8 gm/dL (13.0-17.5); Hypochromasia Slight; MCH 31.1 pg (25.0-35.0); MCHC 33.3 g/dL (31.0-37.0); Macrocytosis Slight; Mean Platelet Volume 9.6; Platelet Count 227 k/uL (150-450); Poikilocytosis Slight; RBC 2.49 m/uL (4.30-5.90); RDW 17.9 % (11.5-15.5); WBC 14.1 k/uL (3.8-10.6)
[2021-07-09 17:11] LABS: MCV 93.5 fL (80.0-100.0)
--- NOTE | 2021-07-09 17:59 | PN ---
PROGRESS NOTE Patient is seen for followup for acute kidney injury, mostly cardiorenal. Renal function has been improving. This morning, however, hemoglobin was down to 6.3. Patient is receiving packed RBCs transfusion. He was noted to have a GI bleed. Serum creatinine was down to 2.5 yesterday. His BUN was noted to be elevated up to 101 yesterday. This is most likely related to his ongoing GI bleed. PHYSICAL EXAMINATION: On examination today, blood pressure was 126/97, heart rate 111 per minute. Patient is afebrile. Examination of the heart S1, S2. Examination of the lungs, bilateral breath sounds are heard. Abdomen is soft, nontender. Examination of lower extremities shows chronic skin changes, no significant edema noted. ELECTRONIC COURT RECORDER exam grossly intact. LAB: Show hemoglobin 6.3. No BMP available from today. ASSESSMENT: 1. Acute kidney injury, ATN/cardiorenal, currently stable and improved. Patient's Lasix was decreased and it is currently on hold, particularly given his GI bleed which occurred yesterday. He is currently not short of breath. We will repeat labs in a.m. 2. Acute gastrointestinal bleed, receiving packed RBCs transfusion. 3. Disproportionately elevated BUN secondary to gastrointestinal bleed. 4. Hyperkalemia, maintained on Lokelma mostly associated with chronic kidney disease and there may have been an underlying occult GI bleed going on at that time exacerbating the hyperkalemia. 5. Chronic kidney disease stage 4 with AV fistula right arm. Follows with industrial specialist out of town. PLAN: Check BMP in a.m. MMODL / IJN: [id number] /
[2021-07-09 20:33] LABS: Glucose,Whole Blood 237 mg/dL (75-99)
[2021-07-10] MEDS: oxyCODONE-APAP 10-325MG 1 EACH TAB PO PRN ×3 (03:46→23:04)
[2021-07-10 06:22] LABS: Glucose,Whole Blood 193 mg/dL (75-99)
[2021-07-10] MEDS: INSULIN ASPART (NovoLOG) 100 UNIT/ML VIAL SQ SCH ×4 (06:41→21:23)
[2021-07-10] MEDS: BUDESONIDE 1 MG/2 ML NEBU INHALATION SCH ×2 (08:13→19:58)
[2021-07-10] MEDS: IPRATROPIUM-ALBUTEROL 3 ML NEB INHALATION SCH ×4 (08:13→19:58)
[2021-07-10] MEDS: busPIRone HCl 10 MG TAB PO SCH ×2 (09:23→21:22)
[2021-07-10] MEDS: ESCITALOPRAM 10 MG TAB PO SCH (09:23)
[2021-07-10] MEDS: FERROUS SULFATE 325 MG TAB PO SCH (09:24)
[2021-07-10] MEDS: PRAMIPEXOLE 0.25 MG TAB PO SCH ×2 (09:24→21:22)
[2021-07-10] MEDS: guaiFENesin 600 MG TABLET.ER PO SCH ×2 (09:24→21:22)
[2021-07-10] MEDS: PANTOPRAZOLE 40 MG/10 ML VIAL IVP SCH ×2 (09:24→21:23)
[2021-07-10] MEDS: METOPROLOL TARTRATE 50 MG TAB PO SCH ×3 (09:24→21:22)
[2021-07-10] MEDS: FLUCONAZOLE 100 MG TAB PO SCH (09:24)
[2021-07-10] MEDS: LORATADINE 10 MG TAB PO SCH (09:24)
[2021-07-10] MEDS: CHOLECALCIFEROL 25 MCG (1000 IU) TABLET PO SCH ×2 (09:24→21:22)
[2021-07-10] MEDS: SODIUM ZIRCONIUM CYCLOSILICATE 10 GM PACKET PO SCH (09:25)
[2021-07-10] MEDS: MEROPENEM 1 GM in SODIUM CHLORIDE 0.9% 100 ML IVPB SCH ×2 (09:25→21:23)
[2021-07-10] MEDS: LACTOBACILLUS ACIDOPH & BULGAR 1 EACH PACKET PO SCH ×2 (09:25→21:23)
--- NOTE | 2021-07-10 09:29 | P.PN ---
Subjective Progress Note Date: 07/10/21 HISTORY OF PRESENT ILLNESS: This is an 85-year-old male patient of Dr. sparks with a previous [facility] history significant for CAD post CABG x4, hypertension and hypertensive cardiovascular disease, chronic atrial flutter/fibrillation on chronic Coumadin, diabetes mellitus type 2 with diabetic polyneuropathy, chronic kidney disease stage IV, obesity with obstructive sleep apnea, hypogonadism, di verticulosis, GERD with hiatal hernia, left adrenal adenoma, CML, patient fell on 05/28/2021 in his home kitchen and landed on his right side of the hip after he lost his balance suffered from severe pain he was found to have a left hip fracture he ended up going to [facility] where he underwent removal of the hardware of the right femur including the plates and screws and he had a long shaheen placed and his entire femur into the hip area successfully he developed to have a non-ST elevation myocardial infarction when he was there along with chronic diastolic heart failure he was seen by cardiology over there Dr. Jackson apparently was cleared for surgery and the patient had a surgery on 05/31/2021 after that patient was referred to rehab facility and [facility] area and he was just released last to come back home with significant sores on his right thigh as well as bilateral heel deep tissue injury, patient was supposed to come and see him in the office today however he was not able template at all he was feeling increased shortness of breath associated with increased coughing and yellow from production, so his called EMS and the patient was brought into the ER at [facility] for evaluation his chest x-ray showed pulmonary vascular congestion and possible atypical pneumonia his COVID-19 swab PCR came back negative, patient was started on Lasix 60 mg IV push in the ER that he was placed on 40 mg IV push every 12 hours, patient also was started on meropenem 1 g IV piggyback every 12 hours because of his multiple ALLERGIES and possible gram-negative pneumonia. 07/01: Pulse ox is 97% on 2 L nasal cannula, patient afebrile, blood pressure 110/50, heart rate 83. Repeat blood work results are pending. Patient is continued on Lasix 40 mg IV twice daily, nebulizer treatments, meropenem. Consults in place with Cardiology, Nephrology and Wound Team. Breathing is improved from yesterday. 07/02: Patient complains of sputum that is rattling in his chest unable to bring it up. He continues to have cough. Heart rate 115. Echocardiogram reveals EF of 50-55%, mild aortic valve stenosis, moderate mitral regurgitation, [id number]-[id number] tricuspid regurgitation and mild to moderate pulmonary hypertension. Patient has been seen by cardiology and acute coronary syndrome has been ruled out, elevated troponin secondary to chronic kidney disease. Hemoglobin is 6.5. Potassium 5.4, BUN 74 and creatinine 3.31. Repeat INR is 3.7. She has been seen by the wound Center with plan for triad on the left posterior thigh wound and offload bilateral heels. Nephrology is planning to maintain IV Lasix, transfuse 1 unit of blood avoid nephrotoxins, check stool for occult blood. Dr. Leung has evaluated and patient is not candidate for inpatient rehab. Discharge plan will be subacute rehab at [facility] or [facility] next week. 07/03: Patient is feeling weak today, he did receive 1 unit of packed her vessels yesterday, his hemoglobin still pending at the time of dictation, he was seen in consultation by physical therapy and rehabilitation, he was deemed inappropriate for inpatient rehab in addition however he will need to go for subacute rehab the patient at [facility]. Patient is complaining of some coughing minimal from production, he denies any hemoptysis, he has no bloody bowel movement, no apparent signs of bleeding, his hemoglobin dropped yesterday to 6.5, he is receiving Aranesp, he is maintained on iron, we will continue to follow the patient very closely. 07/04: Patient continues to have a significant coughing not able to bring up any phlegm, he is a bit short of breath today, we will add Mucinex 600 mg orally twice every day, consult pulmonary medicine for further evaluation and recommendation, and continue to monitor the patient very closely, his hemoglobin is down to 7.2, no evidence of GI bleed at this time, continue with iron, continue with Aranesp, monitor the patient very closely. 07/05: Patient is laying unabated continue to have significant cough, not able to bring up any phlegm, he continues to be somewhat short of breath, he continues to be anemic, he has been followed by pulmonary as well as cardiology along with nephrology, patient is currently on Mucinex 600 mg orally twice every day along with IV antibiotic in the form of meropenem, we'll continue to follow the patient very closely. Continue with physical therapy evaluation likely will go to [facility] in the next 1 or 2 days. 07/06: Patient states that he feels about the same from yesterday. He states he stood in his room yesterday but he is needing significant help and subacute rehab is recommended. [facility] will consider taking the patient except for the cost of Imtinib. We will recheck the Dr. Jacobsen's. The patient can be off this medication while at rehab. Lungs sound worse today with a significant amount of sputum production. Solu-medrol increased to 60 mg q 6hr. Sputum culture is positive for Inez and Diflucan started. Repeat blood work reveals WBC 4.9, hemoglobin 7.9. Sodium 137, potassium 5.5, chloride 104, CO2 25, BUN 75 and creatinine 3.07. Blood sugars 193. Alkaline phosphatase 166. Nephro protein supplement added. 07/07: Patient is followed by Dr. Leung and has poor endurance not ready for inpatient rehab. Patient is requiring 2 person assist to get out of bed. Pulmonary has signed off this case. Patient has been afebrile, heart rate 100- 104, blood pressure 124/73, pulse ox 95% on 3 L nasal cannula. Capillary blood glucose running between 173 and 232. Patient is currently on Solu-Medrol 60 mg IV every 6 hours, IV meropenem and IV fluconazole. Pharmacy is dosing Coumadin. Repeat blood work reveals Patient's breathing status is improved from yesterday. Solu-Medrol will be decreased to 40 mg every 8 hours. He is on home O2 at 2L since hip fracture. A is complaining of constipation and requesting of enema. Fleets enema added as well as lactulose 30 mg twice daily. 07/08: States his difficulty breathing is improving but he continues to have some cough and sputum production. His appetite is better today and he is taking Ensure as well. He had a good bowel movement. Patient is afebrile, heart rate 103, blood pressure 138/64 pulse ox 97% on 2 L nasal cannula. We will decrease Solu-Medrol to 40 mg every 12 hours and start prednisone in the morning Patient has been approved for discharge to [facility], we will plan for discharge to rehab tomorrow. 07/09: This evening, patient started having dark blood in his stool, Coumadin was placed on hold. Hemoglobin came back at 6.3 and transfusion of 3 units packed RBCs completed with repeat hemoglobin was 7.8. INR is 3.5. Consult added for Dr. Shoemaker with plan for EGD on Monday. Breathing status seems to be improving today. He has been afebrile, heart rate 93, blood pressure 120/88 and pulse ox 96% 2 L nasal cannula. 07/10: Patient is sitting up in bed he continues to have a GI bleed with a dark red blood, likely an upper GI bleed, patient was seen in consultation by Dr. dejesus he was scheduled for an EGD on Monday morning, if the EGD is negative we'll hold off colonoscopy this point in time, continue to monitor the patient's CBC keep his hemoglobin greater than 7, continue Protonix 40 mg IV push every 12 hours, discontinue prednisone, continue IV antibiotic, monitor the patient INR, over the next 24 hours, his INR has to be less than 1.5 before REVIEW OF SYSTEMS: Constitutional: No documented fever, no chills, no night sweats. Positive for weight change. Positive for weakness, fatigue or lethargy. No daytime sleepiness. HEENT: No headache. No blurred vision or double vision, no loss of vision. No loss of Hearing, no ringing in the ears, no dizziness. No nasal drainage or congestion. No epistaxis. No sore throat. Lungs: Reports shortness of breathimproving, occasional cough, minimal sputum production. No wheezing. Reports dyspnea with activity. Cardiovascular: No chest pain, positive for lower extremity edema. positive for palpitations. No paroxysmal nocturnal dyspnea. positive for orthopnea. No lightheadedness or dizziness. No syncopal episodes. Abdominal: Reports abdominal pain. No nausea, vomiting. No diarrhea. No constipation. Reports tarry stools reports loss of appetite. Genitourinary: No dysuria, increased frequency, urgency. No urinary retention. Musculoskeletal: No myalgias. positive for muscle weakness, positive for gait dysfunction, positive for frequent falls, positive for back pain and neck pain. Integumentary: positive for stage 3 pressure sores to the posterior aspct of the right thigh and DTI in both heels have resolved positive for nail changes Neurologic: No aphasia. No facial droop. No change in mentation. No head injury. No headache. No paralysis. No paresthesia. Psychiatric: positive for depression. No anxiety. No mood swings. Endocrine: No abnormal blood sugars. PHYSICAL EXAMINATION: General: 85-year-old male sitting up in bed in no respiratory distress HEENT: Head is atraumatic, normocephalic, pupils were equal round reactive to light and recommendation, extraocular muscle movement were intact, sclera nonicteric, conjunctivae pale, mucous membranes of the mouth are somewhat dry. Neck: Supple, no JVP, decreased carotid upstroke bilaterally, no lymphadenopathy. Chest: Decreased breath sounds at the bases, bilat rhonchi, minimal expiratory w heezes, no chest wall tenderness no intercostal retractions. Heart: First heart sound is normal, second heart sounds normal irregularly irregular there is systolic ejection murmur 2/6 located in the left sternal border. Abdomen: Soft, nontender, nondistended, positive bowel sounds. Extremities: There is +1 edema no calf tenderness DP +1 bilaterally, bilateral heel deep tissue injury resolved bilateral hammertoes and nail changes. Neurologic examination: Patient is awake alert and oriented X 3, cranial nerves II-12 appear grossly intact, muscle power were 3 out of 5 in upper extremities and 3 out of 5 in bilateral lower extremities, deep tendon reflexes were depressed ASSESSMENT AND PLAN: 1. Acute hypoxemic respiratory failure due to acute diastolic heart failure with possible gram-negative pneumonia. Continue Lasix 40 mg oral every 12 hours, meropenem 1 g IV piggyback every 12 hours, sputum culture, blood culture, monitor input and output and daily weight, and pulmonary consultation, add Mucinex 600 mg orally twice every day. Solu-medrol decreased to 40 mg every 8 hours and start oral prednisone tomorrow 2. Upper GI bleed likely discontinue Coumadin, continue Protonix 40 mg IV push every 12 hours, patient is tentatively scheduled for EGD on Monday. 3. Acute blood loss anemia status post 3 units of packed red blood cell procedure. Monitor the patient hemoglobin keep hemoglobin greater than 7. Requested to move the patient to the ICU however he was denied by the inte nsivist due to bed availability he is hemodynamically stable so far. 4. Possible gram-negative pneumonia. Continue patient on Pulmicort 1 mg nebulization twice every day, DuoNeb 3 mg 4 times every day, oxygen support, continue patient on meropenem 1 g IV piggyback every 12 hours, pulmonary consul tation appreciated. 5. Multiple stage II pressure ulcer behind the right thigh and deep tissue inj ury in both heels. continue local wound care the thigh and skin prep for the heels with floating the heels daily, swab the pressure sores for aerobic and anaerobic cultures. 6. Recent fall with Hip fracture status post right shaheen insertion of the right femur with removal of the old hardware. Consult physical therapy, continue current pain management. 7. Recent non-ST elevation myocardial infarction. Continue patient on metoprolol orally twice every day, continue aspirin 81 mg once every day. 8. Chronic diastolic heart failure. Continue metoprolol 25 mg orally twice every day, continue Lasix 40 mg oral every 12 hours, monitor input and output and daily weight 9. Diabetes mellitus type II with diabetic polyneuropathy currently off medications. 10. Chronic kidney disease stage IV. Monitor patient input and output and daily weight and avoid nephrotoxins. Continue Lasix 40 mg orally twice every day. 11. Hyperkalemia. Patient did receive 1 amp of D50 along with insulin he will receive calcium gluconate 1 g IV piggyback 1. resolved. 12. Chronic myelogenous leukemia. Continue with Imatinib 300 mg orally daily. 13. Acute blood loss anemia on Anemia of chronic kidney disease. Continue iron supplement , type and cross and transfuse 1 unit of PRBCs yesterday 14. Restless leg syndrome. Continue Mirapex 0.25 mg orally twice every day. 15. Major depressive disorder. Continue patient on Lexapro 30 mg orally once every day. 16. Generalized anxiety disorder. Continue with SSRI as well as BuSpar 10 mg orally twice every day. 17. Chronic atrial fibrillation. Continue patient on metoprolol 25 mg orally twice every day, Coumadin. 18. Coagulopathy. hold off Coumadin due to GI bleed. 19. CAD post CABG 4 with a recent non-ST elevation myocardial infarction. Continue metoprolol 25 mg orally twice every day, aspirin 81 mg once every day. 20. GERD with hiatal hernia. Continue Protonix 40 mg orally once every day. 21. Chronic pain syndrome. Continue Percocet 10/325 mg one tablet orally 4 times every day. 22. DVT prophylaxis. Currently on Coumadin. 23. GI prophylaxis. Continue PPI. 24. Medical debility. Physical therapy evaluation. Full code. Objective - Vital Signs Vital signs: Vital Signs Temp 97.8 F 07/10/21 00:00 Pulse 80 07/10/21 08:14 Resp 18 07/10/21 04:00 BP 124/74 07/10/21 04:00 Pulse Ox 100 07/10/21 04:00 Intake & Output 07/09/21 07/10/21 07/10/21 18:59 06:59 18:59 Intake Total 685 Balance 685 Intake: Oral 375 Blood Product 310 Rc As-1 Unit 310 [id number] Other: Voiding Method Urinal Diaper - Labs CBC & Chem 7: 07/09/21 15:54 07/08/21 07:58 Labs: Abnormal Lab Results - Last 24 Hours (Table) 07/08/21 07/09/21 07/09/21 Range/Units 18:31 10:34 10:34 WBC 10.8 H (3.8-10.6) k/uL RBC 2.59 L (4.30-5.90) m/uL Hgb 7.8 L D (13.0-17.5) gm/dL Hct 26.2 L (39.0-53.0) % MCV 100.9 H (80.0-100.0) fL MCHC 29.8 L (31.0-37.0) g/dL RDW 18.1 H (11.5-15.5) % PT 33.2 H (9.0-12.0) sec INR 3.5 H (<1.2) POC Glucose (mg/dL) (75-99) mg/dL Crossmatch See Detail 07/09/21 07/09/21 07/09/21 Range/Units 11:27 15:54 16:26 WBC 14.1 H (3.8-10.6) k/uL RBC 2.49 L (4.30-5.90) m/uL Hgb 7.8 L (13.0-17.5) gm/dL Hct 23.3 L (39.0-53.0) % MCV (80.0-100.0) fL MCHC (31.0-37.0) g/dL RDW 17.9 H (11.5-15.5) % PT (9.0-12.0) sec INR (<1.2) POC Glucose (mg/dL) 254 H 224 H (75-99) mg/dL Crossmatch 07/09/21 07/10/21 Range/Units 20:31 06:20 WBC (3.8-10.6) k/uL RBC (4.30-5.90) m/uL Hgb (13.0-17.5) gm/dL Hct (39.0-53.0) % MCV (80.0-100.0) fL MCHC (31.0-37.0) g/dL RDW (11.5-15.5) % PT (9.0-12.0) sec INR (<1.2) POC Glucose (mg/dL) 237 H 193 H (75-99) mg/dL Crossmatch
[2021-07-10 09:54] LABS: INR 3.9 (<1.2); Prothrombin Time 37.6 sec (9.0-12.0)
[2021-07-10 09:58] LABS: Albumin 2.4 g/dL (3.5-5.0); Calcium 8.3 mg/dL (8.4-10.2); Potassium 4.7 mmol/L (3.5-5.1); Total Bilirubin 0.4 mg/dL (0.2-1.3); Total Protein 4.9 g/dL (6.3-8.2)
[2021-07-10 10:33] LABS: Anisocytosis Slight; HCT 21.5 % (39.0-53.0); Hypochromasia Marked; MCH 29.9 pg (25.0-35.0); MCHC 29.2 g/dL (31.0-37.0); Macrocytosis Moderate; Mean Platelet Volume 8.4; Platelet Count 206 k/uL (150-450); RBC 2.09 m/uL (4.30-5.90); RDW 18.7 % (11.5-15.5); WBC 13.6 k/uL (3.8-10.6)
[2021-07-10 10:40] LABS: HGB 6.3 gm/dL (13.0-17.5); MCV 102.6 fL (80.0-100.0)
[2021-07-10] MEDS: LACTULOSE 20 GM/30 ML CUP PO SCH (11:14)
[2021-07-10] MEDS: predniSONE 20 MG TAB PO SCH (11:14)
[2021-07-10 12:04] LABS: Glucose,Whole Blood 166 mg/dL (75-99)
[2021-07-10] MEDS: HYDROPHILIC CREAM 180 GM TUBE TOPICAL SCH (12:53)
--- NOTE | 2021-07-10 16:24 | PN ---
PROGRESS NOTE Patient is seen for followup for acute kidney injury on top of chronic kidney disease. Patient is currently comfortable. No active bleeding noted. His hemoglobin was down again to 6.3 today. He did have dark colored stools two days ago. PHYSICAL EXAMINATION: On examination today, blood pressure is 117/69, heart rate 91 per minute, he is afebrile. Examination of the heart S1, S2. Examination of the lungs, bilateral breath sounds are heard. Abdomen is soft, distended, obese. Examination of lower extremities shows chronic skin changes, 1+ edema bilaterally. STAGE HAND exam grossly intact. LAB: Show sodium 139, potassium 4.7, chloride 106, BUN 126, creatinine 2.1, hemoglobin 6.3 g/dL. ASSESSMENT: 1. Acute kidney injury, cardiorenal/ATN, currently improved. 2. Chronic kidney disease with previous creatinine around 2.5-2.6 mg/dL, NKF stage 4. 3. Disproportionately elevated BUN secondary to gastrointestinal bleed. 4. Acute blood loss anemia associated with GI bleed, status post packed RBCs transfusion. Patient had surgical consultation and there were plans for EGD on 07/12/2020. PLAN: Continue to monitor electrolytes, renal function. Continue off diuretics. Continue with the Aranesp. MMODL / IJN: [id number] /
[2021-07-10 17:07] LABS: Glucose,Whole Blood 186 mg/dL (75-99)
[2021-07-10 17:07] LABS: Glucose,Whole Blood 208 mg/dL (75-99)
[2021-07-10] MEDS ORDERED: PHYTONADIONE ORAL 5 MG/5 ML ORAL.SYRG PO STA (17:27)
[2021-07-10 21:02] LABS: Glucose,Whole Blood 187 mg/dL (75-99)
[2021-07-11 06:00] LABS: Glucose,Whole Blood 117 mg/dL (75-99)
[2021-07-11] MEDS: INSULIN ASPART (NovoLOG) 100 UNIT/ML VIAL SQ SCH ×4 (06:08→21:45)
[2021-07-11] MEDS: IPRATROPIUM-ALBUTEROL 3 ML NEB INHALATION SCH ×4 (07:52→20:03)
[2021-07-11] MEDS: BUDESONIDE 1 MG/2 ML NEBU INHALATION SCH ×2 (07:52→20:02)
[2021-07-11] MEDS: PANTOPRAZOLE 40 MG/10 ML VIAL IVP SCH ×2 (08:57→21:43)
[2021-07-11] MEDS: PRAMIPEXOLE 0.25 MG TAB PO SCH ×2 (08:57→21:43)
[2021-07-11] MEDS: ESCITALOPRAM 10 MG TAB PO SCH (08:57)
[2021-07-11] MEDS: busPIRone HCl 10 MG TAB PO SCH ×2 (08:57→21:43)
[2021-07-11] MEDS: FLUCONAZOLE 100 MG TAB PO SCH (08:57)
[2021-07-11] MEDS: METOPROLOL TARTRATE 50 MG TAB PO SCH ×3 (08:57→21:43)
[2021-07-11] MEDS: guaiFENesin 600 MG TABLET.ER PO SCH ×2 (08:57→21:43)
[2021-07-11] MEDS: CHOLECALCIFEROL 25 MCG (1000 IU) TABLET PO SCH ×2 (08:57→21:43)
[2021-07-11] MEDS: LACTOBACILLUS ACIDOPH & BULGAR 1 EACH PACKET PO SCH ×2 (08:58→21:46)
[2021-07-11] MEDS: SODIUM ZIRCONIUM CYCLOSILICATE 10 GM PACKET PO SCH (08:58)
[2021-07-11] MEDS ORDERED: PEG 3350-NA SULF,BICARB,CL/KCL 4,000 ML BOTTLE PO ONE (09:00)
[2021-07-11 09:31] LABS: INR 2.1 (<1.2)
[2021-07-11 09:35] LABS: Anisocytosis Slight; HCT 21.5 % (39.0-53.0); Hypochromasia Marked; MCH 31.8 pg (25.0-35.0); MCHC 31.5 g/dL (31.0-37.0); MCV 101.1 fL (80.0-100.0); Macrocytosis Moderate; Mean Platelet Volume 8.9; Platelet Count 170 k/uL (150-450); RBC 2.13 m/uL (4.30-5.90); WBC 14.5 k/uL (3.8-10.6)
[2021-07-11 09:40] LABS: HGB 6.8 gm/dL (13.0-17.5)
[2021-07-11] MEDS: HYDROPHILIC CREAM 180 GM TUBE TOPICAL SCH (10:10)
[2021-07-11] MEDS: MEROPENEM 1 GM in SODIUM CHLORIDE 0.9% 100 ML IVPB SCH ×2 (10:10→21:46)
--- NOTE | 2021-07-11 11:31 | P.PN ---
Progress Note - Text Progress Note Date: 07/11/21 Hematoma 6.3. On exam patient is resting comfortably in his bed. Abdomen is soft. GI bleed. Patient will undergo endoscopy on Monday.
--- NOTE | 2021-07-11 11:32 | P.PN ---
Progress Note - Text Progress Note Date: 07/11/21 Patient remained stable. His E16.7. On exam vitals are stable. Abdomen soft. History of GI bleed. Patient undergo endoscopy with Dr. Londono tomorrow.
[2021-07-11] MEDS ORDERED: DESMOPRESSIN ACETATE 30 MCG in SODIUM CHLORIDE 0.9% 50 ML IVPB ONE (12:00)
--- NOTE | 2021-07-11 12:02 | P.PN ---
Subjective Progress Note Date: 07/11/21 HISTORY OF PRESENT ILLNESS: This is an 85-year-old male patient of Dr. sparks with a previous [facility] history significant for CAD post CABG x4, hypertension and hypertensive cardiovascular disease, chronic atrial flutter/fibrillation on chronic Coumadin, diabetes mellitus type 2 with diabetic polyneuropathy, chronic kidney disease stage IV, obesity with obstructive sleep apnea, hypogonadism, di verticulosis, GERD with hiatal hernia, left adrenal adenoma, CML, patient fell on 05/28/2021 in his home kitchen and landed on his right side of the hip after he lost his balance suffered from severe pain he was found to have a left hip fracture he ended up going to [facility] where he underwent removal of the hardware of the right femur including the plates and screws and he had a long shaheen placed and his entire femur into the hip area successfully he developed to have a non-ST elevation myocardial infarction when he was there along with chronic diastolic heart failure he was seen by cardiology over there Dr. Jackson apparently was cleared for surgery and the patient had a surgery on 05/31/2021 after that patient was referred to rehab facility and [facility] area and he was just released last to come back home with significant sores on his right thigh as well as bilateral heel deep tissue injury, patient was supposed to come and see him in the office today however he was not able template at all he was feeling increased shortness of breath associated with increased coughing and yellow from production, so his called EMS and the patient was brought into the ER at [facility] for evaluation his chest x-ray showed pulmonary vascular congestion and possible atypical pneumonia his COVID-19 swab PCR came back negative, patient was started on Lasix 60 mg IV push in the ER that he was placed on 40 mg IV push every 12 hours, patient also was started on meropenem 1 g IV piggyback every 12 hours because of his multiple ALLERGIES and possible gram-negative pneumonia. 07/01: Pulse ox is 97% on 2 L nasal cannula, patient afebrile, blood pressure 110/50, heart rate 83. Repeat blood work results are pending. Patient is continued on Lasix 40 mg IV twice daily, nebulizer treatments, meropenem. Consults in place with Cardiology, Nephrology and Wound Team. Breathing is improved from yesterday. 07/02: Patient complains of sputum that is rattling in his chest unable to bring it up. He continues to have cough. Heart rate 115. Echocardiogram reveals EF of 50-55%, mild aortic valve stenosis, moderate mitral regurgitation, [id number] tricuspid regurgitation and mild to moderate pulmonary hypertension. Patient has been seen by cardiology and acute coronary syndrome has been ruled out, elevated troponin secondary to chronic kidney disease. Hemoglobin is 6.5. Potassium 5.4, BUN 74 and creatinine 3.31. Repeat INR is 3.7. She has been seen by the wound Center with plan for triad on the left posterior thigh wound and offload bilateral heels. Nephrology is planning to maintain IV Lasix, transfuse 1 unit of blood avoid nephrotoxins, check stool for occult blood. Dr. Leung has evaluated and patient is not candidate for inpatient rehab. Discharge plan will be subacute rehab at [facility] or [facility] next week. 07/03: Patient is feeling weak today, he did receive 1 unit of packed her vessels yesterday, his hemoglobin still pending at the time of dictation, he was seen in consultation by physical therapy and rehabilitation, he was deemed inappropriate for inpatient rehab in addition however he will need to go for subacute rehab the patient at [facility]. Patient is complaining of some coughing minimal from production, he denies any hemoptysis, he has no bloody bowel movement, no apparent signs of bleeding, his hemoglobin dropped yesterday to 6.5, he is receiving Aranesp, he is maintained on iron, we will continue to follow the patient very closely. 07/04: Patient continues to have a significant coughing not able to bring up any phlegm, he is a bit short of breath today, we will add Mucinex 600 mg orally twice every day, consult pulmonary medicine for further evaluation and recommendation, and continue to monitor the patient very closely, his hemoglobin is down to 7.2, no evidence of GI bleed at this time, continue with iron, continue with Aranesp, monitor the patient very closely. 07/05: Patient is laying unabated continue to have significant cough, not able to bring up any phlegm, he continues to be somewhat short of breath, he continues to be anemic, he has been followed by pulmonary as well as cardiology along with nephrology, patient is currently on Mucinex 600 mg orally twice every day along with IV antibiotic in the form of meropenem, we'll continue to follow the patient very closely. Continue with physical therapy evaluation likely will go to [facility] in the next 1 or 2 days. 07/06: Patient states that he feels about the same from yesterday. He states he stood in his room yesterday but he is needing significant help and subacute rehab is recommended. [facility] will consider taking the patient except for the cost of Imtinib. We will recheck the Dr. Jacobsen's. The patient can be off this medication while at rehab. Lungs sound worse today with a significant amount of sputum production. Solu-medrol increased to 60 mg q 6hr. Sputum culture is positive for Inez and Diflucan started. Repeat blood work reveals WBC 4.9, hemoglobin 7.9. Sodium 137, potassium 5.5, chloride 104, CO2 25, BUN 75 and creatinine 3.07. Blood sugars 193. Alkaline phosphatase 166. Nephro protein supplement added. 07/07: Patient is followed by Dr. Leung and has poor endurance not ready for inpatient rehab. Patient is requiring 2 person assist to get out of bed. Pulmonary has signed off this case. Patient has been afebrile, heart rate 100- 104, blood pressure 124/73, pulse ox 95% on 3 L nasal cannula. Capillary blood glucose running between 173 and 232. Patient is currently on Solu-Medrol 60 mg IV every 6 hours, IV meropenem and IV fluconazole. Pharmacy is dosing Coumadin. Repeat blood work reveals Patient's breathing status is improved from yesterday. Solu-Medrol will be decreased to 40 mg every 8 hours. He is on home O2 at 2L since hip fracture. A is complaining of constipation and requesting of enema. Fleets enema added as well as lactulose 30 mg twice daily. 07/08: States his difficulty breathing is improving but he continues to have some cough and sputum production. His appetite is better today and he is taking Ensure as well. He had a good bowel movement. Patient is afebrile, heart rate 103, blood pressure 138/64 pulse ox 97% on 2 L nasal cannula. We will decrease Solu-Medrol to 40 mg every 12 hours and start prednisone in the morning Patient has been approved for discharge to [facility], we will plan for discharge to rehab tomorrow. 07/09: This evening, patient started having dark blood in his stool, Coumadin was placed on hold. Hemoglobin came back at 6.3 and transfusion of 3 units packed RBCs completed with repeat hemoglobin was 7.8. INR is 3.5. Consult added for Dr. Shoemaker with plan for EGD on Monday. Breathing status seems to be improving today. He has been afebrile, heart rate 93, blood pressure 120/88 and pulse ox 96% 2 L nasal cannula. 07/10: Patient is sitting up in bed he continues to have a GI bleed with a dark red blood, likely an upper GI bleed, patient was seen in consultation by Dr. dejesus he was scheduled for an EGD on Monday morning, if the EGD is negative we'll hold off colonoscopy this point in time, continue to monitor the patient's CBC keep his hemoglobin greater than 7, continue Protonix 40 mg IV push every 12 hours, discontinue prednisone, continue IV antibiotic, monitor the patient INR, over the next 24 hours, his INR has to be less than 1.5 before 07/11: Patient is quite edematous and upper extremities as well as his torso he has a very good urine output, patient will be given DDAVP by the nephrology 30 micrograms IV piggyback 1, monitor the urine output very closely, supposed to be started on the prevent today for possible EGD and colonoscopy tomorrow morning I spoke with his and told her about his guarded prognosis because of the multi organ dysfunctions including renal failure, heart failure, pneumonia, recent hip fracture, atrial fibrillation, debility, anasarca, and she was advised, spent some time with patient today and we will try the prep , midline will be placed for the patient REVIEW OF SYSTEMS: Constitutional: No documented fever, no chills, no night sweats. Positive for weight change. Positive for weakness, fatigue or lethargy. No daytime sleepiness. HEENT: No headache. No blurred vision or double vision, no loss of vision. hard of Hearing, no ringing in the ears, no dizziness. No nasal drainage or con gestion. No epistaxis. No sore throat. Lungs: Reports shortness of breathimproving, occasional cough, minimal sputum production. No wheezing. Reports dyspnea with activity. Cardiovascular: No chest pain, positive for upper extremities edema. positive for palpitations. No paroxysmal nocturnal dyspnea. positive for orthopnea. No lightheadedness or dizziness. No syncopal episodes. Abdominal: Reports abdominal pain. No nausea, vomiting. No diarrhea. No constipation. Reports tarry stools reports loss of appetite. Genitourinary: No dysuria, increased frequency, urgency. No urinary retention. Musculoskeletal: No myalgias. positive for muscle weakness, positive for gait dysfunction, positive for frequent falls, positive for back pain and neck pain. Integumentary: pressure sores to the posterior aspect of the right thigh and DTI in both heels have resolved positive for nail changes Neurologic: No aphasia. No facial droop. No change in mentation. No head injury. No headache. No paralysis. No paresthesia. Psychiatric: positive for depression. No anxiety. No mood swings. Endocrine: No abnormal blood sugars. PHYSICAL EXAMINATION: General: 85-year-old male sitting up in bed in no respiratory distress HEENT: Head is atraumatic, normocephalic, pupils were equal round reactive to light and recommendation, extraocular muscle movement were intact, sclera no nicteric, conjunctivae pale, mucous membranes of the mouth are somewhat dry. Neck: Supple, no JVP, decreased carotid upstroke bilaterally, no lymphadenopathy. Chest: Decreased breath sounds at the bases, bilat rhonchi, minimal expiratory wheezes, no chest wall tenderness no intercostal retractions. Heart: First heart sound is normal, second heart sounds normal irregularly irregular there is systolic ejection murmur 2/6 located in the left sternal border. Abdomen: Soft, nontender, nondistended, positive bowel sounds. Extremities: There is +1 edema no calf tenderness DP +1 bilaterally, bilateral heel deep tissue injury resolved bilateral hammertoes and nail changes. Neurologic examination: Patient is awake alert and oriented X 3, cranial nerves II-12 appear grossly intact, muscle power were 3 out of 5 in upper extremities and 3 out of 5 in bilateral lower extremities, deep tendon reflexes were depressed ASSESSMENT AND PLAN: 1. Acute hypoxemic respiratory failure due to acute diastolic heart failure with possible gram-negative pneumonia. Continue Lasix 40 mg oral every 12 hours, meropenem 1 g IV piggyback every 12 hours, sputum culture, blood culture, monitor input and output and daily weight, and pulmonary consultation, add Mucinex 600 mg orally twice every day. Solu-medrol decreased to 40 mg every 8 hours and start oral prednisone tomorrow 2. Upper GI bleed likely discontinue Coumadin, continue Protonix 40 mg IV push every 12 hours, patient is tentatively scheduled for EGD on Monday. 3. Acute blood loss anemia status post 3 units of packed red blood cell procedure. Monitor the patient hemoglobin keep hemoglobin greater than 7. Requested to move the patient to the ICU however he was denied by the women's studies lecturer due to bed availability he is hemodynamically stable so far. 4. Possible gram-negative pneumonia. Continue patient on Pulmicort 1 mg nebulization twice every day, DuoNeb 3 mg 4 times every day, oxygen support, continue patient on meropenem 1 g IV piggyback every 12 hours, pulmonary consultation appreciated. 5. Multiple stage II pressure ulcer behind the right thigh and deep tissue injury in both heels. continue local wound care the thigh and skin prep for the heels with floating the heels daily, swab the pressure sores for aerobic and anaerobic cultures. 6. Recent fall with Hip fracture status post right shaheen insertion of the right femur with removal of the old hardware. Consult physical therapy, continue current pain management. 7. Recent non-ST elevation myocardial infarction. Continue patient on metoprolol orally twice every day, continue aspirin 81 mg once every day. 8. Chronic diastolic heart failure. Continue metoprolol 25 mg orally twice every day, continue Lasix 40 mg oral every 12 hours, monitor input and output an d daily weight 9. Diabetes mellitus type II with diabetic polyneuropathy currently off medications. 10. Chronic kidney disease stage IV. Monitor patient input and output and daily weight and avoid nephrotoxins. Continue Lasix 40 mg orally twice every day. 11. Hyperkalemia. Patient did receive 1 amp of D50 along with insulin he will receive calcium gluconate 1 g IV piggyback 1. resolved. 12. Chronic myelogenous leukemia. Continue with Imatinib 300 mg orally daily. 13. Acute blood loss anemia on Anemia of chronic kidney disease. Continue iron supplement , type and cross and transfuse 1 unit of PRBCs yesterday 14. Restless leg syndrome. Continue Mirapex 0.25 mg orally twice every day. 15. Major depressive disorder. Continue patient on Lexapro 30 mg orally once every day. 16. Generalized anxiety disorder. Continue with SSRI as well as BuSpar 10 mg orally twice every day. 17. Chronic atrial fibrillation. Continue patient on metoprolol 25 mg orally twice every day, Coumadin. 18. Coagulopathy. hold off Coumadin due to GI bleed. 19. CAD post CABG 4 with a recent non-ST elevation myocardial infarction. Continue metoprolol 25 mg orally twice every day, aspirin 81 mg once every day. 20. GERD with hiatal hernia. Continue Protonix 40 mg orally once every day. 21. Chronic pain syndrome. Continue Percocet 10/325 mg one tablet orally 4 times every day. 22. DVT prophylaxis. Currently on Coumadin. 23. GI prophylaxis. Continue PPI. 24. Medical debility. Physical therapy evaluation. Full code. Objective - Vital Signs Vital signs: Vital Signs Temp 97.5 F L 07/11/21 04:00 Pulse 90 07/11/21 08:06 Resp 18 07/11/21 04:00 BP 97/55 07/11/21 04:00 Pulse Ox 100 07/11/21 04:00 Intake & Output 07/10/21 07/11/21 07/11/21 18:59 06:59 18:59 Intake Total 1920 620 480 Output Total 670 Balance 1250 620 480 Intake: Oral 1920 480 Blood Product 0 620 Rc As-1 Unit 310 [id number] Rc As-1 Unit 0 310 [id number] Output: Urine 670 Other: Voiding Method Urinal Diaper - Labs CBC & Chem 7: 07/11/21 08:20 07/10/21 08:58 Labs: Abnormal Lab Results - Last 24 Hours (Table) 07/08/21 07/10/21 07/10/21 Range/Units 18:31 08:58 08:58 WBC 13.6 H (3.8-10.6) k/uL RBC 2.09 L (4.30-5.90) m/uL Hgb 6.3 L* D (13.0-17.5) gm/dL Hct 21.5 L (39.0-53.0) % MCV 102.6 H D (80.0-100.0) fL MCHC 29.2 L (31.0-37.0) g/dL RDW 18.7 H (11.5-15.5) % PT (9.0-12.0) sec INR (<1.2) BUN 126 H* (9-20) mg/dL Creatinine 2.15 H (0.66-1.25) mg/dL Glucose 166 H (74-99) mg/dL POC Glucose (mg/dL) (75-99) mg/dL Calcium 8.3 L (8.4-10.2) mg/dL Total Protein 4.9 L (6.3-8.2) g/dL Albumin 2.4 L (3.5-5.0) g/dL Crossmatch See Detail 07/10/21 07/10/21 07/10/21 Range/Units 08:58 12:03 17:02 WBC (3.8-10.6) k/uL RBC (4.30-5.90) m/uL Hgb (13.0-17.5) gm/dL Hct (39.0-53.0) % MCV (80.0-100.0) fL MCHC (31.0-37.0) g/dL RDW (11.5-15.5) % PT 37.6 H (9.0-12.0) sec INR 3.9 H (<1.2) BUN (9-20) mg/dL Creatinine (0.66-1.25) mg/dL Glucose (74-99) mg/dL POC Glucose (mg/dL) 166 H 208 H (75-99) mg/dL Calcium (8.4-10.2) mg/dL Total Protein (6.3-8.2) g/dL Albumin (3.5-5.0) g/dL Crossmatch 07/10/21 07/10/21 07/11/21 Range/Units 17:04 21:00 05:49 WBC (3.8-10.6) k/uL RBC (4.30-5.90) m/uL Hgb (13.0-17.5) gm/dL Hct (39.0-53.0) % MCV (80.0-100.0) fL MCHC (31.0-37.0) g/dL RDW (11.5-15.5) % PT (9.0-12.0) sec INR (<1.2) BUN (9-20) mg/dL Creatinine (0.66-1.25) mg/dL Glucose (74-99) mg/dL POC Glucose (mg/dL) 186 H 187 H 117 H (75-99) mg/dL Calcium (8.4-10.2) mg/dL Total Protein (6.3-8.2) g/dL Albumin (3.5-5.0) g/dL Crossmatch 07/11/21 07/11/21 Range/Units 08:20 08:20 WBC 14.5 H (3.8-10.6) k/uL RBC 2.13 L (4.30-5.90) m/uL Hgb 6.8 L* (13.0-17.5) gm/dL Hct 21.5 L (39.0-53.0) % MCV 101.1 H (80.0-100.0) fL MCHC (31.0-37.0) g/dL RDW 18.0 H (11.5-15.5) % PT 21.0 H (9.0-12.0) sec INR 2.1 H (<1.2) BUN (9-20) mg/dL Creatinine (0.66-1.25) mg/dL Glucose (74-99) mg/dL POC Glucose (mg/dL) (75-99) mg/dL Calcium (8.4-10.2) mg/dL Total Protein (6.3-8.2) g/dL Albumin (3.5-5.0) g/dL Crossmatch
[2021-07-11 12:22] LABS: Glucose,Whole Blood 130 mg/dL (75-99)
--- NOTE | 2021-07-11 13:07 | PN ---
PROGRESS NOTE Patient is seen for followup for acute kidney injury on top of chronic kidney disease. Patient has had issues with GI bleed. He has been receiving packed RBCs transfusion and hemoglobin is staying at about 6.3 to 6.8 g/dL. Patient is scheduled for EGD tomorrow. His renal function has been stable, with some improvement in his acute kidney injury. On examination today, blood pressure was 94/57, heart rate 117 per minute. He is afebrile. EXAMINATION OF THE HEART: S1 and S2. EXAMINATION OF LUNGS: Decreased breath sounds at the bases. Abdomen is soft, non-tender. Examination of lower extremities shows chronic skin changes. Trace edema noted bilaterally. DRUM STENCILER EXAM: Grossly intact. Labs show hemoglobin 6.8 g/dL, white cell count 14.5. BMP is not available from today. Creatinine was 2.5 on 07/10/2021. ASSESSMENT: 1. Acute kidney injury, acute tubular necrosis/cardiorenal, currently improved. 2. Chronic kidney disease, NKF stage 4, being followed by catering administrative assistant out of town. Baseline creatinine about 2.6 to 2.8 mg/dL. 3. Disproportionately elevated BUN secondary to underlying gastrointestinal bleed. 4. Anemia, acute blood loss anemia associated with GI bleed, status post packed RBCs transfusion. Will give one dose of DDAVP. PLAN: Add DDAVP x1. Repeat labs in a.m. Continue with the Virginie. VALERIA / JENNIFER: [id number] /
[2021-07-11] MEDS: oxyCODONE-APAP 10-325MG 1 EACH TAB PO PRN (16:22)
[2021-07-11 16:40] LABS: Glucose,Whole Blood 152 mg/dL (75-99)
[2021-07-11 20:37] LABS: Glucose,Whole Blood 164 mg/dL (75-99)
[2021-07-12 03:27] LABS: Anisocytosis Slight; Basophils # (A) 0.1 k/uL (0-0.2); Basophils % (A) 0 %; Eosinophils # (A) 0.7 k/uL (0-0.7); Eosinophils % (A) 4 %; HCT 20.8 % (39.0-53.0); HGB 7.3 gm/dL (13.0-17.5); Lymphocytes # (A) 1.3 k/uL (1.0-4.8); Lymphocytes % (A) 7 %; MCH 33.1 pg (25.0-35.0); MCHC 34.9 g/dL (31.0-37.0); Macrocytosis Slight; Mean Platelet Volume 9.9; Monocytes # (A) 1.5 k/uL (0-1.0); Monocytes % (A) 8 %; Neutrophils # (A) 14.3 k/uL (1.3-7.7); Neutrophils % (A) 79 %; Platelet Count 157 k/uL (150-450); WBC 18.2 k/uL (3.8-10.6)
[2021-07-12 03:30] LABS: MCV 94.8 fL (80.0-100.0)
[2021-07-12 06:30] LABS: Glucose,Whole Blood 141 mg/dL (75-99)
[2021-07-12 07:03] LABS: Glucose,Whole Blood 128 mg/dL (75-99)
[2021-07-12] MEDS: BUDESONIDE 1 MG/2 ML NEBU INHALATION SCH ×2 (07:21→19:26)
[2021-07-12] MEDS: IPRATROPIUM-ALBUTEROL 3 ML NEB INHALATION SCH ×4 (07:21→19:26)
[2021-07-12] MEDS: INSULIN ASPART (NovoLOG) 100 UNIT/ML VIAL SQ SCH ×4 (07:57→21:15)
[2021-07-12] MEDS ORDERED: MAGNESIUM CITRATE 296 ML BOTTLE PO ONE (08:06)
[2021-07-12] MEDS: LACTOBACILLUS ACIDOPH & BULGAR 1 EACH PACKET PO SCH ×2 (09:12→21:15)
[2021-07-12] MEDS: ESCITALOPRAM 10 MG TAB PO SCH (09:12)
[2021-07-12] MEDS: METOPROLOL TARTRATE 50 MG TAB PO SCH ×3 (09:12→21:19)
[2021-07-12] MEDS: CHOLECALCIFEROL 25 MCG (1000 IU) TABLET PO SCH ×2 (09:12→21:13)
[2021-07-12] MEDS: busPIRone HCl 10 MG TAB PO SCH ×2 (09:12→21:14)
[2021-07-12] MEDS: oxyCODONE-APAP 10-325MG 1 EACH TAB PO PRN ×3 (09:12→23:38)
--- NOTE | 2021-07-12 09:12 | P.PN ---
Subjective Progress Note Date: 07/12/21 HISTORY OF PRESENT ILLNESS: This is an 85-year-old male patient of Dr. sparks with a previous [facility] history significant for CAD post CABG x4, hypertension and hypertensive cardiovascular disease, chronic atrial flutter/fibrillation on chronic Coumadin, diabetes mellitus type 2 with diabetic polyneuropathy, chronic kidney disease stage IV, obesity with obstructive sleep apnea, hypogonadism, di verticulosis, GERD with hiatal hernia, left adrenal adenoma, CML, patient fell on 05/28/2021 in his home kitchen and landed on his right side of the hip after he lost his balance suffered from severe pain he was found to have a left hip fracture he ended up going to [facility] where he underwent removal of the hardware of the right femur including the plates and screws and he had a long shaheen placed and his entire femur into the hip area successfully he developed to have a non-ST elevation myocardial infarction when he was there along with chronic diastolic heart failure he was seen by cardiology over there Dr. Jackson apparently was cleared for surgery and the patient had a surgery on 05/31/2021 after that patient was referred to rehab facility and [facility] area and he was just released last to come back home with significant sores on his right thigh as well as bilateral heel deep tissue injury, patient was supposed to come and see him in the office today however he was not able template at all he was feeling increased shortness of breath associated with increased coughing and yellow from production, so his called EMS and the patient was brought into the ER at [facility] for evaluation his chest x-ray showed pulmonary vascular congestion and possible atypical pneumonia his COVID-19 swab PCR came back negative, patient was started on Lasix 60 mg IV push in the ER that he was placed on 40 mg IV push every 12 hours, patient also was started on meropenem 1 g IV piggyback every 12 hours because of his multiple ALLERGIES and possible gram-negative pneumonia. 07/01: Pulse ox is 97% on 2 L nasal cannula, patient afebrile, blood pressure 110/50, heart rate 83. Repeat blood work results are pending. Patient is continued on Lasix 40 mg IV twice daily, nebulizer treatments, meropenem. Consults in place with Cardiology, Nephrology and Wound Team. Breathing is improved from yesterday. 07/02: Patient complains of sputum that is rattling in his chest unable to bring it up. He continues to have cough. Heart rate 115. Echocardiogram reveals EF of 50-55%, mild aortic valve stenosis, moderate mitral regurgitation, [id number] tricuspid regurgitation and mild to moderate pulmonary hypertension. Patient has been seen by cardiology and acute coronary syndrome has been ruled out, elevated troponin secondary to chronic kidney disease. Hemoglobin is 6.5. Potassium 5.4, BUN 74 and creatinine 3.31. Repeat INR is 3.7. She has been seen by the wound Center with plan for triad on the left posterior thigh wound and offload bilateral heels. Nephrology is planning to maintain IV Lasix, transfuse 1 unit of blood avoid nephrotoxins, check stool for occult blood. Dr. Leung has evaluated and patient is not candidate for inpatient rehab. Discharge plan will be subacute rehab at [facility] or [facility] next week. 07/03: Patient is feeling weak today, he did receive 1 unit of packed her vessels yesterday, his hemoglobin still pending at the time of dictation, he was seen in consultation by physical therapy and rehabilitation, he was deemed inappropriate for inpatient rehab in addition however he will need to go for subacute rehab the patient at [facility]. Patient is complaining of some coughing minimal from production, he denies any hemoptysis, he has no bloody bowel movement, no apparent signs of bleeding, his hemoglobin dropped yesterday to 6.5, he is receiving Aranesp, he is maintained on iron, we will continue to follow the patient very closely. 07/04: Patient continues to have a significant coughing not able to bring up any phlegm, he is a bit short of breath today, we will add Mucinex 600 mg orally twice every day, consult pulmonary medicine for further evaluation and recommendation, and continue to monitor the patient very closely, his hemoglobin is down to 7.2, no evidence of GI bleed at this time, continue with iron, continue with Aranesp, monitor the patient very closely. 07/05: Patient is laying unabated continue to have significant cough, not able to bring up any phlegm, he continues to be somewhat short of breath, he continues to be anemic, he has been followed by pulmonary as well as cardiology along with nephrology, patient is currently on Mucinex 600 mg orally twice every day along with IV antibiotic in the form of meropenem, we'll continue to follow the patient very closely. Continue with physical therapy evaluation likely will go to [facility] in the next 1 or 2 days. 07/06: Patient states that he feels about the same from yesterday. He states he stood in his room yesterday but he is needing significant help and subacute rehab is recommended. [facility] will consider taking the patient except for the cost of Imtinib. We will recheck the Dr. Jacobsen's. The patient can be off this medication while at rehab. Lungs sound worse today with a significant amount of sputum production. Solu-medrol increased to 60 mg q 6hr. Sputum culture is positive for Inez and Diflucan started. Repeat blood work reveals WBC 4.9, hemoglobin 7.9. Sodium 137, potassium 5.5, chloride 104, CO2 25, BUN 75 and creatinine 3.07. Blood sugars 193. Alkaline phosphatase 166. Nephro protein supplement added. 07/07: Patient is followed by Dr. Leung and has poor endurance not ready for inpatient rehab. Patient is requiring 2 person assist to get out of bed. Pulmonary has signed off this case. Patient has been afebrile, heart rate 100- 104, blood pressure 124/73, pulse ox 95% on 3 L nasal cannula. Capillary blood glucose running between 173 and 232. Patient is currently on Solu-Medrol 60 mg IV every 6 hours, IV meropenem and IV fluconazole. Pharmacy is dosing Coumadin. Repeat blood work reveals Patient's breathing status is improved from yesterday. Solu-Medrol will be decreased to 40 mg every 8 hours. He is on home O2 at 2L since hip fracture. A is complaining of constipation and requesting of enema. Fleets enema added as well as lactulose 30 mg twice daily. 07/08: States his difficulty breathing is improving but he continues to have some cough and sputum production. His appetite is better today and he is taking Ensure as well. He had a good bowel movement. Patient is afebrile, heart rate 103, blood pressure 138/64 pulse ox 97% on 2 L nasal cannula. We will decrease Solu-Medrol to 40 mg every 12 hours and start prednisone in the morning Patient has been approved for discharge to [facility], we will plan for discharge to rehab tomorrow. 07/09: This evening, patient started having dark blood in his stool, Coumadin was placed on hold. Hemoglobin came back at 6.3 and transfusion of 3 units packed RBCs completed with repeat hemoglobin was 7.8. INR is 3.5. Consult added for Dr. Shoemaker with plan for EGD on Monday. Breathing status seems to be improving today. He has been afebrile, heart rate 93, blood pressure 120/88 and pulse ox 96% 2 L nasal cannula. 07/10: Patient is sitting up in bed he continues to have a GI bleed with a dark red blood, likely an upper GI bleed, patient was seen in consultation by Dr. dejesus he was scheduled for an EGD on Monday morning, if the EGD is negative we'll hold off colonoscopy this point in time, continue to monitor the patient's CBC keep his hemoglobin greater than 7, continue Protonix 40 mg IV push every 12 hours, discontinue prednisone, continue IV antibiotic, monitor the patient INR, over the next 24 hours, his INR has to be less than 1.5 before 07/11: Patient is quite edematous and upper extremities as well as his torso he has a very good urine output, patient will be given DDAVP by the nephrology 30 micrograms IV piggyback 1, monitor the urine output very closely, supposed to be started on the prevent today for possible EGD and colonoscopy tomorrow morning I spoke with his and told her about his guarded prognosis because of the multi organ dysfunctions including renal failure, heart failure, pneumonia, recent hip fracture, atrial fibrillation, debility, anasarca, and she was advised, spent some time with patient today and we will try the prep , midline will be placed for the patient 07/12: REVIEW OF SYSTEMS: Constitutional: No documented fever, no chills, no night sweats. Positive for weight change. Positive for weakness, fatigue or lethargy. No daytime sleepiness. HEENT: No headache. No blurred vision or double vision, no loss of vision. hard of Hearing, no ringing in the ears, no dizziness. No nasal drainage or congestion. No epistaxis. No sore throat. Lungs: Reports shortness of breathimproving, occasional cough, minimal sputum production. No wheezing. Reports dyspnea with activity. Cardiovascular: No chest pain, positive for upper extremities edema. positive for palpitations. No paroxysmal nocturnal dyspnea. positive for orthopnea. No lightheadedness or dizziness. No syncopal episodes. Abdominal: Reports abdominal pain. No nausea, vomiting. No diarrhea. No constipation. Reports tarry stools reports loss of appetite. Genitourinary: No dysuria, increased frequency, urgency. No urinary retention. Musculoskeletal: No myalgias. positive for muscle weakness, positive for gait dysfunction, positive for frequent falls, positive for back pain and neck pain. Integumentary: pressure sores to the posterior aspect of the right thigh and DTI in both heels have resolved positive for nail changes Neurologic: No aphasia. No facial droop. No change in mentation. No head injury. No headache. No paralysis. No paresthesia. Psychiatric: positive for depression. No anxiety. No mood swings. Endocrine: No abnormal blood sugars. PHYSICAL EXAMINATION: General: 85-year-old male sitting up in bed in no respiratory distress HEENT: Head is atraumatic, normocephalic, pupils were equal round reactive to light and recommendation, extraocular muscle movement were intact, sclera nonicteric, conjunctivae pale, mucous membranes of the mouth are somewhat dry. Neck: Supple, no JVP, decreased carotid upstroke bilaterally, no lymphadenopathy. Chest: Decreased breath sounds at the bases, bilat rhonchi, minimal expiratory wheezes, no chest wall tenderness no intercostal retractions. Heart: First heart sound is normal, second heart sounds normal irregularly irregular there is systolic ejection murmur 2/6 located in the left sternal border. Abdomen: Soft, nontender, nondistended, positive bowel sounds. Extremities: There is +1 edema no calf tenderness DP +1 bilaterally, bilateral heel deep tissue injury resolved bilateral hammertoes and nail changes. Neurologic examination: Patient is awake alert and oriented X 3, cranial nerves II-12 appear grossly intact, muscle power were 3 out of 5 in upper extremities and 3 out of 5 in bilateral lower extremities, deep tendon reflexes were depressed ASSESSMENT AND PLAN: 1. Acute hypoxemic respiratory failure due to acute diastolic heart failure with possible gram-negative pneumonia. Continue Lasix 40 mg oral every 12 ho urs, meropenem 1 g IV piggyback every 12 hours, sputum culture, blood culture, monitor input and output and daily weight, and pulmonary consultation, continue Mucinex 600 mg orally twice every day. Steroids discontinued. 2. Upper GI bleed likely discontinue Coumadin, continue Protonix 40 mg IV push every 12 hours, patient is tentatively scheduled for EGD on Monday but will be postponed due to poor prep.. 3. Acute blood loss anemia status post 3 units of packed red blood cell procedure. Monitor the patient hemoglobin keep hemoglobin greater than 7. Requested to move the patient to the ICU however he was denied by the locket maker due to bed availability he is hemodynamically stable so far. 4. Possible gram-negative pneumonia. Continue patient on Pulmicort 1 mg nebulization twice every day, DuoNeb 3 mg 4 times every day, oxygen support, continue patient on meropenem 1 g IV piggyback every 12 hours, pulmonary consultation appreciated. 5. Multiple stage II pressure ulcer behind the right thigh and deep tissue injury in both heels. continue local wound care the thigh and skin prep for the heels with floating the heels daily, swab the pressure sores for aerobic and anaerobic cultures. 6. Recent fall with Hip fracture status post right shaheen insertion of the right femur with removal of the old hardware. Consult physical therapy, continue current pain management. 7. Recent non-ST elevation myocardial infarction. Continue patient on metoprolol orally twice every day, continue aspirin 81 mg once every day. 8. Chronic diastolic heart failure. Continue metoprolol 25 mg orally twice every day, continue Lasix 40 mg oral every 12 hours, monitor input and output and daily weight 9. Diabetes mellitus type II with diabetic polyneuropathy currently off medications. 10. Chronic kidney disease stage IV. Monitor patient input and output and daily weight and avoid nephrotoxins. Continue Lasix 40 mg orally twice every day. 11. Hyperkalemia. Patient did receive 1 amp of D50 along with insulin he will receive calcium gluconate 1 g IV piggyback 1. resolved. 12. Chronic myelogenous leukemia. Continue with Imatinib 300 mg orally daily. 13. Acute blood loss anemia on Anemia of chronic kidney disease. Continue iron supplement , type and cross s/p transfusion of 5 units of PRBCs. 14. Restless leg syndrome. Continue Mirapex 0.25 mg orally twice every day. 15. Major depressive disorder. Continue patient on Lexapro 30 mg orally once every day. 16. Generalized anxiety disorder. Continue with SSRI as well as BuSpar 10 mg orally twice every day. 17. Chronic atrial fibrillation. Continue patient on metoprolol 25 mg orally twice every day, Coumadin. 18. Coagulopathy. hold off Coumadin due to GI bleed. 19. CAD post CABG 4 with a recent non-ST elevation myocardial infarction. Continue metoprolol 25 mg orally twice every day, aspirin 81 mg once every day. 20. GERD with hiatal hernia. Continue Protonix 40 mg orally once every day. 21. Chronic pain syndrome. Continue Percocet 10/325 mg one tablet orally 4 times every day. 22. DVT prophylaxis. Currently on Coumadin. 23. GI prophylaxis. Continue PPI. 24. Medical debility. Physical therapy evaluation. Full code. DISCHARGE PLAN Subacute rehab at [facility] on Monday/Monday. Impression and plan of care have been directed as dictated by the signing physician. Juli Luna nurse practitioner acting as scribe for signing physician. Objective - Vital Signs Vital signs: Vital Signs Temp 97.5 F L 07/12/21 04:00 Pulse 94 07/12/21 07:38 Resp 18 07/12/21 04:00 BP 125/79 07/12/21 04:00 Pulse Ox 100 07/12/21 04:00 Intake & Output 07/11/21 07/12/21 07/12/21 18:59 06:59 18:59 Intake Total 720 Output Total 700 Balance 20 Intake: Oral 720 Output: Urine 700 Other: Voiding Method Urinal Diaper - Labs CBC & Chem 7: 07/12/21 02:43 07/10/21 08:58 Labs: Abnormal Lab Results - Last 24 Hours (Table) 07/11/21 07/11/21 07/11/21 Range/Units 08:20 08:20 12:17 WBC 14.5 H (3.8-10.6) k/uL RBC 2.13 L (4.30-5.90) m/uL Hgb 6.8 L* (13.0-17.5) gm/dL Hct 21.5 L (39.0-53.0) % MCV 101.1 H (80.0-100.0) fL RDW 18.0 H (11.5-15.5) % Neutrophils # (1.3-7.7) k/uL Monocytes # (0-1.0) k/uL PT 21.0 H (9.0-12.0) sec INR 2.1 H (<1.2) POC Glucose (mg/dL) 130 H (75-99) mg/dL 07/11/21 07/11/21 07/12/21 Range/Units 16:38 20:06 02:43 WBC 18.2 H (3.8-10.6) k/uL RBC 2.20 L (4.30-5.90) m/uL Hgb 7.3 L (13.0-17.5) gm/dL Hct 20.8 L (39.0-53.0) % MCV (80.0-100.0) fL RDW 19.0 H (11.5-15.5) % Neutrophils # 14.3 H (1.3-7.7) k/uL Monocytes # 1.5 H (0-1.0) k/uL PT (9.0-12.0) sec INR (<1.2) POC Glucose (mg/dL) 152 H 164 H (75-99) mg/dL 07/12/21 07/12/21 Range/Units 06:29 06:49 WBC (3.8-10.6) k/uL RBC (4.30-5.90) m/uL Hgb (13.0-17.5) gm/dL Hct (39.0-53.0) % MCV (80.0-100.0) fL RDW (11.5-15.5) % Neutrophils # (1.3-7.7) k/uL Monocytes # (0-1.0) k/uL PT (9.0-12.0) sec INR (<1.2) POC Glucose (mg/dL) 141 H 128 H (75-99) mg/dL
[2021-07-12 09:13] LABS: Anisocytosis Slight; Basophils % (A) 0 %; Eosinophils # (A) 0.4 k/uL (0-0.7); Eosinophils % (A) 3 %; Hypochromasia Moderate; Lymphocytes # (A) 0.8 k/uL (1.0-4.8); Lymphocytes % (A) 6 %; MCH 33.3 pg (25.0-35.0); MCHC 32.7 g/dL (31.0-37.0); Macrocytosis Moderate; Mean Platelet Volume 9.4; Monocytes # (A) 0.8 k/uL (0-1.0); Monocytes % (A) 6 %; Neutrophils # (A) 11.6 k/uL (1.3-7.7); Neutrophils % (A) 83 %; Platelet Count 180 k/uL (150-450); RBC 1.84 m/uL (4.30-5.90); RDW 19.6 % (11.5-15.5); WBC 13.9 k/uL (3.8-10.6)
[2021-07-12] MEDS: PANTOPRAZOLE 40 MG/10 ML VIAL IVP SCH ×2 (09:13→21:15)
[2021-07-12] MEDS: FLUCONAZOLE 100 MG TAB PO SCH (09:13)
[2021-07-12] MEDS: PRAMIPEXOLE 0.25 MG TAB PO SCH ×2 (09:13→21:14)
[2021-07-12] MEDS: SODIUM ZIRCONIUM CYCLOSILICATE 10 GM PACKET PO SCH (09:13)
[2021-07-12] MEDS: guaiFENesin 600 MG TABLET.ER PO SCH ×2 (09:13→21:14)
[2021-07-12] MEDS: HYDROPHILIC CREAM 180 GM TUBE TOPICAL SCH (09:14)
[2021-07-12 09:17] LABS: HCT 18.8 % (39.0-53.0); HGB 6.1 gm/dL (13.0-17.5); MCV 101.8 fL (80.0-100.0)
[2021-07-12 09:17] LABS: INR 1.4 (<1.2); Prothrombin Time 14.4 sec (9.0-12.0)
[2021-07-12 09:28] LABS: Albumin 2.3 g/dL (3.5-5.0); Calcium 7.9 mg/dL (8.4-10.2); Potassium 4.4 mmol/L (3.5-5.1); Total Bilirubin 0.6 mg/dL (0.2-1.3); Total Protein 4.5 g/dL (6.3-8.2)
[2021-07-12] MEDS: MEROPENEM 1 GM in SODIUM CHLORIDE 0.9% 100 ML IVPB SCH ×2 (09:32→21:15)
--- NOTE | 2021-07-12 11:38 | P.PN ---
Subjective Patient is seen in follow-up for acute kidney injury on chronic kidney disease. Patient has chronic kidney disease stage IV with baseline creatinine in the range of 2.6-2.8. Renal function stable. Has been voiding. Denies chest pain or shortness of breath. On 2 L nasal cannula. Having dark stools per nurse. Scheduled to receive a unit of blood today. Vital signs are stable. General: On nasal cannula. HEENT: Head exam is unremarkable. LUNGS: Breath sounds decreased. HEART: Tachycardic. ABDOMEN: Soft, no distention. EXTREMITITES: Trace edema. Chronic changes noted. Objective - Vital Signs Vital signs: Vital Signs Temp 97.8 F 07/12/21 08:00 Pulse 92 07/12/21 11:31 Resp 16 07/12/21 08:00 BP 117/60 07/12/21 08:00 Pulse Ox 100 07/12/21 04:00 Intake & Output 07/11/21 07/12/21 07/12/21 18:59 06:59 18:59 Intake Total 720 Output Total 700 Balance 20 Intake: Oral 720 Output: Urine 700 Other: Voiding Method Urinal Diaper - Labs CBC & Chem 7: 07/12/21 08:49 07/12/21 08:50 Labs: Abnormal Lab Results - Last 24 Hours (Table) 07/11/21 07/11/21 07/11/21 Range/Units 12:17 16:38 20:06 WBC (3.8-10.6) k/uL RBC (4.30-5.90) m/uL Hgb (13.0-17.5) gm/dL Hct (39.0-53.0) % MCV (80.0-100.0) fL RDW (11.5-15.5) % Neutrophils # (1.3-7.7) k/uL Lymphocytes # (1.0-4.8) k/uL Monocytes # (0-1.0) k/uL PT (9.0-12.0) sec INR (<1.2) Carbon Dioxide (22-30) mmol/L BUN (9-20) mg/dL Creatinine (0.66-1.25) mg/dL Glucose (74-99) mg/dL POC Glucose (mg/dL) 130 H 152 H 164 H (75-99) mg/dL Calcium (8.4-10.2) mg/dL Total Protein (6.3-8.2) g/dL Albumin (3.5-5.0) g/dL 07/12/21 07/12/21 07/12/21 Range/Units 02:43 06:29 06:49 WBC 18.2 H (3.8-10.6) k/uL RBC 2.20 L (4.30-5.90) m/uL Hgb 7.3 L (13.0-17.5) gm/dL Hct 20.8 L (39.0-53.0) % MCV (80.0-100.0) fL RDW 19.0 H (11.5-15.5) % Neutrophils # 14.3 H (1.3-7.7) k/uL Lymphocytes # (1.0-4.8) k/uL Monocytes # 1.5 H (0-1.0) k/uL PT (9.0-12.0) sec INR (<1.2) Carbon Dioxide (22-30) mmol/L BUN (9-20) mg/dL Creatinine (0.66-1.25) mg/dL Glucose (74-99) mg/dL POC Glucose (mg/dL) 141 H 128 H (75-99) mg/dL Calcium (8.4-10.2) mg/dL Total Protein (6.3-8.2) g/dL Albumin (3.5-5.0) g/dL 07/12/21 07/12/21 07/12/21 Range/Units 08:49 08:50 08:50 WBC 13.9 H (3.8-10.6) k/uL RBC 1.84 L (4.30-5.90) m/uL Hgb 6.1 L* (13.0-17.5) gm/dL Hct 18.8 L* (39.0-53.0) % MCV 101.8 H D (80.0-100.0) fL RDW 19.6 H (11.5-15.5) % Neutrophils # 11.6 H (1.3-7.7) k/uL Lymphocytes # 0.8 L (1.0-4.8) k/uL Monocytes # (0-1.0) k/uL PT 14.4 H (9.0-12.0) sec INR 1.4 H (<1.2) Carbon Dioxide 32 H (22-30) mmol/L BUN 145 H* (9-20) mg/dL Creatinine 2.46 H (0.66-1.25) mg/dL Glucose 125 H (74-99) mg/dL POC Glucose (mg/dL) (75-99) mg/dL Calcium 7.9 L (8.4-10.2) mg/dL Total Protein 4.5 L (6.3-8.2) g/dL Albumin 2.3 L (3.5-5.0) g/dL Assessment and Plan Plan: Assessment: 1. Acute kidney injury secondary to ATN secondary to cardiorenal syndrome. Renal function improved from admission. Creatinine 2.46 today. Disproportionately elevated BUN secondary to GI bleed. UA benign. No hydronephrosis noted on kidney ultrasound. 2. Chronic kidney disease stage IV with baseline creatinine in the range of 2.6-2.8 secondary to nephrosclerosis. Patient has a mature right upper extremity AV fistula which has not been used. He follows with mixing machine tender out of [place], [place]. 3. History of coronary disease status post CABG. 4. Hyperkalemia secondary to acute kidney injury and GI bleed. Stable. 5. Volume overload. Improved with diuresis. 6. Pneumonia on antibiotics. 7. Acute on chronic diastolic CHF with moderate mitral regurgitation and mild to moderate tricuspid regurgitation and pulmonary hypertension. 8. History of A. fib. 9. CML. 10. Acute blood loss anemia with component of chronic kidney disease. On Aranesp. Has received blood transfusions this admission. Plan: Scheduled to receive a unit of blood today. Avoid nephrotoxins. Continue to monitor renal function and urine output. Maintain lokelma. EGD and colonoscopy pending.
[2021-07-12 12:55] LABS: Glucose,Whole Blood 138 mg/dL (75-99)
--- NOTE | 2021-07-12 13:05 | P.PN ---
<EstebanAntonieta - Last Filed: 07/12/21 12:49> Subjective Progress Note Date: 07/12/21 CHIEF COMPLAINT: Weakness, GI bleed HISTORY OF PRESENT ILLNESS: 85-year-old male who had presented to the hospital with complaints of cough shortness of breath and weakness. Patient has history of atrial fibrillation in which he was on Coumadin which has been held. L1 the patient came in and he had bloody bowel movements with a drop in his hemoglobin. He is status post 5 units of PRBC transfusion. He was scheduled for an EGD and colonoscopy today however after finishing his problem he was still having dark stool. Only 2 bowel movements. Nursing is reporting them as black and tarry. This morning he was found to have a hemoglobin of 6.1. He is afebrile, he denies any abdominal pain, nausea, or vomiting. PHYSICAL EXAM: VITAL SIGNS: Reviewed. GENERAL: Well-developed in no acute distress. HEENT: No sclera icterus. Extraocular movements grossly intact. Moist buccal mucosa. Head is atraumatic, normocephalic. ABDOMEN: Soft. Nondistended. Nontender. NEUROLOGIC: Alert and oriented. Cranial nerves II through XII grossly intact. ASSESSMENT: 1. Acute GI bleed 2. Acute blood loss anemia secondary to GI bleeding 3. Coagulopathy 4. Anemia of chronic disease 5. Pneumonia 6. CHF exacerbation PLAN: 1. EGD and colonoscopy canceled today due to dark stool. 2. EGD and colonoscopy scheduled for tomorrow 3. Patient may have clear liquid diet today with nothing by mouth after midnigh t 4. 1 unit PRBC transfusion ordered 5. Repeat CBC in the morning The impression and plan of care has been dictated as directed. Dr. Shoemaker I performed a history and examination of this patient, discussed the same with the dictator. I agree with the dictator's note ,documented as a scribe. Any additional findings or plans will be noted.. Objective - Vital Signs Vital signs: Vital Signs Temp 97.5 F L 07/12/21 04:00 Pulse 94 07/12/21 07:38 Resp 18 07/12/21 04:00 BP 125/79 07/12/21 04:00 Pulse Ox 100 07/12/21 04:00 Intake & Output 07/11/21 07/12/21 07/12/21 18:59 06:59 18:59 Intake Total 720 Output Total 700 Balance 20 Intake: Oral 720 Output: Urine 700 Other: Voiding Method Urinal Diaper - Labs CBC & Chem 7: 07/12/21 08:49 07/12/21 08:50 Labs: Abnormal Lab Results - Last 24 Hours (Table) 07/11/21 07/11/21 07/11/21 Range/Units 08:20 08:20 12:17 WBC 14.5 H (3.8-10.6) k/uL RBC 2.13 L (4.30-5.90) m/uL Hgb 6.8 L* (13.0-17.5) gm/dL Hct 21.5 L (39.0-53.0) % MCV 101.1 H (80.0-100.0) fL RDW 18.0 H (11.5-15.5) % Neutrophils # (1.3-7.7) k/uL Monocytes # (0-1.0) k/uL PT 21.0 H (9.0-12.0) sec INR 2.1 H (<1.2) POC Glucose (mg/dL) 130 H (75-99) mg/dL 07/11/21 07/11/21 07/12/21 Range/Units 16:38 20:06 02:43 WBC 18.2 H (3.8-10.6) k/uL RBC 2.20 L (4.30-5.90) m/uL Hgb 7.3 L (13.0-17.5) gm/dL Hct 20.8 L (39.0-53.0) % MCV (80.0-100.0) fL RDW 19.0 H (11.5-15.5) % Neutrophils # 14.3 H (1.3-7.7) k/uL Monocytes # 1.5 H (0-1.0) k/uL PT (9.0-12.0) sec INR (<1.2) POC Glucose (mg/dL) 152 H 164 H (75-99) mg/dL 07/12/21 07/12/21 Range/Units 06:29 06:49 WBC (3.8-10.6) k/uL RBC (4.30-5.90) m/uL Hgb (13.0-17.5) gm/dL Hct (39.0-53.0) % MCV (80.0-100.0) fL RDW (11.5-15.5) % Neutrophils # (1.3-7.7) k/uL Monocytes # (0-1.0) k/uL PT (9.0-12.0) sec INR (<1.2) POC Glucose (mg/dL) 141 H 128 H (75-99) mg/dL <Percy Shoemaker - Last Filed: 07/12/21 17:25> Subjective I have personally seen and examined the patient, reviewed the [employer] /PAs history, exam and MDM and agree with the assessment and plan as written. Based on total visit time, I have performed more than 50% of the visit. As above. Patient's elevated INR has been corrected. Hemoglobin 6.1 today. Some darker stools possibly black and tarry in appearance. We'll proceed with upper and lower endoscopy tomorrow. Patient may require soapsuds enemas in a.m. if still not prepped well enough. Objective - Vital Signs Vital signs: Vital Signs Temp 97.5 F L 07/12/21 16:22 Pulse 105 H 07/12/21 16:22 Resp 18 07/12/21 16:22 BP 119/74 07/12/21 16:22 Pulse Ox 100 07/12/21 16:22 Intake & Output 07/11/21 07/12/21 07/12/21 18:59 06:59 18:59 Intake Total 720 310 Output Total 700 1200 Balance 20 -890 Intake: Oral 720 0 Blood Product 310 Rc As-1 Unit 310 [id number] Output: Urine 700 1200 Other: Voiding Method Urinal Diaper # Bowel Movements 1 - Labs CBC & Chem 7: 07/12/21 08:49 07/12/21 08:50 Labs: Abnormal Lab Results - Last 24 Hours (Table) 07/11/21 07/12/21 07/12/21 Range/Units 20:06 02:43 06:29 WBC 18.2 H (3.8-10.6) k/uL RBC 2.20 L (4.30-5.90) m/uL Hgb 7.3 L (13.0-17.5) gm/dL Hct 20.8 L (39.0-53.0) % MCV (80.0-100.0) fL RDW 19.0 H (11.5-15.5) % Neutrophils # 14.3 H (1.3-7.7) k/uL Lymphocytes # (1.0-4.8) k/uL Monocytes # 1.5 H (0-1.0) k/uL PT (9.0-12.0) sec INR (<1.2) Carbon Dioxide (22-30) mmol/L BUN (9-20) mg/dL Creatinine (0.66-1.25) mg/dL Glucose (74-99) mg/dL POC Glucose (mg/dL) 164 H 141 H (75-99) mg/dL Calcium (8.4-10.2) mg/dL Total Protein (6.3-8.2) g/dL Albumin (3.5-5.0) g/dL Crossmatch 07/12/21 07/12/21 07/12/21 Range/Units 06:49 08:49 08:50 WBC 13.9 H (3.8-10.6) k/uL RBC 1.84 L (4.30-5.90) m/uL Hgb 6.1 L* (13.0-17.5) gm/dL Hct 18.8 L* (39.0-53.0) % MCV 101.8 H D (80.0-100.0) fL RDW 19.6 H (11.5-15.5) % Neutrophils # 11.6 H (1.3-7.7) k/uL Lymphocytes # 0.8 L (1.0-4.8) k/uL Monocytes # (0-1.0) k/uL PT 14.4 H (9.0-12.0) sec INR 1.4 H (<1.2) Carbon Dioxide (22-30) mmol/L BUN (9-20) mg/dL Creatinine (0.66-1.25) mg/dL Glucose (74-99) mg/dL POC Glucose (mg/dL) 128 H (75-99) mg/dL Calcium (8.4-10.2) mg/dL Total Protein (6.3-8.2) g/dL Albumin (3.5-5.0) g/dL Crossmatch 07/12/21 07/12/21 07/12/21 Range/Units 08:50 11:00 12:49 WBC (3.8-10.6) k/uL RBC (4.30-5.90) m/uL Hgb (13.0-17.5) gm/dL Hct (39.0-53.0) % MCV (80.0-100.0) fL RDW (11.5-15.5) % Neutrophils # (1.3-7.7) k/uL Lymphocytes # (1.0-4.8) k/uL Monocytes # (0-1.0) k/uL PT (9.0-12.0) sec INR (<1.2) Carbon Dioxide 32 H (22-30) mmol/L BUN 145 H* (9-20) mg/dL Creatinine 2.46 H (0.66-1.25) mg/dL Glucose 125 H (74-99) mg/dL POC Glucose (mg/dL) 138 H (75-99) mg/dL Calcium 7.9 L (8.4-10.2) mg/dL Total Protein 4.5 L (6.3-8.2) g/dL Albumin 2.3 L (3.5-5.0) g/dL Crossmatch See Detail 07/12/21 Range/Units 16:28 WBC (3.8-10.6) k/uL RBC (4.30-5.90) m/uL Hgb (13.0-17.5) gm/dL Hct (39.0-53.0) % MCV (80.0-100.0) fL RDW (11.5-15.5) % Neutrophils # (1.3-7.7) k/uL Lymphocytes # (1.0-4.8) k/uL Monocytes # (0-1.0) k/uL PT (9.0-12.0) sec INR (<1.2) Carbon Dioxide (22-30) mmol/L BUN (9-20) mg/dL Creatinine (0.66-1.25) mg/dL Glucose (74-99) mg/dL POC Glucose (mg/dL) 155 H (75-99) mg/dL Calcium (8.4-10.2) mg/dL Total Protein (6.3-8.2) g/dL Albumin (3.5-5.0) g/dL Crossmatch
[2021-07-12 16:30] LABS: Glucose,Whole Blood 155 mg/dL (75-99)
[2021-07-12] MEDS ORDERED: PEG 3350-NA SULF,BICARB,CL/KCL 4,000 ML BOTTLE PO ONE (19:00)
[2021-07-12 20:13] LABS: Glucose,Whole Blood 225 mg/dL (75-99)
[2021-07-13 06:03] LABS: Glucose,Whole Blood 122 mg/dL (75-99)
[2021-07-13] MEDS: INSULIN ASPART (NovoLOG) 100 UNIT/ML VIAL SQ SCH ×4 (06:06→20:13)
[2021-07-13] MEDS: BUDESONIDE 1 MG/2 ML NEBU INHALATION SCH ×2 (07:05→20:26)
[2021-07-13] MEDS: IPRATROPIUM-ALBUTEROL 3 ML NEB INHALATION SCH ×4 (07:05→20:26)
[2021-07-13 09:06] LABS: Anisocytosis Slight; Hypochromasia Moderate; MCH 32.6 pg (25.0-35.0); MCHC 31.7 g/dL (31.0-37.0); MCV 102.7 fL (80.0-100.0); Macrocytosis Moderate; Mean Platelet Volume 9.7; Platelet Count 164 k/uL (150-450); RBC 1.52 m/uL (4.30-5.90); RDW 19.5 % (11.5-15.5); WBC 14.9 k/uL (3.8-10.6)
[2021-07-13] MEDS: oxyCODONE-APAP 10-325MG 1 EACH TAB PO PRN ×2 (09:07→20:12)
[2021-07-13] MEDS: ESCITALOPRAM 10 MG TAB PO SCH (09:08)
[2021-07-13] MEDS: guaiFENesin 600 MG TABLET.ER PO SCH ×2 (09:08→20:12)
[2021-07-13] MEDS: FLUCONAZOLE 100 MG TAB PO SCH (09:08)
[2021-07-13] MEDS: PANTOPRAZOLE 40 MG/10 ML VIAL IVP SCH ×2 (09:08→20:12)
[2021-07-13] MEDS: busPIRone HCl 10 MG TAB PO SCH ×2 (09:08→20:11)
[2021-07-13] MEDS: PRAMIPEXOLE 0.25 MG TAB PO SCH ×2 (09:08→20:12)
[2021-07-13] MEDS: CHOLECALCIFEROL 25 MCG (1000 IU) TABLET PO SCH ×2 (09:08→20:12)
[2021-07-13] MEDS: METOPROLOL TARTRATE 50 MG TAB PO SCH ×3 (09:08→23:26)
[2021-07-13] MEDS: HYDROPHILIC CREAM 180 GM TUBE TOPICAL SCH (09:08)
[2021-07-13] MEDS: LACTOBACILLUS ACIDOPH & BULGAR 1 EACH PACKET PO SCH ×2 (09:08→21:38)
[2021-07-13 09:14] LABS: INR 1.5 (<1.2); Prothrombin Time 14.9 sec (9.0-12.0)
[2021-07-13 09:19] LABS: HGB 4.9 gm/dL (13.0-17.5)
[2021-07-13 09:20] LABS: HCT 15.6 % (39.0-53.0)
[2021-07-13 09:31] LABS: Calcium 7.7 mg/dL (8.4-10.2); Potassium 4.7 mmol/L (3.5-5.1)
--- NOTE | 2021-07-13 10:05 | P.PN ---
Subjective Progress Note Date: 07/13/21 HISTORY OF PRESENT ILLNESS: This is an 85-year-old male patient of Dr. sparks with a previous [facility] history significant for CAD post CABG x4, hypertension and hypertensive cardiovascular disease, chronic atrial flutter/fibrillation on chronic Coumadin, diabetes mellitus type 2 with diabetic polyneuropathy, chronic kidney disease stage IV, obesity with obstructive sleep apnea, hypogonadism, di verticulosis, GERD with hiatal hernia, left adrenal adenoma, CML, patient fell on 05/28/2021 in his home kitchen and landed on his right side of the hip after he lost his balance suffered from severe pain he was found to have a left hip fracture he ended up going to [facility] where he underwent removal of the hardware of the right femur including the plates and screws and he had a long shaheen placed and his entire femur into the hip area successfully he developed to have a non-ST elevation myocardial infarction when he was there along with chronic diastolic heart failure he was seen by cardiology over there Dr. Jackson apparently was cleared for surgery and the patient had a surgery on 05/31/2021 after that patient was referred to rehab facility and [facility] and he was just released last to come back home with significant sores on his right thigh as well as bilateral heel deep tissue injury, patient was supposed to come and see him in the office today however he was not able template at all he was feeling increased shortness of breath associated with increased coughing and yellow from production, so his called EMS and the patient was brought into the ER at [facility] for evaluation his chest x-ray showed pulmonary vascular congestion and possible atypical pneumonia his COVID-19 swab PCR came back negative, patient was started on Lasix 60 mg IV push in the ER that he was placed on 40 mg IV push every 12 hours, patient also was started on meropenem 1 g IV piggyback every 12 hours because of his multiple ALLERGIES and possible gram-negative pneumonia. 07/01: Pulse ox is 97% on 2 L nasal cannula, patient afebrile, blood pressure 110/50, heart rate 83. Repeat blood work results are pending. Patient is continued on Lasix 40 mg IV twice daily, nebulizer treatments, meropenem. Consults in place with Cardiology, Nephrology and Wound Team. Breathing is improved from yesterday. 07/02: Patient complains of sputum that is rattling in his chest unable to bring it up. He continues to have cough. Heart rate 115. Echocardiogram reveals EF of 50-55%, mild aortic valve stenosis, moderate mitral regurgitation, [id number] tricuspid regurgitation and mild to moderate pulmonary hypertension. Patient has been seen by cardiology and acute coronary syndrome has been ruled out, elevated troponin secondary to chronic kidney disease. Hemoglobin is 6.5. Potassium 5.4, BUN 74 and creatinine 3.31. Repeat INR is 3.7. She has been seen by the wound Center with plan for triad on the left posterior thigh wound and offload bilateral heels. Nephrology is planning to maintain IV Lasix, transfuse 1 unit of blood avoid nephrotoxins, check stool for occult blood. Dr. Leung has evaluated and patient is not candidate for inpatient rehab. Discharge plan will be subacute rehab at [facility] or [facility] next week. 07/03: Patient is feeling weak today, he did receive 1 unit of packed her vessels yesterday, his hemoglobin still pending at the time of dictation, he was seen in consultation by physical therapy and rehabilitation, he was deemed inappropriate for inpatient rehab in addition however he will need to go for subacute rehab the patient at [facility]. Patient is complaining of some coughing minimal from production, he denies any hemoptysis, he has no bloody bowel movement, no apparent signs of bleeding, his hemoglobin dropped yesterday to 6.5, he is receiving Aranesp, he is maintained on iron, we will continue to follow the patient very closely. 07/04: Patient continues to have a significant coughing not able to bring up any phlegm, he is a bit short of breath today, we will add Mucinex 600 mg orally twice every day, consult pulmonary medicine for further evaluation and recommendation, and continue to monitor the patient very closely, his hemoglobin is down to 7.2, no evidence of GI bleed at this time, continue with iron, continue with Aranesp, monitor the patient very closely. 07/05: Patient is laying unabated continue to have significant cough, not able to bring up any phlegm, he continues to be somewhat short of breath, he continues to be anemic, he has been followed by pulmonary as well as cardiology along with nephrology, patient is currently on Mucinex 600 mg orally twice every day along with IV antibiotic in the form of meropenem, we'll continue to follow the patient very closely. Continue with physical therapy evaluation likely will go to [facility] in the next 1 or 2 days. 07/06: Patient states that he feels about the same from yesterday. He states he stood in his room yesterday but he is needing significant help and subacute rehab is recommended. [facility] will consider taking the patient except for the cost of Imtinib. We will recheck the Dr. Jacobsen's. The patient can be off this medication while at rehab. Lungs sound worse today with a significant amount of sputum production. Solu-medrol increased to 60 mg q 6hr. Sputum culture is positive for Inez and Diflucan started. Repeat blood work reveals WBC 4.9, hemoglobin 7.9. Sodium 137, potassium 5.5, chloride 104, CO2 25, BUN 75 and creatinine 3.07. Blood sugars 193. Alkaline phosphatase 166. Nephro protein supplement added. 07/07: Patient is followed by Dr. Leung and has poor endurance not ready for inpatient rehab. Patient is requiring 2 person assist to get out of bed. Pulmonary has signed off this case. Patient has been afebrile, heart rate 100- 104, blood pressure 124/73, pulse ox 95% on 3 L nasal cannula. Capillary blood glucose running between 173 and 232. Patient is currently on Solu-Medrol 60 mg IV every 6 hours, IV meropenem and IV fluconazole. Pharmacy is dosing Coumadin. Repeat blood work reveals Patient's breathing status is improved from yesterday. Solu-Medrol will be decreased to 40 mg every 8 hours. He is on home O2 at 2L since hip fracture. A is complaining of constipation and requesting of enema. Fleets enema added as well as lactulose 30 mg twice daily. 07/08: States his difficulty breathing is improving but he continues to have some cough and sputum production. His appetite is better today and he is taking Ensure as well. He had a good bowel movement. Patient is afebrile, heart rate 103, blood pressure 138/64 pulse ox 97% on 2 L nasal cannula. We will decrease Solu-Medrol to 40 mg every 12 hours and start prednisone in the morning Patient has been approved for discharge to [facility], we will plan for discharge to rehab tomorrow. 07/09: This evening, patient started having dark blood in his stool, Coumadin was placed on hold. Hemoglobin came back at 6.3 and transfusion of 3 units packed RBCs completed with repeat hemoglobin was 7.8. INR is 3.5. Consult added for Dr. Shoemaker with plan for EGD on Monday. Breathing status seems to be improving today. He has been afebrile, heart rate 93, blood pressure 120/88 and pulse ox 96% 2 L nasal cannula. 07/10: Patient is sitting up in bed he continues to have a GI bleed with a dark red blood, likely an upper GI bleed, patient was seen in consultation by Dr. dejesus he was scheduled for an EGD on Monday, if the EGD is negative we'll hold off colonoscopy this point in time, continue to monitor the patient's CBC keep his hemoglobin greater than 7, continue Protonix 40 mg IV push every 12 hours, discontinue prednisone, continue IV antibiotic, monitor the patient INR, over the next 24 hours, his INR has to be less than 1.5 before 07/11: Patient is quite edematous and upper extremities as well as his torso he has a very good urine output, patient will be given DDAVP by the nephrology 30 micrograms IV piggyback 1, monitor the urine output very closely, supposed to be started on the prevent today for possible EGD and colonoscopy tomorrow morning I spoke with his and told her about his guarded prognosis because of the multi organ dysfunctions including renal failure, heart failure, pneumonia, recent hip fracture, atrial fibrillation, debility, anasarca, and she was advised, spent some time with patient today and we will try the prep , midline will be placed for the patient 07/12: Patient is scheduled for EGD and colonoscopy today with Dr. Shoemaker but unfortunately bowel prep last evening did not result in clear return and he is now ordered for mag citrate and rescheduled for tomorrow. Hemoglobin came back at 6.1 and 1 unit of packed RBCs. Respiratory status is improved, decrease cough and congestion. Patient noted to have upper extremity edema. Patient has been afebrile, heart rate 109, blood pressure 117/60, pulse ox 100% on 2 L nasal cannula. 07/13: Patient has completed more bowel prep in order to undergo scopes today. He is scheduled for EGD and colonoscopy. He was transfused 1 unit of packed RB Cs yesterday however hemoglobin came back at 4.9, 2 units of packed RBCs ordered for now. Patient is having dark maroon stools. He states he feels dizzy when he moves. He continues to have edema to the arms and generalized anasarca. Contacted blade grinder to move the patient into the intensive care unit. REVIEW OF SYSTEMS: Constitutional: No documented fever, no chills, no night sweats. Positive for weight change. Positive for weakness, positive for fatigue or lethargy. No daytime sleepiness. HEENT: No headache. No blurred vision or double vision, no loss of vision. hard of Hearing, no ringing in the ears, no dizziness. No nasal drainage or congestion. No epistaxis. No sore throat. Lungs: Reports shortness of breathimproving, occasional cough, minimal sputum production. No wheezing. Reports dyspnea with activity. Cardiovascular: No chest pain, positive for upper extremities edema. positive for palpitations. No paroxysmal nocturnal dyspnea. positive for orthopnea. No lightheadedness or dizziness. No syncopal episodes. Abdominal: Reports abdominal pain. No nausea, vomiting. No diarrhea. No constipation. Reports tarry stools reports loss of appetite. Genitourinary: No dysuria, increased frequency, urgency. No urinary retention. Musculoskeletal: No myalgias. positive for muscle weakness, positive for gait dysfunction, positive for frequent falls, positive for back pain and neck pain. Integumentary: pressure sores to the posterior aspect of the right thigh and DTI in both heels have resolved positive for nail changes Neurologic: No aphasia. No facial droop. No change in mentation. No head injury. No headache. No paralysis. No paresthesia. Psychiatric: positive for depression. No anxiety. No mood swings. Endocrine: No abnormal blood sugars. PHYSICAL EXAMINATION: General: 85-year-old male sitting up in bed in no respiratory distress HEENT: Head is atraumatic, normocephalic, pupils were equal round reactive to light and recommendation, extraocular muscle movement were intact, sclera nonicteric, conjunctivae pale, mucous membranes of the mouth are somewhat dry. Neck: Supple, no JVP, decreased carotid upstroke bilaterally, no lymphadenopathy. Chest: Decreased breath sounds at the bases, bilat rhonchi, minimal expiratory wheezes, no chest wall tenderness no intercostal retractions. Heart: First heart sound is normal, second heart sounds normal irregularly irregular there is systolic ejection murmur 2/6 located in the left sternal border. Abdomen: Soft, nontender, nondistended, positive bowel sounds. Extremities: There is +1 edema no calf tenderness DP +1 bilaterally, bilateral heel deep tissue injury resolved bilateral hammertoes and nail changes. Neurologic examination: Patient is awake alert and oriented X 3, cranial nerves II-12 appear grossly intact, muscle power were 3 out of 5 in upper extremities and 3 out of 5 in bilateral lower extremities, deep tendon reflexes were depressed ASSESSMENT AND PLAN: 1. Acute hypoxemic respiratory failure due to acute diastolic heart failure with possible gram-negative pneumonia. Continue Lasix 40 mg oral every 12 hours, meropenem 1 g IV piggyback every 12 hours, sputum culture, blood culture, monitor input and output and daily weight, and pulmonary consultation, continue Mucinex 600 mg orally twice every day. Steroids discontinued. 2. Upper GI bleed likely discontinue Coumadin, continue Protonix 40 mg IV push every 12 hours, patient scheduled for EGD and colonoscopy today. Patient has been transfused a total of 6 units in transfusion of 2 more units ordered. Transfer to ICU. 3. Acute blood loss anemia status post 3 units of packed red blood cell procedure. Monitor the patient hemoglobin keep hemoglobin greater than 7. Requested to move the patient to the ICU however he was denied by the blade grinder due to bed availability he is hemodynamically stable so far. 4. Possible gram-negative pneumonia. Continue patient on Pulmicort 1 mg nebul ization twice every day, DuoNeb 3 mg 4 times every day, oxygen support, continue patient on meropenem 1 g IV piggyback every 12 hours, pulmonary consultation appreciated. 5. Multiple stage II pressure ulcer behind the right thigh and deep tissue injury in both heels. continue local wound care the thigh and skin prep for the heels with floating the heels daily, swab the pressure sores for aerobic and anaerobic cultures. 6. Recent fall with Hip fracture status post right shaheen insertion of the right femur with removal of the old hardware. Consult physical therapy, continue current pain management. 7. Recent non-ST elevation myocardial infarction. Continue patient on metoprolol orally twice every day, continue aspirin 81 mg once every day. 8. Chronic diastolic heart failure. Continue metoprolol 25 mg orally twice every day, continue Lasix 40 mg oral every 12 hours, monitor input and output and daily weight 9. Diabetes mellitus type II with diabetic polyneuropathy currently off medications. 10. Chronic kidney disease stage IV. Monitor patient input and output and daily weight and avoid nephrotoxins. Continue Lasix 40 mg orally twice every day. 11. Hyperkalemia. Patient did receive 1 amp of D50 along with insulin he will receive calcium gluconate 1 g IV piggyback 1. resolved. 12. Chronic myelogenous leukemia. Continue with Imatinib 300 mg orally daily. 13. Acute blood loss anemia on Anemia of chronic kidney disease. Continue iron supplement , type and cross s/p transfusion of 5 units of PRBCs. 14. Restless leg syndrome. Continue Mirapex 0.25 mg orally twice every day. 15. Major depressive disorder. Continue patient on Lexapro 30 mg orally once every day. 16. Generalized anxiety disorder. Continue with SSRI as well as BuSpar 10 mg orally twice every day. 17. Chronic atrial fibrillation. Continue patient on metoprolol 25 mg orally twice every day, Coumadin. 18. Coagulopathy. hold off Coumadin due to GI bleed. 19. CAD post CABG 4 with a recent non-ST elevation myocardial infarction. Continue metoprolol 25 mg orally twice every day, aspirin 81 mg once every day. 20. GERD with hiatal hernia. Continue Protonix 40 mg orally once every day. 21. Chronic pain syndrome. Continue Percocet 10/325 mg one tablet orally 4 t imes every day. 22. DVT prophylaxis. Currently on Coumadin. 23. GI prophylaxis. Continue PPI. 24. Medical debility. Physical therapy evaluation. Full code. DISCHARGE PLAN Subacute rehab at [facility] late in week. Impression and plan of care have been directed as dictated by the signing physician. Juli uLna nurse practitioner acting as scribe for signing physician. Objective - Vital Signs Vital signs: Vital Signs Temp 97.6 F 07/13/21 04:00 Pulse 95 07/13/21 07:19 Resp 18 07/13/21 04:00 BP 91/46 07/13/21 04:00 Pulse Ox 94 L 07/13/21 04:00 Intake & Output 07/12/21 07/13/21 07/13/21 18:59 06:59 18:59 Intake Total 310 Output Total 1200 Balance -890 Weight 114 kg Intake: Oral 0 Blood Product 310 Rc As-1 Unit 310 [id number] Output: Urine 1200 Other: Voiding Method Urinal Diaper # Voids 2 # Bowel Movements 1 1 3 - Labs CBC & Chem 7: 07/13/21 08:45 07/12/21 08:50 Labs: Abnormal Lab Results - Last 24 Hours (Table) 07/12/21 07/12/21 07/12/21 Range/Units 08:49 08:50 08:50 WBC 13.9 H (3.8-10.6) k/uL RBC 1.84 L (4.30-5.90) m/uL Hgb 6.1 L* (13.0-17.5) gm/dL Hct 18.8 L* (39.0-53.0) % MCV 101.8 H D (80.0-100.0) fL RDW 19.6 H (11.5-15.5) % Neutrophils # 11.6 H (1.3-7.7) k/uL Lymphocytes # 0.8 L (1.0-4.8) k/uL PT 14.4 H (9.0-12.0) sec INR 1.4 H (<1.2) Carbon Dioxide 32 H (22-30) mmol/L BUN 145 H* (9-20) mg/dL Creatinine 2.46 H (0.66-1.25) mg/dL Glucose 125 H (74-99) mg/dL POC Glucose (mg/dL) (75-99) mg/dL Calcium 7.9 L (8.4-10.2) mg/dL Total Protein 4.5 L (6.3-8.2) g/dL Albumin 2.3 L (3.5-5.0) g/dL Crossmatch 07/12/21 07/12/21 07/12/21 Range/Units 11:00 12:49 16:28 WBC (3.8-10.6) k/uL RBC (4.30-5.90) m/uL Hgb (13.0-17.5) gm/dL Hct (39.0-53.0) % MCV (80.0-100.0) fL RDW (11.5-15.5) % Neutrophils # (1.3-7.7) k/uL Lymphocytes # (1.0-4.8) k/uL PT (9.0-12.0) sec INR (<1.2) Carbon Dioxide (22-30) mmol/L BUN (9-20) mg/dL Creatinine (0.66-1.25) mg/dL Glucose (74-99) mg/dL POC Glucose (mg/dL) 138 H 155 H (75-99) mg/dL Calcium (8.4-10.2) mg/dL Total Protein (6.3-8.2) g/dL Albumin (3.5-5.0) g/dL Crossmatch See Detail 07/12/21 07/13/21 Range/Units 20:12 06:01 WBC (3.8-10.6) k/uL RBC (4.30-5.90) m/uL Hgb (13.0-17.5) gm/dL Hct (39.0-53.0) % MCV (80.0-100.0) fL RDW (11.5-15.5) % Neutrophils # (1.3-7.7) k/uL Lymphocytes # (1.0-4.8) k/uL PT (9.0-12.0) sec INR (<1.2) Carbon Dioxide (22-30) mmol/L BUN (9-20) mg/dL Creatinine (0.66-1.25) mg/dL Glucose (74-99) mg/dL POC Glucose (mg/dL) 225 H 122 H (75-99) mg/dL Calcium (8.4-10.2) mg/dL Total Protein (6.3-8.2) g/dL Albumin (3.5-5.0) g/dL Crossmatch
--- NOTE | 2021-07-13 11:30 | XR ---
EXAMINATION TYPE: XR chest 1V DATE OF EXAM: 07/13/2021 COMPARISON: 07/03/2021 HISTORY: Shortness of breath TECHNIQUE: Single frontal view of the chest is obtained. FINDINGS: Bilateral lower lobe infiltrate and small effusion. Heart is enlarged. Postoperative mcclure e. Diffuse osteopenia. No pneumothorax. Heart is enlarged. Surgical clips in the upper abdomen noted. IMPRESSION: 1. COPD with bilateral lower lobe infiltrate and small pleural effusion.
[2021-07-13 11:42] LABS: Glucose,Whole Blood 138 mg/dL (75-99)
[2021-07-13] MEDS: SODIUM ZIRCONIUM CYCLOSILICATE 10 GM PACKET PO SCH (11:46)
[2021-07-13] MEDS: MEROPENEM 1 GM in SODIUM CHLORIDE 0.9% 100 ML IVPB SCH (11:46)
[2021-07-13] MEDS ORDERED: DESMOPRESSIN ACETATE 28 MCG in SODIUM CHLORIDE 0.9% 50 ML IVPB ONE (12:09)
--- NOTE | 2021-07-13 12:10 | P.PN ---
Subjective Patient is seen in follow-up for acute kidney injury on chronic kidney disease. Patient has chronic kidney disease stage IV with baseline creatinine in the range of 2.6-2.8. Renal function stable. Has been voiding. Denies chest pain or shortness of breath. On 2 L nasal cannula. Hemoglobin 4.9 today. Receiving 2 units of blood. Scheduled for EGD and colonoscopy today. Vital signs are stable. General: On nasal cannula. HEENT: Head exam is unremarkable. LUNGS: Breath sounds decreased. HEART: Tachycardic. ABDOMEN: Soft, no distention. EXTREMITITES: Trace edema. Chronic changes noted. Objective - Vital Signs Vital signs: Vital Signs Temp 97.6 F 07/13/21 11:05 Pulse 91 07/13/21 11:08 Resp 16 07/13/21 11:05 BP 101/58 07/13/21 11:05 Pulse Ox 97 07/13/21 11:05 Intake & Output 07/12/21 07/13/21 07/13/21 18:59 06:59 18:59 Intake Total 310 200 Output Total 1200 900 Balance -890 -700 Weight 114 kg Intake: Intake, IV Titration 100 Amount Meropenem 1 gm In Sodium 100 Chloride 0.9% 100 ml @ 33 .3 mls/hr IVPB Q12HR [facility] Rx#:[id number] Oral 0 100 Blood Product 310 0 Rc As-1 Unit 310 [id number] Rc As-1 Unit 0 [id number] Output: Urine 1200 900 Other: Voiding Method Urinal Diaper # Voids 2 # Bowel Movements 1 1 3 - Labs CBC & Chem 7: 07/13/21 08:45 07/13/21 08:45 Labs: Abnormal Lab Results - Last 24 Hours (Table) 07/12/21 07/12/21 07/12/21 Range/Units 11:00 12:49 16:28 WBC (3.8-10.6) k/uL RBC (4.30-5.90) m/uL Hgb (13.0-17.5) gm/dL Hct (39.0-53.0) % MCV (80.0-100.0) fL RDW (11.5-15.5) % PT (9.0-12.0) sec INR (<1.2) Carbon Dioxide (22-30) mmol/L BUN (9-20) mg/dL Creatinine (0.66-1.25) mg/dL Glucose (74-99) mg/dL POC Glucose (mg/dL) 138 H 155 H (75-99) mg/dL Calcium (8.4-10.2) mg/dL Crossmatch See Detail 07/12/21 07/13/21 07/13/21 Range/Units 20:12 06:01 08:45 WBC 14.9 H (3.8-10.6) k/uL RBC 1.52 L (4.30-5.90) m/uL Hgb 4.9 L* (13.0-17.5) gm/dL Hct 15.6 L* (39.0-53.0) % MCV 102.7 H (80.0-100.0) fL RDW 19.5 H (11.5-15.5) % PT (9.0-12.0) sec INR (<1.2) Carbon Dioxide (22-30) mmol/L BUN (9-20) mg/dL Creatinine (0.66-1.25) mg/dL Glucose (74-99) mg/dL POC Glucose (mg/dL) 225 H 122 H (75-99) mg/dL Calcium (8.4-10.2) mg/dL Crossmatch 07/13/21 07/13/21 07/13/21 Range/Units 08:45 08:45 11:41 WBC (3.8-10.6) k/uL RBC (4.30-5.90) m/uL Hgb (13.0-17.5) gm/dL Hct (39.0-53.0) % MCV (80.0-100.0) fL RDW (11.5-15.5) % PT 14.9 H (9.0-12.0) sec INR 1.5 H (<1.2) Carbon Dioxide 34 H (22-30) mmol/L BUN 137 H* (9-20) mg/dL Creatinine 2.36 H (0.66-1.25) mg/dL Glucose 116 H (74-99) mg/dL POC Glucose (mg/dL) 138 H (75-99) mg/dL Calcium 7.7 L (8.4-10.2) mg/dL Crossmatch Assessment and Plan Plan: Assessment: 1. Acute kidney injury secondary to ATN secondary to cardiorenal syndrome. Renal function improved from admission. Creatinine 2.36 today. Disproportionately elevated BUN secondary to GI bleed. UA benign. No hydronephrosis noted on kidney ultrasound. 2. Chronic kidney disease stage IV with baseline creatinine in the range of 2.6-2.8 secondary to nephrosclerosis. Patient has a mature right upper extremity AV fistula which has not been used. He follows with industrial gas servicer supervisor out of [place], [place]. 3. History of coronary disease status post CABG. 4. Hyperkalemia secondary to acute kidney injury and GI bleed. Stable. 5. Volume overload. Improved with diuresis. 6. Pneumonia on antibiotics. 7. Acute on chronic diastolic CHF with moderate mitral regurgitation and mild to moderate tricuspid regurgitation and pulmonary hypertension. 8. History of A. fib. 9. CML. 10. Acute blood loss anemia with component of chronic kidney disease. On Aranesp. Has received blood transfusions this admission. Plan: Currently receiving blood transfusions. Add Lasix 40 mg IV twice daily. Check chest x-ray. Avoid nephrotoxins. Continue to monitor renal function and urine output. Maintain lokelma. EGD and colonoscopy pending. I will also give him a dose of IV DDAVP today.
--- NOTE | 2021-07-13 14:27 | P.PN ---
Subjective Progress Note Date: 07/13/21 Principal diagnosis: GI bleed I was asked to evaluate this 85-year-old male patient for an underlying pneumonia and ongoing difficulties in breathing. The patient has multiple me dical problems and comorbidities. He is having some cough and a congested cough without ability to produce sputum. Based on that, the patient was given Mucinex 600 mg twice a day and during the course of his illness antibiotics have a modified to include IV meropenem to cover for gram-negative pathogens. The patient is known to have coronary artery disease with previous bypass surgery 4, hypertension, hypertensive heart disease, chronic inflammation/flutter for which the patient is demented on long-term medical condition with warfarin, diabetes mellitus type 2 with diabetic peripheral neuropathy, chronic stage IV kidney disease, obstructive sleep apnea, obesity, CML and history of divert iculosis. The patient had a recent fall and he suffered a left hip fracture and the patient was given a left hip ORIF and during the course of his postsurgical recovery, the patient developed an acute non-ST segment elevation myocardial . The patient was treated medically and the patient was discharged to rehabilitation. During this current admission, the patient considered negative for COVID 19. The chest x-ray at time of admission showed pulmonary vessel congestion and some infiltrates in lung bases bilaterally. She was given IV Lasix. Patient was started also on IV meropenem. The broad-spectrum antibiotics was chosen due to his previous hospitalization and extensive comorbidities. Cultures from the sputum showed Inez. Echocardiogram was repeated during this current admission showed an ejection fraction of 50-55%, mild aortic stenosis, moderate mitral regurgitation, moderate as with regurgitation and moderate degree of portal hypertension. The patient's current hemoglobin is at 7.6. INR is at 2.1. No signs of any bleeding at this point in time. On today's evaluation of 07/06/2021, the patient is being seen for a follow-up. The patient is still having congested cough. Limited from a since yesterday. Remainder IV meropenem. Start the patient on DuoNeb neb last treatment schedule [id number] 4 times a day and the patient is also started on IV Solu-Medro l. The patient remains on IV meropenem. The patient is is not PRODUCING any significant complaints otherwise. He is afebrile. His hemodynamics is stable. The patient has a white cell count of 4.9 with a hemoglobin of 7.9 and platelets of 315. INR from today is at 2.9. This is within therapeutic range. The patient's has no other new complaints otherwise for now. Essentially bedridden. He has multiple medical problems and coronary disease as mentioned above. We were asked to reevaluate the patient today 07/13/2021 as he had gone on to develop GI bleeding. His been having maroon stools. His hemoglobin dropped to 4.9 today. He is receiving his seventh unit of packed red blood cells this admission. The plan is for EGD/colonoscopy today by surgical services. GI services are not available. The plan is to transfer the patient to the intensive care unit where we will manage him. White count 14.9. INR 1.5. Sodium 139. Potassium 4.7. BUN 137. Creatinine 2.37. Glucose 116. The patient is seen today on the selective care unit. He is sitting up in bed. He is awake and alert. Current blood pressure 106/71. Afebrile. He denies any shortness of breath. Denies any chest pain. Denies any dizziness or lightheadedness currently. Chest x-ray reveals evidence of COPD with bilateral lower lobe infiltrates and small effusions. He is maintaining O2 saturations in the low 90s on 2 L nasal cannula. Sputum culture previously was positive for Inez only. He remains on DuoNeb inhalations, Pulmicort inhalations. He is continued on IV diuretics. He is on Lokelma. Objective - Vital Signs Vital signs: Vital Signs Temp 97.6 F 07/13/21 14:05 Pulse 68 07/13/21 14:05 Resp 18 07/13/21 14:05 BP 106/71 07/13/21 14:05 Pulse Ox 92 L 07/13/21 14:05 Intake & Output 07/12/21 07/13/21 07/13/21 18:59 06:59 18:59 Intake Total 310 510 Output Total 1200 900 Balance -890 -390 Weight 114 kg Intake: Intake, IV Titration 100 Amount Meropenem 1 gm In Sodium 100 Chloride 0.9% 100 ml @ 33 .3 mls/hr IVPB Q12HR [facility] Rx#:[id number] Oral 0 100 Blood Product 310 310 Rc As-1 Unit 310 [id number] Rc As-1 Unit 310 [id number] Output: Urine 1200 900 Other: Voiding Method Urinal Diaper # Voids 2 # Bowel Movements 1 1 3 - Exam General: 85-year-old pale, pleasant male patient, on 2 L nasal cannula, sitting up in bed in no respiratory distress Head exam was generally normal. There was no scleral icterus or corneal arcus. Mucous membranes were moist. HEENT: Head is atraumatic, normocephalic, pupils were equal round reactive to light and recommendation, extraocular muscle movement were intact, sclera nonicteric, conjunctivae were pale, mucous membranes of the mouth are somewhat dry. Neck: Supple, no JVP, decreased carotid upstroke bilaterally, no lymphadenopathy. Chest: Decreased breath sounds at the bases, few crackles in the bilateral bases no chest wall tenderness no intercostal retractions. Heart: First heart sound is normal, second heart sounds normal irregularly irregular there is systolic ejection murmur 2/6 located in the left sternal border. Abdomen: Soft, nontender, nondistended, positive bowel sounds. Extremities: There is +2 edema no calf tenderness DP +1 bilaterally, bilateral heel deep tissue injury, bilateral hammertoes and nail changes. Neurologic examination: Patient is awake alert and oriented X 3, cranial nerves II-12 appear grossly intact, muscle power were 3 out of 5 in upper extremities and 3 out of 5 in bilateral lower extremities, deep tendon reflexes were depressed - Labs CBC & Chem 7: 07/13/21 08:45 07/13/21 08:45 Labs: Abnormal Lab Results - Last 24 Hours (Table) 07/12/21 07/12/21 07/12/21 Range/Units 11:00 16:28 20:12 WBC (3.8-10.6) k/uL RBC (4.30-5.90) m/uL Hgb (13.0-17.5) gm/dL Hct (39.0-53.0) % MCV (80.0-100.0) fL RDW (11.5-15.5) % PT (9.0-12.0) sec INR (<1.2) Carbon Dioxide (22-30) mmol/L BUN (9-20) mg/dL Creatinine (0.66-1.25) mg/dL Glucose (74-99) mg/dL POC Glucose (mg/dL) 155 H 225 H (75-99) mg/dL Calcium (8.4-10.2) mg/dL Crossmatch See Detail 07/13/21 07/13/21 07/13/21 Range/Units 06:01 08:45 08:45 WBC 14.9 H (3.8-10.6) k/uL RBC 1.52 L (4.30-5.90) m/uL Hgb 4.9 L* (13.0-17.5) gm/dL Hct 15.6 L* (39.0-53.0) % MCV 102.7 H (80.0-100.0) fL RDW 19.5 H (11.5-15.5) % PT (9.0-12.0) sec INR (<1.2) Carbon Dioxide 34 H (22-30) mmol/L BUN 137 H* (9-20) mg/dL Creatinine 2.36 H (0.66-1.25) mg/dL Glucose 116 H (74-99) mg/dL POC Glucose (mg/dL) 122 H (75-99) mg/dL Calcium 7.7 L (8.4-10.2) mg/dL Crossmatch 07/13/21 07/13/21 Range/Units 08:45 11:41 WBC (3.8-10.6) k/uL RBC (4.30-5.90) m/uL Hgb (13.0-17.5) gm/dL Hct (39.0-53.0) % MCV (80.0-100.0) fL RDW (11.5-15.5) % PT 14.9 H (9.0-12.0) sec INR 1.5 H (<1.2) Carbon Dioxide (22-30) mmol/L BUN (9-20) mg/dL Creatinine (0.66-1.25) mg/dL Glucose (74-99) mg/dL POC Glucose (mg/dL) 138 H (75-99) mg/dL Calcium (8.4-10.2) mg/dL Crossmatch Assessment and Plan Assessment: 1 acute hypoxic respiratory failure, suspect lower lobe pneumonia with limited by the pulmonary infiltrates and a congested cough. She is covered with IV meropenem. There was a component of CHF with diastolic failure, admission for which the patient was given diuretics and the patient remains on oxygen at 2 L per minute nasal cannula with a pulse of 97%. 2 acute on chronic anemia. Currently having maroon stools. Is receiving his seventh unit of packed red blood cells this admission. Hypotensive and planning on transfer to the ICU today. Plan is for EGD/colonoscopy today 07/13/2021 3 chronic diastolic heart failure 4 coronary artery disease with recent non-STEMI. 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 on outpatient basis 9 chronic anemia/anemia of chronic disease 10 chronic atrial fibrillation within a long-term and coagulation with warfarin with a therapeutic PT/INR 11 multiple stage II pressure ulcers involving the right thigh and deep tissue injury involving the heels Plan The patient was seen and evaluated today He continued to have ongoing issues with maroon stools Hemoglobin down to 4.9 and receiving his seventh unit of packed red blood cells this admission The plan is for transfer to the intensive care unit after EGD/colonoscopy We're consulted for ICU management Remains a full code per patient request We will continue to follow and make further recommendations based on his clinical status I, the cosigning physician, performed a history & physical examination of the patient. Lungs sounds with crackles in the posterior bases. Maintaining good O2 saturations in the 90s on 2 L/m nasal cannula. I discussed the assessment and plan of care with my nurse practitioner, Lexi Ritter. I attest to the above note as dictated by her.
[2021-07-13] MEDS ORDERED: IV FLUID CONTINUATION 1,000 ML IV ONE ×2 (14:29)
[2021-07-13] MEDS ORDERED: KETAMINE 10 MG/ML 20 ML VIAL ONE (14:50)
[2021-07-13] MEDS ORDERED: PROPOFOL 10 MG/ML 20 ML VIAL IV ONE (14:50)
[2021-07-13] MEDS ORDERED: PHENYLEPHRINE-0.9% NACL SYG 1,000 MCG/10 ML SYRINGE ONE (14:50)
[2021-07-13] MEDS ORDERED: LIDOCAINE 1% INJ 10MG/ML (20 ML MDV) ONE (14:50)
[2021-07-13] MEDS ORDERED: SODIUM CHLORIDE 0.9% 500 ML 500 ML IV ONE (15:29)
--- NOTE | 2021-07-13 16:02 | P.PCN ---
Date of Procedure: 07/13/21 Procedure(s) Performed: PREOPERATIVE DIAGNOSIS: GI bleed POSTOPERATIVE DIAGNOSIS: Duodenal polypoid lesion, hiatal hernia, Schatzki's ring, poor colonic prep PROCEDURE: 1. EGD with clip placement 2. Colonoscopy ANESTHESIA: MAC SURGEON: Percy Shoemaker M.D. SPECIMENS: None ENDOSCOPIC PROCEDURE: The patient was on the endoscopy table in the left decubitus position. The Olympus gastroscope was inserted into the oropharynx and passed under direct visualization to the stomach. The patient had evidence of blood within the antral region of the stomach. There were clots there. These were partially evacuated. I was unable to see the prepyloric and antrum better. No obvious mucosal abnormalities were seen in the stomach. The pylorus was widely patent. In the duodenal bulb there was a less than 1 cm polypoid lesion that had an appearance of granulation tissue. This was likely related to an underlying ulceration. This appeared to be a site of bleeding although no active heavy bleeding was seen. There was blood around this polypoid lesion. The base of this polypoid lesion measured only about 3-4 mm in size. I was able to advance the scope into the second and third portion of the duodenum. There was some bile present here. There was a large diverticulum in the second portion of the duodenum. I then placed a clip at the base of this polypoid lesion. The area was irrigated. No active bleeding was seen. The scope was withdrawn into the stomach. Retroflexion revealed a moderate sized hiatal hernia. At the GE junction there was early Schatzki's ring formation. The esophagus appeared free of inflammatory changes or neoplastic changes. The patient was kept on the endoscopy table in the left decubitus position. The Olympus colonoscope was inserted into the anus and passed under direct visualization to the mid transverse colon. The patient had maroon-colored stool throughout. I could not visualize much of the mucosa. I could not pass more proximally given the volume of old bloody fluid. This was likely related to the upper GI source. The scope was withdrawn. This was an incomplete examination because of the poor prep. RECOMMENDATIONS: Case discussed with the patient's Zelda by phone and also Dr. Neal. Resume clear liquid diet. Continue blood transfusions as ordered. Continue to hold anticoagulation. Monitor for recurrent bleeding. If recurrent bleeding suspected recommend transfer to tertiary care institution for possible catheter embolization and formal GI consultation.
[2021-07-13] MEDS: FUROSEMIDE 10 MG/ML 4 ML VIAL IV SCH ×2 (16:10→20:12)
[2021-07-13 16:38] LABS: Glucose,Whole Blood 122 mg/dL (75-99)
[2021-07-13 20:06] LABS: Glucose,Whole Blood 266 mg/dL (75-99)
[2021-07-13 23:49] LABS: Anisocytosis Slight; Hypochromasia Slight; MCH 32.8 pg (25.0-35.0); MCHC 32.6 g/dL (31.0-37.0); MCV 100.5 fL (80.0-100.0); Macrocytosis Slight; Platelet Count 136 k/uL (150-450); RBC 1.88 m/uL (4.30-5.90); RDW 18.2 % (11.5-15.5)
[2021-07-14 00:25] LABS: HGB 6.2 gm/dL (13.0-17.5)
[2021-07-14 00:26] LABS: HCT 18.9 % (39.0-53.0)
[2021-07-14 06:03] LABS: Glucose,Whole Blood 94 mg/dL (75-99)
[2021-07-14] MEDS: INSULIN ASPART (NovoLOG) 100 UNIT/ML VIAL SQ SCH ×3 (06:16→16:54)
[2021-07-14] MEDS: IPRATROPIUM-ALBUTEROL 3 ML NEB INHALATION SCH ×3 (08:46→16:16)
[2021-07-14] MEDS: BUDESONIDE 1 MG/2 ML NEBU INHALATION SCH (08:46)
[2021-07-14] MEDS: PANTOPRAZOLE 40 MG/10 ML VIAL IVP SCH (09:38)
[2021-07-14] MEDS: FUROSEMIDE 10 MG/ML 4 ML VIAL IV SCH (09:38)
[2021-07-14] MEDS: guaiFENesin 600 MG TABLET.ER PO SCH (09:38)
[2021-07-14] MEDS: ESCITALOPRAM 10 MG TAB PO SCH (09:38)
[2021-07-14] MEDS: CHOLECALCIFEROL 25 MCG (1000 IU) TABLET PO SCH (09:39)
[2021-07-14] MEDS: oxyCODONE-APAP 10-325MG 1 EACH TAB PO PRN (09:39)
[2021-07-14] MEDS: LACTOBACILLUS ACIDOPH & BULGAR 1 EACH PACKET PO SCH (09:39)
[2021-07-14] MEDS: FLUCONAZOLE 100 MG TAB PO SCH (09:39)
[2021-07-14] MEDS: PRAMIPEXOLE 0.25 MG TAB PO SCH (09:39)
[2021-07-14] MEDS: busPIRone HCl 10 MG TAB PO SCH (09:39)
[2021-07-14] MEDS: METOPROLOL TARTRATE 50 MG TAB PO SCH ×2 (09:39→16:54)
[2021-07-14] MEDS: SODIUM ZIRCONIUM CYCLOSILICATE 10 GM PACKET PO SCH (09:40)
[2021-07-14 09:56] LABS: Anisocytosis Slight; Hypochromasia Slight; MCH 32.3 pg (25.0-35.0); MCHC 31.9 g/dL (31.0-37.0); MCV 101.3 fL (80.0-100.0); Macrocytosis Moderate; Platelet Count 149 k/uL (150-450); RBC 1.83 m/uL (4.30-5.90); RDW 18.8 % (11.5-15.5); WBC 12.6 k/uL (3.8-10.6)
[2021-07-14 10:10] LABS: Calcium 7.8 mg/dL (8.4-10.2); Potassium 4.4 mmol/L (3.5-5.1)
[2021-07-14 10:22] LABS: HGB 5.9 gm/dL (13.0-17.5)
[2021-07-14 10:23] LABS: HCT 18.6 % (39.0-53.0)
[2021-07-14 11:45] LABS: Glucose,Whole Blood 134 mg/dL (75-99)
[2021-07-14 12:09] LABS: INR 1.7 (<1.2); Prothrombin Time 16.9 sec (9.0-12.0)
--- NOTE | 2021-07-14 12:10 | P.PN ---
Subjective Patient is seen in follow-up for acute kidney injury on chronic kidney disease. Patient has chronic kidney disease stage IV with baseline creatinine in the range of 2.6-2.8. Renal function stable. Has been voiding. Denies chest pain or shortness of breath. On 2 L nasal cannula. Hemoglobin 5.9 today. Scheduled to receive a unit of blood today. Vital signs are stable. General: On nasal cannula. HEENT: Head exam is unremarkable. LUNGS: Breath sounds decreased. HEART: Regular rhythm. ABDOMEN: Soft, no distention. EXTREMITITES: Trace edema. Chronic changes noted. Upper extremities edema noted. Objective - Vital Signs Vital signs: Vital Signs Temp 98.0 F 07/14/21 04:00 Pulse 96 07/14/21 11:48 Resp 17 07/14/21 04:00 BP 81/46 07/14/21 04:00 Pulse Ox 100 07/14/21 04:00 Intake & Output 07/13/21 07/14/21 07/14/21 18:59 06:59 18:59 Intake Total 1490 610 600 Output Total 900 1700 Balance 590 -1090 600 Weight 118.5 kg Intake: IV 500 300 prbc 300 Intake, IV Titration 100 Amount Meropenem 1 gm In Sodium 100 Chloride 0.9% 100 ml @ 33 .3 mls/hr IVPB Q12HR [facility] Rx#:[id number] Oral 580 600 Blood Product 310 310 Rc As-1 Unit 310 [id number] Rc As-1 Unit 0 310 [id number] Output: Urine 900 1700 Other: Voiding Method Urinal Diaper # Voids 2 1 # Bowel Movements 3 1 - Labs CBC & Chem 7: 07/14/21 09:30 07/14/21 09:30 Labs: Abnormal Lab Results - Last 24 Hours (Table) 07/12/21 07/13/21 07/13/21 Range/Units 11:00 16:36 20:05 WBC (3.8-10.6) k/uL RBC (4.30-5.90) m/uL Hgb (13.0-17.5) gm/dL Hct (39.0-53.0) % MCV (80.0-100.0) fL RDW (11.5-15.5) % Plt Count (150-450) k/uL BUN (9-20) mg/dL Creatinine (0.66-1.25) mg/dL Glucose (74-99) mg/dL POC Glucose (mg/dL) 122 H 266 H (75-99) mg/dL Calcium (8.4-10.2) mg/dL Crossmatch See Detail 07/13/21 07/14/21 07/14/21 Range/Units 23:15 09:30 09:30 WBC 12.0 H 12.6 H (3.8-10.6) k/uL RBC 1.88 L 1.83 L (4.30-5.90) m/uL Hgb 6.2 L* 5.9 L* (13.0-17.5) gm/dL Hct 18.9 L* 18.6 L* (39.0-53.0) % MCV 100.5 H 101.3 H (80.0-100.0) fL RDW 18.2 H 18.8 H (11.5-15.5) % Plt Count 136 L 149 L (150-450) k/uL BUN 131 H* (9-20) mg/dL Creatinine 2.46 H (0.66-1.25) mg/dL Glucose 134 H (74-99) mg/dL POC Glucose (mg/dL) (75-99) mg/dL Calcium 7.8 L (8.4-10.2) mg/dL Crossmatch 07/14/21 Range/Units 11:39 WBC (3.8-10.6) k/uL RBC (4.30-5.90) m/uL Hgb (13.0-17.5) gm/dL Hct (39.0-53.0) % MCV (80.0-100.0) fL RDW (11.5-15.5) % Plt Count (150-450) k/uL BUN (9-20) mg/dL Creatinine (0.66-1.25) mg/dL Glucose (74-99) mg/dL POC Glucose (mg/dL) 134 H (75-99) mg/dL Calcium (8.4-10.2) mg/dL Crossmatch Assessment and Plan Plan: Assessment: 1. Acute kidney injury secondary to ATN secondary to cardiorenal syndrome. Renal function improved from admission. Creatinine 2.46 today. D isproportionately elevated BUN secondary to GI bleed. UA benign. No hydronephrosis noted on kidney ultrasound. 2. Chronic kidney disease stage IV with baseline creatinine in the range of 2.6-2.8 secondary to nephrosclerosis. Patient has a mature right upper extremity AV fistula which has not been used. He follows with [facility] out of [place], [place]. 3. History of coronary disease status post CABG. 4. Hyperkalemia secondary to acute kidney injury and GI bleed. Stable. 5. Volume overload. Improving with diuresis. 6. Pneumonia on antibiotics. 7. Acute on chronic diastolic CHF with moderate mitral regurgitation and mild to moderate tricuspid regurgitation and pulmonary hypertension. 8. History of A. fib. 9. CML. 10. Acute blood loss anemia with component of chronic kidney disease. On Aranesp. Has received blood transfusions this admission. Underwent EGD and colonoscopy on 07/13/2021 - duodenal polypoid lesion was clipped. Also received IV DDAVP this admission. Plan: Currently receiving blood transfusion - additional dose of IV Lasix after blood transfusion today. Maintain Lasix 40 mg IV twice daily. Avoid nephrotoxins. Continue to monitor renal function and urine output. Maintain lokelma. Possible transfer to another facility if continues to have GI bleed.
--- NOTE | 2021-07-14 12:37 | P.PN ---
<Esteban,Renee - Last Filed: 07/14/21 12:25> Subjective Progress Note Date: 07/14/21 CHIEF COMPLAINT: Weakness, GI bleed HISTORY OF PRESENT ILLNESS: 85-year-old male who had presented to the hospital with complaints of cough shortness of breath and weakness. Patient has history of atrial fibrillation in which he was on Coumadin which has been held. L1 the patient came in and he had bloody bowel movements with a drop in his hemoglobin. He is status post 8 units of PRBC transfusion. The patient underwent EGD and colonoscopy and EGD showed no polyp void lesion status post Endo Clip, hiatal hernia, and Schatzki's ring. Colonoscopy had poor prep not well visualized. is seen and examined without any complaints. He denies any abdominal pain, nausea, or vomiting. He is unsure if he's had any recent bowel movements or blood per rectum. Patient remains hypotensive with a repeat WBC 12.7 hemoglobin today of 5.9 hematocrit 18.6 platelet count 149 PHYSICAL EXAM: VITAL SIGNS: Reviewed. GENERAL: Well-developed in no acute distress. HEENT: No sclera icterus. Extraocular movements grossly intact. Moist buccal mucosa. Head is atraumatic, normocephalic. ABDOMEN: Soft. Nondistended. Nontender. NEUROLOGIC: Alert and oriented. Cranial nerves II through XII grossly intact. ASSESSMENT: 1. Acute GI bleed and is post EGD and colonoscopy. EGD with findings of duodenal polypoid lesion status post Endo Clip placement, hiatal hernia, and Schatzki's ring, colonoscopy revealed poor colonic prep with maroon colored stool. 2. Acute blood loss anemia secondary to GI bleeding 3. Coagulopathy 4. Anemia of chronic disease 5. Pneumonia 6. CHF exacerbation PLAN: 1. Status post EGD and colonoscopy 2. 1 unit PRBC transfusion with repeat CBC following 3. Clear liquid diet 4. Recommend transfer to tertiary center with gastroenterology and interventional radiology The impression and plan of care has been dictated as directed. Dr. Shoemaker I performed a history and examination of this patient, discussed the same with the dictator. I agree with the dictator's note ,documented as a scribe. Any additional findings or plans will be noted.. Objective - Vital Signs Vital signs: Vital Signs Temp 98.0 F 07/14/21 04:00 Pulse 96 07/14/21 11:48 Resp 17 07/14/21 04:00 BP 81/46 07/14/21 04:00 Pulse Ox 100 07/14/21 04:00 Intake & Output 07/13/21 07/14/21 07/14/21 18:59 06:59 18:59 Intake Total 1490 610 600 Output Total 900 1700 Balance 590 -1090 600 Weight 118.5 kg Intake: IV 500 300 prbc 300 Intake, IV Titration 100 Amount Meropenem 1 gm In Sodium 100 Chloride 0.9% 100 ml @ 33 .3 mls/hr IVPB Q12HR [facility] Rx#:[id number] Oral 580 600 Blood Product 310 310 Rc As-1 Unit 310 [id number] Rc As-1 Unit 0 310 [id number] Output: Urine 900 1700 Other: Voiding Method Urinal Diaper # Voids 2 1 # Bowel Movements 3 1 - Labs CBC & Chem 7: 07/14/21 09:30 07/14/21 09:30 Labs: Abnormal Lab Results - Last 24 Hours (Table) 07/12/21 07/13/21 07/13/21 Range/Units 11:00 16:36 20:05 WBC (3.8-10.6) k/uL RBC (4.30-5.90) m/uL Hgb (13.0-17.5) gm/dL Hct (39.0-53.0) % MCV (80.0-100.0) fL RDW (11.5-15.5) % Plt Count (150-450) k/uL PT (9.0-12.0) sec INR (<1.2) BUN (9-20) mg/dL Creatinine (0.66-1.25) mg/dL Glucose (74-99) mg/dL POC Glucose (mg/dL) 122 H 266 H (75-99) mg/dL Calcium (8.4-10.2) mg/dL Crossmatch See Detail 07/13/21 07/14/21 07/14/21 Range/Units 23:15 09:30 09:30 WBC 12.0 H 12.6 H (3.8-10.6) k/uL RBC 1.88 L 1.83 L (4.30-5.90) m/uL Hgb 6.2 L* 5.9 L* (13.0-17.5) gm/dL Hct 18.9 L* 18.6 L* (39.0-53.0) % MCV 100.5 H 101.3 H (80.0-100.0) fL RDW 18.2 H 18.8 H (11.5-15.5) % Plt Count 136 L 149 L (150-450) k/uL PT (9.0-12.0) sec INR (<1.2) BUN 131 H* (9-20) mg/dL Creatinine 2.46 H (0.66-1.25) mg/dL Glucose 134 H (74-99) mg/dL POC Glucose (mg/dL) (75-99) mg/dL Calcium 7.8 L (8.4-10.2) mg/dL Crossmatch 07/14/21 07/14/21 Range/Units 11:15 11:39 WBC (3.8-10.6) k/uL RBC (4.30-5.90) m/uL Hgb (13.0-17.5) gm/dL Hct (39.0-53.0) % MCV (80.0-100.0) fL RDW (11.5-15.5) % Plt Count (150-450) k/uL PT 16.9 H (9.0-12.0) sec INR 1.7 H (<1.2) BUN (9-20) mg/dL Creatinine (0.66-1.25) mg/dL Glucose (74-99) mg/dL POC Glucose (mg/dL) 134 H (75-99) mg/dL Calcium (8.4-10.2) mg/dL Crossmatch <Percy Shoemaker - Last Filed: 07/14/21 17:56> Subjective I have personally seen and examined the patient, reviewed the [employer] /PAs history, exam and MDM and agree with the assessment and plan as written. Based on total visit time, I have performed more than 50% of the visit. As above. Patient with some maroon colored stools overnight which is not surprising given the volume of old blood present during colonoscopy yesterday. Hemoglobin 5.9 after 2 units yesterday. Once slightly concerning is the patient's blood pressure being somewhat low overnight. He is asymptomatic otherwise. Denies abdominal pain. No lightheadedness. Agree with tentative plans for transfer to tertiary care center in the event that definitive rebleeding is identified. Objective - Vital Signs Vital signs: Vital Signs Temp 97.9 F 07/14/21 16:00 Pulse 92 07/14/21 16:30 Resp 18 07/14/21 16:00 BP 113/57 07/14/21 16:00 Pulse Ox 100 07/14/21 16:00 Intake & Output 07/13/21 07/14/21 07/14/21 18:59 06:59 18:59 Intake Total 1490 610 910 Output Total 900 1700 200 Balance 590 -1090 710 Weight 118.5 kg Intake: IV 500 300 prbc 300 Intake, IV Titration 100 Amount Meropenem 1 gm In Sodium 100 Chloride 0.9% 100 ml @ 33 .3 mls/hr IVPB Q12HR [facility] Rx#:[id number] Oral 580 600 Blood Product 310 310 310 Rc As-1 Unit 310 [id number] Rc As-1 Unit 310 [id number] Rc As-1 Unit 0 310 [id number] Output: Urine 900 1700 200 Other: Voiding Method Urinal Urinal Diaper Diaper # Voids 2 1 # Bowel Movements 3 1 - Labs CBC & Chem 7: 07/14/21 09:30 07/14/21 09:30 Labs: Abnormal Lab Results - Last 24 Hours (Table) 07/12/21 07/13/21 07/13/21 Range/Units 11:00 20:05 23:15 WBC 12.0 H (3.8-10.6) k/uL RBC 1.88 L (4.30-5.90) m/uL Hgb 6.2 L* (13.0-17.5) gm/dL Hct 18.9 L* (39.0-53.0) % MCV 100.5 H (80.0-100.0) fL RDW 18.2 H (11.5-15.5) % Plt Count 136 L (150-450) k/uL PT (9.0-12.0) sec INR (<1.2) BUN (9-20) mg/dL Creatinine (0.66-1.25) mg/dL Glucose (74-99) mg/dL POC Glucose (mg/dL) 266 H (75-99) mg/dL Calcium (8.4-10.2) mg/dL Crossmatch See Detail 07/14/21 07/14/21 07/14/21 Range/Units 09:30 09:30 11:15 WBC 12.6 H (3.8-10.6) k/uL RBC 1.83 L (4.30-5.90) m/uL Hgb 5.9 L* (13.0-17.5) gm/dL Hct 18.6 L* (39.0-53.0) % MCV 101.3 H (80.0-100.0) fL RDW 18.8 H (11.5-15.5) % Plt Count 149 L (150-450) k/uL PT 16.9 H (9.0-12.0) sec INR 1.7 H (<1.2) BUN 131 H* (9-20) mg/dL Creatinine 2.46 H (0.66-1.25) mg/dL Glucose 134 H (74-99) mg/dL POC Glucose (mg/dL) (75-99) mg/dL Calcium 7.8 L (8.4-10.2) mg/dL Crossmatch 07/14/21 07/14/21 Range/Units 11:39 16:26 WBC (3.8-10.6) k/uL RBC (4.30-5.90) m/uL Hgb (13.0-17.5) gm/dL Hct (39.0-53.0) % MCV (80.0-100.0) fL RDW (11.5-15.5) % Plt Count (150-450) k/uL PT (9.0-12.0) sec INR (<1.2) BUN (9-20) mg/dL Creatinine (0.66-1.25) mg/dL Glucose (74-99) mg/dL POC Glucose (mg/dL) 134 H 158 H (75-99) mg/dL Calcium (8.4-10.2) mg/dL Crossmatch
--- NOTE | 2021-07-14 15:11 | P.PN ---
Subjective Progress Note Date: 07/14/21 HISTORY OF PRESENT ILLNESS: This is an 85-year-old male patient of Dr. sparks with a previous [facility] [place] history significant for CAD post CABG x4, hypertension and hypertensive cardiovascular disease, chronic atrial flutter/fibrillation on chronic Coumadin, diabetes mellitus type 2 with diabetic polyneuropathy, chronic kidney disease stage IV, obesity with obstructive sleep apnea, hypogonadism, di verticulosis, GERD with hiatal hernia, left adrenal adenoma, CML, patient fell on 05/28/2021 in his home kitchen and landed on his right side of the hip after he lost his balance suffered from severe pain he was found to have a left hip fracture he ended up going to [facility] where he underwent removal of the hardware of the right femur including the plates and screws and he had a long shaheen placed and his entire femur into the hip area successfully he developed to have a non-ST elevation myocardial infarction when he was there along with chronic diastolic heart failure he was seen by cardiology over there Dr. Jackson apparently was cleared for surgery and the patient had a surgery on 05/31/2021 after that patient was referred to rehab facility and [facility] area and he was just released last to come back home with significant sores on his right thigh as well as bilateral heel deep tissue injury, patient was supposed to come and see him in the office today however he was not able template at all he was feeling increased shortness of breath associated with increased coughing and yellow from production, so his called EMS and the patient was brought into the ER at [facility] for evaluation his chest x-ray showed pulmonary vascular congestion and possible atypical pneumonia his COVID-19 swab PCR came back negative, patient was started on Lasix 60 mg IV push in the ER that he was placed on 40 mg IV push every 12 hours, patient also was started on meropenem 1 g IV piggyback every 12 hours because of his multiple ALLERGIES and possible gram-negative pneumonia. 07/01: Pulse ox is 97% on 2 L nasal cannula, patient afebrile, blood pressure 110/50, heart rate 83. Repeat blood work results are pending. Patient is continued on Lasix 40 mg IV twice daily, nebulizer treatments, meropenem. Consults in place with Cardiology, Nephrology and Wound Team. Breathing is improved from yesterday. 07/02: Patient complains of sputum that is rattling in his chest unable to bring it up. He continues to have cough. Heart rate 115. Echocardiogram reveals EF of 50-55%, mild aortic valve stenosis, moderate mitral regurgitation, [id number] tricuspid regurgitation and mild to moderate pulmonary hypertension. Patient has been seen by cardiology and acute coronary syndrome has been ruled out, elevated troponin secondary to chronic kidney disease. Hemoglobin is 6.5. Potassium 5.4, BUN 74 and creatinine 3.31. Repeat INR is 3.7. She has been seen by the wound Center with plan for triad on the left posterior thigh wound and offload bilateral heels. Nephrology is planning to maintain IV Lasix, transfuse 1 unit of blood avoid nephrotoxins, check stool for occult blood. Dr. Leung has evaluated and patient is not candidate for inpatient rehab. Discharge plan will be subacute rehab at [facility] or [facility] next week. 07/03: Patient is feeling weak today, he did receive 1 unit of packed her vessels yesterday, his hemoglobin still pending at the time of dictation, he was seen in consultation by physical therapy and rehabilitation, he was deemed inappropriate for inpatient rehab in addition however he will need to go for subacute rehab the patient at [facility]. Patient is complaining of some coughing minimal from production, he denies any hemoptysis, he has no bloody bowel movement, no apparent signs of bleeding, his hemoglobin dropped yesterday to 6.5, he is receiving Aranesp, he is maintained on iron, we will continue to follow the patient very closely. 07/04: Patient continues to have a significant coughing not able to bring up any phlegm, he is a bit short of breath today, we will add Mucinex 600 mg orally twice every day, consult pulmonary medicine for further evaluation and recommendation, and continue to monitor the patient very closely, his hemoglobin is down to 7.2, no evidence of GI bleed at this time, continue with iron, continue with Aranesp, monitor the patient very closely. 07/05: Patient is laying unabated continue to have significant cough, not able to bring up any phlegm, he continues to be somewhat short of breath, he continues to be anemic, he has been followed by pulmonary as well as cardiology along with nephrology, patient is currently on Mucinex 600 mg orally twice every day along with IV antibiotic in the form of meropenem, we'll continue to follow the patient very closely. Continue with physical therapy evaluation likely will go to [facility] in the next 1 or 2 days. 07/06: Patient states that he feels about the same from yesterday. He states he stood in his room yesterday but he is needing significant help and subacute rehab is recommended. [facility] will consider taking the patient except for the cost of Imtinib. We will recheck the Dr. Jacobsen's. The patient can be off this medication while at rehab. Lungs sound worse today with a significant amount of sputum production. Solu-medrol increased to 60 mg q 6hr. Sputum culture is positive for Inez and Diflucan started. Repeat blood work reveals WBC 4.9, hemoglobin 7.9. Sodium 137, potassium 5.5, chloride 104, CO2 25, BUN 75 and creatinine 3.07. Blood sugars 193. Alkaline phosphatase 166. Nephro protein supplement added. 07/07: Patient is followed by Dr. Leung and has poor endurance not ready for inpatient rehab. Patient is requiring 2 person assist to get out of bed. Pulmonary has signed off this case. Patient has been afebrile, heart rate 100- 104, blood pressure 124/73, pulse ox 95% on 3 L nasal cannula. Capillary blood glucose running between 173 and 232. Patient is currently on Solu-Medrol 60 mg IV every 6 hours, IV meropenem and IV fluconazole. Pharmacy is dosing Coumadin. Repeat blood work reveals Patient's breathing status is improved from yesterday. Solu-Medrol will be decreased to 40 mg every 8 hours. He is on home O2 at 2L since hip fracture. A is complaining of constipation and requesting of enema. Fleets enema added as well as lactulose 30 mg twice daily. 07/08: States his difficulty breathing is improving but he continues to have some cough and sputum production. His appetite is better today and he is taking Ensure as well. He had a good bowel movement. Patient is afebrile, heart rate 103, blood pressure 138/64 pulse ox 97% on 2 L nasal cannula. We will decrease Solu-Medrol to 40 mg every 12 hours and start prednisone in the morning Patient has been approved for discharge to [facility], we will plan for discharge to rehab tomorrow. 07/09: This evening, patient started having dark blood in his stool, Coumadin was placed on hold. Hemoglobin came back at 6.3 and transfusion of 3 units packed RBCs completed with repeat hemoglobin was 7.8. INR is 3.5. Consult added for Dr. Shoemaker with plan for EGD on Monday. Breathing status seems to be improving today. He has been afebrile, heart rate 93, blood pressure 120/88 and pulse ox 96% 2 L nasal cannula. 07/10: Patient is sitting up in bed he continues to have a GI bleed with a dark red blood, likely an upper GI bleed, patient was seen in consultation by Dr. dejesus he was scheduled for an EGD on Monday, if the EGD is negative we'll hold off colonoscopy this point in time, continue to monitor the patient's CBC keep his hemoglobin greater than 7, continue Protonix 40 mg IV push every 12 hours, discontinue prednisone, continue IV antibiotic, monitor the patient INR, over the next 24 hours, his INR has to be less than 1.5 before 07/11: Patient is quite edematous and upper extremities as well as his torso he has a very good urine output, patient will be given DDAVP by the nephrology 30 micrograms IV piggyback 1, monitor the urine output very closely, supposed to be started on the prevent today for possible EGD and colonoscopy tomorrow morning I spoke with his and told her about his guarded prognosis because of the multi organ dysfunctions including renal failure, heart failure, pneumonia, recent hip fracture, atrial fibrillation, debility, anasarca, and she was advised, spent some time with patient today and we will try the prep , midline will be placed for the patient 07/12: Patient is scheduled for EGD and colonoscopy today with Dr. Shoemaker but unfortunately bowel prep last evening did not result in clear return and he is now ordered for mag citrate and rescheduled for tomorrow. Hemoglobin came back at 6.1 and 1 unit of packed RBCs. Respiratory status is improved, decrease cough and congestion. Patient noted to have upper extremity edema. Patient has been afebrile, heart rate 109, blood pressure 117/60, pulse ox 100% on 2 L nasal cannula. 07/13: Patient has completed more bowel prep in order to undergo scopes today. He is scheduled for EGD and colonoscopy. He was transfused 1 unit of packed RB Cs yesterday however hemoglobin came back at 4.9, 2 units of packed RBCs ordered for now. Patient is having dark maroon stools. He states he feels dizzy when he moves. He continues to have edema to the arms and generalized anasarca. Contacted circuit court clerk to move the patient into the intensive care unit. 07/14: Patient underwent endoscopy with Dr. Shoemaker yesterday that revealed duodenal polypoid lesion, hiatal hernia, she skis Ring, poor colonic prep. Unfortunately, patient continues to have rectal bleeding and hemoglobin today is 5.9. Transfusion of 2 units of packed RBCs ordered. INR 1.7. BUN 131, creatinine 2.46. REVIEW OF SYSTEMS: Constitutional: No documented fever, no chills, no night sweats. Positive for weight change. Positive for weakness, positive for fatigue or lethargy. No daytime sleepiness. HEENT: No headache. No blurred vision or double vision, no loss of vision. hard of Hearing, no ringing in the ears, no dizziness. No nasal drainage or congestion. No epistaxis. No sore throat. Lungs: Reports shortness of breathimproving, occasional cough, minimal sputum production. No wheezing. Reports dyspnea with activity. Cardiovascular: No chest pain, positive for upper extremities edema. positive for palpitations. No paroxysmal nocturnal dyspnea. positive for orthopnea. No lightheadedness or dizziness. No syncopal episodes. Abdominal: Reports abdominal pain. No nausea, vomiting. No diarrhea. No constipation. Reports tarry stools reports loss of appetite. Genitourinary: No dysuria, increased frequency, urgency. No urinary retention. Musculoskeletal: No myalgias. positive for muscle weakness, positive for gait dysfunction, positive for frequent falls, positive for back pain and neck pain. Integumentary: pressure sores to the posterior aspect of the right thigh and DTI in both heels have resolved positive for nail changes Neurologic: No aphasia. No facial droop. No change in mentation. No head injury. No headache. No paralysis. No paresthesia. Psychiatric: positive for depression. No anxiety. No mood swings. Endocrine: No abnormal blood sugars. PHYSICAL EXAMINATION: General: 85-year-old male sitting up in bed in no respiratory distress HEENT: Head is atraumatic, normocephalic, pupils were equal round reactive to light and recommendation, extraocular muscle movement were intact, sclera nonicteric, conjunctivae pale, mucous membranes of the mouth are somewhat dry. Neck: Supple, no JVP, decreased carotid upstroke bilaterally, no lymphadenopathy. Chest: Decreased breath sounds at the bases, bilat rhonchi, minimal expiratory wheezes, no chest wall tenderness no intercostal retractions. Heart: First heart sound is normal, second heart sounds normal irregularly irregular there is systolic ejection murmur 2/6 located in the left sternal border. Abdomen: Soft, nontender, nondistended, positive bowel sounds. Extremities: There is +1 edema no calf tenderness DP +1 bilaterally, bilateral heel deep tissue injury resolved bilateral hammertoes and nail changes. Neurologic examination: Patient is awake alert and oriented X 3, cranial nerves II-12 appear grossly intact, muscle power were 3 out of 5 in upper extremities and 3 out of 5 in bilateral lower extremities, deep tendon reflexes were depressed ASSESSMENT AND PLAN: 1. Acute hypoxemic respiratory failure due to acute diastolic heart failure wi th possible gram-negative pneumonia. Continue Lasix 40 mg oral every 12 hours, meropenem 1 g IV piggyback every 12 hours, sputum culture, blood culture, monitor input and output and daily weight, and pulmonary consultation, continue Mucinex 600 mg orally twice every day. Steroids discontinued. 2. Upper GI bleed likely discontinue Coumadin, continue Protonix 40 mg IV push every 12 hours, patient ss/p EGD and colonoscopy today. Patient has been transfused a total of 8 units in transfusion of 2 more units ordered. 3. Acute blood loss anemia status post 3 units of packed red blood cell proc edure. Monitor the patient hemoglobin keep hemoglobin greater than 7. Requested to move the patient to the ICU however he was denied by the circuit court clerk due to bed availability. 4. Possible gram-negative pneumonia. Continue patient on Pulmicort 1 mg nebulization twice every day, DuoNeb 3 mg 4 times every day, oxygen support, continue patient on meropenem 1 g IV piggyback every 12 hours, pulmonary consultation appreciated. 5. Multiple stage II pressure ulcer behind the right thigh and deep tissue injury in both heels. continue local wound care the thigh and skin prep for the heels with floating the heels daily, swab the pressure sores for aerobic and anaerobic cultures. 6. Recent fall with Hip fracture status post right shaheen insertion of the right femur with removal of the old hardware. Consult physical therapy, continue current pain management. 7. Recent non-ST elevation myocardial infarction. Continue patient on metoprolol orally twice every day, continue aspirin 81 mg once every day. 8. Chronic diastolic heart failure. Continue metoprolol 25 mg orally twice every day, continue Lasix 40 mg oral every 12 hours, monitor input and output and daily weight 9. Diabetes mellitus type II with diabetic polyneuropathy currently off medications. 10. Chronic kidney disease stage IV. Monitor patient input and output and daily weight and avoid nephrotoxins. Continue Lasix 40 mg orally twice every day. 11. Hyperkalemia. Patient did receive 1 amp of D50 along with insulin he will receive calcium gluconate 1 g IV piggyback 1. resolved. 12. Chronic myelogenous leukemia. Continue with Imatinib 300 mg orally daily. 13. Acute blood loss anemia on Anemia of chronic kidney disease. Continue iron supplement , type and cross s/p transfusion of 5 units of PRBCs. 14. Restless leg syndrome. Continue Mirapex 0.25 mg orally twice every day. 15. Major depressive disorder. Continue patient on Lexapro 30 mg orally once every day. 16. Generalized anxiety disorder. Continue with SSRI as well as BuSpar 10 mg orally twice every day. 17. Chronic atrial fibrillation. Continue patient on metoprolol 25 mg orally twice every day, Coumadin. 18. Coagulopathy. hold off Coumadin due to GI bleed. 19. CAD post CABG 4 with a recent non-ST elevation myocardial infarction. Continue metoprolol 25 mg orally twice every day, aspirin 81 mg once every day. 20. GERD with hiatal hernia. Continue Protonix 40 mg orally once every day. 21. Chronic pain syndrome. Continue Percocet 10/325 mg one tablet orally 4 times every day. 22. DVT prophylaxis. Currently on Coumadin. 23. GI prophylaxis. Continue PPI. 24. Medical debility. Physical therapy evaluation. Full code. DISCHARGE PLAN Subacute rehab at [facility] Impression and plan of care have been directed as dictated by the signing physician. Juli Luna nurse practitioner acting as scribe for signing physician. Objective - Vital Signs Vital signs: Vital Signs Temp 98.0 F 07/14/21 04:00 Pulse 95 07/14/21 04:00 Resp 17 07/14/21 04:00 BP 81/46 07/14/21 04:00 Pulse Ox 100 07/14/21 04:00 Intake & Output 07/13/21 07/14/21 07/14/21 18:59 06:59 18:59 Intake Total 1490 610 Output Total 900 1700 Balance 590 -1090 Weight 118.5 kg Intake: IV 500 300 prbc 300 Intake, IV Titration 100 Amount Meropenem 1 gm In Sodium 100 Chloride 0.9% 100 ml @ 33 .3 mls/hr IVPB Q12HR [facility] Rx#:[id number] Oral 580 Blood Product 310 310 Rc As-1 Unit 310 [id number] Rc As-1 Unit 0 310 [id number] Output: Urine 900 1700 Other: Voiding Method Urinal Diaper # Voids 2 1 # Bowel Movements 3 1 - Labs CBC & Chem 7: 07/14/21 09:30 07/14/21 09:30 Labs: Abnormal Lab Results - Last 24 Hours (Table) 07/12/21 07/13/21 07/13/21 Range/Units 11:00 08:45 08:45 WBC 14.9 H (3.8-10.6) k/uL RBC 1.52 L (4.30-5.90) m/uL Hgb 4.9 L* (13.0-17.5) gm/dL Hct 15.6 L* (39.0-53.0) % MCV 102.7 H (80.0-100.0) fL RDW 19.5 H (11.5-15.5) % Plt Count (150-450) k/uL PT (9.0-12.0) sec INR (<1.2) Carbon Dioxide 34 H (22-30) mmol/L BUN 137 H* (9-20) mg/dL Creatinine 2.36 H (0.66-1.25) mg/dL Glucose 116 H (74-99) mg/dL POC Glucose (mg/dL) (75-99) mg/dL Calcium 7.7 L (8.4-10.2) mg/dL Crossmatch See Detail 07/13/21 07/13/21 07/13/21 Range/Units 08:45 11:41 16:36 WBC (3.8-10.6) k/uL RBC (4.30-5.90) m/uL Hgb (13.0-17.5) gm/dL Hct (39.0-53.0) % MCV (80.0-100.0) fL RDW (11.5-15.5) % Plt Count (150-450) k/uL PT 14.9 H (9.0-12.0) sec INR 1.5 H (<1.2) Carbon Dioxide (22-30) mmol/L BUN (9-20) mg/dL Creatinine (0.66-1.25) mg/dL Glucose (74-99) mg/dL POC Glucose (mg/dL) 138 H 122 H (75-99) mg/dL Calcium (8.4-10.2) mg/dL Crossmatch 07/13/21 07/13/21 Range/Units 20:05 23:15 WBC 12.0 H (3.8-10.6) k/uL RBC 1.88 L (4.30-5.90) m/uL Hgb 6.2 L* (13.0-17.5) gm/dL Hct 18.9 L* (39.0-53.0) % MCV 100.5 H (80.0-100.0) fL RDW 18.2 H (11.5-15.5) % Plt Count 136 L (150-450) k/uL PT (9.0-12.0) sec INR (<1.2) Carbon Dioxide (22-30) mmol/L BUN (9-20) mg/dL Creatinine (0.66-1.25) mg/dL Glucose (74-99) mg/dL POC Glucose (mg/dL) 266 H (75-99) mg/dL Calcium (8.4-10.2) mg/dL Crossmatch
--- NOTE | 2021-07-14 15:18 | P.TRANS ---
Providers Date of admission: 06/30/21 15:05 Expected date of discharge: 07/14/21 Attending physician: Quintin Neal Consults: 06/30/21 15:06 Consult Physician Urgent Consulting Provider: Ernst Heredia Consult Reason/Comments: [email or web address] Do you want consulting provider notified?: Yes 06/30/21 15:07 Consult Physician Urgent Consulting Provider: [facility] Consult Reason/Comments: [email or web address] Do you want consulting provider notified?: Yes 07/01/21 12:25 Consult Physician Routine Consulting Provider: Seamus Leung Consult Reason/Comments: eval for ipr Do you want consulting provider notified?: Yes 07/04/21 10:57 Consult Physician Routine Consulting Provider: Tashi Powell Consult Reason/Comments: Pneumonia/copd Do you want consulting provider notified?: Yes 07/08/21 16:36 Consult Physician Routine Consulting Provider: Percy Shoemaker Consult Reason/Comments: GIB Do you want consulting provider notified?: Yes Primary care physician: Quintin Neal [facility] Course: HISTORY OF PRESENT ILLNESS: This is an 85-year-old male patient of Dr. sparks with a previous medical history significant for CAD post CABG x4, hypertension and hypertensive cardiovascular disease, chronic atrial flutter/fibrillation on chronic Coumadin, diabetes mellitus type 2 with diabetic polyneuropathy, chronic kidney disease stage IV, obesity with obstructive sleep apnea, hypogonadism, diverticulosis, GERD with hiatal hernia, left adrenal adenoma, CML, patient fell on 05/28/2021 in his home kitchen and landed on his right side of the hip after he lost his balance suffered from severe pain he was found to have a left hip fracture he ended up going to [facility] where he underwent removal of the hardware of the right femur including the plates and screws and he had a long shaheen placed and his entire femur into the hip area successfully he developed to have a non-ST elevation myocardial infarction when he was there along with chronic diastolic heart failure he was seen by cardiology over there Dr. Jackson apparently was cleared for surgery and the patient had a surgery on 05/31/2021 after that patient was referred to rehab facility and [facility] area and he was just released last to come back home with significant sores on his right thigh as well as bilateral heel deep tissue injury, patient was supposed to come and see him in the office today however he was not able template at all he was feeling increased shortness of breath associated with increased coughing and yellow from production, so his called EMS and the patient was brought into the ER at [facility] for evaluation his chest x-ray showed pulmonary vascular congestion and possible atypical pneumonia his COVID-19 swab PCR came back negative, patient was started on Lasix 60 mg IV push in the ER that he was placed on 40 mg IV push every 12 hours, patient also was started on meropenem 1 g IV piggyback every 12 hours because of his multiple ALLERGIES and possible gram-negative pneumonia. 07/01: Pulse ox is 97% on 2 L nasal cannula, patient afebrile, blood pressure 110/50, heart rate 83. Repeat blood work results are pending. Patient is continued on Lasix 40 mg IV twice daily, nebulizer treatments, meropenem. Consults in place with Cardiology, Nephrology and Wound Team. Breathing is improved from yesterday. 07/02: Patient complains of sputum that is rattling in his chest unable to bring it up. He continues to have cough. Heart rate 115. Echocardiogram reveals EF of 50-55%, mild aortic valve stenosis, moderate mitral regurgitation, [id number] tricuspid regurgitation and mild to moderate pulmonary hypertension. Patient has been seen by cardiology and acute coronary syndrome has been ruled out, elevated troponin secondary to chronic kidney disease. Hemoglobin is 6.5. Potassium 5.4, BUN 74 and creatinine 3.31. Repeat INR is 3.7. She has been seen by the wound Center with plan for triad on the left posterior thigh wound and offload bilateral heels. Nephrology is planning to maintain IV Lasix, transfuse 1 unit of blood avoid nephrotoxins, check stool for occult blood. Dr. Leung has evaluated and patient is not candidate for inpatient rehab. Discharge plan will be subacute rehab at [facility] or [facility] next week. 07/03: Patient is feeling weak today, he did receive 1 unit of packed her vessels yesterday, his hemoglobin still pending at the time of dictation, he was seen in consultation by physical therapy and rehabilitation, he was deemed inappropriate for inpatient rehab in addition however he will need to go for subacute rehab the patient at [facility]. Patient is complaining of some coughing minimal from production, he denies any hemoptysis, he has no bloody bowel movement, no apparent signs of bleeding, his hemoglobin dropped yesterday to 6.5, he is receiving Aranesp, he is maintained on iron, we will continue to follow the patient very closely. 07/04: Patient continues to have a significant coughing not able to bring up any phlegm, he is a bit short of breath today, we will add Mucinex 600 mg orally twice every day, consult pulmonary medicine for further evaluation and recommendation, and continue to monitor the patient very closely, his hemoglobin is down to 7.2, no evidence of GI bleed at this time, continue with iron, continue with Aranesp, monitor the patient very closely. 07/05: Patient is laying unabated continue to have significant cough, not able to bring up any phlegm, he continues to be somewhat short of breath, he continues to be anemic, he has been followed by pulmonary as well as cardiology along with nephrology, patient is currently on Mucinex 600 mg orally twice every day along with IV antibiotic in the form of meropenem, we'll continue to follow the patient very closely. Continue with physical therapy evaluation likely will go to [facility] in the next 1 or 2 days. 07/06: Patient states that he feels about the same from yesterday. He states he stood in his room yesterday but he is needing significant help and subacute rehab is recommended. [facility] will consider taking the patient except for the cost of Imtinib. We will recheck the Dr. Jacobsen's. The patient can be off this medication while at rehab. Lungs sound worse today with a significant amount of sputum production. Solu-medrol increased to 60 mg q 6hr. Sputum culture is positive for Inez and Diflucan started. Repeat blood work reveals WBC 4.9, hemoglobin 7.9. Sodium 137, potassium 5.5, chloride 104, CO2 25, BUN 75 and creatinine 3.07. Blood sugars 193. Alkaline phosphatase 166. Nephro protein supplement added. 07/07: Patient is followed by Dr. Leung and has poor endurance not ready for inpatient rehab. Patient is requiring 2 person assist to get out of bed. Pulmonary has signed off this case. Patient has been afebrile, heart rate 100- 104, blood pressure 124/73, pulse ox 95% on 3 L nasal cannula. Capillary blood glucose running between 173 and 232. Patient is currently on Solu-Medrol 60 mg IV every 6 hours, IV meropenem and IV fluconazole. Pharmacy is dosing Coumadin. Repeat blood work reveals Patient's breathing status is improved from yesterday. Solu-Medrol will be decreased to 40 mg every 8 hours. He is on home O2 at 2L since hip fracture. A is complaining of constipation and requesting of enema. Fleets enema added as well as lactulose 30 mg twice daily. 07/08: States his difficulty breathing is improving but he continues to have some cough and sputum production. His appetite is better today and he is taking Ensure as well. He had a good bowel movement. Patient is afebrile, heart rate 103, blood pressure 138/64 pulse ox 97% on 2 L nasal cannula. We will decrease Solu-Medrol to 40 mg every 12 hours and start prednisone in the morning Patient has been approved for discharge to [facility], we will plan for discharge to rehab tomorrow. 07/09: This evening, patient started having dark blood in his stool, Coumadin was placed on hold. Hemoglobin came back at 6.3 and transfusion of 3 units packed RBCs completed with repeat hemoglobin was 7.8. INR is 3.5. Consult added for Dr. Shoemaker with plan for EGD on Monday. Breathing status seems to be improving today. He has been afebrile, heart rate 93, blood pressure 120/88 and pulse ox 96% 2 L nasal cannula. 07/10: Patient is sitting up in bed he continues to have a GI bleed with a dark red blood, likely an upper GI bleed, patient was seen in consultation by Dr. dejesus he was scheduled for an EGD on Monday morning, if the EGD is negative we'll hold off colonoscopy this point in time, continue to monitor the patient's CBC keep his hemoglobin greater than 7, continue Protonix 40 mg IV push every 12 hours, discontinue prednisone, continue IV antibiotic, monitor the patient INR, over the next 24 hours, his INR has to be less than 1.5 before 07/11: Patient is quite edematous and upper extremities as well as his torso he has a very good urine output, patient will be given DDAVP by the nephrology 30 micrograms IV piggyback 1, monitor the urine output very closely, supposed to be started on the prevent today for possible EGD and colonoscopy tomorrow morning I spoke with his and told her about his guarded prognosis because of the multi organ dysfunctions including renal failure, heart failure, pneumonia, recent hip fracture, atrial fibrillation, debility, anasarca, and she was advised, spent some time with patient today and we will try the prep , midline will be placed for the patient 07/12: Patient is scheduled for EGD and colonoscopy today with Dr. Shoemaker but unfortunately bowel prep last evening did not result in clear return and he is now ordered for mag citrate and rescheduled for tomorrow. Hemoglobin came back at 6.1 and 1 unit of packed RBCs. Respiratory status is improved, decrease cough and congestion. Patient noted to have upper extremity edema. Patient has been afebrile, heart rate 109, blood pressure 117/60, pulse ox 100% on 2 L nasal cannula. 07/13: Patient has completed more bowel prep in order to undergo scopes today. He is scheduled for EGD and colonoscopy. He was transfused 1 unit of packed RBCs yesterday however hemoglobin came back at 4.9, 2 units of packed RBCs ordered for now. Patient is having dark maroon stools. He states he feels dizzy when he moves. He continues to have edema to the arms and generalized anasarca. Contacted retail supervisor to move the patient into the intensive care unit. 07/14: Patient underwent endoscopy with Dr. Shoemaker yesterday that revealed duodenal polypoid lesion, hiatal hernia, she skis Ring, poor colonic prep. Unfortunately, patient continues to have rectal bleeding and hemoglobin today is 5.9. Transfusion of 2 units of packed RBCs ordered. INR 1.7. BUN 131, creatinine 2.46. Shins for him general surgery is to transfer to tertiary care with GI services. business office manager to initiate transfer [facility] and once bed is available, patient will be transferred by ambulance. REVIEW OF SYSTEMS: Constitutional: No documented fever, no chills, no night sweats. Positive for weight change. Positive for weakness, positive for fatigue or lethargy. No daytime sleepiness. HEENT: No headache. No blurred vision or double vision, no loss of vision. h adeel of Hearing, no ringing in the ears, no dizziness. No nasal drainage or congestion. No epistaxis. No sore throat. Lungs: Reports shortness of breathimproving, occasional cough, minimal sputum production. No wheezing. Reports dyspnea with activity. Cardiovascular: No chest pain, positive for upper extremities edema. positive for palpitations. No paroxysmal nocturnal dyspnea. positive for orthopnea. No lightheadedness or dizziness. No syncopal episodes. Abdominal: Reports abdominal pain. No nausea, vomiting. No diarrhea. No constipation. Reports tarry stools reports loss of appetite. Genitourinary: No dysuria, increased frequency, urgency. No urinary retention. Musculoskeletal: No myalgias. positive for muscle weakness, positive for gait dysfunction, positive for frequent falls, positive for back pain and neck pain. Integumentary: pressure sores to the posterior aspect of the right thigh and DTI in both heels have resolved positive for nail changes Neurologic: No aphasia. No facial droop. No change in mentation. No head injury. No headache. No paralysis. No paresthesia. Psychiatric: positive for depression. No anxiety. No mood swings. Endocrine: No abnormal blood sugars. PHYSICAL EXAMINATION: General: 85-year-old male sitting up in bed in no respiratory distress HEENT: Head is atraumatic, normocephalic, pupils were equal round reactive to light and recommendation, extraocular muscle movement were intact, sclera nonicteric, conjunctivae pale, mucous membranes of the mouth are somewhat dry. Neck: Supple, no JVP, decreased carotid upstroke bilaterally, no lymphadenopathy. Chest: Decreased breath sounds at the bases, bilat rhonchi, minimal expiratory wheezes, no chest wall tenderness no intercostal retractions. Heart: First heart sound is normal, second heart sounds normal irregularly irregular there is systolic ejection murmur 2/6 located in the left sternal border. Abdomen: Soft, nontender, nondistended, positive bowel sounds. Extremities: There is +1 edema no calf tenderness DP +1 bilaterally, bilateral heel deep tissue injury resolved bilateral hammertoes and nail changes. Neurologic examination: Patient is awake alert and oriented X 3, cranial nerves II-12 appear grossly intact, muscle power were 3 out of 5 in upper extremities and 3 out of 5 in bilateral lower extremities, deep tendon reflexes were depressed ASSESSMENT AND PLAN: 1. Acute hypoxemic respiratory failure due to acute diastolic heart failure with possible gram-negative pneumonia. Continue Lasix 40 mg iv every 12 hours, sputum culture, blood culture, monitor input and output and daily weight, and pulmonary consultation, continue Mucinex 600 mg orally twice every day. Steroids discontinued. 2. Upper GI bleed likely discontinue Coumadin, continue Protonix 40 mg IV push every 12 hours, patient scheduled for EGD and colonoscopy today. Patient has been transfused a total of 6 units in transfusion of 2 more units ordered. Transfer to ICU. 3. Acute blood loss anemia status post 6 units of packed red blood cell procedure. Monitor the patient hemoglobin keep hemoglobin greater than 7. Transfer to tertiary care. 4. Possible gram-negative pneumonia. Continue patient on Pulmicort 1 mg nebulization twice every day, DuoNeb 3 mg 4 times every day, oxygen support, completed antibiotics, pulmonary has signed off. 5. Multiple stage II pressure ulcer behind the right thigh and deep tissue injury in both heels. Continue local wound care with triad, swab the pressure sores for aerobic and anaerobic cultures. 6. Recent fall with Hip fracture status post right shaheen insertion of the right femur with removal of the old hardware. Consult physical therapy, continue current pain management. 7. Recent non-ST elevation myocardial infarction. Continue patient on metoprolol orally, off aspirin 81 mg once every day. 8. Chronic diastolic heart failure. Continue metoprolol 50 mg orally 3x every day, continue Lasix 40 mg oral every 12 hours, monitor input and output and daily weight 9. Diabetes mellitus type II with diabetic polyneuropathy currently off medications. Continue NovoLog scale 10. Chronic kidney disease stage IV. Monitor patient input and output and daily weight and avoid nephrotoxins. Continue Lasix 40 mg orally twice every day. 11. Hyperkalemia. s/p 1 amp of D50 along with insulin, s/p calcium gluconate 1 g IV piggyback 1. resolved. 12. Chronic myelogenous leukemia. Continue with Imatinib 300 mg orally daily. 13. Acute blood loss anemia on Anemia of chronic kidney disease. Continue iron supplement , type and cross s/p transfusion. 14. Restless leg syndrome. Continue Mirapex 0.25 mg orally twice every day. 15. Major depressive disorder. Continue patient on Lexapro 30 mg orally once every day. 16. Generalized anxiety disorder. Continue with SSRI as well as BuSpar 10 mg orally twice every day. 17. Chronic atrial fibrillation. Continue patient on metoprolol, Coumadin on hold. 18. Coagulopathy. hold off Coumadin due to GI bleed. 19. CAD post CABG 4 with a recent non-ST elevation myocardial infarction. Continue metoprolol 50 mg orally three times q day, aspirin held. 20. GERD with hiatal hernia. Continue Protonix 40 mg orally once every day. 21. Chronic pain syndrome. Continue Percocet 10/325 mg one tablet orally 4 times every day. 22. DVT prophylaxis. Off Coumadin. 23. GI prophylaxis. Continue PPI. 24. Medical debility. Physical therapy evaluation. Full code. DISCHARGE PLAN Subacute rehab at [facility] Impression and plan of care have been directed as dictated by the signing physician. Juli Luna nurse practitioner acting as scribe for signing physician. Patient Condition at Discharge: Serious Plan - Transfer Summary Transfer Medications: Active Medications Generic Name Dose Route Start Last Admin Trade Name Freq PRN Reason Stop Dose Admin Albuterol/Ipratropium 3 ml 06/30/21 20:00 07/14/21 11:37 Ipratropium-Albuterol 3 Ml Neb INHALATION 3 ml RT-QID OCTAVIO Administration Budesonide 1 mg 06/30/21 20:00 07/14/21 08:46 Budesonide 1 Mg/2 Ml Nebu INHALATION 1 mg RT-BID OCTAVIO Administration Buspirone HCl 10 mg 06/30/21 21:00 07/14/21 09:39 Buspirone Hcl 10 Mg Tab PO 10 mg BID OCTAVIO Administration Cholecalciferol 25 mcg 06/30/21 21:00 07/14/21 09:39 Cholecalciferol 25 Mcg (1000 Iu) Tablet PO 25 mcg BID OCTAVIO Administration Darbepoetin Ricki 40 mcg 07/01/21 11:00 07/08/21 12:12 Darbepoetin Ricki 40 Mcg/0.4 Ml Syringe SQ 40 mcg Q7D OCTAVIO Administration Escitalopram Oxalate 30 mg 07/01/21 09:00 07/14/21 09:38 Escitalopram 10 Mg Tab PO 30 mg DAILY OCTAVIO Administration Fluconazole 100 mg 07/08/21 09:00 07/14/21 09:39 Fluconazole 100 Mg Tab PO 100 mg DAILY OCTAVIO Administration Furosemide 40 mg 07/13/21 12:15 07/14/21 09:38 Furosemide 10 Mg/Ml 4 Ml Vial IV 40 mg Q12HR OCTAVIO Administration Guaifenesin 600 mg 07/04/21 21:00 07/14/21 09:38 Guaifenesin 600 Mg Tablet.Er PO 600 mg Q12HR OCTAVIO Administration Insulin Aspart 0 unit 07/06/21 12:30 07/14/21 14:52 Insulin Aspart (Novolog) 100 Unit/Ml Vial SQ Not Given ACHS [facility] Protocol Lactobacillus Acidoph/Bulgaricus 2 each 06/30/21 21:00 07/14/21 09:39 Lactobacillus Acidoph & Bulgar 1 Each Packet PO 2 each BID OCTAVIO Administration Metoprolol Tartrate 50 mg 07/02/21 16:00 07/14/21 09:39 Metoprolol Tartrate 50 Mg Tab PO 50 mg TID OCTAVIO Administration Multi-Ingred Cream/Lotion/Oil/Oint 1 applic 07/01/21 11:30 07/13/21 09:08 Hydrophilic Cream 180 Gm Tube TOPICAL Not Given DAILY [facility] Protocol Naloxone HCl 0.2 mg 06/30/21 15:05 Naloxone 0.4 Mg/Ml 1 Ml Vial IV Q2M PRN Opioid Reversal Imatinib Mesylate [ 300 mg 06/30/21 21:00 07/13/21 20:14 Imatinib Mesylate] PO 300 mg 100 Mg Tablet HS OCTAVIO Administration Oxycodone/Acetaminophen 1 each 06/30/21 15:45 07/14/21 09:39 Oxycodone-Apap 10-325mg 1 Each Tab PO 1 each Q6H PRN Administration Pain Pantoprazole Sodium 40 mg 07/08/21 21:00 07/14/21 09:38 Pantoprazole 40 Mg/10 Ml Vial IVP 40 mg BID OCTAVIO Administration Pramipexole Dihydrochloride 0.25 mg 06/30/21 21:00 07/14/21 09:39 Pramipexole 0.25 Mg Tab PO 0.25 mg BID OCTAVIO Administration Sodium Zirconium Cyclosilicate 10 gm 07/06/21 12:00 07/14/21 09:40 Sodium Zirconium Cyclosilicate 10 Gm Packet PO 10 gm DAILY OCTAVIO Administration Follow up Appointment(s)/Referral(s): Ash Oliveira MD [STAFF PHYSICIAN] - 2 Weeks Quintin Neal MD [Primary Care Provider] - 1-2 days Discharge Disposition: [facility]
[2021-07-14 15:58] VITALS: BP 113/57; TEMP 97.9
[2021-07-14 16:17] VITALS: RESP 18
[2021-07-14] MEDS ORDERED: FUROSEMIDE 10 MG/ML 4 ML VIAL IV STA (16:18)
[2021-07-14 16:28] LABS: Glucose,Whole Blood 158 mg/dL (75-99)
[2021-07-14 16:30] VITALS: PULSE 92
[2021-07-14] MEDS: HYDROPHILIC CREAM 180 GM TUBE TOPICAL SCH (16:55)
--- NOTE | 2021-07-14 18:01 | P.PN ---
Subjective Progress Note Date: 07/14/21 Principal diagnosis: I was asked to evaluate this 85-year-old male patient for an underlying pneumonia and ongoing difficulties in breathing. The patient has multiple medical problems and comorbidities. He is having some cough and a congested cough without ability to produce sputum. Based on that, the patient was given Mucinex 600 mg twice a day and during the course of his illness antibiotics have a modified to include IV meropenem to cover for gram-negative pathogens. The patient is known to have coronary artery disease with previous bypass surgery 4, hypertension, hypertensive heart disease, chronic inflammation/flutter for which the patient is demented on long-term medical condition with warfarin, diabetes mellitus type 2 with diabetic peripheral neuropathy, chronic stage IV kidney disease, obstructive sleep apnea, obesity, CML and history of diverticulosis. The patient had a recent fall and he suffered a left hip fracture and the patient was given a left hip ORIF and during the course of his postsurgical recovery, the patient developed an acute non-ST segment elevation myocardial . The patient was treated medically and the patient was discharged to rehabilitation. During this current admission, the patient considered negative for COVID 19. The chest x-ray at time of admission showed pulmonary vessel congestion and some infiltrates in lung bases bilaterally. She was given IV Lasix. Patient was started also on IV meropenem. The broad-spectrum antibiotics was chosen due to his previous hospitalization and extensive comorbidities. Cultures from the sputum showed Inez. Echocardiogram was repeated during this current admission showed an ejection fraction of 50-55%, mild aortic stenosis, moderate mitral regurgitation, moderate as with regurgitation and moderate degree of portal hypertension. The patient's current hemoglobin is at 7.6. INR is at 2.1. No signs of any bleeding at this point in time. On today's evaluation of 07/06/2021, the patient is being seen for a follow-up. The patient is still having congested cough. Limited from a since yesterday. Remainder IV meropenem. Start the patient on DuoNeb neb last treatment schedule [id number] 4 times a day and the patient is also started on IV Solu- Medrol. The patient remains on IV meropenem. The patient is is not PRODUCING any significant complaints otherwise. He is afebrile. His hemodynamics is stable. The patient has a white cell count of 4.9 with a hemoglobin of 7.9 and platelets of 315. INR from today is at 2.9. This is within therapeutic range. The patient's has no other new complaints otherwise for now. Essentially bedridden. He has multiple medical problems and coronary disease as mentioned above. We were asked to reevaluate the patient today 07/13/2021 as he had gone on to develop GI bleeding. His been having maroon stools. His hemoglobin dropped to 4.9 today. He is receiving his seventh unit of packed red blood cells this a dmission. The plan is for EGD/colonoscopy today by surgical services. GI services are not available. The plan is to transfer the patient to the intensive care unit where we will manage him. White count 14.9. INR 1.5. Sodium 139. Potassium 4.7. BUN 137. Creatinine 2.37. Glucose 116. The jessica verdin is seen today on the selective care unit. He is sitting up in bed. He is awake and alert. Current blood pressure 106/71. Afebrile. He denies any shortness of breath. Denies any chest pain. Denies any dizziness or lightheadedness currently. Chest x-ray reveals evidence of COPD with bilateral lower lobe infiltrates and small effusions. He is maintaining O2 saturations in the low 90s on 2 L nasal cannula. Sputum culture previously was positive for Inez only. He remains on DuoNeb inhalations, Pulmicort inhalations. He is continued on IV diuretics. He is on Lokelma. On 07/14/2021 patient seen in follow-up on selective care unit, patient continues to have bloody bowel movements, he is receiving another unit of blood today for hemoglobin of 6.2, his most recent hemoglobin is 5.9. So far this is his ninth unit of blood. Patient appears to be pale, but he is awake and alert, denies any chest pain, does not appear to be in any acute distress, hemodynamically his blood pressure has been stable, he is not tachycardic, he is afebrile, he is on 2 L of oxygen pulse ox the 100%. He underwent EGD by Dr. Shoemaker yesterday, and was found to have duodenal polypoid lesion, and the clip was placed. Patient had large amount of maroon colored stool throughout his colon during the colonoscopy. Currently patient is being transferred to the [facility] for embolization procedure and a formal GI consultation. He was accepted and she was assigned to bed at [facility], he is currently awaiting results of the COVID-19 testing. Objective - Vital Signs Vital signs: Vital Signs Temp 97.9 F 07/14/21 16:00 Pulse 92 07/14/21 16:30 Resp 18 07/14/21 16:00 BP 113/57 07/14/21 16:00 Pulse Ox 100 07/14/21 16:00 Intake & Output 07/13/21 07/14/21 07/14/21 18:59 06:59 18:59 Intake Total 1490 610 910 Output Total 900 1700 200 Balance 590 -1090 710 Weight 118.5 kg Intake: IV 500 300 prbc 300 Intake, IV Titration 100 Amount Meropenem 1 gm In Sodium 100 Chloride 0.9% 100 ml @ 33 .3 mls/hr IVPB Q12HR [facility] Rx#:[id number] Oral 580 600 Blood Product 310 310 310 Rc As-1 Unit 310 [id number] Rc As-1 Unit 310 [id number] Rc As-1 Unit 0 310 [id number] Output: Urine 900 1700 200 Other: Voiding Method Urinal Urinal Diaper Diaper # Voids 2 1 # Bowel Movements 3 1 - Exam GENERAL EXAM: Alert, very pleasant, 85-year-old white male, pale, but breathing comfortably on 2 L of oxygen the positive for 100% comfortable in no apparent distress. HEAD: Normocephalic/atraumatic. EYES: Normal reaction of pupils, equal size. Conjunctiva pink, sclera white. NOSE: Clear with pink turbinates. THROAT: No erythema or exudates. NECK: No masses, no JVD, no thyroid enlargement, no adenopathy. CHEST: No chest wall deformity. Symmetrical expansion. LUNGS: Equal air entry with no crackles, wheeze, rhonchi or dullness. CVS: Regular rate and rhythm, normal S1 and S2, no gallops, no murmurs, no rubs ABDOMEN: Soft, nontender. No hepatosplenomegaly, normal bowel sounds, no guarding or rigidity. EXTREMITIES: No clubbing, no edema, no cyanosis, 2+ pulses and upper and lower extremities. MUSCULOSKELETAL: Muscle strength and tone normal. SPINE: No scoliosis or deformity SKIN: No rashes CENTRAL NERVOUS SYSTEM: Alert and oriented -3. No focal deficits, tone is normal in all 4 extremities. PSYCHIATRIC: Alert and oriented -3. Appropriate affect. Intact judgment and insight. - Labs CBC & Chem 7: 07/14/21 09:30 07/14/21 09:30 Labs: Abnormal Lab Results - Last 24 Hours (Table) 07/12/21 07/13/21 07/13/21 Range/Units 11:00 20:05 23:15 WBC 12.0 H (3.8-10.6) k/uL RBC 1.88 L (4.30-5.90) m/uL Hgb 6.2 L* (13.0-17.5) gm/dL Hct 18.9 L* (39.0-53.0) % MCV 100.5 H (80.0-100.0) fL RDW 18.2 H (11.5-15.5) % Plt Count 136 L (150-450) k/uL PT (9.0-12.0) sec INR (<1.2) BUN (9-20) mg/dL Creatinine (0.66-1.25) mg/dL Glucose (74-99) mg/dL POC Glucose (mg/dL) 266 H (75-99) mg/dL Calcium (8.4-10.2) mg/dL Crossmatch See Detail 07/14/21 07/14/21 07/14/21 Range/Units 09:30 09:30 11:15 WBC 12.6 H (3.8-10.6) k/uL RBC 1.83 L (4.30-5.90) m/uL Hgb 5.9 L* (13.0-17.5) gm/dL Hct 18.6 L* (39.0-53.0) % MCV 101.3 H (80.0-100.0) fL RDW 18.8 H (11.5-15.5) % Plt Count 149 L (150-450) k/uL PT 16.9 H (9.0-12.0) sec INR 1.7 H (<1.2) BUN 131 H* (9-20) mg/dL Creatinine 2.46 H (0.66-1.25) mg/dL Glucose 134 H (74-99) mg/dL POC Glucose (mg/dL) (75-99) mg/dL Calcium 7.8 L (8.4-10.2) mg/dL Crossmatch 07/14/21 07/14/21 Range/Units 11:39 16:26 WBC (3.8-10.6) k/uL RBC (4.30-5.90) m/uL Hgb (13.0-17.5) gm/dL Hct (39.0-53.0) % MCV (80.0-100.0) fL RDW (11.5-15.5) % Plt Count (150-450) k/uL PT (9.0-12.0) sec INR (<1.2) BUN (9-20) mg/dL Creatinine (0.66-1.25) mg/dL Glucose (74-99) mg/dL POC Glucose (mg/dL) 134 H 158 H (75-99) mg/dL Calcium (8.4-10.2) mg/dL Crossmatch Assessment and Plan Plan: Assessment: #1. Acute hypoxic respiratory failure, the suspicion of lower lobe pneumonia and patient had a limited pulmonary infiltrates and congestive cough. Patient was treated with meropenem. Patient also had a component of CHF with diastolic failure for which he was treated with diuretics and currently he is improved #2. Acute GI blood loss anemia related to a duodenal ulcer status post clipping, status post transfusion with multiple units of packed red blood cells, a total of 9, status post EGD and colonoscopy on 07/13/2021. Awaiting transfer to the [facility] for possible catheter embolization and formal GI consultation #3. Chronic diastolic CHF #4. Coronary artery disease with recent non-ST elevated myocardial infarction, patient has a history of previous coronary artery bypass surgery #5. Chronic stage IV kidney disease #6. Diabetes mellitus type 2 with diabetic peripheral neuropathy #7. 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 Chronic anemia/anemia of chronic disease #10. Chronic A. fib patient was on warfarin for anticoagulation #11. Multiple stage II pressure ulcers involving the right thigh and deep tissue injury involving the heels Plan: No worsening dyspnea Hemodynamically not requiring any pressors Patient has received another unit of blood today for a total of 9 units of packed red blood cells He continues to have maroon-colored stools He is awaiting transfer to the [facility] He was assigned a bed and he is awaiting the results of his COVID-19 testing I performed a history & physical examination of the patient and discussed their management with my nurse practitioner, Yvette Payton. I reviewed the nurse practitioner's note and agree with the documented findings and plan of care. Lung sounds are positive for diffuse wheezes throughout the lung [place]. The findings and the impression was discussed with the patient. I attest to the documentation by the nurse practitioner. Time with Patient: Less than 30
== END 2021-07-14 20:07 | disposition critical access hospital (66) | DRG 291 ==
LOC: EC 12:22 → 3SCARD 15:05
PROVIDERS: ADMIT Internal Medicine; ATTEND Internal Medicine
PROC: 30233N1 Transfusion of Nonautologous Red Blood Cells into Peripheral Vein, Percutaneous Approach (ICD-10-PCS; 2021-07-02)
PROC: 0W3P8ZZ Control Bleeding in Gastrointestinal Tract, Via Natural or Artificial Opening Endoscopic (ICD-10-PCS; principal; 2021-07-13 11:00)
PROC: 0DJD8ZZ Inspection of Lower Intestinal Tract, Via Natural or Artificial Opening Endoscopic (ICD-10-PCS; 2021-07-13 11:00)
DX: I13.0 Hypertensive heart and chronic kidney disease with heart failure and stage 1 through stage 4 chronic kidney disease, or unspecified chronic kidney disease (principal); I50.33 Acute on chronic diastolic (congestive) heart failure; J18.9 Pneumonia, unspecified organism; J96.01 Acute respiratory failure with hypoxia; N17.0 Acute kidney failure with tubular necrosis; K26.4 Chronic or unspecified duodenal ulcer with hemorrhage; D62 Acute posthemorrhagic anemia; N18.4 Chronic kidney disease, stage 4 (severe); I48.19 Other persistent atrial fibrillation; J44.0 Chronic obstructive pulmonary disease with (acute) lower respiratory infection; D68.9 Coagulation defect, unspecified; C92.10 Chronic myeloid leukemia, BCR/ABL-positive, not having achieved remission; Z20.822 Contact with and (suspected) exposure to COVID-19; K44.9 Diaphragmatic hernia without obstruction or gangrene; K31.7 Polyp of stomach and duodenum; K22.2 Esophageal obstruction; I25.10 Atherosclerotic heart disease of native coronary artery without angina pectoris; E11.22 Type 2 diabetes mellitus with diabetic chronic kidney disease; E11.42 Type 2 diabetes mellitus with diabetic polyneuropathy; D63.1 Anemia in chronic kidney disease; E66.01 Morbid (severe) obesity due to excess calories; E78.5 Hyperlipidemia, unspecified; E87.5 Hyperkalemia; G47.33 Obstructive sleep apnea (adult) (pediatric); F32.9 Major depressive disorder, single episode, unspecified; F41.1 Generalized anxiety disorder; G25.81 Restless legs syndrome; G89.4 Chronic pain syndrome; I08.1 Rheumatic disorders of both mitral and tricuspid valves; K21.9 Gastro-esophageal reflux disease without esophagitis; F03.90 Unspecified dementia, unspecified severity, without behavioral disturbance, psychotic disturbance, mood disturbance, and anxiety; I27.20 Pulmonary hypertension, unspecified; K59.00 Constipation, unspecified; L89.611 Pressure ulcer of right heel, stage 1; L89.621 Pressure ulcer of left heel, stage 1; L89.892 Pressure ulcer of other site, stage 2; Z96.653 Presence of artificial knee joint, bilateral; Z95.1 Presence of aortocoronary bypass graft; Z79.01 Long term (current) use of anticoagulants; Z88.0 Allergy status to penicillin; Z88.2 Allergy status to sulfonamides; Z88.8 Allergy status to other drugs, medicaments and biological substances; Z88.1 Allergy status to other antibiotic agents; Z88.3 Allergy status to other anti-infective agents; Z91.041 Radiographic dye allergy status; Z91.040 Latex allergy status; I25.2 Old myocardial infarction; Z74.01 Bed confinement status; Z79.51 Long term (current) use of inhaled steroids; Z79.82 Long term (current) use of aspirin; Z79.899 Other long term (current) drug therapy; Z87.442 Personal history of urinary calculi; Z87.891 Personal history of nicotine dependence; Z82.3 Family history of stroke; Z82.49 Family history of ischemic heart disease and other diseases of the circulatory system; Z83.3 Family history of diabetes mellitus
CPT/HCPCS: 36410; 36415; 43255; 45378; 71045; 71046; 76770; 76937; 80048; 80053; 81003; 82272; 82728; 83540; 83550; 83605; 83735; 83880; 84132; 84484; 85025; 85027; 85610; 85730; 86850; 86900; 86901; 86920; 87040; 87070; 87075; 87205; 87635; 93005; 93306; 94640; 94760; 99285